=== PATIENT | female | born 1945 | race Caucasian/White ===

== ENCOUNTER 2024-07-18 12:01 | Inpatient (IN) | payer OTHER, SELFPAY ==
[2024-07-18] VITALS (9 sets, daily range): BP systolic 68–144; BP diastolic 27–98; PULSE 69–135; RESP 12–20; TEMP 36.4–36.6; O2SAT 93–98; BMI 32.6
--- NOTE | ~2024-07-18 | XR_ITS ---
EXAMINATION: XR CHEST CLINICAL INFORMATION: Chest pain, chills R/O pneumonia COMPARISON: None available. TECHNIQUE: AP portable view of the chest was obtained. FINDINGS: The cardiac, hilar, and mediastinal contours are normal. The aorta is calcified and mildly tortuous. Lungs demonstrate mild linear atelectasis or scar in the left base. Possible patchy opacity retrocardiac region. Lungs otherwise clear. No effusion or pneumothorax. There are degenerative changes in the spine, and left greater than right shoulder joints. XR/XR chest 1V IMPRESSION: 1. Subtle opacity retrocardiac region, for which subtle pneumonia cannot be excluded. A lateral view may be of benefit. 2. Otherwise, the lungs appear clear. Electronically signed by: Jose Roberto Henry MD 07/18/2024 01:26 PM [facility]
--- NOTE | 2024-07-18 12:40 | ED.DIZZY ---
HPI - Dizziness General Chief Complaint: Dizziness Stated Complaint: (NO AGE GIVEN) DIZZY FROM SNF PER EMS Time Seen by Provider: 07/18/24 12:35 History of Present Illness ED Provider: Dr. John Bustillos HPI Narrative: 79-year-old female with a history of depression, GERD, hypothyroidism, muscle wasting atrophy, TIA, hyperlipidemia, mild cognitive impairment, vertigo, atrial fibrillation who was sent to the emergency department for evaluation of near-syncope/syncope/dizziness over the past several weeks with atrial fibrillation noted on EKG done 07/17/2024. EKG interpretation was sent with the patient's paperwork with the following interpretation: ?In comparison to previous EKG, atrial fibrillation now replace normal sinus rhythm. Atrial fibrillation at 144 beats per minute, nonspecific ST and T-wave abnormalities ?. The patient does have a history of atrial fibrillation and this reading most likely reflects paroxysmal atrial fibrillation and not new onset atrial fibrillation. The patient told me that she has been feeling dizzy for weeks. She states that whenever she stands up she feels like she was going to faint. She states that her vision will get blurred or then turned to black and occasionally she does faint. She states she was faint to the few times over the last several weeks with her last fainting episode being yesterday. She states that they did check her blood pressure lying down and standing in her blood pressure went down and that is why they sent her to the emergency department today. She states that over the last 2 days she has had chills with a nonproductive cough. She states she occasionally has chest tightness but this has been going on for months. She denies shortness of breath at rest but states she does feel short of breath when she ambulates. She denied nausea, vomiting, diarrhea, frequency, dysuria, bloody stools or black stools. She states that she has been drinking fluid but it was refused to eat over the last 2-3 days since they are assuming food on plastic due to a broken barrel washer and she refuses to eat food served on plastic. Related Data Allergies Allergy/AdvReac Type Severity Reaction Status Date / Time lactose AdvReac Gastrointestinal Verified 07/18/24 13:08 Upset Review of Systems Review of Systems: Yes all other systems are reviewed and are negative [facility] Past Medical History [facility] Narrative: Social history: Patient states [facility]2 [facility]. She denies tobacco, alcohol and drug use Social History Social History Advance Directives: No Physical Exam Vital Signs: Vital Signs: Last Vital Signs Temp 97.5 F 07/18/24 13:07 Pulse 135 H 07/18/24 13:42 Resp 20 07/18/24 13:07 BP 68/50 L 07/18/24 13:42 Pulse Ox 97 07/18/24 13:07 O2 Del Method Room Air 07/18/24 13:07 BMI result Body Mass Index 32.6 Vital signs were normal Exam: General: Awake, alert in no distress Head: Normocephalic, atraumatic EENT: PERRL, Lids normal, sclera normal, conjunctiva normal, nose normal , ears normal, throat without erythema or exudates Neck: Supple, no adenopathy Lung: breath sounds symmetric, no wheezing, rales or rhonchi Chest: symmetric movement, nontender Heart: regular rate and rhythm, normal S1, S2 no murmurs or rubs Abdomen: soft, mild epigastric tenderness nondistended, normal bowel sounds Back: no vertebral tenderness, no CVAT Extremities: no deformities, moves all extremities symmetrically Neuro: Awake, alert, oriented, normal speech, cranial nerves intact, moves all extremities symmetrically Psych: Pleasant, cooperative Medications Administered Discontinued Medications Generic Name Dose Route Start Last Admin Trade Name Freq PRN Reason Stop Dose Admin Sodium Chloride 1,000 mls @ 999 mls/hr 07/18/24 14:13 07/18/24 14:54 Ns IV 07/18/24 15:13 999 mls/hr .Q1H1M STA Administration Medical Decision Making Medical Decision Making MDM Narrative: 79-year-old female with a history of depression, GERD, hypothyroidism, muscle wasting atrophy, TIA, hyperlipidemia, mild cognitive impairment, vertigo, atrial fibrillation who was sent to the emergency department for evaluation of near-syncope/syncope/dizziness over the past several weeks with atrial fibrillation noted on EKG done 07/17/2024. Nursing notes states that the patient was sent in for new onset atrial fibrillation with a patient was atrial fibrillation listed has a diagnosis and I suspect that she was paroxysmal atrial fibrillation based on yesterday's EKG reading from the retirement. Patient states that she had orthostatic vital signs that were abnormal. Patient has been drinking fluid but she told me she has been refusing to eat for 2-3 days since food has been served on plastic. Vital signs were normal. Physical examination was unremarkable. Differential diagnosis: ?Includes but is not limited to syncope, near-syncope, vasovagal syncope, arrhythmias, volume depletion, dehydration, orthostatic hypotension, anemia, electrolyte abnormalities Following evaluation was ordered: Orthostatic vital signs, EKG, chest x-ray, laboratory evaluation Course: 14:13 Orthostatic vital signs are as follows: Lying: BP 115/77,Heart rate: 102 Sitting: BP 124/83, heart rate 119 Standing: BP 68/50, heart rate 135-160 range Patient was also symptomatic and felt lightheaded. Patient does have orthostatic hypotension. 15:51 hours My interpretation patient's laboratory evaluation as follows: Normocytic anemia with an H&H of 12 and 34.7. Bilirubin elevated 1.1. Troponin detectable but not elevated at 5.1. BNP elevated 351. COVID-19, RSV and influenza were negative. TSH was normal 2.6. Given the patient's with static hypotension and multiple syncopal episodes, I believe the patient should be admitted for cardiac monitoring and further workup. I did discuss patient's presentation over tiger text with the covering hospitalist, Dr. Villalta and the patient will be admitted for further evaluation. Admission/Observation Consideration of admission/observation: Escalation of care including admission/observation considered (Yes) Lab Data MDM Lab Attestation statement: I reviewed the patient's lab results. 07/18/24 14:43 07/18/24 14:43 Labs: Lab Results 07/18/24 Range/Units 14:43 WBC 7.1 (4.8-10.8) X10*3/uL RBC 3.70 L (4.20-5.50) X10*6/uL Hgb 12.2 (12.0-16.0) g/dl Hct 34.7 L (37.0-47.0) % MCV 93.8 (80.0-98.0) fL MCH 33.0 (27.0-33.0) pg MCHC 35.2 H (31.0-35.0) g/dl RDW 11.9 (11.0-16.0) % Plt Count 197 (160-400) X10*3/uL MPV 9.8 (9.4-12.3) fL Immature Gran % (Auto) 0.4 (0.0-0.4) % Neut % (Auto) 60.6 (45-73) % Lymph % (Auto) 32.1 (20-40) % [place] % (Auto) 5.2 (2-11) % Eos % (Auto) 1.0 (0-4) % Baso % (Auto) 0.7 (0-2) % Lymph # (Auto) 2.3 (1.2-4.9) X10*3/uL [place] # (Auto) 0.4 (0.1-1.2) X10*3/uL Eos # (Auto) 0.1 (0.0-0.4) X10*3/uL Baso # (Auto) 0.1 (0.0-0.2) X10*3/uL Abs Immat Gran (auto) 0.03 (0.00-0.03) X10*3/uL Absolute Neuts (auto) 4.3 (2.0-8.3) x10*3/uL Absolute Nucleated RBC 0.000 (0.0-0.012) X10*3/uL Nucleated RBC % (auto) 0.0 (0.0-0.2) /100WBC APTT 26.8 (26.0-36.8) SEC Sodium 137 (135-145) mmol/L Potassium 3.8 (3.3-5.1) mmol/L Chloride 104 (96-108) mmol/L Carbon Dioxide 27 (22-29) mmol/L Anion Gap 10 L (12-20) BUN 11 (9-16) mg/dL Creatinine 0.75 (0.5-1.4) mg/dL Estim Creat Clear Calc 53.5 Estimated GFR > 60 Random Glucose 99 (60-115) mg/dL Calcium 9.5 (8.4-10.2) mg/dL Magnesium 1.7 (1.6-2.6) mg/dL Total Bilirubin 1.1 H (0.0-1.0) mg/dL AST 23 (5-31) U/L ALT 15 (0-31) U/L Alkaline Phosphatase 66 (39-117) U/L Troponin I High Sens 5.1 (<3.5-17.0) ng/L B-Natriuretic Peptide 351 H (<100) pg/mL Total Protein 6.8 (6.5-8.0) g/dL Albumin 4.1 (3.5-5.0) g/dL Lipase 21 (8-78) U/L TSH 2.60 (0.32-4.0) uIU/mL Influenza Type A (PCR) NEGATIVE (Negative) Influenza Type B (PCR) NEGATIVE (Negative) RSV RNA Qual (PCR) NEGATIVE (Negative) SARS-CoV-2 RNA (RT-PCR) NEGATIVE (Negative) Independent Interpretation I performed an independent interpretation of an: EKG and Plain X-Ray Interpretation: My interpretation patient's 12 EKG done at 14:13 hours is as follows: Atrial fibrillation with a rate of 94, normal QRS duration and QTC interval, no ST segment elevation, no ST segment depression, no significant T-wave abnormalities, incomplete right bundle-branch block, no PACs, no PVCs XR chest 1V IMPRESSION: 1. Subtle opacity retrocardiac region, for which subtle pneumonia cannot be excluded. A lateral view may be of benefit. 2. Otherwise, the lungs appear clear. Electronically signed by: Jose Roberto Henry MD 07/18/2024 01:26 PM EST Discharge Plan Discharge Patient Disposition: Admitted As Inpatient Print Language: Luxembourgish
--- NOTE | 2024-07-18 13:06 | ECG_ITS ---
Test Reason : SYNCOPE Blood Pressure : */* mmHG Vent. Rate : 94 BPM Atrial Rate : * BPM P-R Int : * ms QRS Dur : 94 ms QT Int : 374 ms P-R-T Axes : * -57 65 degrees QTcB Int : 467 ms Atrial fibrillation Left axis deviation Incomplete right bundle branch block Abnormal ECG No previous ECGs available Referred By: John Bustillos Electronically Signed By: JEANIE COHEN MD
[2024-07-18 14:50] LABS: MANUAL DIFF FLAG NO
[2024-07-18 14:54] LABS: Basophils Absolute Auto 0.1 X10*3/uL (0.0-0.2); Basophils Percent Auto 0.7 % (0-2); Eosinophils Absolute Auto 0.1 X10*3/uL (0.0-0.4); Hematocrit 34.7 % (37.0-47.0); Hemoglobin 12.2 g/dl (12.0-16.0); Imm Gran Abs Auto 0.03 X10*3/uL (0.00-0.03); Imm Gran Pct Auto 0.4 % (0.0-0.4); Lymphocytes Absolute Auto 2.3 X10*3/uL (1.2-4.9); Lymphocytes Percent Auto 32.1 % (20-40); Mean Corpuscular HGB Conc 35.2 g/dl (31.0-35.0); Mean Corpuscular Volume 93.8 fL (80.0-98.0); Mean Platelet Volume 9.8 fL (9.4-12.3); Monocytes Absolute Auto 0.4 X10*3/uL (0.1-1.2); Monocytes Percent Auto 5.2 % (2-11); Neutrophils Absolute Auto 4.3 x10*3/uL (2.0-8.3); Neutrophils Percent Auto 60.6 % (45-73); Platelet Count 197 X10*3/uL (160-400); Red Cell Distribution Width 11.9 % (11.0-16.0); White Blood Count 7.1 X10*3/uL (4.8-10.8)
[2024-07-18] MEDS: 0.9 % Sodium Chloride 1,000 ML 999 ML IV (14:54)
[2024-07-18 15:05] LABS: Partial Thromboplastin Time 26.8 SEC (26.0-36.8)
[2024-07-18 15:11] LABS: B Type Natriuretic Peptide 351 pg/mL (<100)
[2024-07-18 15:12] LABS: Alanine Aminotransferase 15 U/L (0-31); Albumin Level 4.1 g/dL (3.5-5.0); Alkaline Phosphatase 66 U/L (39-117); Anion Gap 10 (12-20); Aspartate Amino Transferase 23 U/L (5-31); Bilirubin Total 1.1 mg/dL (0.0-1.0); Blood Urea Nitrogen 11 mg/dL (9-16); Calcium 9.5 mg/dL (8.4-10.2); Carbon Dioxide 27 mmol/L (22-29); Chloride 104 mmol/L (96-108); Creatinine Clr Calc Pharmacy 53.5; Estimated Glomerular Filt Rate > 60; Glucose Random 99 mg/dL (60-115); Lipase 21 U/L (8-78); Magnesium 1.7 mg/dL (1.6-2.6); Potassium 3.8 mmol/L (3.3-5.1); Sodium 137 mmol/L (135-145); Total Protein 6.8 g/dL (6.5-8.0)
[2024-07-18 15:13] LABS: Troponin-I High Sensitivity 5.1 ng/L (<3.5-17.0)
[2024-07-18 15:31] LABS: Influenza A PCR NEGATIVE (Negative); Influenza B PCR NEGATIVE (Negative); Resp Syncy Virus RNA Qual PCR NEGATIVE (Negative); SARS COV2 PCR INHOUSE NEGATIVE (Negative)
[2024-07-18 16:15] LABS: Appearance Urine Cloudy; Color Urine Yellow; Glucose Urine UA Negative (Negative); Leukocyte Esterase Urine Moderate (2+) (Negative); Nitrite Urine Negative (Negative); PH 5.5 (5.0-9.0); Specific Gravity - Urine 1.015 (1.005-1.025); UMIC TRIGGER UACC YES; Urine Blood Trace (Negative); Urine Ketones Negative (Negative); Urine Protein Negative (Neg-Trace)
--- NOTE | 2024-07-18 16:15 | MHC.EDTECH ---
this tech and DEQUAN avitia assisted pt to bedpan and pt was able to void and urine sample has been sent to lab
[2024-07-18 16:22] LABS: Bacteria Urine 4+ (None Seen); Hyaline Casts Urine 0-2 /LPF (0-2); RBC Urine 0-2 /HPF (0-2); UACC Culture Trigger YES; WBC Urine 21-50 /HPF (0-5)
--- NOTE | 2024-07-18 16:42 | P.HPHOSP_ITS ---
History of Present Illness Date of Service: 07/18/24 Chief Complaint: orthostatic hypotension An 79 years old lady with PMH of GERD, hypothyroidism, HLD among others who was sent to ED for evaluation of near syncope and feeling dizzy upon standing. The patient reports that she has been having recurrent episodes of dizziness and lightheadedness upon standing up for the last few weeks. reporting decrease physical activity and being unable to stand up as she feels dizzy. No chest pain, palpitations, SOB, nausea, vomiting, diarrhea or urinary symptoms. She is not the best historian so the nursing from facility reported new onset Afib. in ED orthostatic pressure dropped by more than 20 points with associated lightheadedness. will be admitted for evaluation and monitoring. Review of Systems 2 Review of Systems: No fever, chills but feels weakness No chest pain, palpitation No shortness of breath or coughing No abdominal pain, nausea or vomiting No urinary symptoms No any rash or wounds PMFSH Medical History Hypothyroidism COPD (chronic obstructive pulmonary disease) GERD (gastroesophageal reflux disease) Social History Patient Tobacco Use Status: Never used Tobacco Smoked in Last 30 Days: No Use of substances other than those prescribed or required for medical reasons: No Advance Directives: No Nutrition Risks: No Nutritional Risk Meds Allergies Allergy/AdvReac Type Severity Reaction Status Date / Time lactose AdvReac Gastrointestinal Verified 07/18/24 13:08 Upset Active Medications: Current Medications Acetaminophen (Acetaminophen 325 Mg Tablet) 650 mg PO Q6H PRN PRN Reason: Pain, Mild 1-3,fever,headache Calcium Carbonate (Calcium Carbonate 750 Mg Tab.Chew) 750 mg PO Q4H PRN PRN Reason: Heartburn Enoxaparin Sodium (Enoxaparin Sodium 40 Mg/0.4 Ml Syringe) 40 mg SUBCUT Q24H RAINE Lactated Ringer's (Lr) 1,000 mls @ 100 mls/hr IVCONT .Q10H RAINE Magnesium Hydroxide (Milk Of Magnesia 30 Ml Oral.Susp) 30 ml PO DAILY PRN PRN Reason: Constipation Melatonin (Melatonin 3 Mg Tablet) 6 mg PO BEDTIME PRN PRN Reason: Insomnia Midodrine (Midodrine Hcl 5 Mg Tablet) 5 mg PO TID [facility] Ondansetron HCl (Ondansetron Hcl 4 Mg/2 Ml Vial) 4 mg IVPUSH Q8H PRN PRN Reason: Nausea and Vomiting Sodium Chloride (0.9 % Sodium Chloride Flush 3 Ml Syringe) 3 ml IVFLUSH QSHIFT [facility] Home Medications ?Medication ?Instructions ?Recorded ?Confirmed ?Last Taken ?Type acetaminophen 325 mg tablet 650 mg PO Q4H PRN Fever Or Pain 07/18/24 07/18/24 Unknown History acetaminophen 500 mg tablet 1,000 mg PO BID 07/18/24 07/18/24 Unknown History acetaminophen 650 mg rectal 650 mg MO Q4H PRN Fever Or Pain 07/18/24 07/18/24 Unknown History suppository albuterol sulfate 90 mcg/actuation 1 inh inhalation Q4H PRN Shortness 07/18/24 07/18/24 Unknown History aerosol inhaler (Ventolin HFA) Of Breath Or Wheezing aspirin 81 mg chewable tablet 81 mg PO DAILY 07/18/24 07/18/24 Unknown History atorvastatin 20 mg tablet 20 mg PO DAILY 07/18/24 07/18/24 Unknown History bisacodyl 10 mg rectal suppository 10 mg MO DAILY PRN Constipation 07/18/24 07/18/24 Unknown History buspirone 10 mg tablet 10 mg PO Q8H 07/18/24 07/18/24 Unknown History cetirizine 10 mg tablet 10 mg PO DAILY 07/18/24 07/18/24 Unknown History cyanocobalamin (vitamin B-12) 1,000 mcg PO DAILY 07/18/24 07/18/24 Unknown History 1,000 mcg tablet,extended release (Vitamin B-12 ER) diclofenac sodium 1 % topical gel 4 g topical BID 07/18/24 07/18/24 Unknown History esomeprazole magnesium 20 mg 20 mg PO DAILY 07/18/24 07/18/24 Unknown History granules delayed release for susp fluticasone propionate 50 1 spray intranasal BID 07/18/24 07/18/24 Unknown History mcg/actuation nasal spray,suspension guaifenesin 100 mg/5 mL oral liquid 200 mg PO Q4H PRN Cough 07/18/24 07/18/24 Unknown History hydrocortisone 1 % topical cream 1 appl topical Q8H PRN Rash 07/18/24 07/18/24 Unknown History ipratropium 20 mcg-albuterol 100 2 puff inhalation Q4H PRN 07/18/24 07/18/24 Unknown History mcg/actuation mist for inhalation Shortness Of Breath Or Wheezing (Combivent Respimat) levothyroxine 75 mcg tablet 75 mcg PO DAILY@0600 07/18/24 07/18/24 Unknown History loteprednol etabonate 0.5 % eye 1 drp ophthalmic (eye) BID 07/18/24 07/18/24 Unknown History gel drops magnesium hydroxide 400 mg/5 mL 30 ml PO DAILY PRN Constipation 07/18/24 07/18/24 Unknown History oral suspension (Milk of Magnesia) meclizine 12.5 mg tablet 12.5 mg PO Q8H PRN Dizziness 07/18/24 07/18/24 Unknown History melatonin 5 mg tablet 10 mg PO BEDTIME 07/18/24 07/18/24 Unknown History ondansetron HCl 8 mg tablet 8 mg PO Q8H PRN Nausea And Vomiting 07/18/24 07/18/24 Unknown History polyvinyl alcohol 1.4 % eye drops 1 drp ophthalmic (eye) TID PRN Dry 07/18/24 07/18/24 Unknown History (Artificial Tears (polyvinyl Eyes alcohol)) prazosin 2 mg capsule 2 mg PO BEDTIME 07/18/24 07/18/24 Unknown History sertraline 25 mg tablet 50 mg PO DAILY 07/18/24 07/18/24 Unknown History sodium phosphates 19 gram-7 118 ml MO DAILY PRN Constipation 07/18/24 07/18/24 Unknown History gram/118 mL enema (Fleet Enema) tramadol 50 mg tablet 50 mg PO BID 07/18/24 07/18/24 Unknown History trazodone 50 mg tablet 25 mg PO BID 07/18/24 07/18/24 Unknown History verapamil 80 mg tablet 80 mg PO BID 07/18/24 07/18/24 Unknown History Physical Exam 2 Vital Signs and Narrative: Vital Signs: Last Vital Signs Temp 97.5 F 07/18/24 13:07 Pulse 117 H 07/18/24 16:05 Resp 18 07/18/24 16:05 BP 104/27 L 07/18/24 16:05 Pulse Ox 98 07/18/24 16:05 O2 Del Method Room Air 07/18/24 16:05 BMI result Body Mass Index 32.6 Const: Other: Constitutional : Awake, interactive, not in distress Neck : Normal inspection, Supple Cardiovascular : irregular irregular, no JVP, no lower extremity edema Respiratory : good bilateral air entry, fine crackles, wheezes or rhonchi Gastrointestinal: soft, lax, Normal bowel sounds, Non tender Skin : Warm, Dry Neurological : Alert & oriented x3, No focal deficit Results Labs 07/19/24 05:15 07/19/24 05:15 Labs: Laboratory Results - last 24 hr 07/18/24 07/18/24 14:43 16:07 MCV 93.8 MCH 33.0 MCHC 35.2 H RDW 11.9 Plt Count 197 MPV 9.8 Immature Gran % (Auto) 0.4 Neut % (Auto) 60.6 Lymph % (Auto) 32.1 [place] % (Auto) 5.2 Eos % (Auto) 1.0 Baso % (Auto) 0.7 Lymph # (Auto) 2.3 [place] # (Auto) 0.4 Eos # (Auto) 0.1 Baso # (Auto) 0.1 Abs Immat Gran (auto) 0.03 Absolute Neuts (auto) 4.3 Absolute Nucleated RBC 0.000 Nucleated RBC % (auto) 0.0 APTT 26.8 Anion Gap 10 L Estim Creat Clear Calc 53.5 Estimated GFR > 60 Random Glucose 99 Calcium 9.5 Magnesium 1.7 Total Bilirubin 1.1 H AST 23 ALT 15 Alkaline Phosphatase 66 Troponin I High Sens 5.1 B-Natriuretic Peptide 351 H Total Protein 6.8 Albumin 4.1 Lipase 21 TSH 2.60 Urine Color Yellow Urine Appearance Cloudy Urine pH 5.5 Ur Specific [place] 1.015 Urine Protein Negative Urine Glucose (UA) Negative Urine Ketones Negative Urine Blood Trace H Urine Nitrite Negative Ur Leukocyte Esterase Moderate (2+) H Urine RBC 0-2 Urine WBC 21-50 H Ur Squamous Epith Cells 3-5 Urine Bacteria 4+ Hyaline Casts 0-2 Influenza Type A (PCR) NEGATIVE Influenza Type B (PCR) NEGATIVE RSV RNA Qual (PCR) NEGATIVE SARS-CoV-2 RNA (RT-PCR) NEGATIVE Imaging Radiologist's Impressions: Impressions Chest X-Ray 07/18/24 13:06 IMPRESSION: 1. Subtle opacity retrocardiac region, for which subtle pneumonia cannot be excluded. A lateral view may be of benefit. 2. Otherwise, the lungs appear clear. Electronically signed by: Jose Roberto Henry MD 07/18/2024 01:26 PM EST Assessment and Plan (1) Atrial fibrillation: Status: Acute (2) Syncope: Status: Acute (3) Orthostatic hypotension: Status: Acute Plan An 81 years old lady with PMH of dementia, GERD, anxiety, scoliosis, COPD, HLD, HTN among others who presented to ED with difficulties swallowing and left sided weakness. Postural hypotension could be related to physical decoditioning, HTN medications and new Afib give fluids Midodrine for low BP compression stocking physical therapy High protein diet Hx of paroxysmal Atrial fibrillation rate around 100-110 on Baby Aspirin only from SNF report, discussed Eliquis and started get Echo Telemetry for now GERD, PPI Hx COPD, not in exacerbation, PRN nebs Hx TIA, ASA and Statin Depression, Sertrakube HTN, Verapamil on hold DVT PPx Eliquis The patient will be monited for the listed abnormalitis. Quality Stroke Does the patient have a stroke diagnosis?: No VTE Prior VTE?: No VTE Risk Level:: Medical - moderate - high VTE Device Contraindication: Treatment Not Indicated VTE Drug Contraindication: N/A - Med Ordered
--- OUTSIDE RECORDS SUMMARY | 2024-07-18 16:47 | XMS_ITS | Clinical Summary ---
Author Organization [facility] Address [address] [place] [address] Phone Care Team Providers Care Flight Director Name Role Phone Joshua White MD Primary Care Provider [phone] Encounters Date Type Department Care Team Description 07/17/2024 Lab Requisition [facility] Lab [address] [place] [address] Joshua White MD Unspecified atrial fibrillation (CMS/HCC) 07/17/2024 Lab Requisition [facility] Lab [address] [place] [address] Joshua White MD Dizziness and giddiness; Benign paroxysmal vertigo, unspecified ear from Last 3 Months Social History Tobacco Use Types Packs/Day Years Used Date Smoking Tobacco: Never Assessed Sex and Gender Information Value Date Recorded Sex Assigned at Not on file Gender Identity Not on file Sexual Orientation Not on file Plan of Treatment Health Maintenance Due Date Last Done Comments DTaP,Tdap,and Td Vaccines (1 - Tdap) 1962 Zoster Vaccines (1 of 2) 1993 Pneumococcal Vaccine: 65+ Ye ars (1 of 1 - PCV) 2008 RSV Immunization Patients 60 + Years Old (1 - 1-dose 75+ series) 2018 COVID-19 Vaccine ( - 2023-2 5 season) 2024 Influenza Vaccine (#1) 2024 Depression Screening 07/17/2024 Falls Risk Assessment 07/17/2024 Osteoporosis Screening (Bone Density Screening) 07/17/2024 Social Influencers of Health Screening 07/17/2024 HIB Vaccines Aged Out No longer eligi ble based on patient's age to complete this topic HPV Vaccines Aged Out No longer eligi ble based on patient's age to complete this topic Hepatitis A Vaccines Aged Out No long er eligible based on patient's age to complete this topic Hepatitis B Vaccines Aged Out No long er eligible based on patient's age to complete this topic IPV Vaccines Aged Out No longer eligi ble based on patient's age to complete this topic MMR Vaccines Aged Out No longer eligi ble based on patient's age to complete this topic Meningococcal ACWY Vaccine Aged Out N o longer eligible based on patient's age to complete this topic RSV Immunization Patients Un baljit 20 months Aged Out No longer eligible b ased on patient's age to complete this topic Varicella Vaccines Aged Out No longer eligible based on patient's age to complete this topic Procedures Procedure Name Priority Date/Time Associated Diagnosis Comments BASIC METABOLIC PANEL Routine 07/18/2024 7:48 AM EST Unspecified atrial fibrillation (CMS/HCC) COMPLETE BLOOD COUNT Routine 07/18/2024 7:48 AM EST Unspecified atrial fibrillation (CMS/HCC) URINALYSIS WITH REFLEX MICROSCOPIC AND CULTURE Routine 07/16/2024 4:23 PM EST Dizziness and giddiness Benign paroxysmal vertigo, unspecified ear URINALYSIS WITH REFLEX MICROSCOPIC AND CULTURE Routine 07/16/2024 4:23 PM EST Dizziness and giddiness Benign paroxysmal vertigo, unspecified ear CULTURE URINE Routine 07/16/2024 4:23 PM EST Dizziness and giddiness Benign paroxysmal vertigo, unspecified ear from Last 3 Months Results * (ABNORMAL) Complete blood count (07/18/2024 7:48 AM EST) WBC 6.4 4.8 - 10.8 K/mcL LAB HEMETOLOGY METHOD 07/18/2024 11:39 AM EST [facility] RBC 3.70(L) 3.80 - 4.80 M/mcL LAB HEMETOLOGY METHOD 07/18/2024 11:39 AM EST [facility] Hemoglobin 12.2 11.5 - 16.0 g/dL LAB HEMETOLOGY METHOD 07/18/2024 11:39 AM EST [facility] Hematocrit 35.9 35.0 - 47.0 % LAB HEMETOLOGY METHOD 07/18/2024 11:39 AM [facility] MCV 96.2 79.0 - 98.0 FL LAB HEMETOLOGY METHOD 07/18/2024 11:39 AM [facility] MCH 32.7(H) 27.0 - 32.0 pcg LAB HEMETOLOGY METHOD 07/18/2024 11:39 AM EST [facility] MCHC 34.0 32.0 - 37.0 g/dL LAB HEMETOLOGY METHOD 07/18/2024 11:39 AM [facility] RDW 11.9 11.0 - 15.0 % LAB HEMETOLOGY METHOD 07/18/2024 11:39 AM [facility] Platelets 198 130 - 400 K/mcL LAB HEMETOLOGY METHOD 07/18/2024 11:39 AM EST [facility] MPV 10.7 7.0 - 11.0 FL LAB HEMETOLOGY METHOD 07/18/2024 11:39 AM [facility] NRBC 0.0 <1.0 % LAB HEMETOLOGY METHOD 07/18/2024 11:39 AM [facility] NRBC Absolute 0.00 <0.10 K/mcL LAB HEMETOLOGY METHOD 07/18/2024 11:39 AM [facility] Blood Venous blood specimen / Unknown Venipuncture / Unknown 07/18/2024 7:48 AM EST 07/18/2024 11:13 AM EST Joshua White MD LAB BLOOD ORDERABLES [facility] LAB [address] [place] [address], * Basic metabolic panel (07/18/2024 7:48 AM EST) Sodium 138 133 - 145 mmol/L LAB CHEMISTRY METHOD 07/18/2024 2:24 PM [facility] Potassium 3.8 3.5 - 5.5 mmol/L LAB CHEMISTRY METHOD 07/18/2024 2:24 PM [facility] Chloride 106 96 - 110 mmol/L LAB CHEMISTRY METHOD 07/18/2024 2:24 PM [facility] CO2 24 21 - 32 mmol/L LAB CHEMISTRY METHOD 07/18/2024 2:24 PM [facility] Anion Gap 8 3 - 11 LAB CHEMISTRY METHOD 07/18/2024 2:24 PM [facility] Glucose 98 70 - 100 mg/dL LAB CHEMISTRY METHOD 07/18/2024 2:24 PM [facility] BUN 11 5 - 25 mg/dL LAB CHEMISTRY METHOD 07/18/2024 2:24 PM [facility] Creatinine 0.61 0.50 - 1.10 mg/dL LAB CHEMISTRY METHOD 07/18/2024 2:24 PM [facility] eGFR 90 >=60 mL/min/1. 73m2 LAB CHEMISTRY METHOD 07/18/2024 2:24 PM [facility] Comment:Calculation based on the??Chronic Kidney Disease Epidemiology Collaboration (CKD-EPI) equation refit??without adjustment for race. BUN/Creatinine Ratio 18.0 LAB CHEMISTRY METHOD 07/18/2024 2:24 PM [facility] Calcium 8.5 8.5 - 10.5 mg/dL LAB CHEMISTRY METHOD 07/18/2024 2:24 PM [facility] Blood Venous blood specimen / Unknown Venipuncture / Unknown 07/18/2024 7:48 AM EST 07/18/2024 11:13 AM EST Joshua White MD LAB BLOOD ORDERABLES [facility] [address] [place] [address], [place] [phone] * (ABNORMAL) Urinalysis with reflex microscopic and culture (07/16/2024 4:23 PM EST) Specific [place] Urine 1.019 1.003 - 1.030 LAB URINALYSIS - AUTOMATED METHOD 07/17/2024 8:43 AM [facility] pH, Urine 5.5 5.0 - 8.0 pH LAB URINALYSIS - AUTOMATED METHOD 07/17/2024 8:43 AM [facility] Leukocytes, Urine Moderate(A) Negative LAB URINALYSIS - AUTOMATED METHOD 07/17/2024 8:43 AM [facility] Nitrite, Urine Positive(A) Negative LAB URINALYSIS - AUTOMATED METHOD 07/17/2024 8:43 AM [facility] Protein, Urine Negative <=Trace mg/dL LAB URINALYSIS - AUTOMATED METHOD 07/17/2024 8:43 AM [facility] Glucose, Urine Negative Negative mg/dL LAB URINALYSIS - AUTOMATED METHOD 07/17/2024 8:43 AM [facility] Ketones, Urine Negative Negative mg/dL LAB URINALYSIS - AUTOMATED METHOD 07/17/2024 8:43 AM [facility] Urobilinogen , Urine 0.2 0.2 - 1.0 mg/dL LAB URINALYSIS - AUTOMATED METHOD 07/17/2024 8:43 AM [facility] Bilirubin, Urine Negative Negative LAB URINALYSIS - AUTOMATED METHOD 07/17/2024 8:43 AM [facility] Blood, Urine Trace(A) Negative LAB URINALYSIS - AUTOMATED METHOD 07/17/2024 8:43 AM [facility] RBC, Urine 2.6 0 - 4 /HPF LAB URINALYSIS - AUTOMATED METHOD 07/17/2024 8:43 AM [facility] WBC, Urine 22.6(H) 0 - 4 /HPF LAB URINALYSIS - AUTOMATED METHOD 07/17/2024 8:43 AM [facility] Squamous Epithelial, Urine 28 0 - 60 /LPF LAB URINALYSIS - AUTOMATED METHOD 07/17/2024 8:43 AM [facility] Crystals, Urine LT CALCIUM OXALATE /LPF LAB URINALYSIS - AUTOMATED METHOD 07/17/2024 8:43 AM [facility] Bacteria, Urine Many(A) Negative /HPF LAB URINALYSIS - AUTOMATED METHOD 07/17/2024 8:43 AM [facility] Hyaline Casts, Urine 3.3(H) 0 - 3 /LPF LAB URINALYSIS - AUTOMATED METHOD 07/17/2024 8:43 AM [facility] Urine Urine specimen obtained by clean catch procedure / Unknown Non-blood Collection / Unknown 07/16/2024 4:23 PM EST 07/17/2024 7:50 AM EST Joshua White MD LAB URINE ORDERABLES [facility] LAB [address] [place] [address], from Last 3 Months Care Teams Flight Director Relationship Specialty Start Date End Date Joshua Whiet MD [address] [facility] [address] [place] [id number] PCP - General Family Medicine 07/17/24
--- OUTSIDE RECORDS SUMMARY | 2024-07-18 16:47 | XMS_ITS | Encounter Summary ---
Author Organization [facility] Address [address] [place] [address] Care Team Providers Care Emergency Room Clerk Name Role Phone Joshua White MD Primary Care Provider [phone] Encounter Details Date Type Department Care Team (Late st Contact Info) Description 07/17/2024 Lab Requisition [facility] Lab [address] [place] [address] Joshua White MD [address] [place] [address] [address] [place], [address] Unspecified atrial fibrillation (CMS/HCC) Social History Tobacco Use Types Packs/Day Years Used Date Smoking Tobacco: Never Assessed Sex and Gender Information Value Date Recorded Sex Assigned at Not on file Gender Identity Not on file Sexual Orientation Not on file documented as of this encounter Plan of Treatment Not on file documented as of this encounter Procedures Procedure Name Priority Date/Time Associated Diagnosis Comments COMPLETE BLOOD COUNT Routine 07/18/2024 7:48 AM EST Unspecified atrial fibrillation (CMS/HCC) BASIC METABOLIC PANEL Routine 07/18/2024 7:48 AM EST Unspecified atrial fibrillation (CMS/HCC) documented in this encounter Results * Basic metabolic panel (07/18/2024 7:48 AM EST) Sodium 138 133 - 145 mmol/L LAB CHEMISTRY METHOD 07/18/2024 2:24 PM EST [facility] Potassium 3.8 3.5 - 5.5 mmol/L LAB CHEMISTRY METHOD 07/18/2024 2:24 PM EST [facility] Chloride 106 96 - 110 mmol/L LAB CHEMISTRY METHOD 07/18/2024 2:24 PM EST [facility] CO2 24 21 - 32 mmol/L LAB CHEMISTRY METHOD 07/18/2024 2:24 PM [facility] Anion Gap 8 3 - 11 LAB CHEMISTRY METHOD 07/18/2024 2:24 PM [facility] Glucose 98 70 - 100 mg/dL LAB CHEMISTRY METHOD 07/18/2024 2:24 PM [facility] BUN 11 5 - 25 mg/dL LAB CHEMISTRY METHOD 07/18/2024 2:24 PM [facility] Creatinine 0.61 0.50 - 1.10 mg/dL LAB CHEMISTRY METHOD 07/18/2024 2:24 PM [facility] eGFR 90 >=60 mL/min/1. 73m2 LAB CHEMISTRY METHOD 07/18/2024 2:24 PM [facility] Comment:Calculation based on the??Chronic Kidney Disease Epidemiology Collaboration (CKD-EPI) equation refit??without adjustment for race. BUN/Creatinine Ratio 18.0 LAB CHEMISTRY METHOD 07/18/2024 2:24 PM [facility] Calcium 8.5 8.5 - 10.5 mg/dL LAB CHEMISTRY METHOD 07/18/2024 2:24 PM [facility] Blood Venous blood specimen / Unknown Venipuncture / Unknown 07/18/2024 7:48 AM EST 07/18/2024 11:13 AM EST Joshua White MD LAB BLOOD ORDERABLES [facility] LAB [address] [place] [address], * (ABNORMAL) Complete blood count (07/18/2024 7:48 AM EST) WBC 6.4 4.8 - 10.8 K/mcL LAB HEMETOLOGY METHOD 07/18/2024 11:39 AM EST [facility] RBC 3.70(L) 3.80 - 4.80 M/mcL LAB HEMETOLOGY METHOD 07/18/2024 11:39 AM [facility] Hemoglobin 12.2 11.5 - 16.0 g/dL LAB HEMETOLOGY METHOD 07/18/2024 11:39 AM [facility] Hematocrit 35.9 35.0 - 47.0 % LAB HEMETOLOGY METHOD 07/18/2024 11:39 AM [facility] MCV 96.2 79.0 - 98.0 FL LAB HEMETOLOGY METHOD 07/18/2024 11:39 AM [facility] MCH 32.7(H) 27.0 - 32.0 pcg LAB HEMETOLOGY METHOD 07/18/2024 11:39 AM [facility] MCHC 34.0 32.0 - 37.0 g/dL LAB HEMETOLOGY METHOD 07/18/2024 11:39 AM [facility] RDW 11.9 11.0 - 15.0 % LAB HEMETOLOGY METHOD 07/18/2024 11:39 AM [facility] Platelets 198 130 - 400 K/mcL LAB HEMETOLOGY METHOD 07/18/2024 11:39 AM [facility] MPV 10.7 7.0 - 11.0 FL LAB HEMETOLOGY METHOD 07/18/2024 11:39 AM [facility] NRBC 0.0 <1.0 % LAB HEMETOLOGY METHOD 07/18/2024 11:39 AM [facility] NRBC Absolute 0.00 <0.10 K/mcL LAB HEMETOLOGY METHOD 07/18/2024 11:39 AM [facility] Blood Venous blood specimen / Unknown Venipuncture / Unknown 07/18/2024 7:48 AM EST 07/18/2024 11:13 AM EST Joshua White MD LAB BLOOD ORDERABLES [facility] LAB [address] [place] [address], documented in this encounter Visit Diagnoses Diagnosis Unspecified atrial fibrillation (CMS/HCC) documented in this encounter Care Teams Emergency Room Clerk Relationship Specialty Start Date End Date Joshua White MD [address] [place] [phone] PCP - General Family Medicine 07/17/24 documented as of this encounter
--- OUTSIDE RECORDS SUMMARY | 2024-07-18 16:47 | XMS_ITS | Encounter Summary ---
Author Organization [facility] Address [address] [place] [address] Care Team Providers Care Recycle Driver Name Role Phone Joshua White MD Primary Care Provider [phone] Encounter Details Date Type Department Care Team (Late st Contact Info) Description 07/17/2024 Lab Requisition [facility] Lab [address] [facility] [place] [address] Joshua White MD [address] [facility] [address] [place], [address] Dizziness and giddiness; Benign paroxysmal vertigo, unspecified ear Social History Tobacco Use Types Packs/Day Years Used Date Smoking Tobacco: Never Assessed Sex and Gender Information Value Date Recorded Sex Assigned at Not on file Gender Identity Not on file Sexual Orientation Not on file documented as of this encounter Plan of Treatment Pending Results Name Type Priority Associated Diagnoses Date /Time Culture urine Microbiology Routine Dizziness and giddiness Benign paroxysmal vertigo, unspecified ear 07/16/2024 4:23 PM EST documented as of this encounter Procedures Procedure Name Priority Date/Time Associated Diagnosis Comments URINALYSIS WITH REFLEX MICROSCOPIC AND CULTURE Routine 07/16/2024 4:23 PM EST Dizziness and giddiness Benign paroxysmal vertigo, unspecified ear URINALYSIS WITH REFLEX MICROSCOPIC AND CULTURE Routine 07/16/2024 4:23 PM EST Dizziness and giddiness Benign paroxysmal vertigo, unspecified ear CULTURE URINE Routine 07/16/2024 4:23 PM EST Dizziness and giddiness Benign paroxysmal vertigo, unspecified ear documented in this encounter Results * (ABNORMAL) Urinalysis with reflex microscopic and culture (07/16/2024 4:23 PM EST) Specific [place] Urine 1.019 1.003 - 1.030 LAB URINALYSIS - AUTOMATED METHOD 07/17/2024 8:43 AM [facility] pH, Urine 5.5 5.0 - 8.0 pH LAB URINALYSIS - AUTOMATED METHOD 07/17/2024 8:43 AM [facility] Leukocytes, Urine Moderate(A) Negative LAB URINALYSIS - AUTOMATED METHOD 07/17/2024 8:43 AM [facility] Nitrite, Urine Positive(A) Negative LAB URINALYSIS - AUTOMATED METHOD 07/17/2024 8:43 AM [facility] Protein, Urine Negative <=Trace mg/dL LAB URINALYSIS - AUTOMATED METHOD 07/17/2024 8:43 AM [facility] Glucose, Urine Negative Negative mg/dL LAB URINALYSIS - AUTOMATED METHOD 07/17/2024 8:43 AM [facility] Ketones, Urine Negative Negative mg/dL LAB URINALYSIS - AUTOMATED METHOD 07/17/2024 8:43 AM [facility] Urobilinogen , Urine 0.2 0.2 - 1.0 mg/dL LAB URINALYSIS - AUTOMATED METHOD 07/17/2024 8:43 AM [facility] Bilirubin, Urine Negative Negative LAB URINALYSIS - AUTOMATED METHOD 07/17/2024 8:43 AM [facility] Blood, Urine Trace(A) Negative LAB URINALYSIS - AUTOMATED METHOD 07/17/2024 8:43 AM [facility] RBC, Urine 2.6 0 - 4 /HPF LAB URINALYSIS - AUTOMATED METHOD 07/17/2024 8:43 AM [facility] WBC, Urine 22.6(H) 0 - 4 /HPF LAB URINALYSIS - AUTOMATED METHOD 07/17/2024 8:43 AM [facility] Squamous Epithelial, Urine 28 0 - 60 /LPF LAB URINALYSIS - AUTOMATED METHOD 07/17/2024 8:43 AM [facility] Crystals, Urine LT CALCIUM OXALATE /LPF LAB URINALYSIS - AUTOMATED METHOD 07/17/2024 8:43 AM [facility] Bacteria, Urine Many(A) Negative /HPF LAB URINALYSIS - AUTOMATED METHOD 07/17/2024 8:43 AM [facility] Hyaline Casts, Urine 3.3(H) 0 - 3 /LPF LAB URINALYSIS - AUTOMATED METHOD 07/17/2024 8:43 AM [facility] Urine Urine specimen obtained by clean catch procedure / Unknown Non-blood Collection / Unknown 07/16/2024 4:23 PM EST 07/17/2024 7:50 AM EST Joshua White MD LAB URINE ORDERABLES [facility] [address] [place] [address], documented in this encounter Visit Diagnoses Diagnosis Dizziness and giddiness Benign paroxysmal vertigo, unspecified ear documented in this encounter Care Teams Recycle Driver Relationship Specialty Start Date End Date Joshua White MD [address] [place] [phone] PCP - General Family Medicine 07/17/24 documented as of this encounter
[2024-07-18] MEDS: Lactated Ringers 1,000 ML 100 ML IVCONT (17:16)
[2024-07-18] MEDS: Midodrine HCl 5 MG TABLET PO ×2 (17:31→22:33)
--- NOTE | 2024-07-18 18:54 | PHA.MEDREC ---
Pharmacy Consult ? Medication Reconciliation Pharmacy has completed the medication reconciliation, using med list from [facility].
[2024-07-18] MEDS: Acetaminophen 325 MG TABLET 650 MG PO (22:32)
[2024-07-18] MEDS: Melatonin 3 MG TABLET 9 MG PO (22:32)
[2024-07-18] MEDS: busPIRone HCl 10 MG TABLET PO (22:33)
[2024-07-18] MEDS: Apixaban 5 MG TABLET PO (22:33)
[2024-07-18] MEDS: traMADoL HCL 50 MG TABLET PO (22:33)
--- NOTE | 2024-07-18 23:37 | PC.NURSE ---
assist pt to bedside commode, HR up to 145 at that time. pt now back in bed resting comfortably, call herve w/in reach, no apparent distress noted at this time
[2024-07-19] VITALS (9 sets, daily range): BP systolic 99–147; BP diastolic 68–100; PULSE 72–160; RESP 16–20; TEMP 36.3–37; O2SAT 93–96; BMI 21.1
[2024-07-19] MEDS: Lactated Ringers 1,000 ML 100 ML IVCONT (03:56)
[2024-07-19 05:40] LABS: Hemoglobin 11.4 g/dl (12.0-16.0); Mean Corpuscular HGB Conc 33.5 g/dl (31.0-35.0); Mean Corpuscular Hemoglobin 32.3 pg (27.0-33.0); Mean Corpuscular Volume 96.3 fL (80.0-98.0); Mean Platelet Volume 9.6 fL (9.4-12.3); Platelet Count 182 X10*3/uL (160-400); Red Blood Count 3.53 X10*6/uL (4.20-5.50); Red Cell Distribution Width 11.9 % (11.0-16.0); White Blood Count 5.8 X10*3/uL (4.8-10.8)
[2024-07-19 05:52] LABS: Anion Gap 12 (12-20); Blood Urea Nitrogen 9 mg/dL (9-16); Calcium 8.6 mg/dL (8.4-10.2); Carbon Dioxide 25 mmol/L (22-29); Chloride 109 mmol/L (96-108); Creatinine Clr Calc Pharmacy 56.4; Estimated Glomerular Filt Rate > 60; Glucose Random 91 mg/dL (60-115); Potassium 3.7 mmol/L (3.3-5.1); Sodium 142 mmol/L (135-145)
[2024-07-19] MEDS: Omeprazole 20 MG CAPSULE.DR PO (06:48)
[2024-07-19] MEDS: Levothyroxine Sodium 75 MCG TABLET PO (06:48)
--- NOTE | 2024-07-19 07:00 | CA_ITS ---
Transthoracic Echocardiogram Patient (Last, First, Middle): Tracy Hanna, Gender: Female Date of : 1945 Age: 79 Procedure Date: 07/19/2024 Procedure Type: Transthoracic Echocardiogram Location: ER Height: 152.4 cm Weight: 75.3 kg BSA: 1.72 m2 Heart Rate: 125 bpm BP: 138 / 95 mmHg Volcanology Teacher: JUAN Schwartz MD: Sander Villalta MD Medical Social Worker: Bob Root MD Symptoms: Atrial fibrillation Study Quality: Technically Difficult ECG Rhythm: Atrial Fibrillation w RVR Conclusions: - 1. Technically difficult study to interpret due to rapid atrial fibrillation as well as off axis views 2. LV ejection fraction is probably mildly reduced at LVEF of 45 50% 3. Cardiac valvular Dopplers within normal limits 4. Normal measured RV systolic pressure Findings Left Ventricle Normal left ventricular cavity size. The left ventricular systolic function is mildly decreased. The visually estimated ejection fraction is between 45 50%. Regional wall motion abnormalities can not be excluded due to suboptimal endocardial definition. Diastolic function is indeterminate on the basis of available data. Right Ventricle The right ventricle was not well visualized. Atria The left atrium is likely dilated. Interatrial shunt cannot be excluded. The right atrium was not well visualized. Aortic Valve The aortic valve was not well visualized. There is no aortic valve stenosis. There is no aortic valve regurgitation. Mitral Valve The mitral valve was not well visualized. There is no mitral valve stenosis. Pulmonic Valve The pulmonic valve was not well visualized. Tricuspid Valve The tricuspid valve was not well visualized. The right ventricular systolic pressure is 24 mmHg. Normal right atrial pressure. There is no evidence of pulmonary hypertension. Great Vessels The aorta was not well visualized. The pulmonary artery was not well visualized. There is no dilatation of the ascending aorta measuring 3.10 cm. Venous The inferior vena cava is normal in size and collapses greater than 50% with inspiration. Pericardium/Pleural The pericardium was not well visualized. Prior Study Comparison No prior study available for comparison. Measurements 2D Linear Measurements IVSd: 1.13 0.6-0.9/0.6-1.0 cm LVIDd: 4.38 3.9-5.3/4.2-5.9 cm LVIDd Index: 2.55 2.4-3.2/2.2-3.1 cm/m2 LVIDs: 3.07 2.0-3.6 cm LA Diam: 3.50 2.7-3.8/3.0-4.0 cm LAIDs Index: 2.03 1.5-2.3 cm/m2 LVOT Diam: 1.90 3.0+(-)1.3 cm 2D Systolic Function EF 4C: 47.80 >55% EF 2C: 50.40 >55% EF BiP: 47.60 >55% Mitral Valve MV Pk E: 1.06 Aortic Valve AoV Pk Tim: 0.92 AoV Pk Grad: 3.00 NIKOLAI: 2.48 LVOT LVOT Pk Tim: 0.80 LVOT Mn Tim: 0.66 LVOT VTI: 0.13 LVOT Pk Grad: 3.00 LVOT Mn Grad: 2.00 LVOT Diam: 1.90 LVOT Area: 2.84 Diastolic Function MV Pk E: 1.06 Right Ventricle TAPSE (mm): 16.90 Tricuspid Valve TR Pk Tim: 2.28 TR Pk Grad: 21.00 RA Press: 3.00 RVSP: 24.00 Great Vessels Aorta Sinus of Valsalva: 3.30 2.0-3.5 cm Ao Asc: 3.10 2.1-3.4 cm Pulmonary Valve PV Pk Tim: 0.91 Peak PV Grad: 3.00 Updated in Other Vendor System with Status of Final Bob Root MD electronically signed on 07/19/2024 12:23:45 PM with status of Final
--- NOTE | 2024-07-19 09:07 | PC.NURSE ---
assumed care of patient at 0700, patient awakens to verbal stimuli, alert and oriented x4. patient VSS, resp even and unlabored, skin dry and intact. patient has LR running 100ml/hr. patient sat up for breakfast, ambulated to bathroom with minimal assistance, gait steady. patient getting bedside echo at this time
[2024-07-19] MEDS: Metoprolol Tartrate 5 MG/5 ML VIAL IVPUSH (09:52)
[2024-07-19] MEDS: Atorvastatin Calcium 20 MG TABLET PO (09:53)
[2024-07-19] MEDS: Sertraline HCL 50 MG TABLET PO (09:53)
[2024-07-19] MEDS: Cyanocobalamin (Vitamin B-12) 1,000 MCG TABLET 1000 MCG PO (09:53)
[2024-07-19] MEDS: Midodrine HCl 5 MG TABLET PO ×3 (09:53→20:53)
[2024-07-19] MEDS: Metoprolol Tartrate 25 MG TABLET PO ×3 (09:53→20:52)
[2024-07-19] MEDS: Acetaminophen 325 MG TABLET 650 MG PO ×2 (09:53→20:52)
[2024-07-19] MEDS: traMADoL HCL 50 MG TABLET PO ×2 (09:53→20:51)
[2024-07-19] MEDS: busPIRone HCl 10 MG TABLET PO ×3 (09:53→20:52)
[2024-07-19] MEDS: Apixaban 5 MG TABLET PO ×2 (09:53→20:52)
--- NOTE | 2024-07-19 10:00 | PC.NURSE ---
patient noted to go into afib with RVR, patient was working with PT. inpatient attending made aware, ordered 5mg IV metoprolol, patient medicated per AUG. patient remained alert and oriented, she states that she no longer feels dizzy and she feels stronger today than yesterday.
[2024-07-19] MEDS: Loratadine 10 MG TABLET PO (10:09)
--- NOTE | 2024-07-19 10:18 | MHC.EDTECH ---
pt moved over into hospital bed as well as assisted to commode. pt able to have bm, back in bed and comfortable at this time
--- NOTE | 2024-07-19 10:57 | P.PNIM_ITS ---
Subjective Subjective Date of Service: 07/19/24 Interval History: feels much better no more lightheadedness HR running in 120s-160s with exertion, back to 100s at rest Review of Systems Review of Systems: Yes all other systems are reviewed and are negative Physical Exam 2 Vital Signs: Vital Signs: Last Vital Signs Temp 98 F 07/19/24 07:14 Pulse 160 H 07/19/24 09:43 Resp 16 07/19/24 07:14 BP 99/72 07/19/24 09:43 Pulse Ox 95 07/19/24 07:14 O2 Del Method Room Air 07/19/24 07:14 BMI result Body Mass Index 32.6 Const: Other: Constitutional : Awake, interactive, not in distress Neck : Normal inspection, Supple Cardiovascular : irregular irregular, no JVP, no lower extremity edema, tachycardia Respiratory : good bilateral air entry, fine crackles, wheezes or rhonchi Gastrointestinal: soft, lax, Normal bowel sounds, Non tender Skin : Warm, Dry Neurological : Alert & oriented x3, No focal deficit Objective Data Active Medications Acetaminophen (Acetaminophen 325 Mg Tablet) 650 mg PO Q6H PRN PRN Reason: Pain, Mild 1-3,fever,headache Acetaminophen (Acetaminophen 325 Mg Tablet) 650 mg PO BID [facility] Last Admin: 07/19/24 09:53 Dose: 650 mg Documented By: KEVIN Albuterol Sulfate (Albuterol Sulfate 90 Mcg 8 Gm Inhaler) 1 puff INHALE Q4H PRN PRN Reason: Shortness Of Breath Or Wheezing Albuterol/Ipratropium (Albuterol/Iprat 2.5/0.5mg 3 Ml Ampul.Neb) 3 ml INHALE Q4H PRN PRN Reason: Shortness Of Breath Or Wheezing Apixaban (Apixaban 5 Mg Tablet) 5 mg PO BID [facility] Last Admin: 07/19/24 09:53 Dose: 5 mg Documented By: KEVIN Artificial Tears (Artificial Tears 15 Ml Drops) 1 drop EYE-BOTH TID PRN PRN Reason: Dry Eyes Atorvastatin Calcium (Atorvastatin Calcium 20 Mg Tablet) 20 mg PO DAILY [facility] Last Admin: 07/19/24 09:53 Dose: 20 mg Documented By: KEVIN Bisacodyl (Bisacodyl 10 Mg Supp.Rect) 10 mg AR DAILY PRN PRN Reason: Constipation Buspirone HCl (Buspirone Hcl 10 Mg Tablet) 10 mg PO TID [facility] Last Admin: 07/19/24 09:53 Dose: 10 mg Documented By: KEVIN Calcium Carbonate (Calcium Carbonate 750 Mg Tab.Chew) 750 mg PO Q4H PRN PRN Reason: Heartburn Cyanocobalamin (Cyanocobalamin (Vitamin B-12) 1,000 Mcg Tablet) 1,000 mcg PO DAILY [facility] Last Admin: 07/19/24 09:53 Dose: 1,000 mcg Documented By: KEVIN Fluticasone Propionate (Fluticasone Propionate Nasal 16 G[address] [place]) 1 spray NOSTRIL-B BID [facility] Last Admin: 07/19/24 09:57 Dose: Not Given Documented By: KEVIN Non-Admin Reason: Med Not Available Guaifenesin (Guaifenesin 200 Mg/10 Ml 10 Ml Liquid) 10 ml PO Q4H PRN PRN Reason: Cough Levothyroxine Sodium (Levothyroxine Sodium 75 Mcg Tablet) 75 mcg PO DAILY@0600 [facility] Last Admin: 07/19/24 06:48 Dose: 75 mcg Documented By: COREEN Loratadine (Loratadine 10 Mg Tablet) 10 mg PO DAILY [facility] Last Admin: 07/19/24 10:09 Dose: 10 mg Documented By: KEVIN Magnesium Hydroxide (Milk Of Magnesia 30 Ml Oral.Susp) 30 ml PO DAILY PRN PRN Reason: Constipation Magnesium Hydroxide (Milk Of Magnesia 30 Ml Oral.Susp) 30 ml PO DAILY PRN PRN Reason: Constipation Meclizine HCl (Meclizine Hcl 12.5 Mg Tablet) 12.5 mg PO Q8H PRN PRN Reason: Dizziness Melatonin (Melatonin 3 Mg Tablet) 6 mg PO BEDTIME PRN PRN Reason: Insomnia Melatonin (Melatonin 3 Mg Tablet) 9 mg PO BEDTIME [facility] Last Admin: 07/18/24 22:32 Dose: 9 mg Documented By: COREEN Metoprolol Tartrate (Metoprolol Tartrate 12.5 Mg Halftab) 12.5 mg PO TID [facility]; Protocol Midodrine (Midodrine Hcl 5 Mg Tablet) 5 mg PO TID [facility] Last Admin: 07/19/24 09:53 Dose: 5 mg Documented By: KEVIN Non-Formulary Medication (Loteprednol Etabonate) 1 drop EYE-BOTH BID [facility] Omeprazole (Omeprazole 20 Mg Capsule.Dr) 20 mg PO DAILY@0630 [facility] Last Admin: 07/19/24 06:48 Dose: 20 mg Documented By: COREEN Ondansetron HCl (Ondansetron Hcl 4 Mg/2 Ml Vial) 4 mg IVPUSH Q8H PRN PRN Reason: Nausea and Vomiting Sertraline HCl (Sertraline Hcl 50 Mg Tablet) 50 mg PO DAILY [facility] Last Admin: 07/19/24 09:53 Dose: 50 mg Documented By: KEVIN Sodium Biphosphate/Sodium Phosphate (Sodium Phosphate,[place]-Dibasic 133 Ml Enema) 118 ml AR DAILY PRN PRN Reason: Constipation Sodium Chloride (0.9 % Sodium Chloride Flush 3 Ml Syringe) 3 ml IVFLUSH QSHIFT [facility] Last Admin: 07/19/24 08:51 Dose: Not Given Documented By: KEVIN Non-Admin Reason: See Note Tramadol HCl (Tramadol Hcl 50 Mg Tablet) 50 mg PO BID [facility] Last Admin: 07/19/24 09:53 Dose: 50 mg Documented By: KEVIN Labs 07/19/24 05:15 07/19/24 05:15 Labs: Laboratory Results - last 24 hr 07/18/24 07/18/24 07/19/24 14:43 16:07 05:15 MCV 93.8 96.3 MCH 33.0 32.3 MCHC 35.2 H 33.5 RDW 11.9 11.9 Plt Count 197 182 MPV 9.8 9.6 Immature Gran % (Auto) 0.4 Neut % (Auto) 60.6 Lymph % (Auto) 32.1 [place] % (Auto) 5.2 Eos % (Auto) 1.0 Baso % (Auto) 0.7 Lymph # (Auto) 2.3 [place] # (Auto) 0.4 Eos # (Auto) 0.1 Baso # (Auto) 0.1 Abs Immat Gran (auto) 0.03 Absolute Neuts (auto) 4.3 Absolute Nucleated RBC 0.000 0.000 Nucleated RBC % (auto) 0.0 0.0 APTT 26.8 Anion Gap 10 L 12 Estim Creat Clear Calc 53.5 56.4 Estimated GFR > 60 > 60 Random Glucose 99 91 Calcium 9.5 8.6 D Magnesium 1.7 Total Bilirubin 1.1 H AST 23 ALT 15 Alkaline Phosphatase 66 Troponin I High Sens 5.1 B-Natriuretic Peptide 351 H Total Protein 6.8 Albumin 4.1 Lipase 21 TSH 2.60 Urine Color Yellow Urine Appearance Cloudy Urine pH 5.5 Ur Specific [place] 1.015 Urine Protein Negative Urine Glucose (UA) Negative Urine Ketones Negative Urine Blood Trace H Urine Nitrite Negative Ur Leukocyte Esterase Moderate (2+) H Urine RBC 0-2 Urine WBC 21-50 H Ur Squamous Epith Cells 3-5 Urine Bacteria 4+ Hyaline Casts 0-2 Influenza Type A (PCR) NEGATIVE Influenza Type B (PCR) NEGATIVE RSV RNA Qual (PCR) NEGATIVE SARS-CoV-2 RNA (RT-PCR) NEGATIVE Microbiology Microbiology Results: Microbiology 07/18/24 16:07 Urine Culture - Preliminary Urine clean catch - Clean Catch Midstream Gram negative gena Assessment and Plan (1) Atrial fibrillation: Status: Acute (2) Syncope: Status: Acute (3) Orthostatic hypotension: Status: Acute (4) Atrial fibrillation with rapid ventricular response: Status: Acute Plan An 81 years old lady with PMH of dementia, GERD, anxiety, scoliosis, COPD, HLD, HTN among others who presented to ED with difficulties swallowing and left sided weakness. Postural hypotension related to physical deconditioning, HTN medications improving DC IVF Midodrine for low BP compression stocking Hold BP meds physical therapy High protein diet paroxysmal Atrial fibrillation w RvR rate higher at 160s on occasions Start Metoprolol IV and PO on Baby Aspirin only from SNF report, discussed Eliquis and started pending Echo Telemetry GERD, PPI Hx COPD, not in exacerbation, PRN nebs Hx TIA, ASA and Statin Depression, Sertrakube HTN, Verapamil on hold DVT PPx Eliquis The patient will be monitored for Afib rvr, starting new medicaitons and evaluation for recurrence of postural hypotension Quality Stroke Does the patient have a stroke diagnosis?: No VTE Prior VTE?: No VTE Risk Level:: Medical - moderate - high VTE Device Contraindication: Treatment Not Indicated VTE Drug Contraindication: N/A - Med Ordered
--- NOTE | 2024-07-19 15:28 | PC.NURSE ---
patient IV in the right AC appeared infiltrated, patient states it was painful. new IV placed in the right wrist #22
--- NOTE | 2024-07-19 15:35 | MHC.CM.PN ---
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 PT STATES HER INSURANCE IS [employer] PT'S CONTACT IS YANDEL QUIGLEY,
[2024-07-19] MEDS: Magnesium Sulfate/H2O 2 GM/50 ML PIGGYBACK IV (16:11)
[2024-07-19] MEDS: 0.9 % Sodium Chloride Flush 3 ML SYRINGE IVFLUSH ×2 (16:22→20:54)
[2024-07-19] MEDS: Melatonin 3 MG TABLET 9 MG PO (20:51)
[2024-07-20 03:13] VITALS: BP 138/91; PULSE 80; RESP 2; TEMP 36.4; O2SAT 97
[2024-07-20] MEDS: Levothyroxine Sodium 75 MCG TABLET PO (06:04)
[2024-07-20] MEDS: Omeprazole 20 MG CAPSULE.DR PO (06:04)
[2024-07-20 07:19] VITALS: BP 118/75; PULSE 85; RESP 18; TEMP 36.3; O2SAT 95
[2024-07-20] MEDS: Metoprolol Tartrate 25 MG TABLET PO (09:29)
[2024-07-20] MEDS: Acetaminophen 325 MG TABLET 650 MG PO (09:29)
[2024-07-20] MEDS: traMADoL HCL 50 MG TABLET PO (09:29)
[2024-07-20] MEDS: Atorvastatin Calcium 20 MG TABLET PO (09:29)
[2024-07-20] MEDS: Midodrine HCl 5 MG TABLET PO (09:29)
[2024-07-20] MEDS: Sertraline HCL 50 MG TABLET PO (09:30)
[2024-07-20] MEDS: Loratadine 10 MG TABLET PO (09:30)
[2024-07-20] MEDS: Cyanocobalamin (Vitamin B-12) 1,000 MCG TABLET 1000 MCG PO (09:30)
[2024-07-20] MEDS: busPIRone HCl 10 MG TABLET PO (09:30)
[2024-07-20] MEDS: Apixaban 5 MG TABLET PO (09:30)
[2024-07-20] MEDS: 0.9 % Sodium Chloride Flush 3 ML SYRINGE IVFLUSH (09:30)
[2024-07-20 11:01] VITALS: BP 140/87; PULSE 58; RESP 17; TEMP 36.2; O2SAT 93
--- NOTE | 2024-07-20 12:48 | P.DS_ITS ---
DS: Providers Provider Date of Service: 07/20/24 Date of admission: 07/19/24 12:54 Date of discharge: 07/20/24 Primary care physician: Joshua White MD DS: Diagnosis Discharge Diagnosis (1) Atrial fibrillation: Status: Acute (2) Syncope: Status: Acute (3) Orthostatic hypotension: Status: Acute (4) Atrial fibrillation with rapid ventricular response: Status: Acute DS: Summary Hospital Course Hospital Course: Admission note HPI An 79 years old lady with PMH of GERD, hypothyroidism, HLD among others who was sent to ED for evaluation of near syncope and feeling dizzy upon standing. The patient reports that she has been having recurrent episodes of dizziness and lightheadedness upon standing up for the last few weeks. reporting decrease physical activity and being unable to stand up as she feels dizzy. No chest pain, palpitations, SOB, nausea, vomiting, diarrhea or urinary symptoms. She is not the best historian so the nursing from facility reported new onset Afib. in ED orthostatic pressure dropped by more than 20 points with associated lightheadedness. will be admitted for evaluation and monitoring. Hospital course The patient was admitted for evaluation of Postural hypotension related to physical deconditioning, HTN medications. The Verapamil was discontinued and she was started on Midodrine and IV fluids with good response as all her symptoms resolved and she was able to get up and walk around with no reported lightheadedness or dizziness. will continue with Midodrine and compression stoc misael at time of discharge. Midodrine can be weaned down and stopped eventually as tolerated. To follow with PCP\facility MD for Midodrine weaning. We advise her for more physical therapy and High protein diet. She was also noted to be in paroxysmal Atrial fibrillation w RvR with rate higher at 160s on occasions. Controlled with Start Metoprolol IV and PO. Will be discharged on Metoprolol 25 mg bid. She was on on Baby Aspirin only from SNF report, discussed Eliquis benifit and risks and started with adjusted dose of 2.5mg bid given her age and weight. Echo was done showing EF of 45-50%. Discharge plan Stop Aspirin and Verapamil Start Eliquis 2.5 mg two times a day Start Metoprolol 25 mg two times a day Start Midodrine three times a day. to wean it down as blood pressure tolerate over the next few weeks Time Attestation Discharge Coordination Time (in mins): 38 Quality: Safe Use of Opioids Does Pt have an Active Cancer Diagnosis on the Problem List?: No Quality: Stroke Does the patient have a stroke diagnosis?: No Physical Exam Vital Signs: Vital Signs: Last Vital Signs Temp 97.1 F 07/20/24 11:01 Pulse 58 07/20/24 11:01 Resp 17 07/20/24 11:01 BP 140/87 H 07/20/24 11:01 Pulse Ox 93 07/20/24 11:01 O2 Del Method Room Air 07/20/24 11:01 BMI result Body Mass Index 21.1 Const: Other: Constitutional : Awake, interactive, not in distress Neck : Normal inspection, Supple Cardiovascular : irregular irregular, no JVP, no lower extremity edema Respiratory : good bilateral air entry, fine crackles, wheezes or rhonchi Gastrointestinal: soft, lax, Normal bowel sounds, Non tender Skin : Warm, Dry Neurological : Alert & oriented x3, No focal deficit DS: Data Imaging Chest x-ray: Radiologist's impression: ITS Impressions Chest X-Ray 07/18/24 13:06 IMPRESSION: 1. Subtle opacity retrocardiac region, for which subtle pneumonia cannot be excluded. A lateral view may be of benefit. 2. Otherwise, the lungs appear clear. Electronically signed by: Jose Roberto Henry MD 07/18/2024 01:[address] [facility] Discharge Plan Discharge Anticipated Discharge Date/Time: 07/20/24 12:29 Patient Disposition: Xfer LTC Discharge Diagnosis: Postural hypotension Afib w RvR [facility] [place] [facility] Joshua White MD [Primary Care Provider] - 1 Week Discharge Medications: New midodrine 5 mg Tablet 5 mg PO TID Qty: 240 0RF metoprolol tartrate 25 mg Tablet 25 mg PO BID Qty: 180 0RF Protocol: Hold for SBP/HR < HOLD for SBP < : 90 HOLD for HR < : 60 Eliquis 2.5 mg tablet 2.5 mg PO BID Qty: 180 0RF Continued atorvastatin 20 mg tablet 20 mg PO DAILY trazodone 50 mg tablet 25 mg PO BID ondansetron HCl 8 mg tablet 8 mg PO Q8H PRN (Reason: Nausea And Vomiting) polyvinyl alcohol [Artificial Tears (polyvin alc)] 1.4 % Drops 1 drp OPHTHALMIC (EYE) TID PRN (Reason: Dry Eyes) meclizine 12.5 mg tablet 12.5 mg PO Q8H PRN (Reason: Dizziness) tramadol 50 mg tablet 50 mg PO BID levothyroxine 75 mcg tablet 75 mcg PO DAILY@0600 hydrocortisone 1 % cream 1 appl topical Q8H PRN (Reason: Rash) Rx Instructions: LEFT UPPER ARM buspirone 10 mg tablet 10 mg PO Q8H sertraline 25 mg tablet 50 mg PO DAILY fluticasone propionate 50 mcg/actuation spray,suspension 1 spray INTRANASAL BID prazosin 2 mg capsule 2 mg PO BEDTIME esomeprazole magnesium [address] for susp in packet 20 mg PO DAILY diclofenac sodium 1 % gel 4 g topical BID Rx Instructions: APPLY TO LEFT WRIST, KNEES AND NECK loteprednol etabonate 0.5 % drops,gel 1 drp ophthalmic (eye) BID Combivent Respimat 20-100 mcg/actuation mist 2 puff INHALATION Q4H PRN (Reason: Shortness Of Breath Or Wheezing) cetirizine 10 mg Tablet 10 mg PO DAILY guaifenesin 100 mg/5 mL Liquid 200 mg PO Q4H PRN (Reason: Cough) magnesium hydroxide [Milk of Magnesia] 400 mg/5 mL Suspension 30 ml PO DAILY PRN (Reason: Constipation) bisacodyl 10 mg Suppository 10 mg DE DAILY PRN (Reason: Constipation) Rx Instructions: USE IF MILK OF MAGNESIA IS INEFFECTIVE Fleet Enema 19-7 gram/118 mL Enema 118 ml DE DAILY PRN (Reason: Constipation) Rx Instructions: USE IF BISACODYL SUPP IS INEFFECTIVE melatonin 5 mg Tablet 10 mg PO BEDTIME cyanocobalamin (vitamin B-12) [Vitamin B-12] 1,000 mcg Tablet Extended Release 1,000 mcg PO DAILY acetaminophen 325 mg Tablet 650 mg PO Q4H PRN (Reason: Fever Or Pain) acetaminophen 650 mg Suppository 650 mg DE Q4H PRN (Reason: Fever Or Pain) acetaminophen 500 mg Tablet 1,000 mg PO BID albuterol sulfate [Ventolin HFA] 90 mcg/actuation Hfa Aerosol Inhaler 1 inh INHALATION Q4H PRN (Reason: Shortness Of Breath Or Wheezing) Discontinued verapamil 80 mg tablet 80 mg PO BID Rx Instructions: HOLD FOR HR < 60 AND/OR SBP < 100 aspirin 81 mg Tablet,Chewable 81 mg PO DAILY Discharge Orders: Discharge Order (Routine); Ordered 07/20/24 Ordered By: Sander Villalta Diet: Advance to usual diet Activity on Discharge: As tolerated Stand Alone Forms: Patient Portal Discharge page Print Language: Azeri Care Plan Goals: Stop Aspirin and Verapamil Start Eliquis 2.5 mg two times a day Start Metoprolol 25 mg two times a day Start Midodrine three times a day. to wean it down as blood pressure tolerate over the next few weeks Health Concerns: Postural hypotension Atrial fibrillation w RvR Plan of Treatment: Metoprolol Eliquis Midodrine Assessment: as above Discharge Date/Time: 07/20/24 14:05
--- NOTE | 2024-07-20 13:14 | MHC.CM.PN ---
Pt has been medically cleared for DC, she will return to [facility] this afternoon via BLS.
== END 2024-07-20 14:05 | DRG 312 ==
LOC: HO.ED 15:59 → HO.EDOVER 16:38 → HO.IMC 07-19 13:44
PROVIDERS: Admitting Provider Student in an Organized Health Care Education/Training Program; Emergency Provider Emergency Medicine Emergency Medical Services; PCP Family Medicine; Visit Provider Student in an Organized Health Care Education/Training Program
DX: I95.1 Orthostatic hypotension (principal); I48.0 Paroxysmal atrial fibrillation; K21.9 Gastro-esophageal reflux disease without esophagitis; E03.9 Hypothyroidism, unspecified; G31.84 Mild cognitive impairment of uncertain or unknown etiology; F03.90 Unspecified dementia, unspecified severity, without behavioral disturbance, psychotic disturbance, mood disturbance, and anxiety; R53.81 Other malaise; Z20.822 Contact with and (suspected) exposure to COVID-19; Z79.51 Long term (current) use of inhaled steroids; Z79.890 Hormone replacement therapy; Z79.899 Other long term (current) drug therapy
CPT/HCPCS: 0241U; 36415; 71045; 80048; 80053; 81001; 83690; 83735; 83880; 84443; 84484; 85025; 85027; 85730; 87086; 87088; 87186; 93005; 93306; 97162; 99285; J3475; J7120; Q9957

== ENCOUNTER → 2024-07-18 13:06 | Outpatient (BNV) | payer MEDICARE, MEDICAID, SELFPAY | PROVIDERS: Emergency Provider Emergency Medicine Emergency Medical Services; Visit Provider Radiology Diagnostic Radiology | DX: J98.11 Atelectasis (principal) | CPT/HCPCS: 71045 ==

== ENCOUNTER → 2024-07-18 13:06 | Outpatient (BNV) | payer OTHER, SELFPAY | PROVIDERS: Emergency Provider Emergency Medicine Emergency Medical Services; PCP Family Medicine; Visit Provider Internal Medicine Cardiovascular Disease | DX: R94.31 Abnormal electrocardiogram [ECG] [EKG] (principal) | CPT/HCPCS: 93010 ==

== ENCOUNTER 2024-07-18 16:30 | Outpatient (BNV) | payer OTHER, SELFPAY | END 2024-07-19 07:00 | PROVIDERS: Admitting Provider Student in an Organized Health Care Education/Training Program; Emergency Provider Emergency Medicine Emergency Medical Services; PCP Family Medicine; Visit Provider Internal Medicine Cardiovascular Disease | DX: I48.91 Unspecified atrial fibrillation (principal); I51.89 Other ill-defined heart diseases | CPT/HCPCS: 93306 ==

== ENCOUNTER → 2024-07-18 16:30 | Outpatient (BNV) | payer OTHER, SELFPAY | PROVIDERS: Admitting Provider Student in an Organized Health Care Education/Training Program; Emergency Provider Emergency Medicine Emergency Medical Services; PCP Family Medicine; Visit Provider Student in an Organized Health Care Education/Training Program | DX: I48.91 Unspecified atrial fibrillation (principal); R55 Syncope and collapse; I95.1 Orthostatic hypotension | CPT/HCPCS: 99239 ==

== ENCOUNTER 2024-08-29 12:27 | Inpatient (IN) | payer MEDICARE, MEDICAID, SELFPAY ==
[2024-08-29] VITALS (9 sets, daily range): BP systolic 86–112; BP diastolic 46–83; PULSE 97–142; RESP 16–22; TEMP 36.5–36.6; O2SAT 93–98; BMI 35.7
--- NOTE | ~2024-08-29 | US_ITS ---
CLINICAL HISTORY: Abnormal GB on CT, with elevated LFTs Limited abdomen ultrasound. Comparison CT 08/29/2024. Findings: No definite gallstones are seen. There is no significant gallbladder wall thickening. Common bile duct 5 mm. There is a small amount of ascites. Impression: Small amount of ascites. No definite gallstones are seen. This document has been electronically signed by: Philippe Samayoa MD on 08/29/2024 17:42:37
--- NOTE | ~2024-08-29 | XR_ITS ---
EXAMINATION: XR CHEST CLINICAL INFORMATION: Abdominal pain and rectal bleed COMPARISON: None available. TECHNIQUE: Frontal view of the chest was obtained. FINDINGS: The lungs are hypoexpanded but clear of acute process. The heart size and pulmonary vascularity is normal. No gross bony abnormality seen. XR/XR chest 1V IMPRESSION: Cardiomegaly without acute process. Electronically signed by: Kvng Stevenson MD 08/29/2024 01:58 PM EST
--- NOTE | ~2024-08-29 | XR_ITS ---
EXAMINATION: XR CHEST CLINICAL INFORMATION: Hypoxia COMPARISON: Chest 10/29/2024 TECHNIQUE: Frontal view of the chest was obtained. FINDINGS: There is mild elevation of right hemidiaphragm. The lungs are well-expanded and clear acute pneumonic process. There is right basilar patchy opacities suggestive of atelectasis and/or effusion. Infiltrate is not excluded. Heart size is enlarged. Pulmonary vascularity is normal. No gross bony abnormality seen. XR/XR chest 1V IMPRESSION: Elevated right hemidiaphragm. Suspect right basilar infiltrate/atelectasis. There is mild cardiomegaly. Electronically signed by: Kvng Stevenson MD 08/30/2024 09:22 AM [facility] [place]
--- NOTE | ~2024-08-29 | CT_ITS ---
EXAMINATION: CT ABDOMEN AND PELVIS WITHOUT CONTRAST CLINICAL INFORMATION: Diffuse abdominal pain. Black diarrhea. COMPARISON: None available. TECHNIQUE: Multidetector volumetric imaging was performed from the superior aspect of the liver through the pubic symphysis. Sagittal and coronal reformatted images were obtained on the technologist's workstation. This CT examination was performed using dose optimization techniques as appropriate, variously including the following: *Automated exposure control *Adjustment of mA and/or kV according to patient size (this includes techniques or standardized protocols for targeted exams where dose is matched to indication/reason for exam; i.e. extremities or head) *Use of iterative reconstruction technique. DLP: 629 mGy centimeter. FINDINGS: Limited examination of the intra-abdominal organs and vascular structures due to lack of IV contrast. LUNG BASES: Right-sided pleural effusion, moderate to large volume. Patchy pulmonary groundglass, right lower lung lobe. LIVER, GALLBLADDER, AND BILIARY TREE: Liver measures 16 cm perihepatic fluid, moderate volume. . Gallbladder is fluid-filled no gallbladder wall thickening. No intrahepatic or extrahepatic biliary ductal dilatation.. PANCREAS: No peripancreatic fluid collections. No main pancreatic ductal dilatation. Reduced volume of the parenchyma. SPLEEN: 8 cm. Accessory spleen in the splenic hilum. ADRENAL GLANDS: No nodular lesions. Soft tissue fullness. KIDNEYS AND URETERS: No hydronephrosis or nephrolithiasis. BLADDER: Fluid-filled. GASTROINTESTINAL TRACT: Ascites, moderate volume. Apparent wall thickening in the rectum. No intestinal obstruction pattern. No pneumoperitoneum. No pneumatosis intestinalis. Dystrophic calcification in the cecum. Appendix is normal. ABDOMINAL WALL: Small fat-containing umbilical hernia. LYMPH NODES: No specific prominent lymph nodes, mesenteric and retroperitoneal. VASCULAR: Mixed plaques throughout the abdominal aorta wall and iliac arteries mesenteric arteries and splenic artery as well as the origin of the main renal arteries. No aneurysm in the abdominal aorta. Calcified plaques in the coronary arteries and descending thoracic aorta. Small pericardial effusion. Heart is enlarged.. PELVIC VISCERA: Inadequate evaluation. OSSEOUS STRUCTURES: Multilevel thoracolumbar spondylosis. Superior endplate compression deformity likely old representing 40% volume loss at L3. Large Schmorl node superior endplate of T12. Levoconvex rotoscoliosis lumbar spine apex at L2. CT/CT abdomen pelvis wo IV con IMPRESSION: Moderate amount of ascites. Acute acalculous cholecystitis cannot be excluded. Focal concentric wall thickening in the rectum. Intrinsic lesion cannot be excluded. Right-sided pleural effusion, moderate to large volume and small pericardial effusion with cardiomegaly. Congestive heart failure cannot be excluded. Atherosclerosis disease . Fleischner guidelines were followed. Electronically signed by: Alber Del Real MD 08/29/2024 02:28 PM [facility]
--- NOTE | ~2024-08-29 | US_ITS ---
CLINICAL HISTORY: Abd pain, Duplex to r o mesentric ischemia, Hepatic port vein thrombosis Duplex Arterial and venous ultrasound abdomen Comparison: US/CO - US ABDOMEN LIMITED - 08/29/24 17:[address]/CO/SR - CT ABDOMEN PELVIS WO IV CON - 08/29/24 13:32 EST Findings: Examination is limited by bowel gas. Extrahepatic portal vein is not seen. Hepatopedal flow is seen in the main, right and left portal vein. The main hepatic artery, left and right hepatic artery are not seen. The main hepatic vein, left hepatic vein and right hepatic vein are within normal limits. Spleen is normal in size. Splenic vein is patent. Small ascites. IMPRESSION: Limited examination. The visualized vascular structures are unremarkable as described above. Small ascites. This document has been electronically signed by: Marcus Marroquin MD on 08/31/2024 18:48:52
--- NOTE | ~2024-08-29 | NM_ITS ---
CLINICAL HISTORY: Abd pain, concern of Acalculas cholecystitis NM HIDA Scan Comparison: US/NH - US ABDOMEN LIMITED - 08/29/24 17:[address]/NH/SR - CT ABDOMEN PELVIS WO IV CON - 08/29/24 13:32 EST Technique: Abd pain, concern of Acalculas cholecystitis (Hx) / CCK Results (DICOM Hx) (DICOM Hx) Findings: Normal liver uptake, distribution, and excretion. Gallbladder appears at 60 minutes. Central bile ducts appear at 27 minutes. Duodenum visualized at 74 minutes. There is enterogastric reflux of radiotracer. Gallbladder ejection fraction 75%. IMPRESSION: No evidence of acute cholecystitis. Normal ejection fraction of the gallbladder. Evidence of gastric reflux of the bile. This document has been electronically signed by: Marcus Marroquin MD on 08/30/2024 19:58:15
--- NOTE | ~2024-08-29 | XR_ITS ---
CLINICAL HISTORY: pleural effusion 2 view chest x-ray Comparison: CR/SR - XR CHEST 1V - 08/30/24 09:00 EST Findings: Moderate right and mild left patchy bibasilar airspace opacity. Small bilateral pleural effusions. Heart size is normal. No acute fracture. IMPRESSION: Bibasilar pneumonia. Continued plain film follow-up is recommended to ensure resolution, and to exclude underlying neoplasm. This document has been electronically signed by: Allyssa Rivera MD on 09/03/2024 18:03:25
--- NOTE | 2024-08-29 12:59 | ECG_ITS ---
Test Reason : tachycardia Blood Pressure : */* mmHG Vent. Rate : 126 BPM Atrial Rate : * BPM P-R Int : * ms QRS Dur : 96 ms QT Int : 264 ms P-R-T Axes : * -46 144 degrees QTcB Int : 382 ms Atrial fibrillation with rapid ventricular response Left axis deviation Low voltage QRS Incomplete right bundle branch block Cannot rule out Anteroseptal infarct , age undetermined Abnormal ECG When compared with ECG of 18-Jul-2024 14:13, Minimal criteria for Anteroseptal infarct are now Present Nonspecific T wave abnormality, worse in Inferior leads T wave inversion now evident in Lateral leads Referred By: Rafa Beavers Electronically Signed By: JEANIE COHEN MD
--- NOTE | 2024-08-29 13:03 | ED.ABDPAIN ---
HPI - Abdominal Pain General Chief Complaint: Nausea/Vomiting/Diarrhea Stated Complaint: N/V/D X2W FROM SNF PER EMS Time Seen by Provider: 08/29/24 12:53 Source: patient, EMS and old records reviewed Mode of arrival: EMS Limitations: no limitations History of Present Illness ED Provider: DR. Beavers HPI narrative: 79-year-old female with PMH of GERD, hypothyroidism, HLD, AFib on Eliquis, patient is a poor historian brought in by ambulance for 2 weeks of nausea, vomiting, diarrhea patient stated that stool is black diarrhea. Patient normally is bed bound can transfer herself from bed to the wheelchair as per patient needs assistance in most of her daily activity. Patient is hypotensive and tachycardic. Reviewing patient history patient is taking midodrine for hypotension No fever, no chills. Related Data Home Medications ?Medication ?Instructions ?Recorded ?Confirmed acetaminophen 500 mg tablet 1,000 mg PO TID 07/18/24 08/29/24 albuterol sulfate 90 mcg/actuation 1 inh inhalation Q4H PRN Shortness 07/18/24 08/29/24 aerosol inhaler (Ventolin HFA) Of Breath Or Wheezing atorvastatin 20 mg tablet 20 mg PO DAILY 07/18/24 08/29/24 bisacodyl 10 mg rectal suppository 10 mg [place] DAILY PRN Constipation 07/18/24 08/29/24 buspirone 10 mg tablet 10 mg PO Q8H 07/18/24 08/29/24 cetirizine 10 mg tablet 10 mg PO DAILY 07/18/24 08/29/24 cyanocobalamin (vitamin B-12) 1,000 mcg PO DAILY 07/18/24 08/29/24 1,000 mcg tablet,extended release (Vitamin B-12 ER) diclofenac sodium 1 % topical gel 4 g topical BID 07/18/24 08/29/24 esomeprazole magnesium 20 mg 20 mg PO DAILY 07/18/24 08/29/24 granules delayed release for susp fluticasone propionate 50 1 spray intranasal BID 07/18/24 08/29/24 mcg/actuation nasal spray,suspension guaifenesin 100 mg/5 mL oral liquid 200 mg PO Q4H PRN Cough 07/18/24 08/29/24 hydrocortisone 1 % topical cream 1 appl topical Q8H PRN Rash 07/18/24 08/29/24 ipratropium 20 mcg-albuterol 100 2 puff inhalation Q4H PRN 07/18/24 08/29/24 mcg/actuation mist for inhalation Shortness Of Breath Or Wheezing (Combivent Respimat) levothyroxine 75 mcg tablet 75 mcg PO DAILY@0600 07/18/24 08/29/24 loteprednol etabonate 0.5 % eye 1 drp ophthalmic (eye) BID PRN Dry 07/18/24 08/29/24 gel drops Eyes magnesium hydroxide 400 mg/5 mL 30 ml PO DAILY PRN Constipation 07/18/24 08/29/24 oral suspension (Milk of Magnesia) meclizine 12.5 mg tablet 12.5 mg PO Q8H PRN Dizziness 07/18/24 08/29/24 melatonin 5 mg tablet 10 mg PO BEDTIME 07/18/24 08/29/24 ondansetron HCl 8 mg tablet 8 mg PO Q8H PRN Nausea And Vomiting 07/18/24 08/29/24 polyvinyl alcohol 1.4 % eye drops 1 drp ophthalmic (eye) TID PRN Dry 07/18/24 08/29/24 (Artificial Tears (polyvinyl Eyes alcohol)) prazosin 2 mg capsule 2 mg PO BEDTIME 07/18/24 08/29/24 sertraline 25 mg tablet 50 mg PO DAILY 07/18/24 08/29/24 sodium phosphates 19 gram-7 118 ml [place] DAILY PRN Constipation 07/18/24 08/29/24 gram/118 mL enema (Fleet Enema) tramadol 50 mg tablet 50 mg PO BID 07/18/24 08/29/24 trazodone 50 mg tablet 25 mg PO TID PRN Agitation 07/18/24 08/29/24 acetaminophen 650 mg rectal 650 mg [place] Q4H PRN Pain or Fever 08/29/24 08/29/24 suppository amoxicillin 875 mg-potassium 1 tab PO BID 08/29/24 08/29/24 clavulanate 125 mg tablet lactulose 10 gram/15 mL oral 30 ml PO DAILY PRN hyperammonemia 08/29/24 08/29/24 solution (Constulose) metoprolol tartrate 25 mg tablet 12.5 mg PO BID 08/29/24 08/29/24 midodrine 5 mg tablet 10 mg PO TID 08/29/24 08/29/24 Previous Rx's ?Medication ?Instructions ?Recorded apixaban 2.5 mg tablet (Eliquis) 2.5 mg PO BID #180 tabs 07/20/24 Allergies Allergy/AdvReac Type Severity Reaction Status Date / Time lactose AdvReac Gastrointestinal Verified 08/29/24 13:18 Upset Review of Systems Review of Systems Yes Unobtainable due to mental status PMFSH Past Medical History Medical History Atrial fibrillation Hypothyroidism COPD (chronic obstructive pulmonary disease) GERD (gastroesophageal reflux disease) Social History Social History Household Members: Caregiver Housing: Care Home Do you presently have visiting nurse or other home services: No Patient Tobacco Use Status: Never used Tobacco Smoked in Last 30 Days: No e-Cigarette/Vaping Use: Never Used Second Hand Smoke Exposure: No Use of substances other than those prescribed or required for medical reasons: No Advance Directives: Yes Advance Directives on File: Yes Advance Directives Date on File: 07/18/24 Do you have a plan to hurt others: No Plan service: No Physical Exam ED Vital Signs: Vital Signs - 24 hr 08/29/24 13:16 08/29/24 14:08 Temperature 97.9 F 97.7 F Pulse Rate 128 H 142 H Respiratory Rate 19 22 H Blood Pressure 86/57 L 112/72 Pulse Oximetry 93 Oxygen Delivery Method Room Air Room Air Oxygen Flow Rate 95 BMI result Body Mass Index 35.7 Vital signs have been reviewed and appear to be correct. Blood pressure elevated. Heart rate normal. Respiratory rate normal. Temperature normal. Oxygen saturation normal. Appearance: Alert. Oriented X3. No acute distress. Head: Normal external exam. Normocephalic. Atraumatic. No Villanueva signs noted. No raccoon eyes noted Eyes: PERRLA. EOMI. Conjunctiva and sclera normal. Eyelids normal. ENT: TM's Normal. Pharynx normal. Uvula midline. Dry mucous membranes. No trismus noted. No drooling noted. No muffled voice noted. Neck: Normal inspection. Neck supple. FROM. No adenopathy. Thyroid Normal. No meningeal signs. No neck mass noted. CVS: Normal heart rate and rhythm. Heart sound normal. No murmurs noted. Pulses normal throughout. Respiratory: No respiratory distress. Painless inspiration. Breath sounds normal. No wheezes/rales/rhonchi noted. Chest nontender. No accessory muscle usage noted or decreased air movement noted. Abdomen: Soft and nontender. Bowel sounds normal in all 4 quadrants. No distention noted. No organomegaly noted. No visible injury noted. Rectal exam: Brown stool, guaiac negative, no obvious blood in the vault. Back: No CVA tenderness. Full range of motion noted. Skin: Skin warm and dry. Normal skin color. Normal skin turgor. No rashes/lesions/lacerations noted. Extremities: No lower extremity edema. Extremities exhibit normal range of motion. Extremities nontender. Neuro: Oriented X 3. Cranial nerve exam: II-XII are grossly intact No motor deficit. No sensory deficit. Reflexes normal. Course Reevaluation(s) Reevaluation #1: 79-year-old female poor historian stated 2 weeks of N/V/D, initial exam is dehydration and hypotension. Patient improved with IV fluids. 2. Rapid AFib is due to dehydration and hypovolemia after hydration heart rate is 95-120s. 3. Negative CT abdomen and pelvis questioning acalculous acute cholecystitis (unlikely clinically), abdominal ultrasound shows no evidence of acute cholecystitis. 4. Admit to a medical service. Time: 14:51 Medical Decision Making Differential Diagnosis Differential Diagnoses: The differential diagnosis associated with the presentation includes (Gastroenteritis, gastritis, MUNA, dehydration, hypovolemia, hypotension, electrolyte derangement, severe anemia, pneumonia, pneumothorax, pleural effusion.) Admission/Observation Consideration of admission/observation: Escalation of care including admission/observation considered Consult Healthcare Provider Management of the patient was discussed with: Hospitalist (Dr. Espinosa) Lab Data MDM Lab Attestation statement: I reviewed the patient's lab results. 08/29/24 13:32 08/29/24 13:32 Labs: Lab Results 08/29/24 08/29/24 Range/Units 13:32 14:00 WBC 5.7 (4.8-10.8) X10*3/uL RBC 3.98 L (4.20-5.50) X10*6/uL Hgb 13.1 (12.0-16.0) g/dl Hct 39.2 (37.0-47.0) % MCV 98.5 H (80.0-98.0) fL MCH 32.9 (27.0-33.0) pg MCHC 33.4 (31.0-35.0) g/dl RDW 16.6 H (11.0-16.0) % Plt Count 205 (160-400) X10*3/uL MPV 10.3 (9.4-12.3) fL Immature Gran % (Auto) 0.4 (0.0-0.4) % Neut % (Auto) 61.1 (45-73) % Lymph % (Auto) 29.6 (20-40) % [place] % (Auto) 5.5 (2-11) % Eos % (Auto) 2.5 (0-4) % Baso % (Auto) 0.9 (0-2) % Lymph # (Auto) 1.7 (1.2-4.9) X10*3/uL [place] # (Auto) 0.3 (0.1-1.2) X10*3/uL Eos # (Auto) 0.1 (0.0-0.4) X10*3/uL Baso # (Auto) 0.1 (0.0-0.2) X10*3/uL Abs Immat Gran (auto) 0.02 (0.00-0.03) X10*3/uL Absolute Neuts (auto) 3.5 (2.0-8.3) x10*3/uL Absolute Nucleated RBC 0.000 (0.0-0.012) X10*3/uL Nucleated RBC % (auto) 0.0 (0.0-0.2) /100WBC PT 21.4 H (10.9-12.4) SEC INR 1.8 H (0.9-1.1) Sodium 131 L (135-145) mmol/L Potassium 3.4 (3.3-5.1) mmol/L Chloride 100 (96-108) mmol/L Carbon Dioxide 23 (22-29) mmol/L Anion Gap 11 L (12-20) BUN 16 (9-16) mg/dL Creatinine 0.96 (0.5-1.4) mg/dL Estim Creat Clear Calc 43.9 Estimated GFR 56 Random Glucose 112 (60-115) mg/dL Lactic Acid 2.2 H* (0.5-2.0) mmol/L Calcium 8.4 (8.4-10.2) mg/dL Magnesium 1.7 (1.6-2.6) mg/dL Total Bilirubin 1.2 H (0.0-1.0) mg/dL Direct Bilirubin 0.5 (0.0-0.5) mg/dL AST 44 H (5-31) U/L ALT 53 H (0-31) U/L Alkaline Phosphatase 76 (39-117) U/L Troponin I High Sens 13.3 D (<3.5-17.0) ng/L B-Natriuretic Peptide 696 H (<100) pg/mL Total Protein 5.9 L (6.5-8.0) g/dL Albumin 3.6 (3.5-5.0) g/dL Lipase 20 (8-78) U/L Stool Occult Blood NEGATIVE (NEGATIVE) Influenza Type A (PCR) NEGATIVE (Negative) Influenza Type B (PCR) NEGATIVE (Negative) RSV RNA Qual (PCR) NEGATIVE (Negative) SARS-CoV-2 RNA (RT-PCR) NEGATIVE (Negative) Independent Interpretation I performed an independent interpretation of an: Plain X-Ray (Chest:Cardiomegaly without acute process. ) and CT Scan (Abdomen and pelvis:Moderate amount of ascites. Acute acalculous cholecystitis cannot be excluded. Focal concentric wall thickening in the rectum. Intrinsic lesion cannot be excluded. Right-sided pleural effusion, moderate to large volume and small pericardial effusion with cardiomegaly. Congestiv) Radiology Impression Discussion of test interpretation with radiology: I have reviewed the radiologist's reading. Medications Administered Generic Name Dose Route Start Last Admin Trade Name Freq PRN Reason Stop Dose Admin Dextrose/Sodium Chloride 1,000 mls @ 100 mls/hr 08/29/24 15:30 08/29/24 16:22 D5ns IVCONT 100 mls/hr .Q10H RAINE Administration Metoprolol Tartrate 25 mg 08/29/24 15:35 08/29/24 16:07 Metoprolol Tartrate 25 Mg Tablet PO Not Given BID RAINE Protocol Morphine Sulfate 1 mg 08/29/24 17:29 08/29/24 17:58 Morphine Sulfate 2 Mg/Ml Cartridge IVPUSH 1 mg Q4H PRN Administration Pain, Severe (Pain Scale 7-10) Protocol Sodium Chloride 3 ml 08/29/24 16:00 08/29/24 16:08 0.9 % Sodium Chloride Flush 3 Ml Syringe IVFLUSH Not Given QSHIFT RAINE Discontinued Medications Generic Name Dose Route Start Last Admin Trade Name Freq PRN Reason Stop Dose Admin Ceftriaxone Sodium 1 gm 08/29/24 13:06 08/29/24 13:59 Ceftriaxone Sodium 1 Gm Vial IVPUSH 08/29/24 13:07 1 gm ONCE ONE Administration Sodium Chloride 1,000 mls @ 999 mls/hr 08/29/24 12:59 08/29/24 15:09 Ns IV 08/29/24 13:59 Infused .Q1H1M ONE Infusion Acetaminophen 1,000 mg in 100 mls @ 400 mls/hr 08/29/24 14:09 08/29/24 15:03 Ofirmev IV 08/29/24 14:23 Infused ONCE ONE Infusion Sodium Chloride 1,000 mls @ 500 mls/hr 08/29/24 15:24 08/29/24 16:22 Ns IV 08/29/24 17:23 Infused .Q2H ONE Infusion Ketorolac Tromethamine 15 mg 08/29/24 15:24 08/29/24 15:31 Ketorolac Tromethamine 15 Mg/Ml Vial IVPUSH 08/29/24 15:25 15 mg ONCE ONE Administration Loperamide HCl 2 mg 08/29/24 13:02 08/29/24 13:58 Loperamide Hcl 2 Mg Capsule PO 08/29/24 13:03 2 mg ONCE ONE Administration Midodrine 10 mg 08/29/24 15:32 08/29/24 17:10 Midodrine Hcl 10 Mg Tablet PO 08/29/24 15:33 10 mg ONCE ONE Administration Morphine Sulfate 1 mg 08/29/24 15:24 08/29/24 15:31 Morphine Sulfate 2 Mg/Ml Cartridge IVPUSH 08/29/24 15:25 1 mg ONCE ONE Administration Protocol Ondansetron HCl 4 mg 08/29/24 13:02 08/29/24 13:12 Ondansetron Hcl 4 Mg/2 Ml Vial IVPUSH 08/29/24 13:03 4 mg ONCE ONE Administration Pantoprazole Sodium 40 mg 08/29/24 13:01 08/29/24 13:12 Pantoprazole Sodium 40 Mg/10 Ml Vial IVPUSH 08/29/24 13:02 40 mg ONCE ONE Administration Critical Care Time Critical Care Time Critical Care Time: Yes Total Critical Care Time: 60 Attestation: The patient was critically ill with a high probability of imminent or life-threatening deterioration. I spent greater than 30 minutes of discontinuous time evaluating the patient, delivering critical care at the bedside, discussing evaluating data with consultants. Critical care time does not include time spent performing separately billable procedures or teaching. Time spent performing critical care was 60 minutes. Discharge Plan Discharge Clinical Impression: Gastroenteritis, Dehydration, Hypotension, Atrial fibrillation with RVR Patient Disposition: Admitted As Inpatient
[2024-08-29] MEDS: ondansetron HCL 4 MG/2 ML VIAL IVPUSH (13:12)
[2024-08-29] MEDS: 0.9 % Sodium Chloride 1,000 ML 999 ML IV (13:12)
[2024-08-29] MEDS: Pantoprazole Sodium 40 MG/10 ML VIAL IVPUSH (13:12)
[2024-08-29 13:42] LABS: MANUAL DIFF FLAG NO
[2024-08-29 13:43] LABS: Basophils Absolute Auto 0.1 X10*3/uL (0.0-0.2); Basophils Percent Auto 0.9 % (0-2); Eosinophils Absolute Auto 0.1 X10*3/uL (0.0-0.4); Eosinophils Percent Auto 2.5 % (0-4); Hematocrit 39.2 % (37.0-47.0); Hemoglobin 13.1 g/dl (12.0-16.0); Imm Gran Abs Auto 0.02 X10*3/uL (0.00-0.03); Imm Gran Pct Auto 0.4 % (0.0-0.4); Lymphocytes Absolute Auto 1.7 X10*3/uL (1.2-4.9); Lymphocytes Percent Auto 29.6 % (20-40); Mean Corpuscular HGB Conc 33.4 g/dl (31.0-35.0); Mean Corpuscular Hemoglobin 32.9 pg (27.0-33.0); Mean Corpuscular Volume 98.5 fL (80.0-98.0); Mean Platelet Volume 10.3 fL (9.4-12.3); Monocytes Absolute Auto 0.3 X10*3/uL (0.1-1.2); Monocytes Percent Auto 5.5 % (2-11); Neutrophils Absolute Auto 3.5 x10*3/uL (2.0-8.3); Neutrophils Percent Auto 61.1 % (45-73); Platelet Count 205 X10*3/uL (160-400); Red Blood Count 3.98 X10*6/uL (4.20-5.50); Red Cell Distribution Width 16.6 % (11.0-16.0); White Blood Count 5.7 X10*3/uL (4.8-10.8)
[2024-08-29 13:48] LABS: INTERNATIONAL NORM RATIO 1.8 (0.9-1.1); Prothrombin Time 21.4 SEC (10.9-12.4)
[2024-08-29] MEDS: Loperamide HCl 2 MG CAPSULE PO (13:58)
[2024-08-29 13:59] LABS: Alanine Aminotransferase 53 U/L (0-31); Albumin Level 3.6 g/dL (3.5-5.0); Alkaline Phosphatase 76 U/L (39-117); Anion Gap 11 (12-20); Aspartate Amino Transferase 44 U/L (5-31); Bilirubin Direct 0.5 mg/dL (0.0-0.5); Bilirubin Total 1.2 mg/dL (0.0-1.0); Blood Urea Nitrogen 16 mg/dL (9-16); Calcium 8.4 mg/dL (8.4-10.2); Carbon Dioxide 23 mmol/L (22-29); Chloride 100 mmol/L (96-108); Creatinine Clr Calc Pharmacy 43.9; Estimated Glomerular Filt Rate 56; Glucose Random 112 mg/dL (60-115); Lactic Acid 2.2 mmol/L (0.5-2.0); Lipase 20 U/L (8-78); Potassium 3.4 mmol/L (3.3-5.1); Sodium 131 mmol/L (135-145); Total Protein 5.9 g/dL (6.5-8.0)
[2024-08-29] MEDS: cefTRIAXone sodium 1 GM VIAL IVPUSH (13:59)
[2024-08-29 14:03] LABS: B Type Natriuretic Peptide 696 pg/mL (<100)
[2024-08-29 14:09] LABS: OBS Int Ctl Valid YES; OBS1 NEGATIVE (NEGATIVE)
[2024-08-29 14:10] LABS: Troponin-I High Sensitivity 13.3 ng/L (<3.5-17.0)
[2024-08-29] MEDS: Acetaminophen 1,000 MG/100 ML PIGGYBACK 400 MG IV (14:38)
[2024-08-29 14:41] LABS: Influenza A PCR NEGATIVE (Negative); Influenza B PCR NEGATIVE (Negative); Resp Syncy Virus RNA Qual PCR NEGATIVE (Negative); SARS COV2 PCR INHOUSE NEGATIVE (Negative)
--- NOTE | 2024-08-29 15:10 | PM.IMHP ---
History of Present Illness Date of Service: 08/29/24 Chief Complaint: nausea and vomiting An 79 years old lady with PMH of GERD, hypothyroidism, HLD among others who was sent to ED for evaluation of 2 weeks of nausea, vomiting and diarrhea. The patient is a poor historian who was brought by EMS reporting 2 weeks of nausea, vomiting, diarrhea . reports that stool is black diarrhea. Patient is bed bound and transfer herself from bed to the wheelchair and needs assistance in most of her daily activity. She was in Afib with RvR on presentaiton. improved after IVfluids. she is on Eliquis 2.5 mg bid. negative occult stool in ED. CT scan of abdomen is negative for any acute findings in ED. Hemoglobin level stable. Admitted for further evaluation and management. Review of Systems Review of Systems: No fever, chills and has weakness No chest pain, palpitation No shortness of breath or coughing No abdominal pain, but has nausea or vomiting No urinary symptoms No any rash or wounds PMFSH Medical History Atrial fibrillation Hypothyroidism COPD (chronic obstructive pulmonary disease) GERD (gastroesophageal reflux disease) Social History Household Members: None Housing: Correction Do you presently have visiting nurse or other home services: No Patient Tobacco Use Status: Never used Tobacco Smoked in Last 30 Days: No e-Cigarette/Vaping Use: Never Used Second Hand Smoke Exposure: No Use of substances other than those prescribed or required for medical reasons: No Currently Displaying Signs/Symptoms of Drug Intoxication Withdrawal: No Have you been hit, kicked, punched, or otherwise hurt by someone within the past year? If so, by whom?: No Do you feel safe in your current relationship?: No Current Relationship Is there a partner from a previous relationship who is making you feel unsafe now?: No Are you made to feel afraid or neglected: No Advance Directives: Yes Advance Directives on File: Yes Advance Directives Date on File: 07/18/24 Do you have a plan to hurt others: No Plan Recently lost weight without trying: No Eating poorly because of decreased appetite: No Patient : No : No Poor oral hygiene: Yes service: No Meds Allergies Allergy/AdvReac Type Severity Reaction Status Date / Time lactose AdvReac Gastrointestinal Verified 08/29/24 13:18 Upset Home Medications ?Medication ?Instructions ?Recorded ?Confirmed ?Last Taken ?Type acetaminophen 500 mg tablet 1,000 mg PO TID 07/18/24 08/29/24 Unknown History albuterol sulfate 90 mcg/actuation 1 inh inhalation Q4H PRN Shortness 07/18/24 08/29/24 Unknown History aerosol inhaler (Ventolin HFA) Of Breath Or Wheezing atorvastatin 20 mg tablet 20 mg PO DAILY 07/18/24 08/29/24 Unknown History bisacodyl 10 mg rectal suppository 10 mg [place] DAILY PRN Constipation 07/18/24 08/29/24 Unknown History buspirone 10 mg tablet 10 mg PO Q8H 07/18/24 08/29/24 Unknown History cetirizine 10 mg tablet 10 mg PO DAILY 07/18/24 08/29/24 Unknown History cyanocobalamin (vitamin B-12) 1,000 mcg PO DAILY 07/18/24 08/29/24 Unknown History 1,000 mcg tablet,extended release (Vitamin B-12 ER) diclofenac sodium 1 % topical gel 4 g topical BID 07/18/24 08/29/24 Unknown History esomeprazole magnesium 20 mg 20 mg PO DAILY 07/18/24 08/29/24 Unknown History granules delayed release for susp fluticasone propionate 50 1 spray intranasal BID 07/18/24 08/29/24 Unknown History mcg/actuation nasal spray,suspension guaifenesin 100 mg/5 mL oral liquid 200 mg PO Q4H PRN Cough 07/18/24 08/29/24 Unknown History hydrocortisone 1 % topical cream 1 appl topical Q8H PRN Rash 07/18/24 08/29/24 Unknown History ipratropium 20 mcg-albuterol 100 2 puff inhalation Q4H PRN 07/18/24 08/29/24 Unknown History mcg/actuation mist for inhalation Shortness Of Breath Or Wheezing (Combivent Respimat) levothyroxine 75 mcg tablet 75 mcg PO DAILY@0600 07/18/24 08/29/24 Unknown History loteprednol etabonate 0.5 % eye 1 drp ophthalmic (eye) BID PRN Dry 07/18/24 08/29/24 Unknown History gel drops Eyes magnesium hydroxide 400 mg/5 mL 30 ml PO DAILY PRN Constipation 07/18/24 08/29/24 Unknown History oral suspension (Milk of Magnesia) meclizine 12.5 mg tablet 12.5 mg PO Q8H PRN Dizziness 07/18/24 08/29/24 Unknown History melatonin 5 mg tablet 10 mg PO BEDTIME 07/18/24 08/29/24 Unknown History ondansetron HCl 8 mg tablet 8 mg PO Q8H PRN Nausea And Vomiting 07/18/24 08/29/24 Unknown History polyvinyl alcohol 1.4 % eye drops 1 drp ophthalmic (eye) TID PRN Dry 07/18/24 08/29/24 Unknown History (Artificial Tears (polyvinyl Eyes alcohol)) prazosin 2 mg capsule 2 mg PO BEDTIME 07/18/24 08/29/24 Unknown History sertraline 25 mg tablet 50 mg PO DAILY 07/18/24 08/29/24 Unknown History sodium phosphates 19 gram-7 118 ml [place] DAILY PRN Constipation 07/18/24 08/29/24 Unknown History gram/118 mL enema (Fleet Enema) tramadol 50 mg tablet 50 mg PO BID 07/18/24 08/29/24 Unknown History trazodone 50 mg tablet 25 mg PO TID PRN Agitation 07/18/24 08/29/24 Unknown History acetaminophen 650 mg rectal 650 mg [place] Q4H PRN Pain or Fever 08/29/24 08/29/24 Unknown History suppository amoxicillin 875 mg-potassium 1 tab PO BID 08/29/24 08/29/24 Unknown History clavulanate 125 mg tablet lactulose 10 gram/15 mL oral 30 ml PO DAILY PRN hyperammonemia 08/29/24 08/29/24 Unknown History solution (Constulose) metoprolol tartrate 25 mg tablet 12.5 mg PO BID 08/29/24 08/29/24 Unknown History midodrine 5 mg tablet 10 mg PO TID 08/29/24 08/29/24 Unknown History Physical Exam Vital Signs and Narrative: Vital Signs: Last Vital Signs Temp 97.7 F 08/29/24 14:08 Pulse 142 H 08/29/24 14:08 Resp 22 H 08/29/24 14:08 BP 112/72 08/29/24 14:08 Pulse Ox 93 08/29/24 13:16 O2 Del Method Room Air 08/29/24 14:08 O2 Flow Rate 95 08/29/24 14:08 BMI result Body Mass Index 35.7 Results Labs 08/30/24 09:29 08/30/24 09:29 Labs: Laboratory Results - last 24 hr 08/29/24 08/29/24 13:32 14:00 MCV 98.5 H MCH 32.9 MCHC 33.4 RDW 16.6 H Plt Count 205 MPV 10.3 Immature Gran % (Auto) 0.4 Neut % (Auto) 61.1 Lymph % (Auto) 29.6 [place] % (Auto) 5.5 Eos % (Auto) 2.5 Baso % (Auto) 0.9 Lymph # (Auto) 1.7 [place] # (Auto) 0.3 Eos # (Auto) 0.1 Baso # (Auto) 0.1 Abs Immat Gran (auto) 0.02 Absolute Neuts (auto) 3.5 Absolute Nucleated RBC 0.000 Nucleated RBC % (auto) 0.0 PT 21.4 H INR 1.8 H Anion Gap 11 L Estim Creat Clear Calc 43.9 Estimated GFR 56 Random Glucose 112 Lactic Acid 2.2 H* Calcium 8.4 Total Bilirubin 1.2 H Direct Bilirubin 0.5 AST 44 H ALT 53 H Alkaline Phosphatase 76 B-Natriuretic Peptide 696 H Total Protein 5.9 L Albumin 3.6 Lipase 20 Stool Occult Blood NEGATIVE Influenza Type A (PCR) NEGATIVE Influenza Type B (PCR) NEGATIVE RSV RNA Qual (PCR) NEGATIVE SARS-CoV-2 RNA (RT-PCR) NEGATIVE Imaging Radiologist's Impressions: Impressions Chest X-Ray 08/29/24 13:00 IMPRESSION: Cardiomegaly without acute process. Electronically signed by: Kvng Stevenson MD 08/29/2024 01:58 PM EST RP Abdomen/Pelvis CT 08/29/24 13:32 IMPRESSION: Moderate amount of ascites. Acute acalculous cholecystitis cannot be excluded. Focal concentric wall thickening in the rectum. Intrinsic lesion cannot be excluded. Right-sided pleural effusion, moderate to large volume and small pericardial effusion with cardiomegaly. Congestive heart failure cannot be excluded. Atherosclerosis disease . Fleischner guidelines were followed. Electronically signed by: Alber Del Real MD 08/29/2024 02:28 PM EST RP Assessment and Plan (1) Atrial fibrillation with RVR: Status: Acute (2) Hypotension: Status: Acute (3) Dehydration: Status: Acute (4) Gastroenteritis: Status: Acute Plan An 79 years old lady with PMH of GERD, hypothyroidism, HLD among others who was sent to ED for evaluation of 2 weeks of nausea, vomiting and diarrhea. Nausea, vomiting and bloody stool CT concerning for possible acalculas cholecystitis cover with IV Ceftriaxone and Flagyl IVF for now IV Pantoprazole PRN Morphine surgery consult advance diet as tolerated paroxysmal Atrial fibrillation w RvR rate at 140s Start Metoprolol IV and PO Hold Eliquis for reported bleeding Telemetry GERD, PPI Hx COPD, not in exacerbation, PRN nebs Hx TIA, ASA and Statin Depression, Sertrakube HTN, Verapamil on hold DVT PPx SCDs given reported GI bleeding The patient will need 2 overnight hospital stay for treatment of possilbe intraabdominal infection. Quality Stroke Does the patient have a stroke diagnosis?: No VTE Prior VTE?: No VTE Risk Level:: Medical - moderate - high VTE Device Contraindication: N/A - Device Ordered VTE Drug Contraindication: Treatment Not Indicated
[2024-08-29] MEDS: 0.9 % Sodium Chloride 1,000 ML 500 ML IV (15:31)
[2024-08-29] MEDS: Morphine Sulfate 2 MG/ML CARTRIDGE 1 MG IVPUSH ×2 (15:31→17:58)
[2024-08-29] MEDS: Ketorolac Tromethamine 15 MG/ML VIAL IVPUSH (15:31)
[2024-08-29 15:39] LABS: Reflex Lactate? Lactic Acid Added
[2024-08-29 15:54] LABS: Magnesium 1.7 mg/dL (1.6-2.6)
[2024-08-29] MEDS: Dextrose 5 % and 0.9 % NaCl 1,000 ML 100 ML IVCONT (16:22)
--- NOTE | 2024-08-29 16:27 | PHA.MEDREC ---
Pharmacy Consult ? Medication Reconciliation Pharmacy has completed the medication reconciliation. Utilized med list from [facility] to confirm medications.
[2024-08-29 16:42] LABS: ~Lactic Acid-LAB USE ONLY 2.3 mmol/L (0.5-2.0)
--- OUTSIDE RECORDS SUMMARY | 2024-08-29 17:01 | XMS_ITS | Encounter Summary ---
Author Organization [employer] [facility] Address [address] [place] [address] Care Team Providers Care Vmware Consultant Name Role Phone Joshua White MD Primary Care Provider [phone] Encounter Details Date Type Department Care Team (Late st Contact Info) Description 08/17/[address] [facility] - Main Lab [address] [place] [address] Joshua White MD 38 [facility] [address] [place], [address] Syncope and collapse; Altered mental status, unspecified Social History Tobacco Use Types Packs/Day Years Used Date Smoking Tobacco: Never Assessed Comments Unknown Sex and Gender Information Value Date Recorded Sex Assigned at Not on file Legal Sex Female 10:34 PM EST Gender Identity Not on file Sexual Orientation Not on file documented as of this encounter Plan of Treatment Not on file documented as of this encounter Procedures Procedure Name Priority Date/Time Associated Diagnosis Comments URINALYSIS WITH REFLEX MICROSCOPIC Routine 08/16/2024 8:00 PM EST Syncope and collapse Altered mental status, unspecified URINALYSIS WITH REFLEX MICROSCOPIC Routine 08/16/2024 8:00 PM EST Syncope and collapse Altered mental status, unspecified CULTURE URINE Routine 08/16/2024 8:00 PM EST Syncope and collapse Altered mental status, unspecified documented in this encounter Results * (ABNORMAL) Urinalysis with reflex microscopic (08/16/2024 8:00 PM EST) Specific [place] Urine 1.027 1.003 - 1.030 LAB URINALYSIS - AUTOMATED METHOD 08/17/2024 10:11 AM [facility] pH, Urine 5.5 5.0 - 8.0 pH LAB URINALYSIS - AUTOMATED METHOD 08/17/2024 10:11 AM [facility] Leukocytes, Urine Moderate(A) Negative LAB URINALYSIS - AUTOMATED METHOD 08/17/2024 10:11 AM [facility] Nitrite, Urine Negative Negative LAB URINALYSIS - AUTOMATED METHOD 08/17/2024 10:11 AM [facility] Protein, Urine Trace <=Trace mg/dL LAB URINALYSIS - AUTOMATED METHOD 08/17/2024 10:11 AM [facility] Glucose, Urine Negative Negative mg/dL LAB URINALYSIS - AUTOMATED METHOD 08/17/2024 10:11 AM [facility] Ketones, Urine Negative Negative mg/dL LAB URINALYSIS - AUTOMATED METHOD 08/17/2024 10:11 AM [facility] Urobilinogen , Urine 1.0 0.2 - 1.0 mg/dL LAB URINALYSIS - AUTOMATED METHOD 08/17/2024 10:11 AM [facility] Bilirubin, Urine Negative Negative LAB URINALYSIS - AUTOMATED METHOD 08/17/2024 10:11 AM [facility] Blood, Urine Negative Negative LAB URINALYSIS - AUTOMATED METHOD 08/17/2024 10:11 AM [facility] RBC, Urine 3.3 0 - 4 /HPF LAB URINALYSIS - AUTOMATED METHOD 08/17/2024 10:11 AM [facility] WBC, Urine 41.9(H) 0 - 4 /HPF LAB URINALYSIS - AUTOMATED METHOD 08/17/2024 10:11 AM [facility] Squamous Epithelial, Urine 57 0 - 60 /LPF LAB URINALYSIS - AUTOMATED METHOD 08/17/2024 10:11 AM [facility] Bacteria, Urine Many(A) Negative /HPF LAB URINALYSIS - AUTOMATED METHOD 08/17/2024 10:11 AM EST [facility] Hyaline Casts, Urine 7.6(H) 0 - 3 /LPF LAB URINALYSIS - AUTOMATED METHOD 08/17/2024 10:11 AM EST [facility] Urine Urine specimen obtained by clean catch procedure / Unknown Non-blood Collection / Unknown 08/16/2024 8:00 PM EST 08/17/2024 9:36 AM EST us Joshua White MD LAB URINE ORDERABLES Final Resul t [facility] [address] [place] [address], [place] [phone] * (ABNORMAL) Culture urine (08/16/2024 8:00 PM EST) Culture, Urine >100,000 CFU/mL Klebsiella pneumoniae ssp pneumoniae(A) ALICAI 08/19/2024 12:19 PM EST [facility] Comment: This is an edited result. Previous organism was Gram negative bacilli on 08/18/2024 at 0812 EST. Urine Urine specimen obtained by clean catch procedure / Unknown Non-blood Collection / Unknown 08/16/2024 8:00 PM EST 08/17/2024 9:36 AM EST Narrative [facility] - 08/19/2024 12:19 PM EST Normal skin/urogenital jacquelin noted Organism Antibiotic Method Susceptibility Klebsiella pneumoniae ssp pneumoniae Amoxicillin/Clavulanate ALICIA <=2 ug/ml: Susceptible Klebsiella pneumoniae ssp pneumoniae Ampicillin/Sulbactam ALICIA <=2 ug/ml: Susceptible Klebsiella pneumoniae ssp pneumoniae Piperacillin/Tazobactam ALICIA <=4 ug/ml: Susceptible Klebsiella pneumoniae ssp pneumoniae Cefazolin (Urine) ALICIA <=1 ug/ml: Susceptible Klebsiella pneumoniae ssp pneumoniae Cefoxitin ALICIA <=4 ug/ml: Susceptible Klebsiella pneumoniae ssp pneumoniae Ceftazidime ALICIA <=0.5 ug/ml: Susceptible Klebsiella pneumoniae ssp pneumoniae Ceftriaxone ALICIA <=0.25 ug/ml: Susceptible Klebsiella pneumoniae ssp pneumoniae Cefepime ALICIA <=0.12 ug/ml: Susceptible Klebsiella pneumoniae ssp pneumoniae Meropenem ALICIA <=0.25 ug/ml: Susceptible Klebsiella pneumoniae ssp pneumoniae Amikacin ALICIA <=1 ug/ml: Susceptible Klebsiella pneumoniae ssp pneumoniae Gentamicin ALICIA <=1 ug/ml: Susceptible Klebsiella pneumoniae ssp pneumoniae Ciprofloxacin ALICIA <=0.06 ug/ml: Susceptible Klebsiella pneumoniae ssp pneumoniae Levofloxacin ALICIA <=0.12 ug/ml: Susceptible Klebsiella pneumoniae ssp pneumoniae Nitrofurantoin ALICIA 64 ug/ml: Intermediate Klebsiella pneumoniae ssp pneumoniae Trimethoprim/Sulfamethoxazo le ALICIA <=20 ug/ml: Susceptible us Joshua White MD LAB MICROBIOLOGY - GENERAL ORDER PROMISE Final Result [facility] ([facility]) [facility] [address] [place] [address], documented in this encounter Visit Diagnoses Diagnosis Syncope and collapse Altered mental status, unspecified documented in this encounter Additional Health Concerns Infection Onset Date Last Indicated Resolved Time Respiratory Rule-Out 08/23/2024 08/22/2024 025 1:29 PM EST documented as of this encounter Care Teams Vmware Consultant Relationship Specialty Start Date End Date Joshua White MD [address] [place] [phone] PCP - General Family Medicine 07/17/24 documented as of this encounter
--- OUTSIDE RECORDS SUMMARY | 2024-08-29 17:02 | XMS_ITS | Encounter Summary ---
Author Organization [employer] [facility] Address [address] [place] [address] Care Team Providers Care Simulation Specialist Name Role Phone Joshua White MD Primary Care Provider [phone] Encounter Details Date Type Department Care Team (Late st Contact Info) Description 07/17/2024 Lab Requisition [facility] - Main Lab [address] [place] [address] Joshua White MD 38 [facility] [address] [place], [address] Unspecified atrial fibrillation (CMS/HCC) Social History [...] LAB CHEMISTRY METHOD 07/18/2024 2:24 PM EST [facility] Potassium 3.8 3.5 - 5.5 mmol/L LAB CHEMISTRY METHOD 07/18/2024 2:24 PM EST [facility] Chloride 106 96 - 110 mmol/L LAB CHEMISTRY METHOD 07/18/2024 2:24 PM [facility] CO2 24 21 - 32 mmol/L LAB CHEMISTRY METHOD 07/18/2024 2:24 PM [facility] Anion Gap 8 3 - 11 LAB CHEMISTRY METHOD 07/18/2024 2:24 PM [facility] Glucose 98 70 - 100 mg/dL LAB CHEMISTRY METHOD 07/18/2024 2:24 PM [facility] BUN 11 5 - 25 mg/dL LAB CHEMISTRY METHOD 07/18/2024 2:24 PM [facility] Creatinine 0.61 0.50 - 1.10 mg/dL LAB CHEMISTRY METHOD 07/18/2024 2:24 PM [facility] eGFR 90 >=60 mL/min/1. 73m2 LAB CHEMISTRY METHOD 07/18/2024 2:24 PM [facility] Comment:Calculation based on the??Chronic Kidney Disease Epidemiology Collaboration (CKD-EPI) equation refit??without adjustment for race. BUN/Creatinine Ratio 18.0 LAB CHEMISTRY METHOD 07/18/2024 2:24 PM [facility] Calcium 8.5 8.5 - 10.5 mg/dL LAB CHEMISTRY METHOD 07/18/2024 2:24 PM [facility] Blood Venous blood specimen / Unknown Venipuncture / Unknown 07/18/2024 7:48 AM EST 07/18/2024 11:13 AM EST us Joshua White MD LAB BLOOD ORDERABLES Final Resul t [facility] [address] [place] [address], * (ABNORMAL) Complete blood count (07/18/2024 7:48 AM EST) WBC 6.4 4.8 - 10.8 K/mcL LAB HEMETOLOGY METHOD 07/18/2024 11:39 AM [facility] RBC 3.70(L) 3.80 - 4.80 M/mcL LAB HEMETOLOGY METHOD 07/18/2024 11:39 AM [facility] Hemoglobin 12.2 11.5 - 16.0 g/dL LAB HEMETOLOGY METHOD 07/18/2024 11:39 AM [facility] Hematocrit 35.9 35.0 - 47.0 % LAB HEMETOLOGY METHOD 07/18/2024 11:39 AM [facility] MCV 96.2 79.0 - 98.0 FL LAB HEMETOLOGY METHOD 07/18/2024 11:39 AM [facility] MCH 32.7(H) 27.0 - 32.0 pcg LAB HEMETOLOGY METHOD 07/18/2024 11:39 AM [facility] MCHC 34.0 32.0 - 37.0 g/dL LAB HEMETOLOGY METHOD 07/18/2024 11:39 AM [facility] RDW 11.9 11.0 - 15.0 % LAB HEMETOLOGY METHOD 07/18/2024 11:39 AM [facility] Platelets 198 130 - 400 K/mcL LAB HEMETOLOGY METHOD 07/18/2024 11:39 AM [facility] MPV 10.7 7.0 - 11.0 FL LAB HEMETOLOGY METHOD 07/18/2024 11:39 AM [facility] NRBC 0.0 <1.0 % LAB HEMETOLOGY METHOD 07/18/2024 11:39 AM [facility] NRBC Absolute 0.00 <0.10 K/mcL LAB HEMETOLOGY METHOD 07/18/2024 11:39 AM [facility] Blood Venous blood specimen / Unknown Venipuncture / Unknown 07/18/2024 7:48 AM EST 07/18/2024 11:13 AM EST us Joshua White MD LAB BLOOD ORDERABLES Final Resul t [facility] [address] [place] [address], documented in this encounter Visit Diagnoses Diagnosis Unspecified atrial fibrillation (CMS/HCC) documented in this encounter Additional Health Concerns Infection Onset Date Last Indicated Resolved Time Respiratory Rule-Out 08/23/2024 08/22/2024 025 1:29 PM EST documented as of this encounter Care Teams Simulation Specialist Relationship Specialty Start Date End Date Joshua White MD [address] [place] [phone] PCP - General Family Medicine 07/17/24 documented as of this encounter
--- OUTSIDE RECORDS SUMMARY | 2024-08-29 17:02 | XMS_ITS | Encounter Summary ---
Author Organization [facility] Address [address] [place] [address] Care Team Providers Care Services Tech Name Role Phone Joshua White MD Primary Care Provider [phone] Encounter Details Date Type Department Care Team (Late st Contact Info) Description 08/23/2024 Lab Requisition [facility] - Main Lab [address] [place] [address] Joshua White MD 38 [facility] [address] [place], [address] Acute upper respiratory infection, unspecified Social History Tobacco Use Types Packs/Day [...] Procedure Name Priority Date/Time Associated Diagnosis Comments [id number], RSV, FLU A AND B QUALITATIVE RT-PCR, LOCAL REFERENCE LAB Routine 08/22/2024 7:00 AM EST Acute upper respiratory infection, unspecified documented in this encounter Results * [id number], RSV, Influenza A and B qualitative RT-PCR (08/22/2024 7:00 AM EST) SARS COV-2 Not Detected Not Detected LAB MOLECULAR DIAGNOSTICS METHOD 08/23/2024 1:29 PM EST [facility] ([facility]) [facility] Comment: Disclaimer: The manner in which this information is used to guide patient care is the responsibility of the healthcare provider. Testing was performed using the [employer] SARS-CoV-2 test. This test has been authorized by FDA under an Emergency Use Authorization (EUA). This test is only authorized for the duration of time the declaration that circumstances exist justifying the authorization of the emergency use of in vitro diagnostic tests for detection of SARS-CoV-2 virus and/or diagnosis of COVID-19 infection under section 564(b)(1) of the Act, 21 U.S.C. 360bbb- 3(b)(1), unless the authorization is terminated or revoked sooner. Fact sheet for Healthcare Providers can be found at: https://www.fda.gov/media/727192/download Fact sheet for Patients can be found at: https://www.fda.gov/media/794287/download Influenza A PCR Not Detected Not Detected LAB MOLECULAR DIAGNOSTICS METHOD 08/23/2024 1:29 PM [facility] Influenza B PCR Not Detected Not Detected LAB MOLECULAR DIAGNOSTICS METHOD 08/23/2024 1:29 PM [facility] RSV PCR Not Detected Not Detected LAB MOLECULAR DIAGNOSTICS METHOD 08/23/2024 1:29 PM EST [facility] Swab Nasopharyngeal structure / Unknown Non-blood Collection / Unknown 08/22/2024 7:00 AM EST 08/23/2024 8:59 AM EST us Joshua White MD LAB MICROBIOLOGY - GENERAL ORDER PROMISE Final Result [facility] [address] [place] [address], documented in this encounter Visit Diagnoses Diagnosis Acute upper respiratory infection, unspecified documented in this encounter Additional Health Concerns Infection Onset Date Last Indicated Resolved Time Respiratory Rule-Out 08/23/2024 08/22/2024 025 1:29 PM EST documented as of this encounter Care Teams Services Tech Relationship Specialty Start Date End Date Joshua White MD [address] [phone] PCP - General Family Medicine 07/17/24 documented as of this encounter
--- OUTSIDE RECORDS SUMMARY | 2024-08-29 17:02 | XMS_ITS | Encounter Summary ---
Author Organization [employer] Address [address] [place] [address] Care Team Providers Care Cashier Clerk Name Role Phone Joshua White MD Primary Care Provider [phone] Encounter Details Date Type Department Care Team (Late st Contact Info) Description 07/17/2024 Lab Requisition [facility] - Main Lab [address] [place] [address] Joshua White MD [address] [facility] [address] [place], [address] Dizziness and giddiness; Benign paroxysmal vertigo, [...] and culture (07/16/2024 4:23 PM EST) Specific [place] Urine 1.019 1.003 - 1.030 LAB URINALYSIS - AUTOMATED METHOD 07/17/2024 8:43 AM [facility] pH, Urine 5.5 5.0 - 8.0 pH LAB URINALYSIS - AUTOMATED METHOD 07/17/2024 8:43 AM [facility] Leukocytes, Urine Moderate(A) Negative LAB URINALYSIS - AUTOMATED METHOD 07/17/2024 8:43 AM [facility] Nitrite, Urine Positive(A) Negative LAB URINALYSIS - AUTOMATED METHOD 07/17/2024 8:43 AM [facility] Protein, Urine Negative <=Trace mg/dL LAB URINALYSIS - AUTOMATED METHOD 07/17/2024 8:43 AM [facility] Glucose, Urine Negative Negative mg/dL LAB URINALYSIS - AUTOMATED METHOD 07/17/2024 8:43 AM [facility] Ketones, Urine Negative Negative mg/dL LAB URINALYSIS - AUTOMATED METHOD 07/17/2024 8:43 AM [facility] Urobilinogen , Urine 0.2 0.2 - 1.0 mg/dL LAB URINALYSIS - AUTOMATED METHOD 07/17/2024 8:43 AM [facility] Bilirubin, Urine Negative Negative LAB URINALYSIS - AUTOMATED METHOD 07/17/2024 8:43 AM [facility] Blood, Urine Trace(A) Negative LAB URINALYSIS - AUTOMATED METHOD 07/17/2024 8:43 AM [facility] RBC, Urine 2.6 0 - 4 /HPF LAB URINALYSIS - AUTOMATED METHOD 07/17/2024 8:43 AM [facility] WBC, Urine 22.6(H) 0 - 4 /HPF LAB URINALYSIS - AUTOMATED METHOD 07/17/2024 8:43 AM [facility] Squamous Epithelial, Urine 28 0 - 60 /LPF LAB URINALYSIS - AUTOMATED METHOD 07/17/2024 8:43 AM EST [facility] Crystals, Urine LT CALCIUM OXALATE /LPF LAB URINALYSIS - AUTOMATED METHOD 07/17/2024 8:43 AM [facility] Bacteria, Urine Many(A) Negative /HPF LAB URINALYSIS - AUTOMATED METHOD 07/17/2024 8:43 AM [facility] Hyaline Casts, Urine 3.3(H) 0 - 3 /LPF LAB URINALYSIS - AUTOMATED METHOD 07/17/2024 8:43 AM [facility] Urine Urine specimen obtained by clean catch procedure / Unknown Non-blood Collection / Unknown 07/16/2024 4:23 PM EST 07/17/2024 7:50 AM EST us Joshua White MD LAB URINE ORDERABLES Final Resul t [facility] [address] [place] [address], * (ABNORMAL) Culture urine (07/16/2024 4:23 PM EST) Culture, Urine >100,000 CFU/mL Klebsiella pneumoniae ssp pneumoniae(A) ALICIA 07/19/2024 11:41 AM [facility] Comment: This is an edited result. Previous organism was Gram negative bacilli on 07/18/2024 at 1030 EST. Urine Urine specimen obtained by clean catch procedure / Unknown Non-blood Collection / Unknown 07/16/2024 4:23 PM EST 07/17/2024 7:50 AM EST Narrative Organism Antibiotic Method Susceptibility Klebsiella pneumoniae ssp pneumoniae Amoxicillin/Clavulanate ALICIA <=2 ug/ml: Susceptible Klebsiella pneumoniae ssp pneumoniae Ampicillin/Sulbactam ALICIA <=2 ug/ml: Susceptible Klebsiella pneumoniae ssp pneumoniae Piperacillin/Tazobactam ALICIA <=4 ug/ml: Susceptible Klebsiella pneumoniae ssp pneumoniae Cefazolin (Urine) ALICIA 2 ug/ml: Susceptible Klebsiella pneumoniae ssp pneumoniae Cefoxitin [...] MICROBIOLOGY - GENERAL ORDER PROMISE Final Result [facility] ([email or web address] [address] [place] [address], documented in this encounter Visit Diagnoses Diagnosis Dizziness and giddiness Benign paroxysmal vertigo, unspecified ear documented in this encounter Additional Health Concerns Infection Onset Date Last Indicated Resolved Time Respiratory Rule-Out 08/23/2024 08/22/2024 025 1:29 PM EST documented as of this encounter Care Teams Cashier Clerk Relationship Specialty Start Date End Date Joshua White MD [address] [place] [phone] PCP - General Family Medicine 07/17/24 documented as of this encounter
--- OUTSIDE RECORDS SUMMARY | 2024-08-29 17:02 | XMS_ITS | Encounter Summary ---
Author Organization [facility] Address [address] [place] [address] Care Team Providers Care Datapower Developer Name Role Phone Joshua White MD Primary Care Provider [phone] Encounter Details Date Type Department Care Team (Late st Contact Info) Description 08/21/2024 Lab Requisition [facility] - Main Lab [address] [place] [address] Joshua White MD 38 [facility] [address] [place], [address] Syncope and collapse Social History Tobacco Use Types Packs/Day Years [...] Associated Diagnosis Comments COMPLETE BLOOD COUNT Routine 08/22/2024 8:13 AM EST Syncope and collapse AMMONIA Routine 08/22/2024 8:13 AM EST Syncope and collapse BASIC METABOLIC PANEL Routine 08/22/2024 8:13 AM EST Syncope and collapse documented in this encounter Results * (ABNORMAL) Ammonia (08/22/2024 8:13 AM EST) Ammonia 49(H) 11 - 35 mcmol/L LAB CHEMISTRY METHOD 08/22/2024 9:13 AM EST [facility] Blood Venous blood specimen / Unknown Venipuncture / Unknown 08/22/2024 8:13 AM EST 08/22/2024 8:39 AM EST us Joshua White MD LAB BLOOD ORDERABLES Final Resul t [facility] [address] [place] [address], [place] [phone] * (ABNORMAL) Basic metabolic panel (08/22/2024 8:13 AM EST) Sodium 138 133 - 145 mmol/L LAB CHEMISTRY METHOD 08/22/2024 9:05 AM [facility] Potassium 3.5 3.5 - 5.5 mmol/L LAB CHEMISTRY METHOD 08/22/2024 9:05 AM [facility] Chloride 103 96 - 110 mmol/L LAB CHEMISTRY METHOD 08/22/2024 9:05 AM [facility] CO2 22 21 - 32 mmol/L LAB CHEMISTRY METHOD 08/22/2024 9:05 AM [facility] Anion Gap 13(H) 3 - 11 LAB CHEMISTRY METHOD 08/22/2024 9:05 AM [facility] Glucose 93 70 - 100 mg/dL LAB CHEMISTRY METHOD 08/22/2024 9:05 AM [facility] BUN 25 5 - 25 mg/dL LAB CHEMISTRY METHOD 08/22/2024 9:05 AM [facility] Creatinine 1.15(H) 0.50 - 1.10 mg/dL LAB CHEMISTRY METHOD 08/22/2024 9:05 AM [facility] eGFR 48(L) >=60 mL/min/1. 73m2 LAB CHEMISTRY METHOD 08/22/2024 9:05 AM [facility] Comment:Calculation based on the??Chronic Kidney Disease Epidemiology Collaboration (CKD-EPI) equation refit??without adjustment for race. BUN/Creatinine Ratio 21.7 LAB CHEMISTRY METHOD 08/22/2024 9:05 AM [facility] Calcium 8.8 8.5 - 10.5 mg/dL LAB CHEMISTRY METHOD 08/22/2024 9:05 AM [facility] Blood Venous blood specimen / Unknown Venipuncture / Unknown 08/22/2024 8:13 AM EST 08/22/2024 8:39 AM EST us Joshua White MD LAB BLOOD ORDERABLES Final Resul t [facility] [address] [place] [address], * (ABNORMAL) Complete blood count (08/22/2024 8:13 AM EST) WBC 5.8 4.8 - 10.8 K/mcL LAB HEMETOLOGY METHOD 08/22/2024 8:43 AM [facility] RBC 3.80 3.80 - 4.80 [facility] LAB HEMETOLOGY METHOD 08/22/2024 8:43 AM [facility] Hemoglobin 12.5 11.5 - 16.0 g/dL LAB HEMETOLOGY METHOD 08/22/2024 8:43 AM [facility] Hematocrit 39.3 35.0 - 47.0 % LAB HEMETOLOGY METHOD 08/22/2024 8:43 AM [facility] MCV 104.8(H) 79.0 - 98.0 FL LAB HEMETOLOGY METHOD 08/22/2024 8:43 AM [facility] MCH 33.3(H) 27.0 - 32.0 pcg LAB HEMETOLOGY METHOD 08/22/2024 8:43 AM [facility] MCHC 31.8(L) 32.0 - 37.0 g/dL LAB HEMETOLOGY METHOD 08/22/2024 8:43 AM [facility] RDW 16.5(H) 11.0 - 15.0 % LAB HEMETOLOGY METHOD 08/22/2024 8:43 AM EST [facility] Platelets 186 130 - 400 K/mcL LAB HEMETOLOGY METHOD 08/22/2024 8:43 AM EST [facility] MPV 11.2(H) 7.0 - 11.0 FL LAB HEMETOLOGY METHOD 08/22/2024 8:43 AM EST [facility] NRBC 0.0 <1.0 % LAB HEMETOLOGY METHOD 08/22/2024 8:43 AM EST [facility] NRBC Absolute 0.00 <0.10 K/mcL LAB HEMETOLOGY METHOD 08/22/2024 8:43 AM EST [facility] Blood Venous blood specimen / Unknown Venipuncture / Unknown 08/22/2024 8:13 AM EST 08/22/2024 8:39 AM EST us Josuha White MD LAB BLOOD ORDERABLES Final Resul t [facility] [address] [place] [address], documented in this encounter Visit Diagnoses Diagnosis Syncope and collapse documented in this encounter Additional Health Concerns Infection Onset Date Last Indicated Resolved Time Respiratory Rule-Out 08/23/2024 08/22/2024 025 1:29 PM EST documented as of this encounter Care Teams Datapower Developer Relationship Specialty Start Date End Date Joshua White MD [address] [place] [address] [address] [place] [phone] PCP - General Family Medicine 07/17/24 documented as of this encounter
--- OUTSIDE RECORDS SUMMARY | 2024-08-29 17:02 | XMS_ITS | Encounter Summary ---
Author Organization [facility] Address [address] [place] [address] Care Team Providers Care Transit Authority Police Officer Name Role Phone Joshua White MD Primary Care Provider [phone] Encounter Details Date Type Department Care Team (Late st Contact Info) Description 08/28/2024 Lab Requisition [facility] - Main Lab [address] [facility] [place] [address] Joshua White MD [address] [place] [address] [address] [place], [phone] Type 2 diabetes mellitus without complications (CMS/HCC); Hypothyroidism, unspecified; Unspecified atrial fibrillation (CMS/HCC); Hyperlipidemia, unspecified; Transient cerebral ischemic attack, unspecified; Urinary tract infection, site not specified Social History Tobacco Use Types Packs/Day Years [...] Associated Diagnosis Comments COMPLETE BLOOD COUNT Routine 08/29/2024 7:50 AM EST Type 2 diabetes mellitus without complications (CMS/HCC) Hypothyroidism, unspecified Unspecified atrial fibrillation (CMS/HCC) Hyperlipidemia, unspecified Transient cerebral ischemic attack, unspecified Urinary tract infection, site not specified AMMONIA Routine 08/29/2024 7:50 AM EST Type 2 diabetes mellitus without complications (CMS/HCC) Hypothyroidism, unspecified Unspecified atrial fibrillation (CMS/HCC) Hyperlipidemia, unspecified Transient cerebral ischemic attack, unspecified Urinary tract infection, site not specified BASIC METABOLIC PANEL Routine 08/29/2024 7:50 AM EST Type 2 diabetes mellitus without complications (CMS/HCC) Hypothyroidism, unspecified Unspecified atrial fibrillation (CMS/HCC) Hyperlipidemia, unspecified Transient cerebral ischemic attack, unspecified Urinary tract infection, site not specified documented in this encounter Results * (ABNORMAL) Ammonia (08/29/2024 7:50 AM EST) Ammonia 63(H) 11 - 35 mcmol/L LAB CHEMISTRY METHOD 08/29/2024 10:20 AM EST [facility] Blood Venous blood specimen / Unknown Venipuncture / Unknown 08/29/2024 7:50 AM EST 08/29/2024 9:54 AM EST us Joshua White MD LAB BLOOD ORDERABLES Final Resul t [facility] [address] [place] [address], [place] [phone] * (ABNORMAL) Basic metabolic panel (08/29/2024 7:50 AM EST) Sodium 133 133 - 145 mmol/L LAB CHEMISTRY METHOD 08/29/2024 10:20 AM [facility] Potassium 3.5 3.5 - 5.5 mmol/L LAB CHEMISTRY METHOD 08/29/2024 10:20 AM [facility] Chloride 100 96 - 110 mmol/L LAB CHEMISTRY METHOD 08/29/2024 10:20 AM [facility] CO2 23 21 - 32 mmol/L LAB CHEMISTRY METHOD 08/29/2024 10:20 AM [facility] Anion Gap 10 3 - 11 LAB CHEMISTRY METHOD 08/29/2024 10:20 AM [facility] Glucose 84 70 - 100 mg/dL LAB CHEMISTRY METHOD 08/29/2024 10:20 AM [facility] BUN 18 5 - 25 mg/dL LAB CHEMISTRY METHOD 08/29/2024 10:20 AM [facility] Creatinine 0.95 0.50 - 1.10 mg/dL LAB CHEMISTRY METHOD 08/29/2024 10:20 AM [facility] eGFR 60 >=60 mL/min/1. 73m2 LAB CHEMISTRY METHOD 08/29/2024 10:20 AM [facility] Comment:Calculation based on the??Chronic Kidney Disease Epidemiology Collaboration (CKD-EPI) equation refit??without adjustment for race. BUN/Creatinine Ratio 18.9 LAB CHEMISTRY METHOD 08/29/2024 10:20 AM [facility] Calcium 8.4(L) 8.5 - 10.5 mg/dL LAB CHEMISTRY METHOD 08/29/2024 10:20 AM [facility] Blood Venous blood specimen / Unknown Venipuncture / Unknown 08/29/2024 7:50 AM EST 08/29/2024 9:54 AM EST us Joshua White MD LAB BLOOD ORDERABLES Final Resul t [facility] [address] [place] [address], * (ABNORMAL) Complete blood count (08/29/2024 7:50 AM EST) WBC 5.2 4.8 - 10.8 K/mcL LAB HEMETOLOGY METHOD 08/29/2024 10:04 AM [facility] RBC 4.00 3.80 - 4.80 M/mcL LAB HEMETOLOGY METHOD 08/29/2024 10:04 AM [facility] Hemoglobin 13.3 11.5 - 16.0 g/dL LAB HEMETOLOGY METHOD 08/29/2024 10:04 AM [facility] Hematocrit 41.1 35.0 - 47.0 % LAB HEMETOLOGY METHOD 08/29/2024 10:04 AM [facility] MCV 103.3(H) 79.0 - 98.0 FL LAB HEMETOLOGY METHOD 08/29/2024 10:04 AM [facility] MCH 33.4(H) 27.0 - 32.0 pcg LAB HEMETOLOGY METHOD 08/29/2024 10:04 AM [facility] MCHC 32.4 32.0 - 37.0 g/dL LAB HEMETOLOGY METHOD 08/29/2024 10:04 AM [facility] RDW 16.5(H) 11.0 - 15.0 % LAB HEMETOLOGY METHOD 08/29/2024 10:04 AM [facility] Platelets 186 130 - 400 K/mcL LAB HEMETOLOGY METHOD 08/29/2024 10:04 AM [facility] MPV 10.8 7.0 - 11.0 FL LAB HEMETOLOGY METHOD 08/29/2024 10:04 AM [facility] NRBC 0.0 <1.0 % LAB HEMETOLOGY METHOD 08/29/2024 10:04 AM [facility] NRBC Absolute 0.00 <0.10 K/mcL LAB HEMETOLOGY METHOD 08/29/2024 10:04 AM [facility] Blood Venous blood specimen / Unknown Venipuncture / Unknown 08/29/2024 7:50 AM EST 08/29/2024 9:54 AM EST us Joshua White MD LAB BLOOD ORDERABLES Final Resul t [facility] [address] [place] [address], documented in this encounter Visit Diagnoses Diagnosis Type 2 diabetes mellitus without complications (CMS/HCC) Hypothyroidism, unspecified Unspecified atrial fibrillation (CMS/HCC) Hyperlipidemia, unspecified Transient cerebral ischemic attack, unspecified Urinary tract infection, site not specified documented in this encounter Care Teams Transit [employer] Police Officer Relationship Specialty Start Date End Date Joshua White MD [address] [phone] PCP - General Family Medicine 07/17/24 documented as of this encounter
--- OUTSIDE RECORDS SUMMARY | 2024-08-29 17:02 | XMS_ITS | Encounter Summary ---
Author Organization [facility] Address [address] [place] [address] Care Team Providers Care Museum Director Name Role Phone Joshua White MD Primary Care Provider [phone] Encounter Details Date Type Department Care Team (Late st Contact Info) Description 07/23/2024 Lab Requisition [facility] - Main Lab [address] [place] [address] Joshua White MD 38 [facility] [address] [place], [phone] Unspecified atrial fibrillation (CMS/HCC) Social History [...] Associated Diagnosis Comments COMPLETE BLOOD COUNT Routine 07/23/2024 7:39 AM EST Unspecified atrial fibrillation (CMS/HCC) THYROID STIMULATING HORMONE Routine 07/23/2024 7:39 AM EST Unspecified atrial fibrillation (CMS/HCC) BASIC METABOLIC PANEL Routine 07/23/2024 7:39 AM EST Unspecified atrial fibrillation (CMS/HCC) documented in this encounter Results * (ABNORMAL) Thyroid stimulating hormone (07/23/2024 7:39 AM EST) TSH 4.24(H) 0.40 - 4.00 mcIU/mL LAB CHEMISTRY METHOD 07/23/2024 2:15 PM EST [facility] Blood Venous blood specimen / Unknown Venipuncture / Unknown 07/23/2024 7:39 AM EST 07/23/2024 12:13 PM EST us Joshua White MD LAB BLOOD ORDERABLES Final Resul t [facility] [address] [place] [address], [place] [phone] * Basic metabolic panel (07/23/2024 7:39 AM EST) Sodium 140 133 - 145 mmol/L LAB CHEMISTRY METHOD 07/23/2024 2:16 PM [facility] Potassium 4.0 3.5 - 5.5 mmol/L LAB CHEMISTRY METHOD 07/23/2024 2:16 PM [facility] Chloride 106 96 - 110 mmol/L LAB CHEMISTRY METHOD 07/23/2024 2:16 PM [facility] CO2 26 21 - 32 mmol/L LAB CHEMISTRY METHOD 07/23/2024 2:16 PM [facility] Anion Gap 8 3 - 11 LAB CHEMISTRY METHOD 07/23/2024 2:16 PM [facility] Glucose 97 70 - 100 mg/dL LAB CHEMISTRY METHOD 07/23/2024 2:16 PM [facility] BUN 12 5 - 25 mg/dL LAB CHEMISTRY METHOD 07/23/2024 2:16 PM [facility] Creatinine 0.83 0.50 - 1.10 mg/dL LAB CHEMISTRY METHOD 07/23/2024 2:16 PM [facility] eGFR 71 >=60 mL/min/1. 73m2 LAB CHEMISTRY METHOD 07/23/2024 2:16 PM [facility] Comment:Calculation based on the??Chronic Kidney Disease Epidemiology Collaboration (CKD-EPI) equation refit??without adjustment for race. BUN/Creatinine Ratio 14.5 LAB CHEMISTRY METHOD 07/23/2024 2:16 PM [facility] Calcium 9.3 8.5 - 10.5 mg/dL LAB CHEMISTRY METHOD 07/23/2024 2:16 PM [facility] Blood Venous blood specimen / Unknown Venipuncture / Unknown 07/23/2024 7:39 AM EST 07/23/2024 12:13 PM EST us Joshua White MD LAB BLOOD ORDERABLES Final Resul t [facility] [address] [place] [address], * (ABNORMAL) Complete blood count (07/23/2024 7:39 AM EST) WBC 8.5 4.8 - 10.8 K/mcL LAB HEMETOLOGY METHOD 07/23/2024 2:29 PM [facility] RBC 4.00 3.80 - 4.80 M/mcL LAB HEMETOLOGY METHOD 07/23/2024 2:29 PM [facility] Hemoglobin 13.2 11.5 - 16.0 g/dL LAB HEMETOLOGY METHOD 07/23/2024 2:29 PM [facility] Hematocrit 39.8 35.0 - 47.0 % LAB HEMETOLOGY METHOD 07/23/2024 2:29 PM [facility] MCV 98.5(H) 79.0 - 98.0 FL LAB HEMETOLOGY METHOD 07/23/2024 2:29 PM [facility] MCH 32.7(H) 27.0 - 32.0 pcg LAB HEMETOLOGY METHOD 07/23/2024 2:29 PM [facility] MCHC 33.2 32.0 - 37.0 g/dL LAB HEMETOLOGY METHOD 07/23/2024 2:29 PM [facility] RDW 12.2 11.0 - 15.0 % LAB HEMETOLOGY METHOD 07/23/2024 2:29 PM EST [facility] Platelets 250 130 - 400 K/mcL LAB HEMETOLOGY METHOD 07/23/2024 2:29 PM EST [facility] MPV 11.3(H) 7.0 - 11.0 FL LAB HEMETOLOGY METHOD 07/23/2024 2:29 PM EST [facility] NRBC 0.0 <1.0 % LAB HEMETOLOGY METHOD 07/23/2024 2:29 PM EST [facility] NRBC Absolute 0.00 <0.10 K/mcL LAB HEMETOLOGY METHOD 07/23/2024 2:29 PM EST [facility] Blood Venous blood specimen / Unknown Venipuncture / Unknown 07/23/2024 7:39 AM EST 07/23/2024 12:13 PM EST us Joshua White MD LAB BLOOD ORDERABLES Final Resul t [facility] [address] [place] [address], documented in this encounter Visit Diagnoses Diagnosis Unspecified atrial fibrillation (CMS/HCC) documented in this encounter Additional Health Concerns Infection Onset Date Last Indicated Resolved Time Respiratory Rule-Out 08/23/2024 08/22/2024 025 1:29 PM EST documented as of this encounter Care Teams Museum Director Relationship Specialty Start Date End Date Joshua White MD [address] [place] [phone] PCP - General Family Medicine 07/17/24 documented as of this encounter
--- OUTSIDE RECORDS SUMMARY | 2024-08-29 17:02 | XMS_ITS | Encounter Summary ---
Author Organization [email or web address] Address [address] [place] [address] Care Team Providers Care Senior Sales Operations Manager Name Role Phone Joshua White MD Primary Care Provider [phone] Encounter Details Date Type Department Care Team (Late st Contact Info) Description 08/27/2024 Lab Requisition [facility] - Main Lab [address] [place] [address] Joshua White MD 38 [facility] [address] [place], [phone] Unspecified atrial fibrillation (CMS/HCC); Essential (primary) hypertension Social History Tobacco Use Types Packs/Day Years [...] Procedure Name Priority Date/Time Associated Diagnosis Comments CBC WITH AUTO DIFFERENTIAL Routine 08/27/2024 6:47 AM EST Unspecified atrial fibrillation (CMS/HCC) Essential (primary) hypertension CBC AND DIFFERENTIAL Routine 08/27/2024 6:47 AM EST Unspecified atrial fibrillation (CMS/HCC) Essential (primary) hypertension COMPREHENSIVE METABOLIC PANEL Routine 08/27/2024 6:47 AM EST Unspecified atrial fibrillation (CMS/HCC) Essential (primary) hypertension documented in this encounter Results * (ABNORMAL) CBC auto differential (08/27/2024 6:47 AM EST) WBC 6.3 4.8 - 10.8 K/[facility] LAB HEMETOLOGY METHOD 08/27/2024 1:16 PM [facility] RBC 4.00 3.80 - 4.80 M/mcL LAB HEMETOLOGY METHOD 08/27/2024 1:16 PM [facility] Hemoglobin 13.3 11.5 - 16.0 g/dL LAB HEMETOLOGY METHOD 08/27/2024 1:16 PM [facility] Hematocrit 41.8 35.0 - 47.0 % LAB HEMETOLOGY METHOD 08/27/2024 1:16 PM [facility] MCV 104.5(H) 79.0 - 98.0 FL LAB HEMETOLOGY METHOD 08/27/2024 1:16 PM [facility] MCH 33.3(H) 27.0 - 32.0 pcg LAB HEMETOLOGY METHOD 08/27/2024 1:16 PM [facility] MCHC 31.8(L) 32.0 - 37.0 g/dL LAB HEMETOLOGY METHOD 08/27/2024 1:16 PM [facility] RDW 17.2(H) 11.0 - 15.0 % LAB HEMETOLOGY METHOD 08/27/2024 1:16 PM [facility] Platelets 213 130 - 400 K/mcL LAB HEMETOLOGY METHOD 08/27/2024 1:16 PM [facility] MPV 10.9 7.0 - 11.0 FL LAB HEMETOLOGY METHOD 08/27/2024 1:16 PM [facility] NRBC 0.3 <1.0 % LAB HEMETOLOGY METHOD 08/27/2024 1:16 PM [facility] NRBC Absolute 0.02 <0.10 K/mcL LAB HEMETOLOGY METHOD 08/27/2024 1:16 PM [facility] Neutrophils Relative 52.5 % LAB HEMETOLOGY METHOD 08/27/2024 1:16 PM [facility] Lymphocytes Relative 37.2 % LAB HEMETOLOGY METHOD 08/27/2024 1:16 PM [facility] Monocytes Relative 7.3 % LAB HEMETOLOGY METHOD 08/27/2024 1:16 PM [facility] Eosinophils Relative 1.6 % LAB HEMETOLOGY METHOD 08/27/2024 1:16 PM [facility] Basophils Relative 0.9 % LAB HEMETOLOGY METHOD 08/27/2024 1:16 PM [facility] Immature Granulocytes Relative 0.5 % LAB HEMETOLOGY METHOD 08/27/2024 1:16 PM [facility] Neutrophils Absolute 3.32 1.50 - 7.00 K/mcL LAB HEMETOLOGY METHOD 08/27/2024 1:16 PM [facility] Lymphocytes Absolute 2.35 1.00 - 5.00 K/mcL LAB HEMETOLOGY METHOD 08/27/2024 1:16 PM [facility] Monocytes Absolute 0.46 0.20 - 1.00 K/mcL LAB HEMETOLOGY METHOD 08/27/2024 1:16 PM [facility] Eosinophils Absolute 0.10 0.00 - 0.50 K/mcL LAB HEMETOLOGY METHOD 08/27/2024 1:16 PM [facility] Basophils Absolute 0.06 0.00 - 0.20 K/mcL LAB HEMETOLOGY METHOD 08/27/2024 1:16 PM [facility] Immature Granulocytes Absolute 0.03 0.00 - 0.03 K/mcL LAB HEMETOLOGY METHOD 08/27/2024 1:16 PM [facility] Blood Venous blood specimen / Unknown Venipuncture / Unknown 08/27/2024 6:47 AM EST 08/27/2024 11:39 AM EST us Cindy MD LAB BLOOD ORDERABLES Final Resul t [facility] [address] [place] [address], * (ABNORMAL) Comprehensive metabolic panel (08/27/2024 6:47 AM EST) Sodium 130(L) 133 - 145 mmol/L LAB CHEMISTRY METHOD 08/27/2024 1:39 PM [facility] Potassium 3.7 3.5 - 5.5 mmol/L LAB CHEMISTRY METHOD 08/27/2024 1:39 PM [facility] Chloride 97 96 - 110 mmol/L LAB CHEMISTRY METHOD 08/27/2024 1:39 PM [facility] CO2 21 21 - 32 mmol/L LAB CHEMISTRY METHOD 08/27/2024 1:39 PM [facility] Anion Gap 12(H) 3 - 11 LAB CHEMISTRY METHOD 08/27/2024 1:39 PM [facility] Glucose 85 70 - 100 mg/dL LAB CHEMISTRY METHOD 08/27/2024 1:39 PM [facility] BUN 25 5 - 25 mg/dL LAB CHEMISTRY METHOD 08/27/2024 1:39 PM [facility] Creatinine 1.17(H) 0.50 - 1.10 mg/dL LAB CHEMISTRY METHOD 08/27/2024 1:39 PM [facility] eGFR 47(L) >=60 mL/min/1. 73m2 LAB CHEMISTRY METHOD 08/27/2024 1:39 PM [facility] Comment:Calculation based on the??Chronic Kidney Disease Epidemiology Collaboration (CKD-EPI) equation refit??without adjustment for race. BUN/Creatinine Ratio 21.4 LAB CHEMISTRY METHOD 08/27/2024 1:39 PM [facility] Calcium 8.7 8.5 - 10.5 mg/dL LAB CHEMISTRY METHOD 08/27/2024 1:39 PM [facility] AST (SGOT) 43(H) 10 - 42 unit/L LAB CHEMISTRY METHOD 08/27/2024 1:39 PM [facility] ALT (SGPT) 62(H) 10 - 60 unit/L LAB CHEMISTRY METHOD 08/27/2024 1:39 PM [facility] Alkaline Phosphatase 72 42 - 121 unit/L LAB CHEMISTRY METHOD 08/27/2024 1:39 PM [facility] Total Protein 5.8(L) 6.0 - 8.0 g/dL LAB CHEMISTRY METHOD 08/27/2024 1:39 PM [facility] Albumin 3.3 3.2 - 5.0 g/dL LAB CHEMISTRY METHOD 08/27/2024 1:39 PM [facility] Total Bilirubin 1.4 0.0 - 1.4 mg/dL LAB CHEMISTRY METHOD 08/27/2024 1:39 PM [facility] Blood Venous blood specimen / Unknown Venipuncture / Unknown 08/27/2024 6:47 AM EST 08/27/2024 11:39 AM EST us Joshua White MD LAB BLOOD ORDERABLES Final Resul t [facility] [address] [place] [address], documented in this encounter Visit Diagnoses Diagnosis Unspecified atrial fibrillation (CMS/HCC) Essential (primary) hypertension Unspecified essential hypertension documented in this encounter Care Teams Senior Sales Operations Manager Relationship Specialty Start Date End Date Joshua White MD [address] [place] [phone] PCP - General Family Medicine 07/17/24 documented as of this encounter
--- OUTSIDE RECORDS SUMMARY | 2024-08-29 17:02 | XMS_ITS | Clinical Summary ---
Author Organization [address] Address [address] [place] [address] Phone Care Team Providers Care Coke Inspector Name Role Phone Joshua White MD Primary Care Provider [phone] Encounters Date Type Department Care Team Description 08/28/[address] [facility] [address] [place] [phone] Joshua White MD Type 2 diabetes mellitus without complications (CMS/HCC); Hypothyroidism, unspecified; Unspecified atrial fibrillation (CMS/HCC); Hyperlipidemia, unspecified; Transient cerebral ischemic attack, unspecified; Urinary tract infection, site not specified 08/27/[address] [facility] [address] [place] [phone] Joshua White MD Unspecified atrial fibrillation (CMS/HCC); Essential (primary) hypertension 08/23/[address] [facility] [address] [place] [phone] Joshua White MD Acute upper respiratory infection, unspecified 08/21/[address] [facility] [address] [place] [phone] Joshua White MD Syncope and collapse 08/17/[address] [facility] [address] [place] [phone] Joshua White MD Unspecified atrial fibrillation (CMS/HCC); Hypothyroidism, unspecified; Hyperlipidemia, unspecified; Personal history of transient ischemic attack (TIA), and cerebral infarction without residual deficits 08/17/[address] [facility] [address] [place] [address] Joshua White MD Syncope and collapse; Altered mental status, unspecified 07/23/[address] [facility] [address] [place] [phone] Joshua White MD Unspecified atrial fibrillation (CMS/HCC) 07/17/[address] [facility] [address] [place] [phone] Joshua White MD Unspecified atrial fibrillation (CMS/HCC) 07/17/[address] [facility] [address] [place] [phone] Joshua White MD Dizziness and giddiness; Benign [...] Health Maintenance Due Date Last Done Comments Diabetes: Annual Foot Exam 1953 Diabetes: Annual Retina Eye Exam 1955 DTaP,Tdap,and Td Vaccines (1 - Tdap) 1962 Pneumococcal Vaccine: 50+ Years (1 of 2 - PCV) 1962 Zoster Vaccines (1 of 2) 1993 RSV Immunization Patients 60+ Years Old (1 - 1-dose 75+ series) 2018 COVID-19 Vaccine ( - season) 2024 Influenza Vaccine (#1) 2024 Cholesterol Screening (Lipid Panel) 07/17/2024 Depression Screening 07/17/2024 Falls Risk Assessment 07/17/2024 Medicare Annual Wellness Visit 07/17/2024 Osteoporosis Screening (Bone Density Screening) 07/17/2024 Social Influencers of Health Screening 07/17/2024 Diabetes: Annual Urine Albumin-Creatinine Ratio (uACR) 08/29/2024 Diabetes: Blood Sugar Control Test (HGBA1C) 08/29/2024 Diabetes: Annual GFR (Glomerular Filtration Rate) 08/29/2025 08/29/2024, 08/27/2024, 08/22/2024, Additional history exists Hypertension/CHF/CAD Annual BMP Blood Test 08/29/2025 08/29/2024, 08/27/2024, 08/22/2024, Additional history exists HIB Vaccines Aged Out No longer eligi [...] patient's age to complete this topic Meningococcal B Vacine Aged Out No lo nger eligible based on patient's age to complete this topic RSV Immunization Patients Under 20 months Aged Out No longer eligible based on patient's age to complete this topic Varicella Vaccines Aged Out No longer eligible based on patient's age to complete this topic Procedures Procedure Name Priority Date/Time Associated Diagnosis Comments AMMONIA Routine 08/29/2024 7:50 AM EST Type [...] unspecified Urinary tract infection, site not specified COMPLETE BLOOD COUNT Routine 08/29/2024 7:50 AM EST Type 2 diabetes mellitus without complications (CMS/HCC) Hypothyroidism, unspecified Unspecified atrial fibrillation (CMS/HCC) Hyperlipidemia, unspecified Transient cerebral ischemic attack, unspecified Urinary tract infection, site not specified CBC WITH AUTO DIFFERENTIAL Routine 08/27/2024 6:47 AM EST Unspecified atrial fibrillation (CMS/HCC) Essential (primary) hypertension COMPREHENSIVE METABOLIC PANEL Routine 08/27/2024 6:47 AM EST Unspecified atrial fibrillation (CMS/HCC) Essential (primary) hypertension CBC AND DIFFERENTIAL Routine 08/27/2024 6:47 AM EST Unspecified atrial fibrillation (CMS/HCC) Essential (primary) hypertension AMMONIA Routine 08/22/2024 8:13 AM EST Syncope and collapse BASIC METABOLIC PANEL Routine 08/22/2024 8:13 AM EST Syncope and collapse COMPLETE BLOOD COUNT Routine 08/22/2024 8:13 AM EST Syncope and collapse [id number], RSV, FLU A AND B QUALITATIVE RT-PCR, LOCAL REFERENCE LAB Routine 08/22/2024 7:00 AM EST Acute upper respiratory infection, unspecified CBC WITH AUTO DIFFERENTIAL Routine 08/17/2024 8:04 AM EST Unspecified atrial fibrillation (CMS/HCC) Hypothyroidism, unspecified Hyperlipidemia, unspecified Personal history of transient ischemic attack (TIA), and cerebral infarction without residual deficits THYROID STIMULATING HORMONE Routine 08/17/2024 8:04 AM EST Unspecified atrial fibrillation (CMS/HCC) Hypothyroidism, unspecified Hyperlipidemia, unspecified Personal history of transient ischemic attack (TIA), and cerebral infarction without residual deficits AMMONIA Routine 08/17/2024 8:04 AM EST Unspecified atrial fibrillation (CMS/HCC) Hypothyroidism, unspecified Hyperlipidemia, unspecified Personal history of transient ischemic attack (TIA), and cerebral infarction without residual deficits BASIC METABOLIC PANEL Routine 08/17/2024 8:04 AM EST Unspecified atrial fibrillation (CMS/HCC) Hypothyroidism, unspecified Hyperlipidemia, unspecified Personal history of transient ischemic attack (TIA), and cerebral infarction without residual deficits CBC AND DIFFERENTIAL Routine 08/17/2024 8:04 AM EST Unspecified atrial fibrillation (CMS/HCC) Hypothyroidism, unspecified Hyperlipidemia, unspecified Personal history of transient ischemic attack (TIA), and cerebral infarction without residual deficits URINALYSIS WITH REFLEX MICROSCOPIC Routine 08/16/2024 8:00 PM EST Syncope and collapse Altered mental status, unspecified URINALYSIS WITH REFLEX MICROSCOPIC Routine 08/16/2024 8:00 PM EST Syncope and collapse Altered mental status, unspecified CULTURE URINE Routine 08/16/2024 8:00 PM EST Syncope and collapse Altered mental status, unspecified THYROID STIMULATING HORMONE Routine 07/23/2024 7:39 AM EST Unspecified atrial fibrillation (CMS/HCC) BASIC METABOLIC PANEL Routine 07/23/2024 7:39 AM EST Unspecified atrial fibrillation (CMS/HCC) COMPLETE BLOOD COUNT Routine 07/23/2024 7:39 AM [...] Months Results * (ABNORMAL) Complete blood count (08/29/2024 7:50 AM [facility]) Only the most recent of4 resultswithin the time period is included. [facility] Signature WBC 5.2 4.8 - 10.8 K/mcL LAB HEMETOLOGY METHOD 08/29/2024 10:04 AM [facility] RBC 4.00 3.80 - 4.80 M/mcL LAB HEMETOLOGY METHOD 08/29/2024 10:04 AM [facility] Hemoglobin 13.3 11.5 - 16.0 g/dL LAB HEMETOLOGY METHOD 08/29/2024 10:04 AM [facility] Hematocrit 41.1 35.0 - 47.0 % LAB HEMETOLOGY METHOD 08/29/2024 10:04 AM [facility] MCV 103.3(H) 79.0 - 98.0 FL LAB HEMETOLOGY METHOD 08/29/2024 10:04 AM [facility] MCH 33.4(H) 27.0 - 32.0 pcg LAB HEMETOLOGY METHOD 08/29/2024 10:04 AM [facility] MCHC 32.4 32.0 - 37.0 g/dL LAB HEMETOLOGY METHOD 08/29/2024 10:04 AM [facility] RDW 16.5(H) 11.0 - 15.0 % LAB HEMETOLOGY METHOD 08/29/2024 10:04 AM [facility] Platelets 186 130 - 400 K/mcL LAB HEMETOLOGY METHOD 08/29/2024 10:04 AM [facility] MPV 10.8 7.0 - 11.0 FL LAB HEMETOLOGY METHOD 08/29/2024 10:04 AM [facility] NRBC 0.0 <1.0 % LAB HEMETOLOGY METHOD 08/29/2024 10:04 AM [facility] NRBC Absolute 0.00 <0.10 K/mcL LAB HEMETOLOGY METHOD 08/29/2024 10:04 AM EST [facility] Blood Venous blood specimen / Unknown Venipuncture / Unknown 08/29/2024 7:50 AM EST 08/29/2024 9:54 AM EST Joshua White MD LAB BLOOD ORDERABLES Final Resul t Performing Organization Address [facility] Co de Phone Number [facility] [address] [place] [address], [place] [phone] * (ABNORMAL) Ammonia (08/29/2024 7:50 AM EST) Only the most recent of3 resultswithin the time period is included. Ammonia 63(H) 11 - 35 mcmol/L LAB CHEMISTRY METHOD 08/29/2024 10:20 AM EST [facility] Blood Venous blood specimen / Unknown Venipuncture / Unknown 08/29/2024 7:50 AM EST 08/29/2024 9:54 AM EST us Joshua White MD LAB BLOOD ORDERABLES Final Resul t Performing Organization Address [facility] de Phone Number [facility] [address] [place] [address], [place] [phone] * (ABNORMAL) Basic metabolic panel (08/29/2024 7:50 AM EST) Only the most recent of5 resultswithin the time period is included. Sodium 133 133 - 145 mmol/L LAB CHEMISTRY METHOD 08/29/2024 10:20 AM EST [facility] Potassium 3.5 3.5 - 5.5 mmol/L LAB CHEMISTRY METHOD 08/29/2024 10:20 AM EST [facility] Chloride 100 96 - 110 mmol/L LAB CHEMISTRY METHOD 08/29/2024 10:20 AM EST [facility] CO2 23 21 - 32 mmol/L LAB CHEMISTRY METHOD 08/29/2024 10:20 AM [facility] Anion Gap 10 3 - 11 LAB CHEMISTRY METHOD 08/29/2024 10:20 AM [facility] Glucose 84 70 - 100 mg/dL LAB CHEMISTRY METHOD 08/29/2024 10:20 AM [facility] BUN 18 5 - 25 mg/dL LAB CHEMISTRY METHOD 08/29/2024 10:20 AM [facility] Creatinine 0.95 0.50 - 1.10 mg/dL LAB CHEMISTRY METHOD 08/29/2024 10:20 AM [facility] eGFR 60 >=60 mL/min/1. 73m2 LAB CHEMISTRY METHOD 08/29/2024 10:20 AM [facility] Comment:Calculation based on the??Chronic Kidney Disease Epidemiology Collaboration (CKD-EPI) equation refit??without adjustment for race. BUN/Creatinine Ratio 18.9 LAB CHEMISTRY METHOD 08/29/2024 10:20 AM [facility] Calcium 8.4(L) 8.5 - 10.5 mg/dL LAB CHEMISTRY METHOD 08/29/2024 10:20 AM [facility] Blood Venous blood specimen / Unknown Venipuncture / Unknown 08/29/2024 7:50 AM EST 08/29/2024 9:54 AM EST us Joshua White MD LAB BLOOD ORDERABLES Final Resul t [facility] [address] [place] [address], * (ABNORMAL) CBC auto differential (08/27/2024 6:47 AM EST) Only the most recent of2 resultswithin the time period is included. WBC 6.3 4.8 - 10.8 K/[facility] LAB HEMETOLOGY METHOD 08/27/2024 1:16 PM [facility] [...] MD LAB BLOOD ORDERABLES Final Resul t [facility] [address] [place] [address], [place] [phone] * (ABNORMAL) Comprehensive metabolic panel (08/27/2024 6:47 AM EST) Sodium 130(L) 133 - 145 mmol/L LAB CHEMISTRY METHOD 08/27/2024 1:39 PM EST [facility] Potassium 3.7 3.5 - 5.5 [...] MD LAB BLOOD ORDERABLES Final Resul t [facility] [address] [place] [address], * [id number], RSV, Influenza A and B qualitative RT-PCR (08/22/2024 7:00 AM EST) SARS COV-2 Not Detected Not Detected LAB MOLECULAR DIAGNOSTICS METHOD 08/23/2024 1:29 PM [facility] Comment: Disclaimer: The manner in which this information is used to guide patient care is the responsibility of the healthcare provider. Testing was performed using the [employer] Alinity m SARS-CoV-2 test. This test has been authorized [...] for Healthcare Providers can be found at: https://www.fda.gov/media/342118/download Fact sheet for Patients can be found at: https://www.fda.gov/media/368830/download Influenza A PCR Not Detected Not Detected LAB MOLECULAR DIAGNOSTICS METHOD 08/23/2024 1:29 PM EST [facility] Influenza B PCR Not Detected Not Detected LAB MOLECULAR DIAGNOSTICS METHOD 08/23/2024 1:29 PM EST [facility] RSV PCR Not Detected Not Detected LAB MOLECULAR DIAGNOSTICS METHOD 08/23/2024 1:29 PM EST [facility] Swab Nasopharyngeal structure / Unknown Non-blood Collection / Unknown 08/22/2024 7:00 AM EST 08/23/2024 8:59 AM EST Joshua White MD LAB MICROBIOLOGY - GENERAL ORDER PROMISE Final Result Performing Organization Address City/State/[facility] Co de Phone Number [facility] [address] [place] [address], * Thyroid stimulating hormone (08/17/2024 8:04 AM EST) Only the most recent of2 resultswithin the time period is included. TSH 1.59 0.40 - 4.00 mcIU/mL LAB CHEMISTRY METHOD 08/17/2024 9:36 AM EST [facility] Blood Venous blood specimen / Unknown Venipuncture / Unknown 08/17/2024 8:04 AM EST 08/17/2024 8:35 AM EST Joshua White MD LAB BLOOD ORDERABLES Final Resul t [facility] [address] [place] [address], [place] [phone] * (ABNORMAL) Urinalysis with reflex microscopic (08/16/2024 8:00 PM EST) Specific [place] Urine 1.027 1.003 - 1.030 LAB URINALYSIS [...] - AUTOMATED METHOD 08/17/2024 10:11 AM EST [facility] Squamous Epithelial, Urine 57 0 - 60 /LPF LAB URINALYSIS - AUTOMATED METHOD 08/17/2024 10:11 AM [facility] Bacteria, Urine Many(A) Negative /HPF LAB URINALYSIS - AUTOMATED METHOD 08/17/2024 10:11 AM [facility] Hyaline Casts, Urine 7.6(H) 0 - 3 /LPF LAB URINALYSIS - AUTOMATED METHOD 08/17/2024 10:11 AM [facility] Urine Urine specimen obtained by clean catch procedure / Unknown Non-blood Collection / Unknown 08/16/2024 8:00 PM EST 08/17/2024 9:36 AM EST us Joshua White MD LAB URINE ORDERABLES Final Resul t [facility] [address] [place] [address], [place] [phone] * (ABNORMAL) Culture urine (08/16/2024 8:00 PM EST) Only the most recent of2 resultswithin the time period is included. Culture, Urine >100,000 CFU/mL Klebsiella pneumoniae ssp pneumoniae(A) ALICIA 08/19/2024 12:19 PM EST [facility] Comment: This is an edited result. Previous organism was Gram negative bacilli on 08/18/2024 at 0812 EST. Urine Urine specimen obtained by clean catch procedure / Unknown Non-blood Collection / Unknown 08/16/2024 8:00 PM EST 08/17/2024 9:36 AM EST Narrative [facility] - 08/19/2024 12:19 PM EST Normal [...] MICROBIOLOGY - GENERAL ORDER PROMISE Final Result [facility] [address] [place] [address], * (ABNORMAL) Urinalysis with reflex microscopic and culture (07/16/2024 4:23 PM EST) Specific [place] Urine 1.019 1.003 - 1.030 LAB URINALYSIS - AUTOMATED METHOD 07/17/2024 8:43 AM [facility] pH, Urine 5.5 5.0 - 8.0 pH LAB URINALYSIS - AUTOMATED METHOD 07/17/2024 8:43 AM [facility] Leukocytes, Urine Moderate(A) Negative LAB URINALYSIS - AUTOMATED METHOD 07/17/2024 8:43 AM [facility] Nitrite, Urine Positive(A) Negative LAB URINALYSIS - AUTOMATED METHOD 07/17/2024 8:43 AM [facility] Protein, Urine Negative <=Trace mg/dL LAB URINALYSIS - AUTOMATED METHOD 07/17/2024 8:43 AM [facility] Glucose, Urine Negative Negative mg/dL LAB URINALYSIS - AUTOMATED METHOD 07/17/2024 8:43 AM [facility] Ketones, Urine Negative Negative mg/dL LAB URINALYSIS - AUTOMATED METHOD 07/17/2024 8:43 AM [facility] Urobilinogen , Urine 0.2 0.2 - 1.0 mg/dL LAB URINALYSIS - AUTOMATED METHOD 07/17/2024 8:43 AM [facility] Bilirubin, Urine Negative Negative LAB URINALYSIS - AUTOMATED METHOD 07/17/2024 8:43 AM [facility] Blood, Urine Trace(A) Negative LAB URINALYSIS - AUTOMATED METHOD 07/17/2024 8:43 AM [facility] RBC, Urine 2.6 0 - 4 /HPF LAB URINALYSIS - AUTOMATED METHOD 07/17/2024 8:43 AM [facility] WBC, Urine 22.6(H) 0 - 4 /HPF LAB URINALYSIS - AUTOMATED METHOD 07/17/2024 8:43 AM [facility] Squamous Epithelial, Urine 28 0 - 60 /LPF LAB URINALYSIS - AUTOMATED METHOD 07/17/2024 8:43 AM [facility] Crystals, Urine LT CALCIUM OXALATE /LPF LAB URINALYSIS - AUTOMATED METHOD 07/17/2024 8:43 AM [facility] Bacteria, Urine Many(A) Negative /HPF LAB URINALYSIS - AUTOMATED METHOD 07/17/2024 8:43 AM [facility] Hyaline Casts, Urine 3.3(H) 0 - 3 /LPF LAB URINALYSIS - AUTOMATED METHOD 07/17/2024 8:43 AM [facility] Urine Urine specimen obtained by clean catch procedure / Unknown Non-blood Collection / Unknown 07/16/2024 4:23 PM EST 07/17/2024 7:50 AM EST Joshua White MD LAB URINE ORDERABLES Final Resul t [facility] ([facility]) [facility] [address] [place] [address], from Last 3 Months Insurance MEDICAID - [place] MEDICARE Care Teams Coke Inspector Relationship Specialty Start Date End Date Joshua White MD [address] [facility] [address] [place] [phone] PCP - General Family Medicine 07/17/24
--- OUTSIDE RECORDS SUMMARY | 2024-08-29 17:02 | XMS_ITS | Encounter Summary ---
Author Organization [employer] Address [address] [place] [address] Care Team Providers Care Brine Tank Tender Name Role Phone Joshua White MD Primary Care Provider [phone] Encounter Details Date Type Department Care Team (Late st Contact Info) Description 08/17/2024 Lab Requisition [facility] [address] [facility] [place] [address] Joshua White MD [address] [place] [address] [address] [place], [address] Unspecified atrial fibrillation (CMS/HCC); Hypothyroidism, unspecified; Hyperlipidemia, unspecified; Personal history of transient ischemic attack (TIA), and cerebral infarction without residual deficits Social History Tobacco Use Types Packs/Day Years [...] Diagnosis Comments CBC WITH AUTO DIFFERENTIAL Routine 08/17/2024 8:04 [...] (TIA), and cerebral infarction without residual deficits documented in this encounter Results * (ABNORMAL) CBC auto differential (08/17/2024 8:04 AM EST) [facility] WBC 6.0 4.8 - 10.8 K/mcL LAB HEMETOLOGY METHOD 08/17/2024 9:06 AM [facility] RBC 3.60(L) 3.80 - 4.80 M/mcL LAB HEMETOLOGY METHOD 08/17/2024 9:06 AM [facility] Hemoglobin 11.6 11.5 - 16.0 g/dL LAB HEMETOLOGY METHOD 08/17/2024 9:06 AM [facility] Hematocrit 36.7 35.0 - 47.0 % LAB HEMETOLOGY METHOD 08/17/2024 9:06 AM [facility] MCV 103.4(H) 79.0 - 98.0 FL LAB HEMETOLOGY METHOD 08/17/2024 9:06 AM [facility] MCH 32.7(H) 27.0 - 32.0 pcg LAB HEMETOLOGY METHOD 08/17/2024 9:06 AM [facility] MCHC 31.6(L) 32.0 - 37.0 g/dL LAB HEMETOLOGY METHOD 08/17/2024 9:06 AM [facility] RDW 16.0(H) 11.0 - 15.0 % LAB HEMETOLOGY METHOD 08/17/2024 9:06 AM [facility] Platelets 189 130 - 400 K/mcL LAB HEMETOLOGY METHOD 08/17/2024 9:06 AM [facility] MPV 11.2(H) 7.0 - 11.0 FL LAB HEMETOLOGY METHOD 08/17/2024 9:06 AM [facility] NRBC 0.0 <1.0 % LAB HEMETOLOGY METHOD 08/17/2024 9:06 AM [facility] NRBC Absolute 0.00 <0.10 K/mcL LAB HEMETOLOGY METHOD 08/17/2024 9:06 AM [facility] Neutrophils Relative 59.1 % LAB HEMETOLOGY METHOD 08/17/2024 9:06 AM [facility] Lymphocytes Relative 30.9 % LAB HEMETOLOGY METHOD 08/17/2024 9:06 AM [facility] Monocytes Relative 6.7 % LAB HEMETOLOGY METHOD 08/17/2024 9:06 AM [facility] Eosinophils Relative 1.8 % LAB HEMETOLOGY METHOD 08/17/2024 9:06 AM [facility] Basophils Relative 0.8 % LAB HEMETOLOGY METHOD 08/17/2024 9:06 AM [facility] Immature Granulocytes Relative 0.7 % LAB HEMETOLOGY METHOD 08/17/2024 9:06 AM [facility] Neutrophils Absolute 3.51 1.50 - 7.00 K/mcL LAB HEMETOLOGY METHOD 08/17/2024 9:06 AM [facility] Lymphocytes Absolute 1.84 1.00 - 5.00 K/mcL LAB HEMETOLOGY METHOD 08/17/2024 9:06 AM [facility] Monocytes Absolute 0.40 0.20 - 1.00 K/mcL LAB HEMETOLOGY METHOD 08/17/2024 9:06 AM EST [facility] Eosinophils Absolute 0.11 0.00 - 0.50 K/[facility] LAB HEMETOLOGY METHOD 08/17/2024 9:06 AM EST [facility] Basophils Absolute 0.05 0.00 - 0.20 K/[facility] LAB HEMETOLOGY METHOD 08/17/2024 9:06 AM EST [facility] Immature Granulocytes Absolute 0.04(H) 0.00 - 0.03 K/[facility] LAB HEMETOLOGY METHOD 08/17/2024 9:06 AM EST [facility] Blood Venous blood specimen / Unknown Venipuncture / Unknown 08/17/2024 8:04 AM EST 08/17/2024 8:35 AM EST Joshua White MD LAB BLOOD ORDERABLES Final Resul t Performing Organization Address City/[facility]/ZIP Co de Phone Number [facility] [address] [place] [address], [place] [phone] * Thyroid stimulating hormone (08/17/2024 8:04 AM EST) TSH 1.59 0.40 - 4.00 mcIU/mL LAB CHEMISTRY METHOD 08/17/2024 9:36 AM EST [facility] Blood Venous blood specimen / Unknown Venipuncture / Unknown 08/17/2024 8:04 AM EST 08/17/2024 8:35 AM EST Joshua White MD LAB BLOOD ORDERABLES Final Resul t [facility] [address] [place] [address], [place] [phone] * (ABNORMAL) Ammonia (08/17/2024 8:04 AM EST) Ammonia 46(H) 11 - 35 mcmol/L LAB CHEMISTRY METHOD 08/17/2024 9:04 AM [facility] Blood Venous blood specimen / Unknown Venipuncture / Unknown 08/17/2024 8:04 AM EST 08/17/2024 8:35 AM EST us Joshua White MD LAB BLOOD ORDERABLES Final Resul t [facility] [address] [place] [address], [place] [phone] * (ABNORMAL) Basic metabolic panel (08/17/2024 8:04 AM EST) Sodium 138 133 - 145 mmol/L LAB CHEMISTRY METHOD 08/17/2024 9:47 AM [facility] Potassium 3.6 3.5 - 5.5 mmol/L LAB CHEMISTRY METHOD 08/17/2024 9:47 AM [facility] Chloride 105 96 - 110 mmol/L LAB CHEMISTRY METHOD 08/17/2024 9:47 AM [facility] CO2 25 21 - 32 mmol/L LAB CHEMISTRY METHOD 08/17/2024 9:47 AM [facility] Anion Gap 8 3 - 11 LAB CHEMISTRY METHOD 08/17/2024 9:47 AM [facility] Glucose 88 70 - 100 mg/dL LAB CHEMISTRY METHOD 08/17/2024 9:47 AM [facility] BUN 30(H) 5 - 25 mg/dL LAB CHEMISTRY METHOD 08/17/2024 9:47 AM [facility] Comment:Results verified by repeat testing Creatinine 1.26(H) 0.50 - 1.10 mg/dL LAB CHEMISTRY METHOD 08/17/2024 9:47 AM [facility] eGFR 43(L) >=60 mL/min/1. 73m2 LAB CHEMISTRY METHOD 08/17/2024 9:47 AM [facility] Comment:Calculation based on the??Chronic Kidney Disease Epidemiology Collaboration (CKD-EPI) equation refit??without adjustment for race. BUN/Creatinine Ratio 23.8 LAB CHEMISTRY METHOD 08/17/2024 9:47 AM EST [facility] Calcium 8.5 8.5 - 10.5 mg/dL LAB CHEMISTRY METHOD 08/17/2024 9:47 AM EST [facility] Blood Venous blood specimen / Unknown Venipuncture / Unknown 08/17/2024 8:04 AM EST 08/17/2024 8:35 AM EST us Joshua White MD LAB BLOOD ORDERABLES Final Resul t [facility] ([facility]) [facility] [address] [place] [address], documented in this encounter Visit Diagnoses Diagnosis Unspecified atrial fibrillation (CMS/HCC) Hypothyroidism, unspecified Hyperlipidemia, unspecified Personal history of transient ischemic attack (TIA), and cerebral infarction without residual deficits documented in this encounter Additional Health Concerns Infection Onset Date Last Indicated Resolved Time Respiratory Rule-Out 08/23/2024 08/22/2024 025 1:29 PM EST documented as of this encounter Care Teams Brine Tank Tender Relationship Specialty Start Date End Date Joshua White MD [address] [place] [phone] PCP - General Family Medicine 07/17/24 documented as of this encounter
[2024-08-29] MEDS: Midodrine HCl 10 MG TABLET PO (17:10)
[2024-08-29 17:23] LABS: Appearance Urine Clear; Color Urine Dark Yellow; Glucose Urine UA Negative (Negative); Leukocyte Esterase Urine Negative (Negative); Nitrite Urine Negative (Negative); UMIC TRIGGER UACC YES; Urine Blood Negative (Negative); Urine Ketones Negative (Negative); Urine Protein 100 (2+) mg/dL (Neg-Trace)
[2024-08-29 17:57] LABS: Bacteria Urine None Seen (None Seen); Squamous Epithelial Cell Urine 0-2 /HPF (0-2); WBC Urine 0-5 /HPF (0-5)
[2024-08-29 18:16] LABS: Reflex Lactate? 2 Y
[2024-08-29 19:21] LABS: ~Lactic Acid-LAB USE ONLY 2.2 mmol/L (0.5-2.0)
[2024-08-29] MEDS: Metoprolol Tartrate 25 MG TABLET PO (21:54)
--- NOTE | 2024-08-29 22:03 | PC.NURSE ---
metoprolol PO given. pt had watery/bileous emesis about 1 minute later. pill not visualized in emesis. MD Floyd informed. mentation stable. plan of care ongoing
[2024-08-30] VITALS (9 sets, daily range): BP systolic 90–138; BP diastolic 54–81; PULSE 74–136; RESP 18–20; TEMP 36.2–36.7; O2SAT 91–96
[2024-08-30] MEDS: Dextrose 5 % and 0.9 % NaCl 1,000 ML 100 ML IVCONT (03:34)
[2024-08-30] MEDS: ondansetron HCL 4 MG/2 ML VIAL IVPUSH (06:42)
[2024-08-30 09:35] LABS: MANUAL DIFF FLAG NO
[2024-08-30 09:36] LABS: Basophils Absolute Auto 0.1 X10*3/uL (0.0-0.2); Basophils Percent Auto 1.1 % (0-2); Eosinophils Percent Auto 0.5 % (0-4); Hematocrit 42.8 % (37.0-47.0); Hemoglobin 14.1 g/dl (12.0-16.0); Imm Gran Abs Auto 0.04 X10*3/uL (0.00-0.03); Imm Gran Pct Auto 0.7 % (0.0-0.4); Lymphocytes Absolute Auto 1.5 X10*3/uL (1.2-4.9); Lymphocytes Percent Auto 26.4 % (20-40); Mean Corpuscular HGB Conc 32.9 g/dl (31.0-35.0); Mean Corpuscular Hemoglobin 33.3 pg (27.0-33.0); Mean Corpuscular Volume 100.9 fL (80.0-98.0); Mean Platelet Volume 10.1 fL (9.4-12.3); Monocytes Absolute Auto 0.3 X10*3/uL (0.1-1.2); Monocytes Percent Auto 5.6 % (2-11); Neutrophils Absolute Auto 3.6 x10*3/uL (2.0-8.3); Neutrophils Percent Auto 65.7 % (45-73); Platelet Count 229 X10*3/uL (160-400); Red Blood Count 4.24 X10*6/uL (4.20-5.50); Red Cell Distribution Width 16.9 % (11.0-16.0); White Blood Count 5.5 X10*3/uL (4.8-10.8)
[2024-08-30 09:51] LABS: Alanine Aminotransferase 53 U/L (0-31); Albumin Level 3.6 g/dL (3.5-5.0); Alkaline Phosphatase 61 U/L (39-117); Anion Gap 16 (12-20); Aspartate Amino Transferase 72 U/L (5-31); Bilirubin Total 1.2 mg/dL (0.0-1.0); Blood Urea Nitrogen 14 mg/dL (9-16); Carbon Dioxide 19 mmol/L (22-29); Chloride 103 mmol/L (96-108); Creatinine Clr Calc Pharmacy 34.8; Estimated Glomerular Filt Rate 43; Glucose Random 134 mg/dL (60-115); Potassium 3.8 mmol/L (3.3-5.1); Sodium 134 mmol/L (135-145)
[2024-08-30] MEDS: Midodrine HCl 10 MG TABLET PO (10:02)
[2024-08-30] MEDS: Metoprolol Tartrate 25 MG TABLET PO (10:03)
[2024-08-30] MEDS: Metoprolol Tartrate 12.5 MG HALFTAB PO (10:03)
[2024-08-30] MEDS: hydrOXYzine HCL 50 MG/ML VIAL 25 MG IM (10:04)
[2024-08-30] MEDS: busPIRone HCl 10 MG TABLET PO (10:04)
[2024-08-30] MEDS: Metoprolol Tartrate 5 MG/5 ML VIAL IVPUSH (11:11)
[2024-08-30] MEDS: metroNIDAZOLE/NS 500 MG/100 ML PIGGYBACK 100 MG IV ×2 (11:11→20:16)
[2024-08-30] MEDS: Pantoprazole Sodium 40 MG/10 ML VIAL IVPUSH (11:11)
[2024-08-30] MEDS: 0.9 % Sodium Chloride Flush 3 ML SYRINGE IVFLUSH ×2 (11:11→20:20)
--- NOTE | 2024-08-30 12:25 | PM.CNGS ---
History of Present Illness Consult details Consult date: 08/30/24 Reason for consult: abdominal pain Requesting physician: Sander Villalta Narrative: 79-year-old female patient presenting to the emergency department on 08/29/2024 with 2 weeks' history of nausea, vomiting, and diarrhea. The patient is extremely hard of hearing and a very poor historian so most of her history was obtained through the medical record. Her past history is significant for COPD, atrial fibrillation with rapid ventricular response, GERD, hypothyroidism and hyperlipidemia. Her surgical history is unknown. Patient mainly complains of nausea but denies abdominal pain at this time. Admitting laboratories revealed normal WBC of 5.7, lactate of 2.2, normal direct bilirubin, mildly elevated AST and ALT, and BNP of 696. CT abdomen and pelvis performed on 08/29/2024 revealed right-sided pleural effusions moderate to large volume with a small pericardial effusion with cardiomegaly. CHF could not be excluded. A moderate amount of ascites especially in the right upper quadrant was noted. No radiopaque gallstones were identified. No wall thickening is identified. Subsequent ultrasound of the abdomen also reveals a small amount of ascites with no definite gallstones seen. There was a positive sonographic Newby sign. Review of Systems Review of Systems: Yes Unobtainable due to mental condition PMFSH Past Medical History Medical History Atrial fibrillation Hypothyroidism COPD (chronic obstructive pulmonary disease) GERD (gastroesophageal reflux disease) Social History Social History Household Members: None Housing: Prison Do you presently have visiting nurse or other home services: No Patient Tobacco Use Status: Never used Tobacco Smoked in Last 30 Days: No e-Cigarette/Vaping Use: Never Used Second Hand Smoke Exposure: No Use of substances other than those prescribed or required for medical reasons: No Currently Displaying Signs/Symptoms of Drug Intoxication Withdrawal: No Have you been hit, kicked, punched, or otherwise hurt by someone within the past year? If so, by whom?: No Do you feel safe in your current relationship?: No Current Relationship Is there a partner from a previous relationship who is making you feel unsafe now?: No Are you made to feel afraid or neglected: No Advance Directives: Yes Advance Directives on File: Yes Advance Directives Date on File: 07/18/24 Do you have a plan to hurt others: No Plan Recently lost weight without trying: No Eating poorly because of decreased appetite: No Patient : No : No Poor oral hygiene: Yes service: No Meds Allergies Allergy/AdvReac Type Severity Reaction Status Date / Time lactose AdvReac Gastrointestinal Verified 08/29/24 13:18 Upset Active Medications: Current Medications Acetaminophen (Acetaminophen 325 Mg Tablet) 650 mg PO Q6H PRN PRN Reason: Pain, Mild 1-3,fever,headache Albuterol Sulfate (Albuterol Sulfate 90 Mcg 8 Gm Inhaler) 1 puff INHALE Q4H PRN PRN Reason: Shortness Of Breath Or Wheezing Buspirone HCl (Buspirone Hcl 10 Mg Tablet) 10 mg PO Q8H REPLACED BY [facility] Last Admin: 08/30/24 10:04 Dose: 10 mg Calcium Carbonate (Calcium Carbonate 750 Mg Tab.Chew) 750 mg PO Q4H PRN PRN Reason: Heartburn Ceftriaxone Sodium (Ceftriaxone Sodium 1 Gm Vial) 1 gm IVPUSH Q24H REPLACED BY [facility] Fluticasone Propionate (Fluticasone Propionate Nasal 16 Gm [place]) 1 spray NOSTRIL-B BID REPLACED BY [facility] Dextrose/Sodium Chloride (D5ns) 1,000 mls @ 100 mls/hr IVCONT .Q10H REPLACED BY [facility] Last Admin: 08/30/24 03:34 Dose: 100 mls/hr Metronidazole (Flagyl) 500 mg in 100 mls @ 100 mls/hr IV Q8H REPLACED BY [facility] Last Admin: 08/30/24 11:11 Dose: 100 mls/hr Levothyroxine Sodium (Levothyroxine Sodium 75 Mcg Tablet) 75 mcg PO DAILY@0600 REPLACED BY [facility] Magnesium Hydroxide (Milk Of Magnesia 30 Ml Oral.Susp) 30 ml PO DAILY PRN PRN Reason: Constipation Melatonin (Melatonin 3 Mg Tablet) 6 mg PO BEDTIME PRN PRN Reason: Insomnia Metoprolol Tartrate (Metoprolol Tartrate 25 Mg Tablet) 25 mg PO BID REPLACED BY [facility]; Protocol Last Admin: 08/30/24 10:03 Dose: 25 mg Metoprolol Tartrate (Metoprolol Tartrate 12.5 Mg Halftab) 12.5 mg PO BID REPLACED BY [facility]; Protocol Last Admin: 08/30/24 10:03 Dose: 12.5 mg Midodrine (Midodrine Hcl 10 Mg Tablet) 10 mg PO TID REPLACED BY [facility] Last Admin: 08/30/24 10:02 Dose: 10 mg Morphine Sulfate (Morphine Sulfate 2 Mg/Ml Cartridge) 1 mg IVPUSH Q4H PRN; Protocol PRN Reason: Pain, Severe (Pain Scale 7-10) Last Admin: 08/29/24 17:58 Dose: 1 mg Ondansetron HCl (Ondansetron Hcl 4 Mg/2 Ml Vial) 4 mg IVPUSH Q8H PRN PRN Reason: Nausea and Vomiting Last Admin: 08/30/24 06:42 Dose: 4 mg Pantoprazole Sodium (Pantoprazole Sodium 40 Mg/10 Ml Vial) 40 mg IVPUSH BID@0630,1630 REPLACED BY [facility] Last Admin: 08/30/24 11:11 Dose: 40 mg Prazosin HCl (Prazosin Hcl 1 Mg Capsule) 2 mg PO BEDTIME REPLACED BY [facility]; Protocol Sodium Chloride (0.9 % Sodium Chloride Flush 3 Ml Syringe) [facility] Last Admin: 08/30/24 11:11 Dose: 3 ml Trazodone HCl (Trazodone Hcl 25 Mg Halftab) 25 mg PO TID PRN PRN Reason: Agitation Home Medications ?Medication ?Instructions ?Recorded ?Confirmed ?Last Taken ?Type acetaminophen 500 mg tablet 1,000 mg PO TID 07/18/24 08/29/24 Unknown History albuterol sulfate 90 mcg/actuation 1 inh inhalation Q4H PRN Shortness 07/18/24 08/29/24 Unknown History aerosol inhaler (Ventolin HFA) Of Breath Or Wheezing atorvastatin 20 mg tablet 20 mg PO DAILY 07/18/24 08/29/24 Unknown History bisacodyl 10 mg rectal suppository 10 mg NC DAILY PRN Constipation 07/18/24 08/29/24 Unknown History buspirone 10 mg tablet 10 mg PO Q8H 07/18/24 08/29/24 Unknown History cetirizine 10 mg tablet 10 mg PO DAILY 07/18/24 08/29/24 Unknown History cyanocobalamin (vitamin B-12) 1,000 mcg PO DAILY 07/18/24 08/29/24 Unknown History 1,000 mcg tablet,extended release (Vitamin B-12 ER) diclofenac sodium 1 % topical gel 4 g topical BID 07/18/24 08/29/24 Unknown History esomeprazole magnesium 20 mg 20 mg PO DAILY 07/18/24 08/29/24 Unknown History granules delayed release for susp fluticasone propionate 50 1 spray intranasal BID 07/18/24 08/29/24 Unknown History mcg/actuation nasal spray,suspension guaifenesin 100 mg/5 mL oral liquid 200 mg PO Q4H PRN Cough 07/18/24 08/29/24 Unknown History hydrocortisone 1 % topical cream 1 appl topical Q8H PRN Rash 07/18/24 08/29/24 Unknown History ipratropium 20 mcg-albuterol 100 2 puff inhalation Q4H PRN 07/18/24 08/29/24 Unknown History mcg/actuation mist for inhalation Shortness Of Breath Or Wheezing (Combivent Respimat) levothyroxine 75 mcg tablet 75 mcg PO DAILY@0600 07/18/24 08/29/24 Unknown History loteprednol etabonate 0.5 % eye 1 drp ophthalmic (eye) BID PRN Dry 07/18/24 08/29/24 Unknown History gel drops Eyes magnesium hydroxide 400 mg/5 mL 30 ml PO DAILY PRN Constipation 07/18/24 08/29/24 Unknown History oral suspension (Milk of Magnesia) meclizine 12.5 mg tablet 12.5 mg PO Q8H PRN Dizziness 07/18/24 08/29/24 Unknown History melatonin 5 mg tablet 10 mg PO BEDTIME 07/18/24 08/29/24 Unknown History ondansetron HCl 8 mg tablet 8 mg PO Q8H PRN Nausea And Vomiting 07/18/24 08/29/24 Unknown History polyvinyl alcohol 1.4 % eye drops 1 drp ophthalmic (eye) TID PRN Dry 07/18/24 08/29/24 Unknown History (Artificial Tears (polyvinyl Eyes alcohol)) prazosin 2 mg capsule 2 mg PO BEDTIME 07/18/24 08/29/24 Unknown History sertraline 25 mg tablet 50 mg PO DAILY 07/18/24 08/29/24 Unknown History sodium phosphates 19 gram-7 118 ml NC DAILY PRN Constipation 07/18/24 08/29/24 Unknown History gram/118 mL enema (Fleet Enema) tramadol 50 mg tablet 50 mg PO BID 07/18/24 08/29/24 Unknown History trazodone 50 mg tablet 25 mg PO TID PRN Agitation 07/18/24 08/29/24 Unknown History acetaminophen 650 mg rectal 650 mg NC Q4H PRN Pain or Fever 08/29/24 08/29/24 Unknown History suppository amoxicillin 875 mg-potassium 1 tab PO BID 08/29/24 08/29/24 Unknown History clavulanate 125 mg tablet lactulose 10 gram/15 mL oral 30 ml PO DAILY PRN hyperammonemia 08/29/24 08/29/24 Unknown History solution (Constulose) metoprolol tartrate 25 mg tablet 12.5 mg PO BID 08/29/24 08/29/24 Unknown History midodrine 5 mg tablet 10 mg PO TID 08/29/24 08/29/24 Unknown History Physical Exam Vital Signs: Vital Signs: Last Vital Signs Temp 97.4 F 08/30/24 11:10 Pulse 136 H 08/30/24 11:10 Resp 20 08/30/24 11:10 BP 100/68 08/30/24 11:10 Pulse Ox 96 08/30/24 11:10 O2 Del Method Room Air 08/30/24 11:10 O2 Flow Rate 95 08/29/24 14:08 BMI result Body Mass Index 35.7 Const: General: cooperative and no acute distress Nutritional Appearance: well nourished Orientation/consciousness: patient oriented x3 Limitations: no limitations HEENT: Head: Yes normocephalic and Yes atraumatic Ears: hearing grossly normal bilaterally Resp: Effort & Inspection: no audible wheezes, no cough, no respiratory distress and tachypneic Cardio: Rate: tachycardic Rhythm: abnormal rhythm GI: Inspection: Yes normal to inspection and Yes distended Palpation (GI): Soft to palpation and Tenderness to palpation present (GI) in the RUQ and Newby's sign positive Percussion: Yes normal to percussion Rectal Exam - Female: deferred Skin: Other: Warm, dry, no rash Neuro: General: patient oriented x3 Extrem: General: Yes no clubbing, cyanosis or edema Results Labs 08/30/24 09:29 08/30/24 09:29 Labs: Abnormal lab results 08/29/24 08/29/24 08/29/24 Range/Units 13:32 16:01 16:30 RBC 3.98 L (4.20-5.50) X10*6/uL MCV 98.5 H (80.0-98.0) fL MCH (27.0-33.0) pg RDW 16.6 H (11.0-16.0) % Immature Gran % (Auto) (0.0-0.4) % Abs Immat Gran (auto) (0.00-0.03) X10*3/uL PT 21.4 H (10.9-12.4) SEC INR 1.8 H (0.9-1.1) Sodium 131 L (135-145) mmol/L Carbon Dioxide (22-29) mmol/L Anion Gap 11 L (12-20) Random Glucose (60-115) mg/dL Lactic Acid 2.2 H* (0.5-2.0) mmol/L Lactic Acid F/U @ 2Hr 2.3 H* (0.5-2.0) mmol/L Lactic Acid F/U @ 4Hr (0.5-2.0) mmol/L Calcium (8.4-10.2) mg/dL Total Bilirubin 1.2 H (0.0-1.0) mg/dL AST 44 H (5-31) U/L ALT 53 H (0-31) U/L B-Natriuretic Peptide 696 H (<100) pg/mL Total Protein 5.9 L (6.5-8.0) g/dL Urine Protein 100 (2+) H (Neg-Trace) mg/dL Urine RBC 3-5 H (0-2) /HPF 08/29/24 08/30/24 Range/Units 18:58 09:29 RBC (4.20-5.50) X10*6/uL MCV 100.9 H (80.0-98.0) fL MCH 33.3 H (27.0-33.0) pg RDW 16.9 H (11.0-16.0) % Immature Gran % (Auto) 0.7 H (0.0-0.4) % Abs Immat Gran (auto) 0.04 H (0.00-0.03) X10*3/uL PT (10.9-12.4) SEC INR (0.9-1.1) Sodium 134 L (135-145) mmol/L Carbon Dioxide 19 L (22-29) mmol/L Anion Gap (12-20) Random Glucose 134 H (60-115) mg/dL Lactic Acid (0.5-2.0) mmol/L Lactic Acid F/U @ 2Hr (0.5-2.0) mmol/L Lactic Acid F/U @ 4Hr 2.2 H* (0.5-2.0) mmol/L Calcium 8.0 L (8.4-10.2) mg/dL Total Bilirubin 1.2 H (0.0-1.0) mg/dL AST 72 H (5-31) U/L ALT 53 H (0-31) U/L B-Natriuretic Peptide (<100) pg/mL Total Protein 6.0 L (6.5-8.0) g/dL Urine Protein (Neg-Trace) mg/dL Urine RBC (0-2) /HPF Short CBC 08/29/24 08/30/24 Range/Units 13:32 09:29 WBC 5.7 5.5 (4.8-10.8) X10*3/uL Hgb 13.1 14.1 (12.0-16.0) g/dl Hct 39.2 42.8 (37.0-47.0) % Plt Count 205 229 (160-400) X10*3/uL BMP 08/29/24 08/30/24 13:32 09:29 Sodium 131 L 134 L Potassium 3.4 3.8 Chloride 100 103 Carbon Dioxide 23 19 L BUN 16 14 Creatinine 0.96 1.21 Calcium 8.4 8.0 L Liver Function 08/29/24 08/30/24 Range/Units 13:32 09:29 Total Bilirubin 1.2 H 1.2 H (0.0-1.0) mg/dL Direct Bilirubin 0.5 (0.0-0.5) mg/dL AST 44 H 72 H (5-31) U/L ALT 53 H 53 H (0-31) U/L Alkaline Phosphatase 76 61 (39-117) U/L Albumin 3.6 3.6 (3.5-5.0) g/dL Urine 08/29/24 Range/Units 16:30 Urine Color Dark Yellow Urine Appearance Clear Urine pH 6.0 (5.0-9.0) Ur Specific [place] 1.020 (1.005-1.025) Urine Protein 100 (2+) H (Neg-Trace) mg/dL Urine Glucose (UA) Negative (Negative) mg/dL All other labs normal. Assessment and Plan (1) Right upper quadrant abdominal tenderness: Qualifiers: Presence of rebound: absent Qualified Code(s): R10.811 - Right upper quadrant abdominal tenderness Status: Acute Plan 79-year-old female patient with history of atrial fibrillation with RVR, probable congestive heart failure, COPD found to have right-sided pleural effusion, pericardial effusion, ascites and tenderness in the right upper quadrant. No gallstones were appreciated by ultrasound or CT. Patient may indeed have acalculous cholecystitis although the symptoms may also be related to CHF and ascites. She has a very poor surgical candidate with her multiple medical comorbidities. A HIDA scan may help clarify the diagnosis of acalculous cholecystitis although I am uncertain if she will be able to tolerate this study. If she does indeed have acalculous cholecystitis, safer approach may be cholecystostomy tube. Procedures Date of Service Date of Service: 08/30/24
[2024-08-30] MEDS: cefTRIAXone sodium 1 GM VIAL IVPUSH (12:31)
--- NOTE | 2024-08-30 13:54 | HO.PM.IMPN ---
Subjective Subjective Date of Service: 08/30/24 Interval History: seen and evaluated this morning became anxious removing her IV still reporting pain In rapid Afib no other events Review of Systems Review of Systems: Yes all other systems are reviewed and are negative Physical Exam Vital Signs: Vital Signs: Last Vital Signs Temp 97.4 F 08/30/24 11:10 Pulse 136 H 08/30/24 11:10 Resp 20 08/30/24 11:10 BP 100/68 08/30/24 11:10 Pulse Ox 96 08/30/24 11:10 O2 Del Method Room Air 08/30/24 11:10 O2 Flow Rate 95 08/29/24 14:08 BMI result Body Mass Index 35.7 Const: Other: Constitutional : Awake, interactive, not in distress Neck : Normal inspection, Supple Cardiovascular : irregular irregular, no JVP, trace lower extremity edema Respiratory : good bilateral air entry, no crackles, wheezes or rhonchi Gastrointestinal: soft, lax, Normal bowel sounds, generalized abdominal tenderness, no surgical signs Skin : Warm, Dry Neurological : Alert & oriented x3, No focal deficit Objective Data Active Medications Acetaminophen (Acetaminophen 325 Mg Tablet) 650 mg PO Q6H PRN PRN Reason: Pain, Mild 1-3,fever,headache Albuterol Sulfate (Albuterol Sulfate 90 Mcg 8 Gm Inhaler) 1 puff INHALE Q4H PRN PRN Reason: Shortness Of Breath Or Wheezing Buspirone HCl (Buspirone Hcl 10 Mg Tablet) 10 mg PO Q8H [facility] Last Admin: 08/30/24 10:04 Dose: 10 mg Documented By: JOSÉ LUIS Calcium Carbonate (Calcium Carbonate 750 Mg Tab.Chew) 750 mg PO Q4H PRN PRN Reason: Heartburn Ceftriaxone Sodium (Ceftriaxone Sodium 1 Gm Vial) 1 gm IVPUSH Q24H [facility] Last Admin: 08/30/24 12:31 Dose: 1 gm Documented By: JOSÉ LUIS Fluticasone Propionate (Fluticasone Propionate Nasal 16 Gm [place]) 1 spray NOSTRIL-B BID [facility] Last Admin: 08/30/24 12:32 Dose: Not Given Documented By: JOSÉ LUIS Non-Admin Reason: Patient Refused Dextrose/Sodium Chloride (D5ns) 1,000 mls @ 100 mls/hr IVCONT .Q10H [facility] Last Admin: 08/30/24 12:32 Dose: Not Given Documented By: JOSÉ LUIS Non-Admin Reason: IV Running Metronidazole (Flagyl) 500 mg in 100 mls @ 100 mls/hr IV Q8H [facility] Last Admin: 08/30/24 11:11 Dose: 100 mls/hr Documented By: JOSÉ LUIS Levothyroxine Sodium (Levothyroxine Sodium 75 Mcg Tablet) 75 mcg PO DAILY@0600 [facility] Magnesium Hydroxide (Milk Of Magnesia 30 Ml Oral.Susp) 30 ml PO DAILY PRN PRN Reason: Constipation Melatonin (Melatonin 3 Mg Tablet) 6 mg PO BEDTIME PRN PRN Reason: Insomnia Metoprolol Tartrate (Metoprolol Tartrate 25 Mg Tablet) 25 mg PO BID [facility]; Protocol Last Admin: 08/30/24 10:03 Dose: 25 mg Documented By: JOSÉ LUIS Metoprolol Tartrate (Metoprolol Tartrate 12.5 Mg Halftab) 12.5 mg PO BID [facility]; Protocol Last Admin: 08/30/24 10:03 Dose: 12.5 mg Documented By: JOSÉ LUIS Midodrine (Midodrine Hcl 10 Mg Tablet) 10 mg PO TID [facility] Last Admin: 08/30/24 10:02 Dose: 10 mg Documented By: JOSÉ LUIS Morphine Sulfate (Morphine Sulfate 2 Mg/Ml Cartridge) 1 mg IVPUSH Q4H PRN; Protocol PRN Reason: Pain, Severe (Pain Scale 7-10) Last Admin: 08/29/24 17:58 Dose: 1 mg Documented By: HUNTER Ondansetron HCl (Ondansetron Hcl 4 Mg/2 Ml Vial) 4 mg IVPUSH Q8H PRN PRN Reason: Nausea and Vomiting Last Admin: 08/30/24 06:42 Dose: 4 mg Documented By: VESNA Pantoprazole Sodium (Pantoprazole Sodium 40 Mg/10 Ml Vial) 40 mg IVPUSH BID@0630,1630 [facility] Last Admin: 08/30/24 11:11 Dose: 40 mg Documented By: JOSÉ LUIS Prazosin HCl (Prazosin Hcl 1 Mg Capsule) 2 mg PO BEDTIME [facility]; Protocol Sodium Chloride (0.9 % Sodium Chloride Flush 3 Ml Syringe) 3 ml IVFLUSH QSHIFT [facility] Last Admin: 08/30/24 11:11 Dose: 3 ml Documented By: JOSÉ LUIS Trazodone HCl (Trazodone Hcl 25 Mg Halftab) 25 mg PO TID PRN PRN Reason: Agitation Labs 08/30/24 09:29 08/30/24 09:29 Labs: Laboratory Results - last 24 hr 08/29/24 08/29/24 08/29/24 13:32 14:00 16:01 MCV MCH MCHC RDW Plt Count MPV Immature Gran % (Auto) Neut % (Auto) Lymph % (Auto) [place] % (Auto) Eos % (Auto) Baso % (Auto) Lymph # (Auto) [place] # (Auto) Eos # (Auto) Baso # (Auto) Abs Immat Gran (auto) Absolute Neuts (auto) Absolute Nucleated RBC Nucleated RBC % (auto) Hold Purple Top SEE NOTE Anion Gap 11 L Estim Creat Clear Calc 43.9 Estimated GFR 56 Random Glucose 112 Lactic Acid 2.2 H* Lactic Acid F/U @ 2Hr 2.3 H* Lactic Acid F/U @ 4Hr Calcium 8.4 Magnesium 1.7 Total Bilirubin 1.2 H Direct Bilirubin 0.5 AST 44 H ALT 53 H Alkaline Phosphatase 76 B-Natriuretic Peptide 696 H Total Protein 5.9 L Albumin 3.6 Lipase 20 Hold Yellow Top See Note Urine Color Urine Appearance Urine pH Ur Specific [place] Urine Protein Urine Glucose (UA) Urine Ketones Urine Blood Urine Nitrite Ur Leukocyte Esterase Urine RBC Urine WBC Ur Squamous Epith Cells Urine Bacteria Hyaline Casts Stool Occult Blood NEGATIVE Influenza Type A (PCR) NEGATIVE Influenza Type B (PCR) NEGATIVE RSV RNA Qual (PCR) NEGATIVE SARS-CoV-2 RNA (RT-PCR) NEGATIVE 08/29/24 08/29/24 08/30/24 16:30 18:58 09:29 MCV 100.9 H MCH 33.3 H MCHC 32.9 RDW 16.9 H Plt Count 229 MPV 10.1 Immature Gran % (Auto) 0.7 H Neut % (Auto) 65.7 Lymph % (Auto) 26.4 [place] % (Auto) 5.6 Eos % (Auto) 0.5 Baso % (Auto) 1.1 Lymph # (Auto) 1.5 [place] # (Auto) 0.3 Eos # (Auto) 0.0 Baso # (Auto) 0.1 Abs Immat Gran (auto) 0.04 H Absolute Neuts (auto) 3.6 Absolute Nucleated RBC 0.000 Nucleated RBC % (auto) 0.0 Hold Purple Top Anion Gap 16 Estim Creat Clear Calc 34.8 Estimated GFR 43 Random Glucose 134 H Lactic Acid Lactic Acid F/U @ 2Hr Lactic Acid F/U @ 4Hr 2.2 H* Calcium 8.0 L Magnesium Total Bilirubin 1.2 H Direct Bilirubin AST 72 H ALT 53 H Alkaline Phosphatase 61 B-Natriuretic Peptide Total Protein 6.0 L Albumin 3.6 Lipase Hold Yellow Top Urine Color Dark Yellow Urine Appearance Clear Urine pH 6.0 Ur Specific [place] 1.020 Urine Protein 100 (2+) H Urine Glucose (UA) Negative Urine Ketones Negative Urine Blood Negative Urine Nitrite Negative Ur Leukocyte Esterase Negative Urine RBC 3-5 H Urine WBC 0-5 Ur Squamous Epith Cells 0-2 Urine Bacteria None Seen Hyaline Casts 3-5 Stool Occult Blood Influenza Type A (PCR) Influenza Type B (PCR) RSV RNA Qual (PCR) SARS-CoV-2 RNA (RT-PCR) Assessment and Plan (1) Right upper quadrant abdominal tenderness: Status: Acute (2) Atrial fibrillation with RVR: Status: Acute (3) Transaminitis: Status: Acute Plan An 79 years old lady with PMH of GERD, hypothyroidism, HLD among others who was sent to ED for evaluation of 2 weeks of nausea, vomiting and diarrhea. Nausea, vomiting and bloody stool CT concerning for possible acalculas cholecystitis Continue IV Ceftriaxone and Flagyl IVF maintenance IV Pantoprazole PRN Morphine surgery consult , do HIDA scan advance diet as tolerated paroxysmal Atrial fibrillation w RvR rate at 140s Metoprolol PO start IV Cardizem for better control Hold Eliquis for reported bleeding Telemetry Hypotension Continue Midodrine home dose 10 tid GERD, PPI Hx COPD, not in exacerbation, PRN nebs Hx TIA, ASA and Statin Depression, Sertrakube HTN, Verapamil on hold DVT PPx SCDs given reported GI bleeding The patient will need overnight hospital stay for treatment of possilbe intraabdominal infection. Quality Stroke Does the patient have a stroke diagnosis?: No VTE Prior VTE?: No VTE Risk Level:: Medical - moderate - high VTE Device Contraindication: N/A - Device Ordered VTE Drug Contraindication: Treatment Not Indicated
[2024-08-30] MEDS: dilTIAZem HCL 125 MG in 0.9 % Sodium Chloride 100 ML 10 MG IVCONT (14:31)
[2024-08-30] MEDS: Prazosin HCL 1 MG CAPSULE 2 MG PO (20:15)
[2024-08-30] MEDS: Ketorolac Tromethamine 15 MG/ML VIAL IVPUSH (20:21)
[2024-08-31 03:20] VITALS: PULSE 77; RESP 20; TEMP 36.3; O2SAT 91
[2024-08-31] MEDS: metroNIDAZOLE/NS 500 MG/100 ML PIGGYBACK 100 MG IV ×3 (03:50→20:25)
[2024-08-31] MEDS: Pantoprazole Sodium 40 MG/10 ML VIAL IVPUSH ×2 (03:54→18:19)
[2024-08-31] MEDS: Dextrose 5 % and 0.9 % NaCl 1,000 ML 100 ML IVCONT (04:02)
[2024-08-31 07:11] VITALS: BP 107/74; PULSE 113; RESP 19; TEMP 36.6; O2SAT 95
[2024-08-31 08:23] LABS: MANUAL DIFF FLAG NO
--- NOTE | 2024-08-31 08:31 | MHC.CM.PN ---
IMM 08/30/24 DX N/V/D BIBA from [facility]. A copy of her HCP has been requested. A Molst is on file. She is Bed bound. DP return to [facility] via BLS. Spoke with emergency contact Kaylie Wiggins. DP return to [facility] via BLS
[2024-08-31 08:34] LABS: Basophils Absolute Auto 0.1 X10*3/uL (0.0-0.2); Eosinophils Absolute Auto 0.1 X10*3/uL (0.0-0.4); Eosinophils Percent Auto 1.5 % (0-4); Hematocrit 40.1 % (37.0-47.0); Hemoglobin 13.4 g/dl (12.0-16.0); Imm Gran Abs Auto 0.03 X10*3/uL (0.00-0.03); Imm Gran Pct Auto 0.4 % (0.0-0.4); Lymphocytes Absolute Auto 2.2 X10*3/uL (1.2-4.9); Lymphocytes Percent Auto 30.8 % (20-40); Mean Corpuscular HGB Conc 33.4 g/dl (31.0-35.0); Mean Corpuscular Hemoglobin 32.8 pg (27.0-33.0); Mean Platelet Volume 10.2 fL (9.4-12.3); Monocytes Absolute Auto 0.5 X10*3/uL (0.1-1.2); Monocytes Percent Auto 7.4 % (2-11); Neutrophils Absolute Auto 4.3 x10*3/uL (2.0-8.3); Neutrophils Percent Auto 58.9 % (45-73); Platelet Count 191 X10*3/uL (160-400); Red Blood Count 4.09 X10*6/uL (4.20-5.50); Red Cell Distribution Width 16.6 % (11.0-16.0); White Blood Count 7.2 X10*3/uL (4.8-10.8)
[2024-08-31] MEDS: Fluticasone Propionate Nasal 16 GM SPRAY 1 SPRAY NOSTRIL-B ×2 (08:40→20:25)
[2024-08-31] MEDS: busPIRone HCl 10 MG TABLET PO ×2 (08:40→15:08)
[2024-08-31] MEDS: Midodrine HCl 10 MG TABLET PO ×2 (08:40→15:04)
--- NOTE | 2024-08-31 08:56 | PM.PNGS ---
Subjective Subjective Date of Service: 08/31/24 Interval history: Yelling in room that she wants to go home. Reports a little abdominal pain. Points to left upper abdomen when asked where it is. Physical Exam Vital Signs: Vital Signs: Last Vital Signs Temp 97.9 F 08/31/24 07:11 Pulse 113 H 08/31/24 07:11 Resp 19 08/31/24 07:11 BP 107/74 08/31/24 07:11 Pulse Ox 95 08/31/24 07:11 O2 Del Method Room Air 08/31/24 07:11 O2 Flow Rate 95 08/29/24 14:08 BMI result Body Mass Index 35.7 Const: General: comfortable, alert and anxious Resp: Effort & Inspection: normal respiratory effort GI: Inspection: No distended Palpation (GI): Soft to palpation, Tenderness to palpation present (GI) (screams with very light palpation of LUQ/epigastric) and no guarding Skin: General skin exam: no rashes or lesions noted and no jaundice Objective Data Active Medications Acetaminophen (Acetaminophen 325 Mg Tablet) 650 mg PO Q6H PRN PRN Reason: Pain, Mild 1-3,fever,headache Albuterol Sulfate (Albuterol Sulfate 90 Mcg 8 Gm Inhaler) 1 puff INHALE Q4H PRN PRN Reason: Shortness Of Breath Or Wheezing Belladonna Alkaloids/Phenobarbital (Phenobarb/Hyoscy/Atropine/Scop 10 Ml [place]) 5 ml PO QID ON LICENSE OF [facility] Buspirone HCl (Buspirone Hcl 10 Mg Tablet) 10 mg PO Q8H ON LICENSE OF [facility] Last Admin: 08/31/24 08:40 Dose: 10 mg Documented By: JOSÉ LUIS Calcium Carbonate (Calcium Carbonate 750 Mg Tab.Chew) 750 mg PO Q4H PRN PRN Reason: Heartburn Ceftriaxone Sodium (Ceftriaxone Sodium 1 Gm Vial) 1 gm IVPUSH Q24H ON LICENSE OF [facility] Last Admin: 08/30/24 12:31 Dose: 1 gm Documented By: JOSÉ LUIS Fluticasone Propionate (Fluticasone Propionate Nasal 16 Gm [place]) 1 spray NOSTRIL-B BID ON [facility] OF [facility] Last Admin: 08/31/24 08:40 Dose: 1 spray Documented By: JOSÉ LUIS Dextrose/Sodium Chloride (D5ns) 1,000 mls @ 100 mls/hr IVCONT .Q10H ON [facility] OF [facility] Last Admin: 08/31/24 04:02 Dose: 100 mls/hr Documented By: JOHN Diltiazem HCl 125 mg/ Sodium (Chloride) 125 mls @ 0 mls/hr IVCONT .Q0M ON LICENSE OF [facility]; Protocol Last Titration: 08/31/24 01:25 Dose: 0 mg/hr, 0 mls/hr Documented By: JOHN Metronidazole (Flagyl) 500 mg in 100 mls @ 100 mls/hr IV Q8H ON LICENSE OF [facility] Last Infusion: 08/31/24 05:06 Dose: Infused Documented By: JOHN Ketorolac Tromethamine (Ketorolac Tromethamine 15 Mg/Ml Vial) 15 mg IVPUSH Q6H PRN PRN Reason: Pain, Moderate(Pain Scale 4-6) Last Admin: 08/30/24 20:21 Dose: 15 mg Documented By: JOHN Levothyroxine Sodium (Levothyroxine Sodium 75 Mcg Tablet) 75 mcg PO DAILY@0600 ON LICENSE OF [facility] Last Admin: 08/31/24 03:56 Dose: Not Given Documented By: JOHN Non-Admin Reason: Patient Refused Comments: MD sommer Magnesium Hydroxide (Milk Of Magnesia 30 Ml Oral.Susp) 30 ml PO DAILY PRN PRN Reason: Constipation Melatonin (Melatonin 3 Mg Tablet) 6 mg PO BEDTIME PRN PRN Reason: Insomnia Metoprolol Tartrate (Metoprolol Tartrate 25 Mg Tablet) 25 mg PO Q6H ON [facility] OF [facility]; Protocol Last Admin: 08/31/24 03:55 Dose: Not Given Documented By: JOHN Non-Admin Reason: Patient Refused Comments: MD sommer Midodrine (Midodrine Hcl 10 Mg Tablet) 10 mg PO TID ON LICENSE OF [facility] Last Admin: 08/31/24 08:40 Dose: 10 mg Documented By: FOSTEKMylene Morphine Sulfate (Morphine Sulfate 2 Mg/Ml Cartridge) 1 mg IVPUSH Q4H PRN; Protocol PRN Reason: Pain, Severe (Pain Scale 7-10) Last Admin: 08/29/24 17:58 Dose: 1 mg Documented By: HUNTER Ondansetron HCl (Ondansetron Hcl 4 Mg/2 Ml Vial) 4 mg IVPUSH Q8H PRN PRN Reason: Nausea and Vomiting Last Admin: 08/30/24 06:42 Dose: 4 mg Documented By: VESNA Pantoprazole Sodium (Pantoprazole Sodium 40 Mg/10 Ml Vial) 40 mg IVPUSH BID@0630,7170 ON LICENSE OF [facility] Last Admin: 08/31/24 03:54 Dose: 40 mg Documented By: JOSEPHZEMelo Prazosin HCl (Prazosin Hcl 1 Mg Capsule) 2 mg PO BEDTIME ON LICENSE OF [facility]; Protocol Last Admin: 08/30/24 20:15 Dose: 2 mg Documented By: JOSEPHZEMelo Sodium Chloride (0.9 % Sodium Chloride Flush 3 Ml Syringe) 3 ml IVFLUSH QSHIFT ON LICENSE OF [facility] Last Admin: 08/30/24 20:20 Dose: 3 ml Documented By: JOHN Trazodone HCl (Trazodone Hcl 25 Mg Halftab) 25 mg PO TID PRN PRN Reason: Agitation Labs 08/31/24 08:20 08/30/24 09:29 Labs: Laboratory Results - last 24 hr 08/30/24 08/31/24 09:29 08:20 MCV 100.9 H 98.0 MCH 33.3 H 32.8 MCHC 32.9 33.4 RDW 16.9 H 16.6 H Plt Count 229 191 MPV 10.1 10.2 Immature Gran % (Auto) 0.7 H 0.4 Neut % (Auto) 65.7 58.9 Lymph % (Auto) 26.4 30.8 [place] % (Auto) 5.6 7.4 Eos % (Auto) 0.5 1.5 Baso % (Auto) 1.1 1.0 Lymph # (Auto) 1.5 2.2 [place] # (Auto) 0.3 0.5 Eos # (Auto) 0.0 0.1 Baso # (Auto) 0.1 0.1 Abs Immat Gran (auto) 0.04 H 0.03 Absolute Neuts (auto) 3.6 4.3 Absolute Nucleated RBC 0.000 0.000 Nucleated RBC % (auto) 0.0 0.0 Anion Gap 16 Estim Creat Clear Calc 34.8 Estimated GFR 43 Random Glucose 134 H Calcium 8.0 L Total Bilirubin 1.2 H AST 72 H ALT 53 H Alkaline Phosphatase 61 Total Protein 6.0 L Albumin 3.6 Microbiology Microbiology Results: Microbiology 08/29/24 13:32 Blood Culture - Preliminary Blood - Venous No growth after 24 hours. 08/29/24 13:32 Blood Culture - Preliminary Blood - Venous No growth after 24 hours. Procedures Date of Service Date of Service: 08/31/24 Progress Note: A&P Assessment and plan (1) Transaminitis: Status: Acute (2) Abdominal pain: Status: Acute Plan HIDA shows patent cystic duct, normal gallbladder EF going against acute cholecystitis, biliary dyskinesia. LFTs slightly increased this morning. Unclear source of abd pain. C diff, stool studies pending. Can advance diet as tolerated. Consider GI consult. Time Spent With Patient Time: Total time managing care of this patient today ____ minutes. Quality Stroke Does the patient have a stroke diagnosis?: No VTE Prior VTE?: No VTE Risk Level:: Medical - moderate - high VTE Device Contraindication: N/A - Device Ordered VTE Drug Contraindication: Treatment Not Indicated
[2024-08-31 08:57] LABS: Anion Gap 12 (12-20); Blood Urea Nitrogen 20 mg/dL (9-16); Calcium 7.8 mg/dL (8.4-10.2); Carbon Dioxide 19 mmol/L (22-29); Chloride 105 mmol/L (96-108); Creatinine Clr Calc Pharmacy 32.6; Estimated Glomerular Filt Rate 40; Glucose Random 106 mg/dL (60-115); Potassium 3.4 mmol/L (3.3-5.1); Sodium 133 mmol/L (135-145)
[2024-08-31 09:00] LABS: Alanine Aminotransferase 85 U/L (0-31); Albumin Level 3.3 g/dL (3.5-5.0); Alkaline Phosphatase 57 U/L (39-117); Aspartate Amino Transferase 112 U/L (5-31); Bilirubin Direct 0.6 mg/dL (0.0-0.5); Bilirubin Total 1.3 mg/dL (0.0-1.0); Total Protein 5.3 g/dL (6.5-8.0)
[2024-08-31 10:01] LABS: Magnesium 1.6 mg/dL (1.6-2.6)
[2024-08-31] MEDS: PHENobarb/Hyoscy/Atropine/Scop 10 ML ELIXIR 5 ML PO ×3 (11:06→18:23)
[2024-08-31 11:08] VITALS: BP 120/86; PULSE 80; RESP 17; TEMP 36.6; O2SAT 94
[2024-08-31] MEDS: Metoprolol Tartrate 25 MG TABLET PO (11:08)
[2024-08-31] MEDS: 0.9 % Sodium Chloride Flush 3 ML SYRINGE IVFLUSH ×2 (11:09→18:24)
[2024-08-31] MEDS: Furosemide 20 MG/2 ML VIAL IVPUSH (11:09)
[2024-08-31] MEDS: Magnesium Sulfate/H2O 2 GM/50 ML PIGGYBACK IV (11:09)
--- NOTE | 2024-08-31 12:50 | P.CONCA_ITS ---
History of Present Illness History of Present Illness Date of Service: 08/31/24 Requesting physician: Sander Villalta Consult reason: atrial fibrillation Chief complaint: N/V/D, afib with RVR Narrative: I was consulted to see Tracy in cardiology consultation today for management of atrial fibrillation rapid ventricular response. Patient is not a very good historian, lives at a retirement facility. Patient was prior history of atrial fibrillation unclear whether this is paroxysmal although appears last admission she was in atrial fibrillation as well so appears to be probably persistent atrial fibrillation. Patient not able to further clarify this. Patient also has history of hypothyroidism, COPD, acid reflux disease. Patient was sent to the emergency room with 2 2 weeks' history of nausea vomiting diarrhea and poor oral intake. Patient was noted to have black diarrhea. She was sent here and noted to be in rapid atrial fibrillation. She also was noted to be dehydrated. Stool occult was negative for bleeding. Patient was on Eliquis at home for anticoagulation at 2.5 mg b.i.d. as well as on metoprolol for rate control. Rate was difficult control and patient was started on IV Cardizem drip. Currently rate is adequately controlled. She complains of abdominal discomfort currently but denies any palpitations. However she says when heart rate was fast she was having palpitation. She is hard of hearing and very difficult to obtain history from her. She denies any chest pain or shortness of breath. Denies any orthopnea, PND. Review of Systems 2 Constitutional: Constitutional: Reports poor appetite and Reports weakness Eyes: Eyes: Reports no additional eye complaints Cardiovascular: Cardiovascular: Denies chest pain, Denies lightheadedness, Denies Loss of Consciousness, Reports palpitations, Denies dyspnea and Denies orthopnea Respiratory: Respiratory: Denies dyspnea Gastrointestinal: Gastrointestinal: Reports abdominal pain, Reports diarrhea, Reports nausea and Reports vomiting Musculoskeletal: Musculoskeletal: Reports no additional musculoskeletal complaints Neurologic: Reports weakness Endocrine: Endocrine: Reports palpitations PMFSH Past Medical History Medical History Atrial fibrillation Hypothyroidism COPD (chronic obstructive pulmonary disease) GERD (gastroesophageal reflux disease) Social History Social History Household Members: None Housing: Half-Way Do you presently have visiting nurse or other home services: No Patient Tobacco Use Status: Never used Tobacco Smoked in Last 30 Days: No e-Cigarette/Vaping Use: Never Used Second Hand Smoke Exposure: No Use of substances other than those prescribed or required for medical reasons: No Currently Displaying Signs/Symptoms of Drug Intoxication Withdrawal: No Have you been hit, kicked, punched, or otherwise hurt by someone within the past year? If so, by whom?: No Do you feel safe in your current relationship?: No Current Relationship Is there a partner from a previous relationship who is making you feel unsafe now?: No Are you made to feel afraid or neglected: No Advance Directives: Yes Advance Directives on File: Yes Advance Directives Date on File: 07/18/24 Do you have a plan to hurt others: No Plan Recently lost weight without trying: No Eating poorly because of decreased appetite: No Patient : No : No Poor oral hygiene: Yes service: No Meds Allergies Allergy/AdvReac Type Severity Reaction Status Date / Time lactose AdvReac Gastrointestinal Verified 08/29/24 13:18 Upset Active Medications: Current Medications Acetaminophen (Acetaminophen 325 Mg Tablet) 650 mg PO Q6H PRN PRN Reason: Pain, Mild 1-3,fever,headache Albuterol Sulfate (Albuterol Sulfate 90 Mcg 8 Gm Inhaler) 1 puff INHALE Q4H PRN PRN Reason: Shortness Of Breath Or Wheezing Belladonna Alkaloids/Phenobarbital (Phenobarb/Hyoscy/Atropine/Scop 10 Ml Elixir) 5 ml PO QID [facility] Last Admin: 08/31/24 11:06 Dose: 5 ml Buspirone HCl (Buspirone Hcl 10 Mg Tablet) 10 mg PO Q8H [facility] Last Admin: 08/31/24 08:40 Dose: 10 mg Calcium Carbonate (Calcium Carbonate 750 Mg Tab.Chew) 750 mg PO Q4H PRN PRN Reason: Heartburn Ceftriaxone Sodium (Ceftriaxone Sodium 1 Gm Vial) 1 gm IVPUSH Q24H [facility] Last Admin: 08/30/24 12:31 Dose: 1 gm Fluticasone Propionate (Fluticasone Propionate Nasal 16 Gm [place]) 1 spray NOSTRIL-B BID [facility] Last Admin: 08/31/24 08:40 Dose: 1 spray Furosemide (Furosemide 20 Mg/2 Ml Vial) 20 mg IVPUSH DAILY [facility]; Protocol Last Admin: 08/31/24 11:09 Dose: 20 mg Diltiazem HCl 125 mg/ Sodium (Chloride) 125 mls @ 0 mls/hr IVCONT .Q0M [facility]; Protocol Last Titration: 08/31/24 08:09 Dose: 5 mg/hr, 5 mls/hr Metronidazole (Flagyl) 500 mg in 100 mls @ 100 mls/hr IV Q8H [facility] Last Infusion: 08/31/24 05:06 Dose: Infused Ketorolac Tromethamine (Ketorolac Tromethamine 15 Mg/Ml Vial) 15 mg IVPUSH Q6H PRN PRN Reason: Pain, Moderate(Pain Scale 4-6) Last Admin: 08/30/24 20:21 Dose: 15 mg Levothyroxine Sodium (Levothyroxine Sodium 75 Mcg Tablet) 75 mcg PO DAILY@0600 [facility] Last Admin: 08/31/24 03:56 Dose: Not Given Magnesium Hydroxide (Milk Of Magnesia 30 Ml Oral.Susp) 30 ml PO DAILY PRN PRN Reason: Constipation Melatonin (Melatonin 3 Mg Tablet) 6 mg PO BEDTIME PRN PRN Reason: Insomnia Metoprolol Tartrate (Metoprolol Tartrate 25 Mg Tablet) 25 mg PO Q6H [facility]; Protocol Last Admin: 08/31/24 11:08 Dose: 25 mg Midodrine (Midodrine Hcl 10 Mg Tablet) 10 mg PO TID [facility] Last Admin: 08/31/24 08:40 Dose: 10 mg Morphine Sulfate (Morphine Sulfate 2 Mg/Ml Cartridge) 1 mg IVPUSH Q4H PRN; Protocol PRN Reason: Pain, Severe (Pain Scale 7-10) Last Admin: 08/29/24 17:58 Dose: 1 mg Ondansetron HCl (Ondansetron Hcl 4 Mg/2 Ml Vial) 4 mg IVPUSH Q8H PRN PRN Reason: Nausea and Vomiting Last Admin: 08/30/24 06:42 Dose: 4 mg Pantoprazole Sodium (Pantoprazole Sodium 40 Mg/10 Ml Vial) 40 mg IVPUSH BID@0630,1630 [facility] Last Admin: 08/31/24 03:54 Dose: 40 mg Prazosin HCl (Prazosin Hcl 1 Mg Capsule) 2 mg PO BEDTIME [facility]; Protocol Last Admin: 08/30/24 20:15 Dose: 2 mg Simethicone (Simethicone 80 Mg Tab.Chew) 80 mg PO QIDWMHS PRN PRN Reason: bloating\gas Sodium Chloride (0.9 % Sodium Chloride Flush 3 Ml Syringe) 3 ml IVFLUSH QSHIFT [facility] Last Admin: 08/31/24 11:09 Dose: 3 ml Trazodone HCl (Trazodone Hcl 25 Mg Halftab) 25 mg PO TID PRN PRN Reason: Agitation Home Medications ?Medication ?Instructions ?Recorded ?Confirmed ?Last Taken ?Type acetaminophen 500 mg tablet 1,000 mg PO TID 07/18/24 08/29/24 Unknown History albuterol sulfate 90 mcg/actuation 1 inh inhalation Q4H PRN Shortness 07/18/24 08/29/24 Unknown History aerosol inhaler (Ventolin HFA) Of Breath Or Wheezing atorvastatin 20 mg tablet 20 mg PO DAILY 07/18/24 08/29/24 Unknown History bisacodyl 10 mg rectal suppository 10 mg UT DAILY PRN Constipation 07/18/24 08/29/24 Unknown History buspirone 10 mg tablet 10 mg PO Q8H 07/18/24 08/29/24 Unknown History cetirizine 10 mg tablet 10 mg PO DAILY 07/18/24 08/29/24 Unknown History cyanocobalamin (vitamin B-12) 1,000 mcg PO DAILY 07/18/24 08/29/24 Unknown History 1,000 mcg tablet,extended release (Vitamin B-12 ER) diclofenac sodium 1 % topical gel 4 g topical BID 07/18/24 08/29/24 Unknown History esomeprazole magnesium 20 mg 20 mg PO DAILY 07/18/24 08/29/24 Unknown History granules delayed release for susp fluticasone propionate 50 1 spray intranasal BID 07/18/24 08/29/24 Unknown History mcg/actuation nasal spray,suspension guaifenesin 100 mg/5 mL oral liquid 200 mg PO Q4H PRN Cough 07/18/24 08/29/24 Unknown History hydrocortisone 1 % topical cream 1 appl topical Q8H PRN Rash 07/18/24 08/29/24 Unknown History ipratropium 20 mcg-albuterol 100 2 puff inhalation Q4H PRN 07/18/24 08/29/24 Unknown History mcg/actuation mist for inhalation Shortness Of Breath Or Wheezing (Combivent Respimat) levothyroxine 75 mcg tablet 75 mcg PO DAILY@0600 07/18/24 08/29/24 Unknown History loteprednol etabonate 0.5 % eye 1 drp ophthalmic (eye) BID PRN Dry 07/18/24 08/29/24 Unknown History gel drops Eyes magnesium hydroxide 400 mg/5 mL 30 ml PO DAILY PRN Constipation 07/18/24 08/29/24 Unknown History oral suspension (Milk of Magnesia) meclizine 12.5 mg tablet 12.5 mg PO Q8H PRN Dizziness 07/18/24 08/29/24 Unknown History melatonin 5 mg tablet 10 mg PO BEDTIME 07/18/24 08/29/24 Unknown History ondansetron HCl 8 mg tablet 8 mg PO Q8H PRN Nausea And Vomiting 07/18/24 08/29/24 Unknown History polyvinyl alcohol 1.4 % eye drops 1 drp ophthalmic (eye) TID PRN Dry 07/18/24 08/29/24 Unknown History (Artificial Tears (polyvinyl Eyes alcohol)) prazosin 2 mg capsule 2 mg PO BEDTIME 07/18/24 08/29/24 Unknown History sertraline 25 mg tablet 50 mg PO DAILY 07/18/24 08/29/24 Unknown History sodium phosphates 19 gram-7 118 ml UT DAILY PRN Constipation 07/18/24 08/29/24 Unknown History gram/118 mL enema (Fleet Enema) tramadol 50 mg tablet 50 mg PO BID 07/18/24 08/29/24 Unknown History trazodone 50 mg tablet 25 mg PO TID PRN Agitation 07/18/24 08/29/24 Unknown History acetaminophen 650 mg rectal 650 mg UT Q4H PRN Pain or Fever 08/29/24 08/29/24 Unknown History suppository amoxicillin 875 mg-potassium 1 tab PO BID 08/29/24 08/29/24 Unknown History clavulanate 125 mg tablet lactulose 10 gram/15 mL oral 30 ml PO DAILY PRN hyperammonemia 08/29/24 08/29/24 Unknown History solution (Constulose) metoprolol tartrate 25 mg tablet 12.5 mg PO BID 08/29/24 08/29/24 Unknown History midodrine 5 mg tablet 10 mg PO TID 08/29/24 08/29/24 Unknown History Physical Exam 2 Vital Signs: Vital Signs: Last Vital Signs Temp 97.8 F 08/31/24 11:08 Pulse 80 08/31/24 11:08 Resp 17 08/31/24 11:08 BP 120/86 08/31/24 11:08 Pulse Ox 94 08/31/24 11:08 O2 Del Method Room Air 08/31/24 11:08 O2 Flow Rate 95 08/29/24 14:08 BMI result Body Mass Index 35.7 Const: General: cooperative, comfortable, no acute distress, alert and awake Nutritional Appearance: average body habitus HEENT: Head: Yes normocephalic and Yes atraumatic Neck: Neck: Yes trachea midline, Yes supple and Yes no JVD Resp: Effort & Inspection: decreased respiratory effort Auscultation: clear to auscultation bilaterally and diminished lung sounds Cardio: Jugular venous distension: no JVD Rhythm: abnormal rhythm irregularly irregular Heart sounds: S1 normal heart sound present, S2 normal heart sound present, no click, no gallops and no murmurs GI: Palpation (GI): Soft to palpation and Tenderness to palpation present (GI) Auscultation: normal bowel sounds Skin: General skin exam: no rashes or lesions noted Neuro: General: moves all extremities Extrem: General: Yes no clubbing, cyanosis or edema Objective Labs and Meds 08/31/24 08:20 08/31/24 08:20 Lab results: Laboratory Results - last 24 hr 08/31/24 08:20 WBC 7.2 RBC 4.09 L Hgb 13.4 Hct 40.1 MCV 98.0 MCH 32.8 MCHC 33.4 RDW 16.6 H Plt Count 191 MPV 10.2 Immature Gran % (Auto) 0.4 Neut % (Auto) 58.9 Lymph % (Auto) 30.8 [place] % (Auto) 7.4 Eos % (Auto) 1.5 Baso % (Auto) 1.0 Lymph # (Auto) 2.2 [place] # (Auto) 0.5 Eos # (Auto) 0.1 Baso # (Auto) 0.1 Abs Immat Gran (auto) 0.03 Absolute Neuts (auto) 4.3 Absolute Nucleated RBC 0.000 Nucleated RBC % (auto) 0.0 Sodium 133 L Potassium 3.4 Chloride 105 Carbon Dioxide 19 L Anion Gap 12 BUN 20 H Creatinine 1.29 Estim Creat Clear Calc 32.6 Estimated GFR 40 Random Glucose 106 Calcium 7.8 L Magnesium 1.6 Total Bilirubin 1.3 H Direct Bilirubin 0.6 H AST 112 H ALT 85 H Alkaline Phosphatase 57 Total Protein 5.3 L Albumin 3.3 L Assessment and Plan (1) Atrial fibrillation with RVR: Status: Acute Atrial fibrillation with rapid ventricular response in this elderly woman with known possibly persistent atrial fibrillation, rapid heart rate due to acute medical illness with gastroenteritis/acute abdominal issue along with dehydration. Agree with IV Cardizem drip and supportive care. Continue treatment for her acute abdominal issue as needed. Continue pain control approach. Atrial fibrillation is secondary to her underlying acute medical/surgical issue. Once p.o. route his establish can start on metoprolol and can uptitrate. Continue Eliquis if no surgery is planned for now. Will sign of the case. Thank you for allowing me to partake in her care Procedures Date of Service Date of Service: 08/31/24
--- NOTE | 2024-08-31 13:43 | P.CDIM_ITS ---
PROVIDER RESPONSE TEXT: To clarify, the appropriate diagnosis supported by the clinical indicators: Systolic: chronic QUERY TEXT: PHYSICIAN'S DOCUMENTATION REQUEST Date of Query: 08/31/2024 11:46 AM EST Patient Name: Tracy Hanna Admit Date: 08/29/2024 Dear Sander Villalta MD, A review of the medical record indicates additional documentation may be needed. Please review below and update the documentation accordingly. Clinical Indicators: General surgery consultation note 08/30 - CT 08/29 - revealed right-sided pleural effusions moderate to l arge volume with a small pericardial effusion with cardiomegaly. CHF could not be excluded. BNP [address] Patient with a history of atrial fibrillation with RVR, probable Congestive heart failure. Patient may indeed have acalculous cholecystitis although the symptoms may also be related to CHF and ascites. Please provide further specificity regarding the most likely type and acuity of CHF you are evaluatin g, treating, or monitoring. Systolic Please specify if Acute, Chronic, or Acute on chronic, or Unable to determine Diastolic Please specify if Acute, Chronic, or Acute on chronic, or Unable to determine Combined Systolic/Diastolic Please specify if Acute, Chronic, or Acute on chronic, or Unable to determine Other (explain) Clinically unable to determine (explain) Thank you, Heather Atwood, CCS, CDIS Use of terms such as suspected, likely, concern for, or probable (associated with a specific diagnosi s that is being evaluated, monitored, or treated as if it exists) are acceptable and can be coded in the inpatient se tting, when documented at the time of discharge. Please use your independent medical judgment in providing your response. THIS QUERY IS PART OF THE PERMANENT MEDICAL RECORD
--- NOTE | 2024-08-31 14:19 | P.PNIM_ITS ---
Subjective Subjective Date of Service: 08/31/24 Interval History: seen and evaluated this morning complaining of pain no reported diarrhea anymore no nausea, tolerating PO no other overnight events Review of Systems Review of Systems: Yes all other systems are reviewed and are negative Physical Exam 2 Vital Signs: Vital Signs: Last Vital Signs Temp 97.8 F 08/31/24 11:08 Pulse 80 08/31/24 11:08 Resp 17 08/31/24 11:08 BP 120/86 08/31/24 11:08 Pulse Ox 94 08/31/24 11:08 O2 Del Method Room Air 08/31/24 11:08 O2 Flow Rate 95 08/29/24 14:08 BMI result Body Mass Index 35.7 Const: Other: Constitutional : Awake, interactive, not in distress Neck : Normal inspection, Supple Cardiovascular : RRR, no JVP, no lower extremity edema Respiratory : good bilateral air entry, no crackles, wheezes or rhonchi Gastrointestinal: soft, lax, Normal bowel sounds, mild generalized tenderness Skin : Warm, Dry Neurological : Alert & oriented x3, No focal deficit Objective Data Active Medications Acetaminophen (Acetaminophen 325 Mg Tablet) 650 mg PO Q6H PRN PRN Reason: Pain, Mild 1-3,fever,headache Albuterol Sulfate (Albuterol Sulfate 90 Mcg 8 Gm Inhaler) 1 puff INHALE Q4H PRN PRN Reason: Shortness Of Breath Or Wheezing Belladonna Alkaloids/Phenobarbital (Phenobarb/Hyoscy/Atropine/Scop 10 Ml Elixir) 5 ml PO QID [facility] Last Admin: 08/31/24 11:06 Dose: 5 ml Documented By: JOSÉ LUIS Buspirone HCl (Buspirone Hcl 10 Mg Tablet) 10 mg PO Q8H [facility] Last Admin: 08/31/24 08:40 Dose: 10 mg Documented By: JOSÉ LUIS Calcium Carbonate (Calcium Carbonate 750 Mg Tab.Chew) 750 mg PO Q4H PRN PRN Reason: Heartburn Ceftriaxone Sodium (Ceftriaxone Sodium 1 Gm Vial) 1 gm IVPUSH Q24H [facility] Last Admin: 08/30/24 12:31 Dose: 1 gm Documented By: JOSÉ LUIS Fluticasone Propionate (Fluticasone Propionate Nasal 16 Gm [place]) 1 spray NOSTRIL-B BID [facility] Last Admin: 08/31/24 08:40 Dose: 1 spray Documented By: JOSÉ LUIS Furosemide (Furosemide 20 Mg/2 Ml Vial) 20 mg IVPUSH DAILY [facility]; Protocol Last Admin: 08/31/24 11:09 Dose: 20 mg Documented By: JOSÉ LUIS Diltiazem HCl 125 mg/ Sodium (Chloride) 125 mls @ 0 mls/hr IVCONT .Q0M [facility]; Protocol Last Titration: 08/31/24 08:09 Dose: 5 mg/hr, 5 mls/hr Documented By: JOSÉ LUIS Metronidazole (Flagyl) 500 mg in 100 mls @ 100 mls/hr IV Q8H [facility] Last Infusion: 08/31/24 05:06 Dose: Infused Documented By: JOHN Ketorolac Tromethamine (Ketorolac Tromethamine 15 Mg/Ml Vial) 15 mg IVPUSH Q6H PRN PRN Reason: Pain, Moderate(Pain Scale 4-6) Last Admin: 08/30/24 20:21 Dose: 15 mg Documented By: JOHN Levothyroxine Sodium (Levothyroxine Sodium 75 Mcg Tablet) 75 mcg PO DAILY@0600 [facility] Last Admin: 08/31/24 03:56 Dose: Not Given Documented By: JOHN Non-Admin Reason: Patient Refused Comments: MD sommer Magnesium Hydroxide (Milk Of Magnesia 30 Ml Oral.Susp) 30 ml PO DAILY PRN PRN Reason: Constipation Melatonin (Melatonin 3 Mg Tablet) 6 mg PO BEDTIME PRN PRN Reason: Insomnia Metoprolol Tartrate (Metoprolol Tartrate 25 Mg Tablet) 25 mg PO Q6H [facility]; Protocol Last Admin: 08/31/24 11:08 Dose: 25 mg Documented By: JOSÉ LUIS Midodrine (Midodrine Hcl 10 Mg Tablet) 10 mg PO TID [facility] Last Admin: 08/31/24 08:40 Dose: 10 mg Documented By: JOSÉ LUIS Morphine Sulfate (Morphine Sulfate 2 Mg/Ml Cartridge) 1 mg IVPUSH Q4H PRN; Protocol PRN Reason: Pain, Severe (Pain Scale 7-10) Last Admin: 08/29/24 17:58 Dose: 1 mg Documented By: HUNTER Ondansetron HCl (Ondansetron Hcl 4 Mg/2 Ml Vial) 4 mg IVPUSH Q8H PRN PRN Reason: Nausea and Vomiting Last Admin: 08/30/24 06:42 Dose: 4 mg Documented By: VESNA Pantoprazole Sodium (Pantoprazole Sodium 40 Mg/10 Ml Vial) 40 mg IVPUSH BID@0630,1630 [facility] Last Admin: 08/31/24 03:54 Dose: 40 mg Documented By: JOHN Prazosin HCl (Prazosin Hcl 1 Mg Capsule) 2 mg PO BEDTIME [facility]; Protocol Last Admin: 08/30/24 20:15 Dose: 2 mg Documented By: JOHN Simethicone (Simethicone 80 Mg Tab.Chew) 80 mg PO QIDWMHS PRN PRN Reason: bloating\gas Sodium Chloride (0.9 % Sodium Chloride Flush 3 Ml Syringe) 3 ml IVFLUSH QSHIFT [facility] Last Admin: 08/31/24 11:09 Dose: 3 ml Documented By: JOSÉ LUIS Trazodone HCl (Trazodone Hcl 25 Mg Halftab) 25 mg PO TID PRN PRN Reason: Agitation Labs 08/31/24 08:20 08/31/24 08:20 Labs: Laboratory Results - last 24 hr 08/31/24 08:20 MCV 98.0 MCH 32.8 MCHC 33.4 RDW 16.6 H Plt Count 191 MPV 10.2 Immature Gran % (Auto) 0.4 Neut % (Auto) 58.9 Lymph % (Auto) 30.8 [place] % (Auto) 7.4 Eos % (Auto) 1.5 Baso % (Auto) 1.0 Lymph # (Auto) 2.2 [place] # (Auto) 0.5 Eos # (Auto) 0.1 Baso # (Auto) 0.1 Abs Immat Gran (auto) 0.03 Absolute Neuts (auto) 4.3 Absolute Nucleated RBC 0.000 Nucleated RBC % (auto) 0.0 Anion Gap 12 Estim Creat Clear Calc 32.6 Estimated GFR 40 Random Glucose 106 Calcium 7.8 L Magnesium 1.6 Total Bilirubin 1.3 H Direct Bilirubin 0.6 H AST 112 H ALT 85 H Alkaline Phosphatase 57 Total Protein 5.3 L Albumin 3.3 L Microbiology Microbiology Results: Microbiology 08/29/24 13:32 Blood Culture - Preliminary Blood - Venous No growth after 24 hours. 03/05/25 13:32 Blood Culture - Preliminary Blood - Venous No growth after 24 hours. Assessment and Plan (1) Abdominal pain: Status: Acute (2) Transaminitis: Status: Acute (3) Atrial fibrillation with RVR: Status: Acute (4) Ascites: Status: Acute Plan An 79 years old lady with PMH of GERD, hypothyroidism, HLD among others who was sent to ED for evaluation of 2 weeks of nausea, vomiting and diarrhea. Nausea, vomiting and bloody stool with ascites DDx: G\E, colitis, ischemia, SBP ? CT concerning for possible acalculas cholecystitis , moderate ascites, Focal concentric wall thickening in the rectum. Intrinsic lesion cannot be excluded. HIDA scan negative. Continue IV 2 gm Ceftriaxone and Flagyl Q8 IV Pantoprazole PRN Morphine surgery consult , HIDA scan negative, no acute surgical concern GI evaluation check US Duplex for mesentric ischemia To do PAracentesis advance diet as tolerated paroxysmal Atrial fibrillation w RvR rate at 140s Metoprolol PO continue IV Cardizem for better control restart Eliquis Cardiology consult, continue Cardizem drip and PO Metoprolol Telemetry Hypotension Continue Midodrine home dose 10 tid GERD, PPI Hx COPD, not in exacerbation, PRN nebs Hx TIA, ASA and Statin Depression, Sertrakube HTN, Verapamil on hold DVT PPx SCDs given reported GI bleeding The patient will need overnight hospital stay for treatment of possible intraabdominal infection. Quality Stroke Does the patient have a stroke diagnosis?: No VTE Prior VTE?: No VTE Risk Level:: Medical - moderate - high VTE Device Contraindication: N/A - Device Ordered VTE Drug Contraindication: Treatment Not Indicated
[2024-08-31 14:58] VITALS: BP 129/89; PULSE 71; RESP 17; TEMP 36.3; O2SAT 93
[2024-08-31] MEDS: dilTIAZem HCL 125 MG in 0.9 % Sodium Chloride 100 ML IVCONT (15:00)
[2024-08-31] MEDS: bisacodyL 10 MG SUPP.RECT PR (15:01)
[2024-08-31] MEDS: cefTRIAXone sodium 2 GM VIAL IVPUSH (15:04)
--- NOTE | 2024-08-31 17:27 | PM.GICN ---
History of Present Illness Data of Consult Service Date: 08/31/24 Requesting physician: Sander Villalta Primary Care Provider: Joshua White MD HPI This is an 79-year-old female past medical history hypothyroidism, hyperlipidemia, GERD, suspected cognitive impairment, who was sent to the hospital for abdominal pain, nausea, vomiting. Patient reports 2-1/2 weeks of upper abdominal pain with nausea, vomiting inability to tolerate p.o.. She initially reported black stools, but his not had any witnessed melena or hematochezia in the hospital. H&H stable. CT abdomen pelvis without IV contrast with fluid overload including ascites, pleural effusion, and small pericardial effusion. She was also noted to have focal wall thickening in the rectum. Also noted was atherosclerosis of mesenteric vasculature on the noncontrast CT scan. Initially abnormal LFTs were noted with concern for acalculous cholecystitis, however patient on exam does not have any abdominal tenderness. HIDA scan normal. Review of Systems Review of Systems: Yes all other systems are reviewed and are negative PMFSH Past Medical History Medical History Atrial fibrillation Hypothyroidism COPD (chronic obstructive pulmonary disease) GERD (gastroesophageal reflux disease) Social History Social History Household Members: None Housing: [place] Do you presently have visiting nurse or other home services: No Patient Tobacco Use Status: Never used Tobacco Smoked in Last 30 Days: No e-Cigarette/Vaping Use: Never Used Second Hand Smoke Exposure: No Use of substances other than those prescribed or required for medical reasons: No Currently Displaying Signs/Symptoms of Drug Intoxication Withdrawal: No Have you been hit, kicked, punched, or otherwise hurt by someone within the past year? If so, by whom?: No Do you feel safe in your current relationship?: No Current Relationship Is there a partner from a previous relationship who is making you feel unsafe now?: No Are you made to feel afraid or neglected: No Advance Directives: Yes Advance Directives on File: Yes Advance Directives Date on File: 07/18/24 Do you have a plan to hurt others: No Plan Recently lost weight without trying: No Eating poorly because of decreased appetite: No Patient : No : No Poor oral hygiene: Yes service: No Meds Allergies Allergy/AdvReac Type Severity Reaction Status Date / Time lactose AdvReac Gastrointestinal Verified 08/29/24 13:18 Upset Active Medications: Current Medications Acetaminophen (Acetaminophen 325 Mg Tablet) 650 mg PO Q6H PRN PRN Reason: Pain, Mild 1-3,fever,headache Albuterol Sulfate (Albuterol Sulfate 90 Mcg 8 Gm Inhaler) 1 puff INHALE Q4H PRN PRN Reason: Shortness Of Breath Or Wheezing Apixaban (Apixaban 2.5 Mg Tablet) 2.5 mg PO BID [facility] Belladonna Alkaloids/Phenobarbital (Phenobarb/Hyoscy/Atropine/Scop 10 Ml Elixir) 5 ml PO QID [facility] Last Admin: 08/31/24 15:11 Dose: 5 ml Buspirone HCl (Buspirone Hcl 10 Mg Tablet) 10 mg PO Q8H [facility] Last Admin: 08/31/24 15:08 Dose: 10 mg Calcium Carbonate (Calcium Carbonate 750 Mg Tab.Chew) 750 mg PO Q4H PRN PRN Reason: Heartburn Ceftriaxone Sodium (Ceftriaxone Sodium 2 Gm Vial) 2 gm IVPUSH Q24H [facility] Last Admin: 08/31/24 15:04 Dose: 2 gm Fluticasone Propionate (Fluticasone Propionate Nasal 16 Gm [place]) 1 spray NOSTRIL-B BID [facility] Last Admin: 08/31/24 08:40 Dose: 1 spray Furosemide (Furosemide 20 Mg/2 Ml Vial) 20 mg IVPUSH DAILY [facility]; Protocol Last Admin: 08/31/24 11:09 Dose: 20 mg Diltiazem HCl 125 mg/ Sodium (Chloride) 125 mls @ 0 mls/hr IVCONT .Q0M [facility]; Protocol Last Admin: 08/31/24 15:00 Dose: 5 mg/hr, 5 mls/hr Metronidazole (Flagyl) 500 mg in 100 mls @ 100 mls/hr IV Q8H [facility] Last Admin: 08/31/24 15:08 Dose: 100 mls/hr Ketorolac Tromethamine (Ketorolac Tromethamine 15 Mg/Ml Vial) 15 mg IVPUSH Q6H PRN PRN Reason: Pain, Moderate(Pain Scale 4-6) Last Admin: 08/30/24 20:21 Dose: 15 mg Lactulose (Lactulose 20 Gm/30 Ml Solution) 30 gm PO DAILY PRN PRN Reason: Constipation Levothyroxine Sodium (Levothyroxine Sodium 75 Mcg Tablet) 75 mcg PO DAILY@0600 [facility] Last Admin: 08/31/24 03:56 Dose: Not Given Magnesium Hydroxide (Milk Of Magnesia 30 Ml Oral.Susp) 30 ml PO DAILY PRN PRN Reason: Constipation Melatonin (Melatonin 3 Mg Tablet) 6 mg PO BEDTIME PRN PRN Reason: Insomnia Metoprolol Tartrate (Metoprolol Tartrate 25 Mg Tablet) 25 mg PO Q6H [facility]; Protocol Last Admin: 08/31/24 11:08 Dose: 25 mg Midodrine (Midodrine Hcl 10 Mg Tablet) 10 mg PO TID [facility] Last Admin: 08/31/24 15:04 Dose: 10 mg Morphine Sulfate (Morphine Sulfate 2 Mg/Ml Cartridge) 1 mg IVPUSH Q4H PRN; Protocol PRN Reason: Pain, Severe (Pain Scale 7-10) Last Admin: 08/29/24 17:58 Dose: 1 mg Ondansetron HCl (Ondansetron Hcl 4 Mg/2 Ml Vial) 4 mg IVPUSH Q8H PRN PRN Reason: Nausea and Vomiting Last Admin: 08/30/24 06:42 Dose: 4 mg Pantoprazole Sodium (Pantoprazole Sodium 40 Mg/10 Ml Vial) 40 mg IVPUSH BID@0630,1630 [facility] Last Admin: 08/31/24 03:54 Dose: 40 mg Prazosin HCl (Prazosin Hcl 1 Mg Capsule) 2 mg PO BEDTIME [facility]; Protocol Last Admin: 08/30/24 20:15 Dose: 2 mg Simethicone (Simethicone 80 Mg Tab.Chew) 80 mg PO QIDWMHS PRN PRN Reason: bloating\gas Sodium Biphosphate/Sodium Phosphate (Sodium Phosphate,[place]mit-Dibasic 133 Ml Enema) 133 ml [place] ONCE PRN PRN Reason: Constipation Sodium Chloride (0.9 % Sodium Chloride Flush 3 Ml Syringe) 3 ml IVFLUSH QSHIFT [facility] Last Admin: 08/31/24 11:09 Dose: 3 ml Trazodone HCl (Trazodone Hcl 25 Mg Halftab) 25 mg PO TID PRN PRN Reason: Agitation Home Medications ?Medication ?Instructions ?Recorded ?Confirmed ?Last Taken ?Type acetaminophen 500 mg tablet 1,000 mg PO TID 07/18/24 08/29/24 Unknown History albuterol sulfate 90 mcg/actuation 1 inh inhalation Q4H PRN Shortness 07/18/24 08/29/24 Unknown History aerosol inhaler (Ventolin HFA) Of Breath Or Wheezing atorvastatin 20 mg tablet 20 mg PO DAILY 07/18/24 08/29/24 Unknown History bisacodyl 10 mg rectal suppository 10 mg [place] DAILY PRN Constipation 07/18/24 08/29/24 Unknown History buspirone 10 mg tablet 10 mg PO Q8H 07/18/24 08/29/24 Unknown History cetirizine 10 mg tablet 10 mg PO DAILY 07/18/24 08/29/24 Unknown History cyanocobalamin (vitamin B-12) 1,000 mcg PO DAILY 07/18/24 08/29/24 Unknown History 1,000 mcg tablet,extended release (Vitamin B-12 ER) diclofenac sodium 1 % topical gel 4 g topical BID 07/18/24 08/29/24 Unknown History esomeprazole magnesium 20 mg 20 mg PO DAILY 07/18/24 08/29/24 Unknown History granules delayed release for susp fluticasone propionate 50 1 spray intranasal BID 07/18/24 08/29/24 Unknown History mcg/actuation nasal spray,suspension guaifenesin 100 mg/5 mL oral liquid 200 mg PO Q4H PRN Cough 07/18/24 08/29/24 Unknown History hydrocortisone 1 % topical cream 1 appl topical Q8H PRN Rash 07/18/24 08/29/24 Unknown History ipratropium 20 mcg-albuterol 100 2 puff inhalation Q4H PRN 07/18/24 08/29/24 Unknown History mcg/actuation mist for inhalation Shortness Of Breath Or Wheezing (Combivent Respimat) levothyroxine 75 mcg tablet 75 mcg PO DAILY@0600 07/18/24 08/29/24 Unknown History loteprednol etabonate 0.5 % eye 1 drp ophthalmic (eye) BID PRN Dry 07/18/24 08/29/24 Unknown History gel drops Eyes magnesium hydroxide 400 mg/5 mL 30 ml PO DAILY PRN Constipation 07/18/24 08/29/24 Unknown History oral suspension (Milk of Magnesia) meclizine 12.5 mg tablet 12.5 mg PO Q8H PRN Dizziness 07/18/24 08/29/24 Unknown History melatonin 5 mg tablet 10 mg PO BEDTIME 07/18/24 08/29/24 Unknown History ondansetron HCl 8 mg tablet 8 mg PO Q8H PRN Nausea And Vomiting 07/18/24 08/29/24 Unknown History polyvinyl alcohol 1.4 % eye drops 1 drp ophthalmic (eye) TID PRN Dry 07/18/24 08/29/24 Unknown History (Artificial Tears (polyvinyl Eyes alcohol)) prazosin 2 mg capsule 2 mg PO BEDTIME 07/18/24 08/29/24 Unknown History sertraline 25 mg tablet 50 mg PO DAILY 07/18/24 08/29/24 Unknown History sodium phosphates 19 gram-7 118 ml [place] DAILY PRN Constipation 07/18/24 08/29/24 Unknown History gram/118 mL enema (Fleet Enema) tramadol 50 mg tablet 50 mg PO BID 07/18/24 08/29/24 Unknown History trazodone 50 mg tablet 25 mg PO TID PRN Agitation 07/18/24 08/29/24 Unknown History acetaminophen 650 mg rectal 650 mg [place] Q4H PRN Pain or Fever 08/29/24 08/29/24 Unknown History suppository amoxicillin 875 mg-potassium 1 tab PO BID 08/29/24 08/29/24 Unknown History clavulanate 125 mg tablet lactulose 10 gram/15 mL oral 30 ml PO DAILY PRN hyperammonemia 08/29/24 08/29/24 Unknown History solution (Constulose) metoprolol tartrate 25 mg tablet 12.5 mg PO BID 08/29/24 08/29/24 Unknown History midodrine 5 mg tablet 10 mg PO TID 08/29/24 08/29/24 Unknown History Physical Exam Vital Signs: Vital Signs: Last Vital Signs Temp 97.3 F 08/31/24 14:58 Pulse 71 08/31/24 14:58 Resp 17 08/31/24 14:58 BP 129/89 08/31/24 14:58 Pulse Ox 93 08/31/24 14:58 O2 Del Method Room Air 08/31/24 14:58 O2 Flow Rate 95 08/29/24 14:08 BMI result Body Mass Index 35.7 Elderly female, nonicteric Abdomen soft, nontender, nondistended No overt respiratory distress Mild lower extremity edema Alert oriented x2 Results Labs 08/31/24 08:20 08/31/24 08:20 Labs: Short CBC 08/31/24 Range/Units 08:20 WBC 7.2 (4.8-10.8) X10*3/uL Hgb 13.4 (12.0-16.0) g/dl Hct 40.1 (37.0-47.0) % Plt Count 191 (160-400) X10*3/uL BMP 08/31/24 08:20 Sodium 133 L Potassium 3.4 Chloride 105 Carbon Dioxide 19 L BUN 20 H Creatinine 1.29 Calcium 7.8 L Liver Function 08/31/24 Range/Units 08:20 Total Bilirubin 1.3 H (0.0-1.0) mg/dL Direct Bilirubin 0.6 H (0.0-0.5) mg/dL AST 112 H (5-31) U/L ALT 85 H (0-31) U/L Alkaline Phosphatase 57 (39-117) U/L Albumin 3.3 L (3.5-5.0) g/dL Microbiology Microbiology Results: Microbiology 08/29/24 13:32 Blood - Venous Blood Culture - Preliminary No growth after 48 hours. 08/29/24 13:32 Blood - Venous Blood Culture - Preliminary No growth after 48 hours. Assessment and Plan (1) Abdominal pain: Status: Acute (2) Ascites: Status: Acute (3) Transaminitis: Status: Acute (4) Gastroenteritis: Status: Acute (5) Pleural effusion: Status: Acute (6) Rectal abnormality: Status: Acute Plan Differentials for abdominal pain include generalized fluid overload and got edema, acute infectious illness, chronic mesenteric ischemia stefanie as pain out of proportion to exam, PUD. Also with incidental finding of focal wall thickening in the rectum. Plan: -diagnostic paracentesis or thoracentesis. If ascitic tap done, please send for cell count, culture, cytology, albumin and total protein -mesenteric duplex ultrasound -check GI panel to r.o infectious illness such as norovirus -agree with empiric PPI. Add sucralfate, specially if bile reflux suspected -timing of EGD and flexible sigmoidoscopy contingent on above results. Pls hold eliquis in anticipation.(will need eliquis held x3 days based on creatinine clearance). Thank you for allowing me to participate in her care. Please do not hesitate to reach out for any questions or concerns. Procedures Date of Service Date of Service: 08/31/24
[2024-08-31 19:16] VITALS: BP 118/88; PULSE 77; RESP 18; TEMP 36.1; O2SAT 96
[2024-08-31 23:02] VITALS: BP 111/65; PULSE 65; RESP 16; TEMP 36.3; O2SAT 96
[2024-09-01 03:14] VITALS: BP 120/66; PULSE 82; RESP 20; TEMP 36; O2SAT 94
[2024-09-01] MEDS: metroNIDAZOLE/NS 500 MG/100 ML PIGGYBACK 100 MG IV ×3 (04:31→19:31)
[2024-09-01] MEDS: Acetaminophen 325 MG TABLET 650 MG PO (04:31)
[2024-09-01] MEDS: Metoprolol Tartrate 25 MG TABLET PO ×3 (04:32→17:24)
[2024-09-01] MEDS: Pantoprazole Sodium 40 MG/10 ML VIAL IVPUSH ×2 (04:32→17:25)
[2024-09-01] MEDS: Levothyroxine Sodium 75 MCG TABLET PO (04:32)
[2024-09-01 07:02] LABS: MANUAL DIFF FLAG NO
[2024-09-01 07:06] LABS: Basophils Absolute Auto 0.1 X10*3/uL (0.0-0.2); Eosinophils Absolute Auto 0.1 X10*3/uL (0.0-0.4); Eosinophils Percent Auto 1.9 % (0-4); Hematocrit 38.4 % (37.0-47.0); Hemoglobin 12.9 g/dl (12.0-16.0); Imm Gran Abs Auto 0.02 X10*3/uL (0.00-0.03); Imm Gran Pct Auto 0.3 % (0.0-0.4); Lymphocytes Absolute Auto 2.2 X10*3/uL (1.2-4.9); Lymphocytes Percent Auto 33.3 % (20-40); Mean Corpuscular HGB Conc 33.6 g/dl (31.0-35.0); Mean Corpuscular Hemoglobin 32.9 pg (27.0-33.0); Mean Platelet Volume 10.4 fL (9.4-12.3); Monocytes Absolute Auto 0.5 X10*3/uL (0.1-1.2); Monocytes Percent Auto 6.8 % (2-11); Neutrophils Absolute Auto 3.8 x10*3/uL (2.0-8.3); Neutrophils Percent Auto 56.7 % (45-73); Platelet Count 179 X10*3/uL (160-400); Red Blood Count 3.92 X10*6/uL (4.20-5.50); Red Cell Distribution Width 16.8 % (11.0-16.0); White Blood Count 6.7 X10*3/uL (4.8-10.8)
[2024-09-01 07:07] VITALS: BP 129/89; PULSE 94; RESP 18; TEMP 36.8; O2SAT 94
[2024-09-01 07:18] LABS: Anion Gap 12 (12-20); Blood Urea Nitrogen 18 mg/dL (9-16); Carbon Dioxide 19 mmol/L (22-29); Chloride 105 mmol/L (96-108); Creatinine Clr Calc Pharmacy 38.9; Estimated Glomerular Filt Rate 49; Glucose Random 90 mg/dL (60-115); Potassium 3.1 mmol/L (3.3-5.1); Sodium 133 mmol/L (135-145)
[2024-09-01 08:00] LABS: Alanine Aminotransferase 77 U/L (0-31); Albumin Level 3.2 g/dL (3.5-5.0); Alkaline Phosphatase 58 U/L (39-117); Aspartate Amino Transferase 87 U/L (5-31); Bilirubin Direct 0.5 mg/dL (0.0-0.5); Bilirubin Total 1.1 mg/dL (0.0-1.0); Total Protein 5.2 g/dL (6.5-8.0)
[2024-09-01] MEDS: Sucralfate Oral Suspension 1 GM/10 ML ORAL.SUSP PO ×4 (08:06→20:03)
[2024-09-01] MEDS: PHENobarb/Hyoscy/Atropine/Scop 10 ML ELIXIR 5 ML PO ×3 (08:06→20:08)
[2024-09-01] MEDS: Potassium Chloride ER 20 MEQ TAB.ER.PRT 40 MEQ PO (08:07)
[2024-09-01] MEDS: Midodrine HCl 10 MG TABLET PO ×3 (08:07→20:03)
[2024-09-01] MEDS: busPIRone HCl 10 MG TABLET PO ×2 (08:07→17:24)
[2024-09-01] MEDS: 0.9 % Sodium Chloride Flush 3 ML SYRINGE IVFLUSH ×3 (08:08→20:10)
[2024-09-01] MEDS: Furosemide 20 MG/2 ML VIAL IVPUSH (08:09)
--- NOTE | 2024-09-01 09:02 | PC.NURSE ---
metoprolol 25 mg po , (11 :15 dose ) administered now per DR Villalta order during AM rounds
[2024-09-01] MEDS: Fluticasone Propionate Nasal 16 GM SPRAY 1 SPRAY NOSTRIL-B (10:02)
[2024-09-01 11:31] VITALS: BP 139/85; PULSE 106; RESP 18; TEMP 36.6; O2SAT 95
--- NOTE | 2024-09-01 11:45 | P.PNIM_ITS ---
Subjective Subjective Date of Service: 09/01/24 Interval History: seen and evaluated this morning abdominal pain improving Still in Afib w RvR no nausea, tolerating PO no other overnight events Review of Systems Review of Systems: Yes all other systems are reviewed and are negative Physical Exam 2 Vital Signs: Vital Signs: Last Vital Signs Temp 97.9 F 09/01/24 11:31 Pulse 106 H 09/01/24 11:31 Resp 18 09/01/24 11:31 BP 139/85 09/01/24 11:31 Pulse Ox 95 09/01/24 11:31 O2 Del Method Room Air 09/01/24 11:31 O2 Flow Rate 95 08/29/24 14:08 BMI result Body Mass Index 35.7 Const: Other: Constitutional : Awake, interactive, not in distress Neck : Normal inspection, Supple Cardiovascular : RRR, no JVP, no lower extremity edema Respiratory : good bilateral air entry, no crackles, wheezes or rhonchi Gastrointestinal: soft, lax, Normal bowel sounds, mild generalized tenderness Skin : Warm, Dry Neurological : Alert & oriented x3, No focal deficit Objective Data Active Medications Acetaminophen (Acetaminophen 325 Mg Tablet) 650 mg PO Q6H PRN PRN Reason: Pain, Mild 1-3,fever,headache Last Admin: 09/01/24 04:31 Dose: 650 mg Documented By: JOHN Albuterol Sulfate (Albuterol Sulfate 90 Mcg 8 Gm Inhaler) 1 puff INHALE Q4H PRN PRN Reason: Shortness Of Breath Or Wheezing Belladonna Alkaloids/Phenobarbital (Phenobarb/Hyoscy/Atropine/Scop 10 Ml Elixir) 5 ml PO QID [facility] Last Admin: 09/01/24 08:06 Dose: 5 ml Documented By: FRANCISCO Buspirone HCl (Buspirone Hcl 10 Mg Tablet) 10 mg PO Q8H [facility] Last Admin: 09/01/24 08:07 Dose: 10 mg Documented By: FRANCISCO Calcium Carbonate (Calcium Carbonate 750 Mg Tab.Chew) 750 mg PO Q4H PRN PRN Reason: Heartburn Ceftriaxone Sodium (Ceftriaxone Sodium 2 Gm Vial) 2 gm IVPUSH Q24H [facility] Last Admin: 08/31/24 15:04 Dose: 2 gm Documented By: JOSÉ LUIS Fluticasone Propionate (Fluticasone Propionate Nasal 16 Gm [place]) 1 spray NOSTRIL-B BID [facility] Last Admin: 09/01/24 10:02 Dose: 1 spray Documented By: FRANCISCO Furosemide (Furosemide 20 Mg/2 Ml Vial) 20 mg IVPUSH DAILY [facility]; Protocol Last Admin: 09/01/24 08:09 Dose: 20 mg Documented By: FRANCISCO Diltiazem HCl 125 mg/ Sodium (Chloride) 125 mls @ 0 mls/hr IVCONT .Q0M [facility]; Protocol Last Admin: 08/31/24 15:00 Dose: 5 mg/hr, 5 mls/hr Documented By: JOSÉ LUIS Metronidazole (Flagyl) 500 mg in 100 mls @ 100 mls/hr IV Q8H [facility] Last Infusion: 09/01/24 06:11 Dose: Infused Documented By: JOHN Ketorolac Tromethamine (Ketorolac Tromethamine 15 Mg/Ml Vial) 15 mg IVPUSH Q6H PRN PRN Reason: Pain, Moderate(Pain Scale 4-6) Last Admin: 08/30/24 20:21 Dose: 15 mg Documented By: JOHN Lactulose (Lactulose 20 Gm/30 Ml Solution) 30 gm PO DAILY PRN PRN Reason: Constipation Levothyroxine Sodium (Levothyroxine Sodium 75 Mcg Tablet) 75 mcg PO DAILY@0600 [facility] Last Admin: 09/01/24 04:32 Dose: 75 mcg Documented By: JOHN Magnesium Hydroxide (Milk Of Magnesia 30 Ml Oral.Susp) 30 ml PO DAILY PRN PRN Reason: Constipation Melatonin (Melatonin 3 Mg Tablet) 6 mg PO BEDTIME PRN PRN Reason: Insomnia Metoprolol Tartrate (Metoprolol Tartrate 25 Mg Tablet) 25 mg PO Q6H [facility]; Protocol Last Admin: 09/01/24 09:01 Dose: 25 mg Documented By: FRANCISCO Midodrine (Midodrine Hcl 10 Mg Tablet) 10 mg PO TID [facility] Last Admin: 09/01/24 08:07 Dose: 10 mg Documented By: FRANCISCO Morphine Sulfate (Morphine Sulfate 2 Mg/Ml Cartridge) 1 mg IVPUSH Q4H PRN; Protocol PRN Reason: Pain, Severe (Pain Scale 7-10) Last Admin: 08/29/24 17:58 Dose: 1 mg Documented By: HUNTER Ondansetron HCl (Ondansetron Hcl 4 Mg/2 Ml Vial) 4 mg IVPUSH Q8H PRN PRN Reason: Nausea and Vomiting Last Admin: 08/30/24 06:42 Dose: 4 mg Documented By: VESNA Pantoprazole Sodium (Pantoprazole Sodium 40 Mg/10 Ml Vial) 40 mg IVPUSH BID@0630,1630 [facility] Last Admin: 09/01/24 04:32 Dose: 40 mg Documented By: JOHN Prazosin HCl (Prazosin Hcl 1 Mg Capsule) 2 mg PO BEDTIME [facility]; Protocol Last Admin: 08/31/24 20:07 Dose: Not Given Documented By: JOHN Non-Admin Reason: fasting for US per Simethicone (Simethicone 80 Mg Tab.Chew) 80 mg PO QIDWMHS PRN PRN Reason: bloating\gas Sodium Biphosphate/Sodium Phosphate (Sodium Phosphate,Power-Dibasic 133 Ml Enema) 133 ml [place] ONCE PRN PRN Reason: Constipation Sodium Chloride (0.9 % Sodium Chloride Flush 3 Ml Syringe) 3 ml IVFLUSH QSHIFT [facility] Last Admin: 09/01/24 08:08 Dose: 3 ml Documented By: FRANCISCO Sucralfate (Sucralfate Oral Suspension 1 Gm/10 Ml Oral.Susp) 1 gm PO QIDACHS [facility] Stop: 09/03/24 20:59 Last Admin: 09/01/24 08:06 Dose: 1 gm Documented By: FRANCISCO Sucralfate (Sucralfate 1 Gm Tablet) 1 gm PO QIDAS [facility] Trazodone HCl (Trazodone Hcl 25 Mg Halftab) 25 mg PO TID PRN PRN Reason: Agitation Labs 09/01/24 06:17 09/01/24 06:17 Labs: Laboratory Results - last 24 hr 09/01/24 06:17 MCV 98.0 MCH 32.9 MCHC 33.6 RDW 16.8 H Plt Count 179 MPV 10.4 Immature Gran % (Auto) 0.3 Neut % (Auto) 56.7 Lymph % (Auto) 33.3 Power % (Auto) 6.8 Eos % (Auto) 1.9 Baso % (Auto) 1.0 Lymph # (Auto) 2.2 Power # (Auto) 0.5 Eos # (Auto) 0.1 Baso # (Auto) 0.1 Abs Immat Gran (auto) 0.02 Absolute Neuts (auto) 3.8 Absolute Nucleated RBC 0.000 Nucleated RBC % (auto) 0.0 Anion Gap 12 Estim Creat Clear Calc 38.9 Estimated GFR 49 Random Glucose 90 Calcium 8.0 L Total Bilirubin 1.1 H Direct Bilirubin 0.5 AST 87 H ALT 77 H Alkaline Phosphatase 58 Total Protein 5.2 L Albumin 3.2 L Microbiology Microbiology Results: Microbiology 08/29/24 13:32 Blood Culture - Preliminary Blood - Venous No growth after 48 hours. 08/29/24 13:32 Blood Culture - Preliminary Blood - Venous No growth after 48 hours. Assessment and Plan (1) Rectal abnormality: Status: Acute (2) Pleural effusion: Status: Acute (3) Atrial fibrillation with RVR: Status: Acute (4) Ascites: Status: Acute (5) Abdominal pain: Status: Acute Plan An 79 years old lady with PMH of GERD, hypothyroidism, HLD among others who was sent to ED for evaluation of 2 weeks of nausea, vomiting and diarrhea. Nausea, vomiting and bloody stool with ascites DDx: G\E, colitis, ischemia, SBP ? CT concerning for possible acalculas cholecystitis , moderate ascites, Focal concentric wall thickening in the rectum. Intrinsic lesion cannot be excluded. HIDA scan negative. Continue IV 2 gm Ceftriaxone and Flagyl Q8 IV Pantoprazole PRN Morphine surgery consult , HIDA scan negative, no acute surgical concern GI evaluation, might need EGD US Duplex negative for mesentric ischemia IR reports she did not have enough ascites for PAracentesis advance diet as tolerated paroxysmal Atrial fibrillation w RvR rate at 130s-140s Metoprolol PO Q6 continue IV Cardizem for better control restart Eliquis Cardiology consult, continue Cardizem drip and PO Metoprolol Telemetry Hypotension Continue Midodrine home dose 10 tid GERD, PPI Hx COPD, not in exacerbation, PRN nebs Hx TIA, ASA and Statin Depression, Sertrakube HTN, Verapamil on hold DVT PPx SCDs given reported GI bleeding The patient will need overnight hospital stay for treatment of possible intraabdominal infection. Quality Stroke Does the patient have a stroke diagnosis?: No VTE Prior VTE?: No VTE Risk Level:: Medical - moderate - high VTE Device Contraindication: N/A - Device Ordered VTE Drug Contraindication: Treatment Not Indicated
[2024-09-01] MEDS: Throat Lozenge, Medicated LOZENGE 1 LOZENGE MUCOUS MEM (12:18)
[2024-09-01] MEDS: ondansetron HCL 4 MG/2 ML VIAL IVPUSH (13:26)
[2024-09-01] MEDS: dilTIAZem HCL 125 MG in 0.9 % Sodium Chloride 100 ML 10 MG IVCONT (13:36)
[2024-09-01] MEDS: Milk of Magnesia 30 ML ORAL.SUSP PO (14:17)
[2024-09-01] MEDS: cefTRIAXone sodium 2 GM VIAL IVPUSH (14:17)
--- NOTE | 2024-09-01 14:42 | PC.NURSE ---
HR up to 140's , Cardizem drip restarted as per DR. Pawan davis
--- NOTE | 2024-09-01 15:09 | PC.NURSE ---
HR 80' and 90's afib cardizem drip decreased from 10 mg to 5 mg
[2024-09-01 15:55] VITALS: BP 116/74; PULSE 83; RESP 18; TEMP 36.7; O2SAT 96
--- NOTE | 2024-09-01 16:46 | PC.NURSE ---
HR 70-80 cardizem titrated off at this time , MD Villalta notified
[2024-09-01 19:25] VITALS: BP 114/81; PULSE 37; RESP 17; TEMP 36.7; O2SAT 95
[2024-09-01 19:26] VITALS: PULSE 111
[2024-09-01] MEDS: Prazosin HCL 1 MG CAPSULE 2 MG PO (20:03)
[2024-09-01] MEDS: Melatonin 3 MG TABLET 6 MG PO (20:03)
[2024-09-02] VITALS (7 sets, daily range): BP systolic 102–126; BP diastolic 63–79; PULSE 72–111; RESP 16–18; TEMP 35.8–37.2; O2SAT 93–98
[2024-09-02] MEDS: busPIRone HCl 10 MG TABLET PO ×3 (00:08→16:31)
[2024-09-02] MEDS: Metoprolol Tartrate 25 MG TABLET PO ×2 (00:08→05:59)
[2024-09-02] MEDS: traZODone HCL 25 MG HALFTAB PO (00:08)
[2024-09-02] MEDS: dilTIAZem HCL 125 MG in 0.9 % Sodium Chloride 100 ML 10 MG IVCONT (00:47)
[2024-09-02] MEDS: Acetaminophen 325 MG TABLET 650 MG PO (01:53)
[2024-09-02] MEDS: metroNIDAZOLE/NS 500 MG/100 ML PIGGYBACK 100 MG IV (04:52)
--- NOTE | 2024-09-02 05:26 | PC.NURSE ---
Cardizem gtt titrated on patient by charge nurse from approx [phone]. Heart rate currently sustaining around 100. Patient is alert and forgetful. She has had two bouts of diarrhea overnight. Pt is able to transfer to commode with assistance. Reports felling lousy this morning.
[2024-09-02] MEDS: Pantoprazole Sodium 40 MG/10 ML VIAL IVPUSH (05:59)
[2024-09-02] MEDS: Levothyroxine Sodium 75 MCG TABLET PO (05:59)
[2024-09-02 07:09] LABS: MANUAL DIFF FLAG NO
[2024-09-02 07:20] LABS: Basophils Absolute Auto 0.1 X10*3/uL (0.0-0.2); Basophils Percent Auto 1.2 % (0-2); Eosinophils Absolute Auto 0.1 X10*3/uL (0.0-0.4); Eosinophils Percent Auto 1.4 % (0-4); Hematocrit 36.6 % (37.0-47.0); Hemoglobin 12.2 g/dl (12.0-16.0); Imm Gran Abs Auto 0.02 X10*3/uL (0.00-0.03); Imm Gran Pct Auto 0.3 % (0.0-0.4); Lymphocytes Absolute Auto 2.2 X10*3/uL (1.2-4.9); Lymphocytes Percent Auto 36.4 % (20-40); Mean Corpuscular HGB Conc 33.3 g/dl (31.0-35.0); Mean Corpuscular Hemoglobin 32.9 pg (27.0-33.0); Mean Corpuscular Volume 98.7 fL (80.0-98.0); Mean Platelet Volume 10.8 fL (9.4-12.3); Monocytes Absolute Auto 0.5 X10*3/uL (0.1-1.2); Monocytes Percent Auto 7.8 % (2-11); Neutrophils Absolute Auto 3.1 x10*3/uL (2.0-8.3); Neutrophils Percent Auto 52.9 % (45-73); Platelet Count 177 X10*3/uL (160-400); Red Blood Count 3.71 X10*6/uL (4.20-5.50); Red Cell Distribution Width 16.7 % (11.0-16.0); White Blood Count 5.9 X10*3/uL (4.8-10.8)
[2024-09-02 07:38] LABS: Alanine Aminotransferase 70 U/L (0-31); Albumin Level 3.2 g/dL (3.5-5.0); Alkaline Phosphatase 58 U/L (39-117); Anion Gap 12 (12-20); Aspartate Amino Transferase 79 U/L (5-31); Bilirubin Direct 0.6 mg/dL (0.0-0.5); Blood Urea Nitrogen 19 mg/dL (9-16); Calcium 7.8 mg/dL (8.4-10.2); Carbon Dioxide 20 mmol/L (22-29); Chloride 105 mmol/L (96-108); Creatinine Clr Calc Pharmacy 37.9; Estimated Glomerular Filt Rate 47; Glucose Random 88 mg/dL (60-115); Potassium 3.4 mmol/L (3.3-5.1); Sodium 134 mmol/L (135-145)
[2024-09-02 07:43] LABS: B Type Natriuretic Peptide 716 pg/mL (<100)
[2024-09-02] MEDS: dilTIAZem HCL 30 MG TABLET PO ×4 (08:59→20:00)
[2024-09-02] MEDS: Midodrine HCl 10 MG TABLET PO ×3 (09:00→20:01)
[2024-09-02] MEDS: Sucralfate Oral Suspension 1 GM/10 ML ORAL.SUSP PO ×3 (09:00→20:00)
[2024-09-02] MEDS: Furosemide 20 MG/2 ML VIAL IVPUSH (09:00)
[2024-09-02] MEDS: Apixaban 2.5 MG TABLET PO (09:00)
[2024-09-02] MEDS: 0.9 % Sodium Chloride Flush 3 ML SYRINGE IVFLUSH ×3 (09:05→20:07)
[2024-09-02 10:50] LABS: Adenovirus F 40/41 Not Detected (Not Detect.); Astrovirus Not Detected (Not Detect.); Campylobacter Not Detected (Not Detect.); Cryptosporidium Not Detected (Not Detect.); Cyclospora cayetanensis Not Detected (Not Detect.); E. coli EAEC Not Detected (Not Detect.); E. coli EPEC Not Detected (Not Detect.); E. coli ETEC Not Detected (Not Detect.); E. coli STEC Not Detected (Not Detect.); Entamoeba histolytica Not Detected (Not Detect.); Giardia lamblia Not Detected (Not Detect.); Norovirus GI/GII Not Detected (Not Detect.); Plesiomonas shigelloides Not Detected (Not Detect.); Rotavirus A Not Detected (Not Detect.); Salmonella Not Detected (Not Detect.); Sapovirus Not Detected (Not Detect.); Shigella sp./EIEC Not Detected (Not Detect.); Vibrio Not Detected (Not Detect.); Vibrio Cholerae Not Detected (Not Detect.); Yersinia enterocolitica Not Detected (Not Detect.)
--- NOTE | 2024-09-02 12:46 | P.PNIM_ITS ---
Subjective Subjective Date of Service: 09/02/24 Interval History: seen and evaluated this morning abdominal pain improving, having diarrhea goes in and out of Afib w RvR no nausea, tolerating PO no other overnight events Review of Systems Review of Systems: Yes all other systems are reviewed and are negative Physical Exam 2 Vital Signs: Vital Signs: Last Vital Signs Temp 99.0 F 09/02/24 10:59 Pulse 92 09/02/24 10:59 Resp 16 09/02/24 10:59 BP 102/63 09/02/24 07:43 Pulse Ox 93 09/02/24 10:59 O2 Del Method Room Air 09/02/24 10:59 O2 Flow Rate 95 08/29/24 14:08 BMI result Body Mass Index 35.7 Const: Other: Constitutional : Awake, interactive, not in distress Neck : Normal inspection, Supple Cardiovascular : irregular irregular , no JVP, no lower extremity edema Respiratory : good bilateral air entry, no crackles, wheezes or rhonchi Gastrointestinal: soft, lax, Normal bowel sounds, mild generalized tenderness Skin : Warm, Dry Neurological : Alert & oriented x3, No focal deficit Objective Data Active Medications Acetaminophen (Acetaminophen 325 Mg Tablet) 650 mg PO Q6H PRN PRN Reason: Pain, Mild 1-3,fever,headache Last Admin: 09/02/24 01:53 Dose: 650 mg Documented By: TIMOTHY Albuterol Sulfate (Albuterol Sulfate 90 Mcg 8 Gm Inhaler) 1 puff INHALE Q4H PRN PRN Reason: Shortness Of Breath Or Wheezing Apixaban (Apixaban 2.5 Mg Tablet) 2.5 mg PO BID [facility] Last Admin: 09/02/24 09:00 Dose: 2.5 mg Documented By: FRANCISCO Belladonnnataly Alkaloids/Phenobarbital (Phenobarb/Hyoscy/Atropine/Scop 10 Ml Elixir) 5 ml PO QID [facility] Last Admin: 09/02/24 10:08 Dose: Not Given Documented By: FRANCISCO Non-Admin Reason: Patient Refused Benzocaine (Throat Lozenge, Medicated Lozenge) 1 lozenge MUCOUS MEM Q2H PRN PRN Reason: Sore Throat Last Admin: 09/01/24 12:18 Dose: 1 lozenge Documented By: FRANCISCO Buspirone HCl (Buspirone Hcl 10 Mg Tablet) 10 mg PO Q8H [facility] Last Admin: 09/02/24 09:03 Dose: 10 mg Documented By: FRANCISCO Calcium Carbonate (Calcium Carbonate 750 Mg Tab.Chew) 750 mg PO Q4H PRN PRN Reason: Heartburn Ceftriaxone Sodium (Ceftriaxone Sodium 2 Gm Vial) 2 gm IVPUSH Q24H [facility] Last Admin: 09/01/24 14:17 Dose: 2 gm Documented By: FRANCISCO Diltiazem HCl (Diltiazem Hcl 30 Mg Tablet) 30 mg PO QID [facility]; Protocol Last Admin: 09/02/24 08:59 Dose: 30 mg Documented By: FRANCISCO Diltiazem HCl (Diltiazem Hcl 50 Mg/10 Ml Vial) 10 mg IVPUSH ONCE PRN PRN Reason: HEart rate >130 Fluticasone Propionate (Fluticasone Propionate Nasal 16 Gm [place]) 1 spray NOSTRIL-B BID [facility] Last Admin: 09/02/24 10:07 Dose: Not Given Documented By: FRANCISCO Non-Admin Reason: Patient Refused Furosemide (Furosemide 20 Mg/2 Ml Vial) 20 mg IVPUSH DAILY [facility]; Protocol Last Admin: 09/02/24 09:00 Dose: 20 mg Documented By: FRANCISCO Diltiazem HCl 125 mg/ Sodium (Chloride) 125 mls @ 0 mls/hr IVCONT .Q0M [facility]; Protocol Last Titration: 09/02/24 01:57 Dose: 0 mg/hr, 0 mls/hr Documented By: ZACH Ketorolac Tromethamine (Ketorolac Tromethamine 15 Mg/Ml Vial) 15 mg IVPUSH Q6H PRN PRN Reason: Pain, Moderate(Pain Scale 4-6) Last Admin: 08/30/24 20:21 Dose: 15 mg Documented By: JOHN Lactulose (Lactulose 20 Gm/30 Ml Solution) 30 gm PO DAILY PRN PRN Reason: Constipation Levothyroxine Sodium (Levothyroxine Sodium 75 Mcg Tablet) 75 mcg PO DAILY@0600 [facility] Last Admin: 09/02/24 05:59 Dose: 75 mcg Documented By: TIMOTHY Magnesium Hydroxide (Milk Of Magnesia 30 Ml Oral.Susp) 30 ml PO DAILY PRN PRN Reason: Constipation Last Admin: 09/01/24 14:17 Dose: 30 ml Documented By: FRANCISCO Melatonin (Melatonin 3 Mg Tablet) 6 mg PO BEDTIME PRN PRN Reason: Insomnia Last Admin: 09/01/24 20:03 Dose: 6 mg Documented By: FADUMO Metoprolol Tartrate (Metoprolol Tartrate 25 Mg Tablet) 25 mg PO Q6H [facility]; Protocol Last Admin: 09/02/24 05:59 Dose: 25 mg Documented By: TIMOTHY Metronidazole (Metronidazole 500 Mg Tablet) 500 mg PO Q8H RAINE Midodrine (Midodrine Hcl 10 Mg Tablet) 10 mg PO TID [facility] Last Admin: 09/02/24 09:00 Dose: 10 mg Documented By: FRANCISCO Morphine Sulfate (Morphine Sulfate 2 Mg/Ml Cartridge) 1 mg IVPUSH Q4H PRN; Protocol PRN Reason: Pain, Severe (Pain Scale 7-10) Last Admin: 08/29/24 17:58 Dose: 1 mg Documented By: HUNTER Ondansetron HCl (Ondansetron Hcl 4 Mg/2 Ml Vial) 4 mg IVPUSH Q8H PRN PRN Reason: Nausea and Vomiting Last Admin: 09/01/24 13:26 Dose: 4 mg Documented By: FLORENCIA Prazosin HCl (Prazosin Hcl 1 Mg Capsule) 2 mg PO BEDTIME [facility]; Protocol Last Admin: 09/01/24 20:03 Dose: 2 mg Documented By: FADUMO Simethicone (Simethicone 80 Mg Tab.Chew) 80 mg PO QIDWMHS PRN PRN Reason: bloating\gas Sodium Biphosphate/Sodium Phosphate (Sodium Phosphate,[place]-Dibasic 133 Ml Enema) 133 ml GA ONCE PRN PRN Reason: Constipation Sodium Chloride (0.9 % Sodium Chloride Flush 3 Ml Syringe) [facility] Last Admin: 09/02/24 09:05 Dose: 3 ml Documented By: FRANCISCO Sucralfate (Sucralfate Oral Suspension 1 Gm/10 Ml Oral.Susp) 1 gm PO QIDACHS [facility] Stop: 09/03/24 20:59 Last Admin: 09/02/24 09:00 Dose: 1 gm Documented By: FRANCISCO Sucralfate (Sucralfate 1 Gm Tablet) 1 gm PO QIDACHS RAINE Last Admin: 09/02/24 09:05 Dose: Not Given Documented By: FRANCISCO Non-Admin Reason: Previously Administered Trazodone HCl (Trazodone Hcl 25 Mg Halftab) 25 mg PO TID PRN PRN Reason: Agitation Last Admin: 09/02/24 00:08 Dose: 25 mg Documented By: TIMOTHY Labs 09/02/24 05:51 09/02/24 05:51 Labs: Laboratory Results - last 24 hr 09/02/24 09/02/24 05:51 08:53 MCV 98.7 H MCH 32.9 MCHC 33.3 RDW 16.7 H Plt Count 177 MPV 10.8 Immature Gran % (Auto) 0.3 Neut % (Auto) 52.9 Lymph % (Auto) 36.4 [place] % (Auto) 7.8 Eos % (Auto) 1.4 Baso % (Auto) 1.2 Lymph # (Auto) 2.2 [place] # (Auto) 0.5 Eos # (Auto) 0.1 Baso # (Auto) 0.1 Abs Immat Gran (auto) 0.02 Absolute Neuts (auto) 3.1 Absolute Nucleated RBC 0.000 Nucleated RBC % (auto) 0.0 Anion Gap 12 Estim Creat Clear Calc 37.9 Estimated GFR 47 Random Glucose 88 Calcium 7.8 L Total Bilirubin 1.0 Direct Bilirubin 0.6 H AST 79 H ALT 70 H Alkaline Phosphatase 58 B-Natriuretic Peptide 716 H Total Protein 5.0 L Albumin 3.2 L Stl C. cayetanensis PCR Not Detected Stool Rotavirus A PCR Not Detected Stl Adenov F 40/41 PCR Not Detected Stool Astrovirus (PCR) Not Detected Stool Campylobacter PCR Not Detected Stool Cryptosporidium PCR Not Detected Stl Sh Tox Pr E STEC PCR Not Detected Stool E coli O157 PCR Not applicable Stl Enterotoxigenic E PCR Not Detected Stool EPEC (PCR) Not Detected Stool EAEC (PCR) Not Detected Stl E. histolytica PCR Not Detected Stool Giardia Lamblia PCR Not Detected Stl P. shigelloides PCR Not Detected Stool Salmonella PCR Not Detected Stool Sapovirus (PCR) Not Detected Stl Shigella/EIEC PCR Not Detected St Y.enterocolitica PCR Not Detected Stool Vibrio (PCR) Not Detected Stl Vibrio cholerae PCR Not Detected Stl Norovirus GI/GII PCR Not Detected Assessment and Plan (1) Rectal abnormality: Status: Acute (2) Pleural effusion: Status: Acute (3) Ascites: Status: Acute (4) Abdominal pain: Status: Acute (5) Transaminitis: Status: Acute Plan An 79 years old lady with PMH of GERD, hypothyroidism, HLD among others who was sent to ED for evaluation of 2 weeks of nausea, vomiting and diarrhea. Nausea, vomiting and bloody stool with ascites DDx: G\E, colitis, ischemia, SBP ? CT concerning for possible acalculas cholecystitis , moderate ascites, Focal concentric wall thickening in the rectum. Intrinsic lesion cannot be excluded. HIDA scan negative. Continue IV 2 gm Ceftriaxone and Flagyl Q8 IV Pantoprazole PRN Morphine surgery consult , HIDA scan negative, no acute surgical concern GI evaluation, might need EGD and sigmoidoscopy US Duplex negative for mesentric ischemia IR reports she did not have enough ascites for PAracentesis advance diet as tolerated paroxysmal Atrial fibrillation w RvR rate at 130s after holding cardizem drip Metoprolol PO Q6 on hold start Cardizem PO and PRN IV doses DC IV Cardizem drip if possible hold on Eliquis Cardiology consult, continue Cardizem drip and PO Metoprolol Telemetry Hypotension Continue Midodrine home dose 10 tid GERD, PPI Hx COPD, not in exacerbation, PRN nebs Hx TIA, ASA and Statin Depression, Sertrakube HTN, Verapamil on hold DVT PPx SCDs given reported GI bleeding The patient will need overnight hospital stay for treatment of possible intraabdominal infection pending EGD Tuesday\Tuesday Quality Stroke Does the patient have a stroke diagnosis?: No VTE Prior VTE?: No VTE Risk Level:: Medical - moderate - high VTE Device Contraindication: N/A - Device Ordered VTE Drug Contraindication: Treatment Not Indicated
[2024-09-02] MEDS: metroNIDAZOLE 500 MG TABLET PO ×2 (12:51→20:00)
[2024-09-02] MEDS: PHENobarb/Hyoscy/Atropine/Scop 10 ML ELIXIR 5 ML PO (12:51)
[2024-09-02] MEDS: cefTRIAXone sodium 2 GM VIAL IVPUSH (14:55)
[2024-09-02] MEDS: ondansetron HCL 4 MG/2 ML VIAL IVPUSH (19:38)
[2024-09-02] MEDS: Simethicone 80 MG TAB.CHEW PO (19:38)
[2024-09-02] MEDS: Prazosin HCL 1 MG CAPSULE 2 MG PO (20:00)
[2024-09-02] MEDS: Melatonin 3 MG TABLET 6 MG PO (20:01)
[2024-09-03] VITALS (7 sets, daily range): BP systolic 105–134; BP diastolic 64–80; PULSE 62–89; RESP 17–18; TEMP 36.1–36.8; O2SAT 92–95
[2024-09-03] MEDS: busPIRone HCl 10 MG TABLET PO ×2 (00:17→09:12)
[2024-09-03] MEDS: metroNIDAZOLE 500 MG TABLET PO ×3 (05:46→20:39)
[2024-09-03] MEDS: Levothyroxine Sodium 75 MCG TABLET PO (05:46)
[2024-09-03 06:44] LABS: MANUAL DIFF FLAG NO
[2024-09-03 07:09] LABS: Basophils Percent Auto 0.7 % (0-2); Eosinophils Absolute Auto 0.1 X10*3/uL (0.0-0.4); Eosinophils Percent Auto 1.4 % (0-4); Hematocrit 36.9 % (37.0-47.0); Hemoglobin 12.5 g/dl (12.0-16.0); Imm Gran Abs Auto 0.02 X10*3/uL (0.00-0.03); Imm Gran Pct Auto 0.4 % (0.0-0.4); Lymphocytes Absolute Auto 2.1 X10*3/uL (1.2-4.9); Lymphocytes Percent Auto 37.6 % (20-40); Mean Corpuscular HGB Conc 33.9 g/dl (31.0-35.0); Mean Corpuscular Hemoglobin 33.1 pg (27.0-33.0); Mean Corpuscular Volume 97.6 fL (80.0-98.0); Mean Platelet Volume 10.6 fL (9.4-12.3); Monocytes Absolute Auto 0.4 X10*3/uL (0.1-1.2); Monocytes Percent Auto 7.1 % (2-11); Neutrophils Absolute Auto 2.9 x10*3/uL (2.0-8.3); Neutrophils Percent Auto 52.8 % (45-73); Platelet Count 143 X10*3/uL (160-400); Red Blood Count 3.78 X10*6/uL (4.20-5.50); Red Cell Distribution Width 16.4 % (11.0-16.0); White Blood Count 5.5 X10*3/uL (4.8-10.8)
[2024-09-03 07:27] LABS: Anion Gap 12 (12-20); Blood Urea Nitrogen 17 mg/dL (9-16); Calcium 8.2 mg/dL (8.4-10.2); Carbon Dioxide 21 mmol/L (22-29); Chloride 104 mmol/L (96-108); Creatinine Clr Calc Pharmacy 50.1; Estimated Glomerular Filt Rate > 60; Glucose Random 96 mg/dL (60-115); Potassium 3.4 mmol/L (3.3-5.1); Sodium 134 mmol/L (135-145)
[2024-09-03] MEDS: Sucralfate Oral Suspension 1 GM/10 ML ORAL.SUSP PO ×2 (09:12→10:56)
[2024-09-03] MEDS: Midodrine HCl 10 MG TABLET PO ×3 (09:12→20:39)
[2024-09-03] MEDS: dilTIAZem HCL 30 MG TABLET PO ×3 (09:12→20:49)
[2024-09-03] MEDS: 0.9 % Sodium Chloride Flush 3 ML SYRINGE IVFLUSH ×2 (09:12→17:03)
[2024-09-03] MEDS: Furosemide 20 MG/2 ML VIAL IVPUSH (09:12)
--- NOTE | 2024-09-03 10:32 | P.PNIM_ITS ---
Subjective Subjective Date of Service: 09/03/24 Interval History: seen and evaluated this morning abdominal pain improving but still reported better controlled Afib w RvR no nausea, tolerating PO no other overnight events Review of Systems Review of Systems: Yes all other systems are reviewed and are negative Physical Exam 2 Vital Signs: Vital Signs: Last Vital Signs Temp 97.3 F 09/03/24 07:10 Pulse 82 09/03/24 07:10 Resp 18 09/03/24 07:10 BP 111/64 09/03/24 07:10 Pulse Ox 93 09/03/24 07:10 O2 Del Method Room Air 09/03/24 07:10 O2 Flow Rate 95 08/29/24 14:08 BMI result Body Mass Index 35.7 Const: Other: Constitutional : Awake, interactive, not in distress Neck : Normal inspection, Supple Cardiovascular : irregular irregular , no JVP, no lower extremity edema Respiratory : good bilateral air entry, no crackles, wheezes or rhonchi Gastrointestinal: soft, lax, Normal bowel sounds, mild generalized tenderness Skin : Warm, Dry Neurological : Alert & oriented to self and place, No focal deficit Objective Data Active Medications Acetaminophen (Acetaminophen 325 Mg Tablet) 650 mg PO Q6H PRN PRN Reason: Pain, Mild 1-3,fever,headache Last Admin: 09/02/24 01:53 Dose: 650 mg Documented By: TIMOTHY Albuterol Sulfate (Albuterol Sulfate 90 Mcg 8 Gm Inhaler) 1 puff INHALE Q4H PRN PRN Reason: Shortness Of Breath Or Wheezing Belladonna Alkaloids/Phenobarbital (Phenobarb/Hyoscy/Atropine/Scop 10 Ml Elixir) 5 ml PO QID PRN PRN Reason: abdominal pain Last Admin: 09/02/24 12:51 Dose: 5 ml Documented By: FRANCISCO Benzocaine (Throat Lozenge, Medicated Lozenge) 1 lozenge MUCOUS MEM Q2H PRN PRN Reason: Sore Throat Last Admin: 09/01/24 12:18 Dose: 1 lozenge Documented By: FRANCISCO Buspirone HCl (Buspirone Hcl 10 Mg Tablet) 10 mg PO Q8H RAINE Last Admin: 09/03/24 09:12 Dose: 10 mg Documented By: WAYNE Calcium Carbonate (Calcium Carbonate 750 Mg Tab.Chew) 750 mg PO Q4H PRN PRN Reason: Heartburn Ceftriaxone Sodium (Ceftriaxone Sodium 2 Gm Vial) 2 gm IVPUSH Q24H [facility] Last Admin: 09/02/24 14:55 Dose: 2 gm Documented By: FRANCISCO Diltiazem HCl (Diltiazem Hcl 30 Mg Tablet) 30 mg PO QID [facility]; Protocol Last Admin: 09/03/24 09:12 Dose: 30 mg Documented By: WAYNE Diltiazem HCl (Diltiazem Hcl 50 Mg/10 Ml Vial) 10 mg IVPUSH ONCE PRN PRN Reason: HEart rate >130 Fluticasone Propionate (Fluticasone Propionate Nasal 16 Gm [place]) 1 spray NOSTRIL-B BID [facility] Last Admin: 09/03/24 10:18 Dose: Not Given Documented By: WAYNE Non-Admin Reason: Patient Refused Furosemide (Furosemide 20 Mg/2 Ml Vial) 20 mg IVPUSH DAILY [facility]; Protocol Last Admin: 09/03/24 09:12 Dose: 20 mg Documented By: WAYNE Diltiazem HCl 125 mg/ Sodium (Chloride) 125 mls @ 0 mls/hr IVCONT .Q0M [facility]; Protocol Last Titration: 09/02/24 01:57 Dose: 0 mg/hr, 0 mls/hr Documented By: ZACH Ketorolac Tromethamine (Ketorolac Tromethamine 15 Mg/Ml Vial) 15 mg IVPUSH Q6H PRN PRN Reason: Pain, Moderate(Pain Scale 4-6) Last Admin: 08/30/24 20:21 Dose: 15 mg Documented By: JOHN Lactulose (Lactulose 20 Gm/30 Ml Solution) 30 gm PO DAILY PRN PRN Reason: Constipation Levothyroxine Sodium (Levothyroxine Sodium 75 Mcg Tablet) 75 mcg PO DAILY@0600 [facility] Last Admin: 09/03/24 05:46 Dose: 75 mcg Documented By: FADUMO Magnesium Hydroxide (Milk Of Magnesia 30 Ml Oral.Susp) 30 ml PO DAILY PRN PRN Reason: Constipation Last Admin: 09/01/24 14:17 Dose: 30 ml Documented By: FRANCISCO Melatonin (Melatonin 3 Mg Tablet) 6 mg PO BEDTIME PRN PRN Reason: Insomnia Last Admin: 09/02/24 20:01 Dose: 6 mg Documented By: FADUMO Metoprolol Tartrate (Metoprolol Tartrate 25 Mg Tablet) 25 mg PO Q6H [facility]; Protocol Last Admin: 09/02/24 05:59 Dose: 25 mg Documented By: TIMOTHY Metronidazole (Metronidazole 500 Mg Tablet) 500 mg PO Q8H [facility] Last Admin: 09/03/24 05:46 Dose: 500 mg Documented By: FADUMO Midodrine (Midodrine Hcl 10 Mg Tablet) 10 mg PO TID [facility] Last Admin: 09/03/24 09:12 Dose: 10 mg Documented By: WAYNE Morphine Sulfate (Morphine Sulfate 2 Mg/Ml Cartridge) 1 mg IVPUSH Q4H PRN; Protocol PRN Reason: Pain, Severe (Pain Scale 7-10) Last Admin: 08/29/24 17:58 Dose: 1 mg Documented By: HUNTER Ondansetron HCl (Ondansetron Hcl 4 Mg/2 Ml Vial) 4 mg IVPUSH Q8H PRN PRN Reason: Nausea and Vomiting Last Admin: 09/02/24 19:38 Dose: 4 mg Documented By: FADUMO Prazosin HCl (Prazosin Hcl 1 Mg Capsule) 2 mg PO BEDTIME [facility]; Protocol Last Admin: 09/02/24 20:00 Dose: 2 mg Documented By: FADUMO Simethicone (Simethicone 80 Mg Tab.Chew) 80 mg PO QIDWMHS PRN PRN Reason: bloating\gas Last Admin: 09/02/24 19:38 Dose: 80 mg Documented By: FADUMO Sodium Biphosphate/Sodium Phosphate (Sodium Phosphate,[place]-Dibasic 133 Ml Enema) 133 ml CO ONCE PRN PRN Reason: Constipation Sodium Chloride (0.9 % Sodium Chloride Flush 3 Ml Syringe) 3 ml IVFLUSH [facility] Last Admin: 09/03/24 09:12 Dose: 3 ml Documented By: WAYNE Sucralfate (Sucralfate Oral Suspension 1 Gm/10 Ml Oral.Susp) 1 gm PO QIDACHS [facility] Stop: 09/03/24 20:59 Last Admin: 09/03/24 09:12 Dose: 1 gm Documented By: HO.WILLIAC Sucralfate (Sucralfate 1 Gm Tablet) 1 gm PO QIDACHS [facility]INE Last Admin: 09/03/24 07:47 Dose: Not Given Documented By: WAYNE Non-Admin Reason: Previously Administered Trazodone HCl (Trazodone Hcl 25 Mg Halftab) 25 mg PO TID PRN PRN Reason: Agitation Last Admin: 09/02/24 00:08 Dose: 25 mg Documented By: TIMOTHY Labs 09/03/24 06:37 09/03/24 06:37 Labs: Laboratory Results - last 24 hr 09/02/24 09/03/24 08:53 06:37 MCV 97.6 MCH 33.1 H MCHC 33.9 RDW 16.4 H Plt Count 143 L MPV 10.6 Immature Gran % (Auto) 0.4 Neut % (Auto) 52.8 Lymph % (Auto) 37.6 [place] % (Auto) 7.1 Eos % (Auto) 1.4 Baso % (Auto) 0.7 Lymph # (Auto) 2.1 [place] # (Auto) 0.4 Eos # (Auto) 0.1 Baso # (Auto) 0.0 Abs Immat Gran (auto) 0.02 Absolute Neuts (auto) 2.9 Absolute Nucleated RBC 0.000 Nucleated RBC % (auto) 0.0 Anion Gap 12 Estim Creat Clear Calc 50.1 Estimated GFR > 60 Random Glucose 96 Calcium 8.2 L Stl C. cayetanensis PCR Not Detected Stool Rotavirus A PCR Not Detected Stl Adenov F 40/41 PCR Not Detected Stool Astrovirus (PCR) Not Detected Stool Campylobacter PCR Not Detected Stool Cryptosporidium PCR Not Detected Stl Sh Tox Pr E STEC PCR Not Detected Stool E coli O157 PCR Not applicable Stl Enterotoxigenic E PCR Not Detected Stool EPEC (PCR) Not Detected Stool EAEC (PCR) Not Detected Stl E. histolytica PCR Not Detected Stool Giardia Lamblia PCR Not Detected Stl P. shigelloides PCR Not Detected Stool Salmonella PCR Not Detected Stool Sapovirus (PCR) Not Detected Stl Shigella/EIEC PCR Not Detected St Y.enterocolitica PCR Not Detected Stool Vibrio (PCR) Not Detected Stl Vibrio cholerae PCR Not Detected Stl Norovirus GI/GII PCR Not Detected Assessment and Plan (1) Rectal abnormality: Status: Acute (2) Pleural effusion: Status: Acute (3) Transaminitis: Status: Acute (4) Abdominal pain: Status: Acute (5) Atrial fibrillation with RVR: Status: Acute Plan An 79 years old lady with PMH of GERD, hypothyroidism, HLD among others who was sent to ED for evaluation of 2 weeks of nausea, vomiting and diarrhea. Nausea, vomiting and bloody stool with ascites DDx: G\E, colitis, ischemia, SBP ? CT concerning for possible acalculas cholecystitis , moderate ascites, Focal concentric wall thickening in the rectum. Intrinsic lesion cannot be excluded. IR reports she did not have enough ascites for PAracentesis surgery consult , HIDA scan negative, no acute surgical concern US Duplex negative for mesentric ischemia Continue IV 2 gm Ceftriaxone and Flagyl Q8 on IV Pantoprazole PRN Morphine GI evaluation, might need EGD and sigmoidoscopy advance diet as tolerated paroxysmal Atrial fibrillation w RvR better controlled DC cardizem drip Metoprolol PO Q6 on hold start Cardizem PO and PRN IV doses hold on Eliquis Cardiology consult, continue Cardizem drip and PO Metoprolol Telemetry Hypotension Continue Midodrine home dose 10 tid GERD, PPI Hx COPD, not in exacerbation, PRN nebs Hx TIA, ASA and Statin Depression, Sertrakube HTN, Verapamil on hold DVT PPx SCDs given reported GI bleeding The patient will need overnight hospital stay for treatment of possible intraabdominal infection pending EGD Tuesday\Tuesday Quality Stroke Does the patient have a stroke diagnosis?: No VTE Prior VTE?: No VTE Risk Level:: Medical - moderate - high VTE Device Contraindication: N/A - Device Ordered VTE Drug Contraindication: Treatment Not Indicated
[2024-09-03] MEDS: PHENobarb/Hyoscy/Atropine/Scop 10 ML ELIXIR 5 ML PO (10:52)
[2024-09-03] MEDS: ondansetron HCL 4 MG/2 ML VIAL IVPUSH ×2 (10:55→17:03)
[2024-09-03] MEDS: Omeprazole 20 MG CAPSULE.DR PO (10:56)
[2024-09-03] MEDS: Metoprolol Tartrate 12.5 MG HALFTAB PO ×2 (10:56→20:39)
--- NOTE | 2024-09-03 13:25 | MHC.CM.PN ---
Per MD rounds, Patient may have an EGD today. DP return to [facility] once medically cleared.Patient will transport via BLS.
[2024-09-03] MEDS: cefTRIAXone sodium 2 GM VIAL IVPUSH (14:27)
--- NOTE | 2024-09-03 15:48 | PM.GIPN ---
Subjective Subjective Date of Service: 09/03/24 Interval History: Seen at bedside. A bit agitated but easily directable. Continues to report nausea and central abd pain with food. Critical Care Time (minutes): 0 Physical Exam Vital Signs: Vital Signs: Last Vital Signs Temp 97.1 F 09/03/24 15:27 Pulse 89 09/03/24 15:27 Resp 18 09/03/24 15:27 BP 134/68 09/03/24 15:27 Pulse Ox 95 09/03/24 15:27 O2 Del Method Room Air 09/03/24 15:27 O2 Flow Rate 95 08/29/24 14:08 BMI result Body Mass Index 35.7 Elderly female NAD Nonicteric No overt resp distress abd soft, nontender, nondistended Objective Data Labs 09/03/24 06:37 09/03/24 06:37 Labs: Laboratory Results - last 24 hr 09/03/24 06:37 WBC 5.5 RBC 3.78 L Hgb 12.5 Hct 36.9 L MCV 97.6 MCH 33.1 H MCHC 33.9 RDW 16.4 H Plt Count 143 L MPV 10.6 Immature Gran % (Auto) 0.4 Neut % (Auto) 52.8 Lymph % (Auto) 37.6 [place] % (Auto) 7.1 Eos % (Auto) 1.4 Baso % (Auto) 0.7 Lymph # (Auto) 2.1 [place] # (Auto) 0.4 Eos # (Auto) 0.1 Baso # (Auto) 0.0 Abs Immat Gran (auto) 0.02 Absolute Neuts (auto) 2.9 Absolute Nucleated RBC 0.000 Nucleated RBC % (auto) 0.0 Sodium 134 L Potassium 3.4 Chloride 104 Carbon Dioxide 21 L Anion Gap 12 BUN 17 H Creatinine 0.84 Estim Creat Clear Calc 50.1 Estimated GFR > 60 Random Glucose 96 Calcium 8.2 L Microbiology Microbiology Results: Microbiology 08/29/24 13:32 Blood - Venous Blood Culture - Preliminary No growth after 48 hours. 08/29/24 13:32 Blood - Venous Blood Culture - Preliminary No growth after 48 hours. Procedures Date of Service Date of Service: 09/03/24 Progress Note: A&P Assessment and plan (1) Abdominal pain: Status: Acute (2) Nausea & vomiting: Status: Acute (3) Rectal abnormality: Status: Acute (4) Pleural effusion: Status: Acute Plan Has persistent abd pain, N/V x 5 days. Unable to progress diet per her report. Agrees to EGD. Ddx include PUD, GOO, gastritis, mass. Also has rectal wall thickening on CT, a flex sig will be done at the same time to r/o malignancy, proctitis. Last eliquis dose > 3 days ago. This was reviewed with HCP Kaylie who is in agreement to proceed. She was made aware to expect a phone call tmrw afternoon for consent. She is also aware that anesthesia provider may also discuss DNR reversal. Plan: - Clears today - NPO after MN for EGD/flex sig tmrw. - Fleet enema today. Repeat tmrw at noon. - Repeat CXR ordered to follow up on pleural effusion - although pt without any work of breathing or hypoxia. Time Spent With Patient Time: Total time managing care of this patient today ____ minutes. Quality Stroke Does the patient have a stroke diagnosis?: No VTE Prior VTE?: No VTE Risk Level:: Medical - moderate - high VTE Device Contraindication: N/A - Device Ordered VTE Drug Contraindication: Treatment Not Indicated
--- NOTE | 2024-09-03 17:04 | PC.NURSE ---
Provider OK'd early admin of zofran
[2024-09-03] MEDS: Sucralfate 1 GM TABLET PO (20:39)
[2024-09-03] MEDS: Prazosin HCL 1 MG CAPSULE 2 MG PO (20:39)
[2024-09-03] MEDS: Melatonin 3 MG TABLET 6 MG PO (20:44)
[2024-09-03] MEDS: Sodium Phosphate,Mono-Dibasic 133 ML ENEMA PR (22:06)
[2024-09-04] VITALS (11 sets, daily range): BP systolic 92–126; BP diastolic 55–90; PULSE 71–114; RESP 14–20; TEMP 36.6–37.3; O2SAT 93–98
[2024-09-04] MEDS: metroNIDAZOLE 500 MG TABLET PO ×3 (05:29→22:24)
[2024-09-04] MEDS: Omeprazole 20 MG CAPSULE.DR PO ×2 (05:29→16:50)
[2024-09-04] MEDS: Levothyroxine Sodium 75 MCG TABLET PO (05:29)
[2024-09-04 06:47] LABS: Basophils Absolute Auto 0.1 X10*3/uL (0.0-0.2); Basophils Percent Auto 1.2 % (0-2); Eosinophils Absolute Auto 0.1 X10*3/uL (0.0-0.4); Eosinophils Percent Auto 1.5 % (0-4); Hematocrit 33.2 % (37.0-47.0); Hemoglobin 11.2 g/dl (12.0-16.0); Imm Gran Abs Auto 0.02 X10*3/uL (0.00-0.03); Imm Gran Pct Auto 0.4 % (0.0-0.4); Lymphocytes Absolute Auto 1.8 X10*3/uL (1.2-4.9); Mean Corpuscular HGB Conc 33.7 g/dl (31.0-35.0); Mean Corpuscular Hemoglobin 34.3 pg (27.0-33.0); Mean Corpuscular Volume 101.5 fL (80.0-98.0); Monocytes Absolute Auto 0.4 X10*3/uL (0.1-1.2); Monocytes Percent Auto 7.9 % (2-11); Neutrophils Absolute Auto 2.9 x10*3/uL (2.0-8.3); Red Blood Count 3.27 X10*6/uL (4.20-5.50); Red Cell Distribution Width 16.9 % (11.0-16.0); White Blood Count 5.2 X10*3/uL (4.8-10.8)
[2024-09-04 07:55] LABS: MANUAL DIFF FLAG SCAN
[2024-09-04 07:56] LABS: SLIDE REVIEW VERIFIED
[2024-09-04 08:03] LABS: Anion Gap 17 (12-20); Blood Urea Nitrogen 12 mg/dL (9-16); Calcium 8.2 mg/dL (8.4-10.2); Carbon Dioxide 15 mmol/L (22-29); Chloride 107 mmol/L (96-108); Creatinine Clr Calc Pharmacy 51.3; Estimated Glomerular Filt Rate > 60; Glucose Random 91 mg/dL (60-115); Magnesium 1.6 mg/dL (1.6-2.6); Potassium 3.5 mmol/L (3.3-5.1); Sodium 135 mmol/L (135-145)
[2024-09-04] MEDS: Furosemide 20 MG/2 ML VIAL IVPUSH (08:53)
[2024-09-04] MEDS: 0.9 % Sodium Chloride Flush 3 ML SYRINGE IVFLUSH (08:55)
[2024-09-04] MEDS: Metoprolol Tartrate 12.5 MG HALFTAB PO ×2 (09:05→22:23)
[2024-09-04] MEDS: dilTIAZem HCL 30 MG TABLET PO (09:05)
[2024-09-04] MEDS: busPIRone HCl 10 MG TABLET PO ×2 (09:05→16:50)
[2024-09-04] MEDS: Midodrine HCl 10 MG TABLET PO ×3 (09:05→22:24)
[2024-09-04] MEDS: Sodium Phosphate,Mono-Dibasic 133 ML ENEMA PR (12:00)
--- NOTE | 2024-09-04 12:15 | MHC.CM.PN ---
Per rounds, pt. is not ready to DC today, she is having a EGD today. DCP is to return to [facility] where she lives LTC.
--- NOTE | 2024-09-04 13:01 | P.PNIM_ITS ---
Subjective Subjective Date of Service: 09/04/24 Interval History: seen and evaluated this morning abdominal pain improved better controlled Afib w RvR in 90s no nausea, tolerating PO no other overnight events Review of Systems Review of Systems: Yes all other systems are reviewed and are negative Physical Exam 2 Vital Signs: Vital Signs: Last Vital Signs Temp 99.1 F 09/04/24 12:00 Pulse 93 09/04/24 12:00 Resp 14 09/04/24 12:00 BP 124/83 09/04/24 12:00 Pulse Ox 94 09/04/24 12:00 O2 Del Method Room Air 09/04/24 12:00 O2 Flow Rate 95 08/29/24 14:08 BMI result Body Mass Index 35.7 Const: Other: Constitutional : Awake, interactive, not in distress Neck : Normal inspection, Supple Cardiovascular : irregular irregular , no JVP, no lower extremity edema Respiratory : good bilateral air entry, no crackles, wheezes or rhonchi Gastrointestinal: soft, lax, Normal bowel sounds, mild generalized tenderness Skin : Warm, Dry Neurological : Alert & oriented to self and place, No focal deficit Objective Data Active Medications Acetaminophen (Acetaminophen 325 Mg Tablet) 650 mg PO Q6H PRN PRN Reason: Pain, Mild 1-3,fever,headache Last Admin: 09/02/24 01:53 Dose: 650 mg Documented By: TIMOTHY Albuterol Sulfate (Albuterol Sulfate 90 Mcg 8 Gm Inhaler) 1 puff INHALE Q4H PRN PRN Reason: Shortness Of Breath Or Wheezing Belladonna Alkaloids/Phenobarbital (Phenobarb/Hyoscy/Atropine/Scop 10 Ml Elixir) 5 ml PO QID PRN PRN Reason: abdominal pain Last Admin: 09/03/24 10:52 Dose: 5 ml Documented By: WAYNE Benzocaine (Throat Lozenge, Medicated Lozenge) 1 lozenge MUCOUS MEM Q2H PRN PRN Reason: Sore Throat Last Admin: 09/01/24 12:18 Dose: 1 lozenge Documented By: FRANCISCO Buspirone HCl (Buspirone Hcl 10 Mg Tablet) 10 mg PO Q8H RAINE Last Admin: 09/04/24 09:05 Dose: 10 mg Documented By: RAMILA Calcium Carbonate (Calcium Carbonate 750 Mg Tab.Chew) 750 mg PO Q4H PRN PRN Reason: Heartburn Ceftriaxone Sodium (Ceftriaxone Sodium 2 Gm Vial) 2 gm IVPUSH Q24H [facility] Last Admin: 09/03/24 14:27 Dose: 2 gm Documented By: WAYNE Diltiazem HCl (Diltiazem Hcl 30 Mg Tablet) 30 mg PO QID [facility]; Protocol Last Admin: 09/04/24 09:05 Dose: 30 mg Documented By: RAMILA Diltiazem HCl (Diltiazem Hcl 50 Mg/10 Ml Vial) 10 mg IVPUSH ONCE PRN PRN Reason: HEart rate >130 Fluticasone Propionate (Fluticasone Propionate Nasal 16 Gm [place]) 1 spray NOSTRIL-B BID [facility] Last Admin: 09/04/24 11:06 Dose: Not Given Documented By: RAMILA Non-Admin Reason: Patient Refused Furosemide (Furosemide 20 Mg/2 Ml Vial) 20 mg IVPUSH DAILY [facility]; Protocol Last Admin: 09/04/24 08:53 Dose: 20 mg Documented By: RAMILA Ketorolac Tromethamine (Ketorolac Tromethamine 15 Mg/Ml Vial) 15 mg IVPUSH Q6H PRN PRN Reason: Pain, Moderate(Pain Scale 4-6) Last Admin: 08/30/24 20:21 Dose: 15 mg Documented By: JOHN Lactulose (Lactulose 20 Gm/30 Ml Solution) 30 gm PO DAILY PRN PRN Reason: Constipation Levothyroxine Sodium (Levothyroxine Sodium 75 Mcg Tablet) 75 mcg PO DAILY@0600 [facility] Last Admin: 09/04/24 05:29 Dose: 75 mcg Documented By: FADUMO Magnesium Hydroxide (Milk Of Magnesia 30 Ml Oral.Susp) 30 ml PO DAILY PRN PRN Reason: Constipation Last Admin: 09/01/24 14:17 Dose: 30 ml Documented By: FRANCISCO Melatonin (Melatonin 3 Mg Tablet) 6 mg PO BEDTIME PRN PRN Reason: Insomnia Last Admin: 09/03/24 20:44 Dose: 6 mg Documented By: FADUMO Metoprolol Tartrate (Metoprolol Tartrate 12.5 Mg Halftab) 12.5 mg PO BID [facility]; Protocol Last Admin: 09/04/24 09:05 Dose: 12.5 mg Documented By: RAMILA Metronidazole (Metronidazole 500 Mg Tablet) 500 mg PO Q8H [facility] Last Admin: 09/04/24 05:29 Dose: 500 mg Documented By: FADUMO Midodrine (Midodrine Hcl 10 Mg Tablet) 10 mg PO TID [facility] Last Admin: 09/04/24 09:05 Dose: 10 mg Documented By: RAMILA Omeprazole (Omeprazole 20 Mg Capsule.Dr) 20 mg PO BID@0630,1630 [facility] Last Admin: 09/04/24 05:29 Dose: 20 mg Documented By: FADUMO Ondansetron HCl (Ondansetron Hcl 4 Mg/2 Ml Vial) 4 mg IVPUSH Q8H PRN PRN Reason: Nausea and Vomiting Last Admin: 09/03/24 17:03 Dose: 4 mg Documented By: FLO Prazosin HCl (Prazosin Hcl 1 Mg Capsule) 2 mg PO BEDTIME [facility]; Protocol Last Admin: 09/03/24 20:39 Dose: 2 mg Documented By: FADUMO Simethicone (Simethicone 80 Mg Tab.Chew) 80 mg PO QIDWMHS PRN PRN Reason: bloating\gas Last Admin: 09/02/24 19:38 Dose: 80 mg Documented By: FADUMO Sodium Biphosphate/Sodium Phosphate (Sodium Phosphate,[place]-Dibasic 133 Ml Enema) 133 ml [place] ONCE PRN PRN Reason: Constipation Last Admin: 09/04/24 12:00 Dose: 133 ml Documented By: RAMILA Sodium Biphosphate/Sodium Phosphate (Sodium Phosphate,[place]-Dibasic 133 Ml Enema) 133 ml [place] ONCE [facility] Sodium Chloride (0.9 % Sodium Chloride Flush 3 Ml Syringe) 3 ml IVFLUSH QSHIFT [facility] Last Admin: 09/04/24 08:55 Dose: 3 ml Documented By: RAMILA Sucralfate (Sucralfate 1 Gm Tablet) 1 gm PO QIDACHS [facility] Last Admin: 09/04/24 12:56 Dose: Not Given Documented By: RAMILA Non-Admin Reason: NPO Trazodone HCl (Trazodone Hcl 25 Mg Halftab) 25 mg PO TID PRN PRN Reason: Agitation Last Admin: 09/02/24 00:08 Dose: 25 mg Documented By: TIMOTHY Labs 09/04/24 06:29 09/04/24 06:29 Labs: Laboratory Results - last 24 hr 09/04/24 09/04/24 06:29 06:29 MCV 101.5 H MCH 34.3 H MCHC 33.7 RDW 16.9 H Plt Count TNP MPV TNP Immature Gran % (Auto) 0.4 Neut % (Auto) 55.0 Lymph % (Auto) 34.0 [place] % (Auto) 7.9 Eos % (Auto) 1.5 Baso % (Auto) 1.2 Lymph # (Auto) 1.8 [place] # (Auto) 0.4 Eos # (Auto) 0.1 Baso # (Auto) 0.1 Abs Immat Gran (auto) 0.02 Absolute Neuts (auto) 2.9 Absolute Nucleated RBC 0.000 Nucleated RBC % (auto) 0.0 Smear Tech's Comments VERIFIED Anion Gap 17 Estim Creat Clear Calc 51.3 Estimated GFR > 60 Random Glucose 91 Calcium 8.2 L Magnesium 1.6 Cancelled Microbiology Microbiology Results: Microbiology 08/29/24 13:32 Blood Culture - Final Blood - Venous No growth after 5 days. 08/29/24 13:32 Blood Culture - Final Blood - Venous No growth after 5 days. Assessment and Plan (1) Nausea & vomiting: Status: Acute (2) Rectal abnormality: Status: Acute (3) Abdominal pain: Status: Acute Plan An 79 years old lady with PMH of GERD, hypothyroidism, HLD among others who was sent to ED for evaluation of 2 weeks of nausea, vomiting and diarrhea. Nausea, vomiting and bloody stool with ascites CT concerning for possible acalculas cholecystitis , moderate ascites, Focal concentric wall thickening in the rectum. Intrinsic lesion cannot be excluded. IR reports she did not have enough ascites for PAracentesis surgery consult , HIDA scan negative, no acute surgical concern US Duplex negative for mesentric ischemia Treated with IV 2 gm Ceftriaxone and Flagyl Q8 with improvement on IV Pantoprazole PRN Morphine GI to do EGD and sigmoidoscopy today advance diet as tolerated paroxysmal Atrial fibrillation w RvR better controlled DC cardizem drip Metoprolol home dose restarted start Cardizem PO and PRN IV doses hold on Eliquis Cardiology signed off Telemetry Hypotension Continue Midodrine home dose 10 tid GERD, PPI Hx COPD, not in exacerbation, PRN nebs Hx TIA, ASA and Statin Depression, Sertrakube HTN, Verapamil on hold DVT PPx SCDs given reported GI bleeding The patient will need overnight hospital stay for treatment of intraabdominal infection pending EGD and Sigmoidoscopy Quality Stroke Does the patient have a stroke diagnosis?: No VTE Prior VTE?: No VTE Risk Level:: Medical - moderate - high VTE Device Contraindication: N/A - Device Ordered VTE Drug Contraindication: Treatment Not Indicated
--- NOTE | 2024-09-04 14:03 | PC.NURSE ---
patient in preop with HR 130's-140's AFIB on monitor. Dr. Britt and Dr. Ospina at bedside. procedure to be cancelled today. update report given to Torrie James RN.
[2024-09-04] MEDS: cefTRIAXone sodium 2 GM VIAL IVPUSH (14:37)
--- NOTE | 2024-09-04 14:51 | PM.EVENT ---
Event Note Date of Service: 09/04/24 Event Note: Pt seen and evaluated in pre-op. Unchanged abd complaints. Reverted to fib on floor. HR went up to 120-140s in pre-op - stable BP. Reviewed use of IV lopressor push with anesthesia but recommendation was to defer procedure until HR stabilized on cardizem drip EGD/flex sig canceled for today. Rescheduled tentatively for tomorrow pending AFib rate control Time Spent With Patient Time: Total time managing care of this patient today ____ minutes.
[2024-09-04] MEDS: dilTIAZem HCL 125 MG in 0.9 % Sodium Chloride 100 ML IVCONT (15:22)
[2024-09-04] MEDS: 0.9 % Sodium Chloride 1,000 ML 999 ML IV (16:30)
[2024-09-04] MEDS: Sucralfate 1 GM TABLET PO ×2 (16:50→22:24)
--- NOTE | 2024-09-04 18:07 | PC.NURSE ---
Was told by provider to hold or stop the Cardizem drip as BP and HR are now stable and plan for tomorrow is for the upper sigmoid to be done.
[2024-09-04] MEDS: Prazosin HCL 1 MG CAPSULE 2 MG PO (22:24)
[2024-09-04] MEDS: Melatonin 3 MG TABLET 6 MG PO (22:31)
[2024-09-04] MEDS: Fluticasone Propionate Nasal 16 GM SPRAY 1 SPRAY NOSTRIL-B (22:31)
[2024-09-05] VITALS (14 sets, daily range): BP systolic 101–152; BP diastolic 64–97; PULSE 69–112; RESP 14–20; TEMP 36.1–37.4; O2SAT 90–96
--- NOTE | 2024-09-05 | ECG_ITS ---
Test Reason : chest pressure Blood Pressure : */* mmHG Vent. Rate : 113 BPM Atrial Rate : * BPM P-R Int : * ms QRS Dur : 82 ms QT Int : 270 ms P-R-T Axes : * -48 205 degrees QTcB Int : 370 ms Atrial fibrillation with rapid ventricular response Left axis deviation Low voltage QRS Septal infarct (cited on or before 29-Aug-2024) Abnormal ECG When compared with ECG of 29-Aug-2024 14:10, Incomplete right bundle branch block is no longer Present Questionable change in initial forces of Anterior leads Referred By: Niranjan Velarde Electronically Signed By: JAMES CARRANZA
[2024-09-05] MEDS: 0.9 % Sodium Chloride Flush 3 ML SYRINGE IVFLUSH ×3 (00:36→23:47)
[2024-09-05] MEDS: busPIRone HCl 10 MG TABLET PO ×2 (00:36→23:46)
[2024-09-05] MEDS: Famotidine/PF 20 MG/2 ML VIAL IVPUSH (02:04)
[2024-09-05] MEDS: Albuterol/Iprat 2.5/0.5MG 3 ML AMPUL.NEB INHALE (02:15)
[2024-09-05 02:36] LABS: Troponin-I High Sensitivity 19.2 ng/L (<3.5-17.0)
[2024-09-05] MEDS: Levothyroxine Sodium 75 MCG TABLET PO (06:13)
[2024-09-05] MEDS: metroNIDAZOLE 500 MG TABLET PO ×2 (06:13→20:43)
[2024-09-05 06:22] LABS: MANUAL DIFF FLAG NO
[2024-09-05 06:43] LABS: Anion Gap 13 (12-20); Blood Urea Nitrogen 10 mg/dL (9-16); Carbon Dioxide 21 mmol/L (22-29); Chloride 107 mmol/L (96-108); Creatinine Clr Calc Pharmacy 54.7; Estimated Glomerular Filt Rate > 60; Glucose Random 97 mg/dL (60-115); Potassium 2.9 mmol/L (3.3-5.1); Sodium 138 mmol/L (135-145)
[2024-09-05 06:48] LABS: Basophils Absolute Auto 0.1 X10*3/uL (0.0-0.2); Eosinophils Absolute Auto 0.1 X10*3/uL (0.0-0.4); Eosinophils Percent Auto 1.9 % (0-4); Hemoglobin 12.5 g/dl (12.0-16.0); Imm Gran Abs Auto 0.01 X10*3/uL (0.00-0.03); Imm Gran Pct Auto 0.2 % (0.0-0.4); Lymphocytes Absolute Auto 1.9 X10*3/uL (1.2-4.9); Lymphocytes Percent Auto 36.5 % (20-40); Mean Corpuscular HGB Conc 33.8 g/dl (31.0-35.0); Mean Corpuscular Hemoglobin 32.9 pg (27.0-33.0); Mean Corpuscular Volume 97.4 fL (80.0-98.0); Mean Platelet Volume 10.5 fL (9.4-12.3); Monocytes Absolute Auto 0.5 X10*3/uL (0.1-1.2); Monocytes Percent Auto 9.1 % (2-11); Neutrophils Absolute Auto 2.7 x10*3/uL (2.0-8.3); Neutrophils Percent Auto 51.3 % (45-73); Platelet Count 139 X10*3/uL (160-400); Red Cell Distribution Width 16.9 % (11.0-16.0); White Blood Count 5.2 X10*3/uL (4.8-10.8)
[2024-09-05 07:20] LABS: Magnesium 1.3 mg/dL (1.6-2.6)
--- NOTE | 2024-09-05 07:37 | PC.NURSE ---
around 0140 Patient began complaining of SOB and chest pressure with a RR of 18, remains in Afib 1teens on monitor, overnight provider made aware. Ekg taken, troponin drawn, 1xNeb treatment administered along with 1x dose IV pepcid. shortly after patient states she feels improved, now resting comfortably and denying chest pain. around 0250 pt had a burst into 160s afib non-sustaining at rest- provider made aware, ordered this RN to restart cardizem gtt @ 2.5mls per hour. Patients HR in 1teens Afib, cardizem gtt restarted
--- NOTE | 2024-09-05 08:56 | P.PNCA_ITS ---
Subjective Subjective Date of Service: 09/05/24 Interval history: Requested a follow-up regarding atrial fibrillation. It seems that she was put on a Cardizem drip and there was concern for atrial fibrillation with rapid rate and hence we are asked to see here. Per records, it seems that she has had atrial fibrillation in the past and has received verapamil but not in her med list anymore. Currently only on a small dose of beta-blockers. Review of Systems Review of Systems Yes all other systems are reviewed and are negative Constitutional: Reports as per HPI and Reports no additional constitutional complaints Eyes: Reports as per HPI and Denies no additional eye complaints Denies system reviewed and no additional complaints, except as documented and Reports as per HPI Cardiovascular: Reports as per HPI, Reports no additional cardiovascular complaints, Denies acrocyanosis, Denies cool extremities, Denies chest pain, Denies leg edema, Denies lightheadedness, Denies palpitations and Denies dyspnea Respiratory: Reports as per HPI, Denies no additional respiratory complaints and Denies dyspnea Gastrointestinal: Reports as per HPI and Denies no additional gastrointestinal complaints Genitourinary: Reports as per HPI Musculoskeletal: Reports no additional musculoskeletal complaints and Reports as per HPI Skin/Breast: Reports system reviewed and no additional complaints, except as docu Reports system reviewed and no additional complaints, except as documented and Reports as per HPI Psychiatric: Reports no additional psychiatric complaints and Reports as per HPI Endocrine: Reports no additional endocrine complaints, Reports as per HPI and Denies palpitations Hematologic/Lymphatic: Reports no additional hematologic/lymphatic complaints and Reports as per HPI Allergic/Immunologic: Reports no additional allergic/immunologic complaints and Reports as per HPI Physical Exam Vital Signs: Last Vital Signs Temp 97.4 F 09/05/24 08:00 Pulse 92 09/05/24 08:00 Resp 18 09/05/24 08:00 BP 119/73 09/05/24 08:00 Pulse Ox 96 09/05/24 08:00 O2 Del Method Room Air 09/05/24 08:00 O2 Flow Rate 95 08/29/24 14:08 BMI result Body Mass Index 35.7 Const General: comfortable and no acute distress Orientation/consciousness: patient oriented x3 HEENT Other: Unremarkable Head: Yes normal to inspection Neck Neck: Yes normal visual inspection Chest Chest palpation & inspection: normal inspection of the chest Resp Auscultation: clear to auscultation bilaterally Cardio Palpation: normal PMI Heart sounds: S1 normal heart sound present, S2 normal heart sound present, no gallops, no murmurs and no rubs GI Palpation (GI): Soft to palpation Back/Spine/Pelvis Other: unremarkable Skin General skin exam: no rashes or lesions noted Neuro General: patient oriented x3 Extrem General: Yes normal to inspection Psych Mental Status: mental status grossly normal Objective Labs and Meds 09/05/24 06:02 09/05/24 06:02 Lab results: Laboratory Results - last 24 hr 09/05/24 09/05/24 02:04 06:02 WBC 5.2 RBC 3.80 L Hgb 12.5 Hct 37.0 MCV 97.4 MCH 32.9 MCHC 33.8 RDW 16.9 H Plt Count 139 L MPV 10.5 Immature Gran % (Auto) 0.2 Neut % (Auto) 51.3 Lymph % (Auto) 36.5 [place] % (Auto) 9.1 Eos % (Auto) 1.9 Baso % (Auto) 1.0 Lymph # (Auto) 1.9 [place] # (Auto) 0.5 Eos # (Auto) 0.1 Baso # (Auto) 0.1 Abs Immat Gran (auto) 0.01 Absolute Neuts (auto) 2.7 Absolute Nucleated RBC 0.000 Nucleated RBC % (auto) 0.0 Sodium 138 Potassium 2.9 L* Chloride 107 Carbon Dioxide 21 L Anion Gap 13 BUN 10 Creatinine 0.77 Estim Creat Clear Calc 54.7 Estimated GFR > 60 Random Glucose 97 Calcium 8.0 L Magnesium 1.3 L* Troponin I High Sens 19.2 H Progress Note: A&P Assessment and plan (1) Atrial fibrillation with RVR: Status: Acute (2) Hypokalemia: Status: Acute (3) Hypomagnesemia: Status: Acute Plan In the echocardiogram, LVEF 45-50%. 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 Currently on low-dose metoprolol/diltiazem but also on midodrine. Add digoxin with load. Stop diltiazem drip. Anticoagulation when otherwise ready. Correct electrolytes. Discussed with Dr. Villalta. Time Spent With Patient Time: Total time managing care of this patient today ____ minutes. Progress Note: Quality Stroke Does the patient have a stroke diagnosis?: No Procedures Date of Service Date of Service: 09/05/24
[2024-09-05] MEDS: Digoxin 0.5 MG/2 ML AMPUL 0.25 MG IVPUSH (10:15)
[2024-09-05] MEDS: Magnesium Sulfate/H2O 2 GM/50 ML PIGGYBACK IV (10:17)
[2024-09-05] MEDS: Potassium Chloride Packet 20 MEQ PACKET 40 MEQ PO (10:18)
[2024-09-05] MEDS: Midodrine HCl 10 MG TABLET PO ×2 (10:18→20:44)
[2024-09-05] MEDS: Metoprolol Tartrate 12.5 MG HALFTAB PO ×2 (10:18→20:44)
[2024-09-05] MEDS: Furosemide 20 MG/2 ML VIAL IVPUSH (10:18)
--- NOTE | 2024-09-05 10:33 | HO.PM.IMPN ---
Subjective Subjective Date of Service: 09/05/24 Interval History: seen and evaluated this morning abdominal pain improved better controlled Afib w RvR in 90s-100s no nausea, tolerating PO she will need 2nd IV no other overnight events Review of Systems Review of Systems: Yes all other systems are reviewed and are negative Physical Exam Vital Signs: Vital Signs: Last Vital Signs Temp 97.4 F 09/05/24 08:00 Pulse 92 09/05/24 08:00 Resp 18 09/05/24 08:00 BP 152/64 H 09/05/24 10:26 Pulse Ox 96 09/05/24 08:00 O2 Del Method Room Air 09/05/24 08:00 O2 Flow Rate 95 08/29/24 14:08 BMI result Body Mass Index 35.7 Const: Other: Constitutional : Awake, interactive, not in distress Neck : Normal inspection, Supple Cardiovascular : irregular irregular , no JVP, no lower extremity edema Respiratory : good bilateral air entry, no crackles, wheezes or rhonchi Gastrointestinal: soft, lax, Normal bowel sounds, mild generalized tenderness Skin : Warm, Dry Neurological : Alert & oriented to self and place, No focal deficit Objective Data Active Medications Acetaminophen (Acetaminophen 325 Mg Tablet) 650 mg PO Q6H PRN PRN Reason: Pain, Mild 1-3,fever,headache Last Admin: 09/02/24 01:53 Dose: 650 mg Documented By: TIMOTHY Albuterol Sulfate (Albuterol Sulfate 90 Mcg 8 Gm Inhaler) 1 puff INHALE Q4H PRN PRN Reason: Shortness Of Breath Or Wheezing Belladonna Alkaloids/Phenobarbital (Phenobarb/Hyoscy/Atropine/Scop 10 Ml Elixir) 5 ml PO QID PRN PRN Reason: abdominal pain Last Admin: 09/03/24 10:52 Dose: 5 ml Documented By: WAYNE Benzocaine (Throat Lozenge, Medicated Lozenge) 1 lozenge MUCOUS MEM Q2H PRN PRN Reason: Sore Throat Last Admin: 09/01/24 12:18 Dose: 1 lozenge Documented By: FRANCISCO Buspirone HCl (Buspirone Hcl 10 Mg Tablet) 10 mg PO Q8H [facility]INE Last Admin: 09/05/24 09:59 Dose: Not Given Documented By: GAURANG Non-Admin Reason: NPO Calcium Carbonate (Calcium Carbonate 750 Mg Tab.Chew) 750 mg PO Q4H PRN PRN Reason: Heartburn Ceftriaxone Sodium (Ceftriaxone Sodium 2 Gm Vial) 2 gm IVPUSH Q24H [facility] Last Admin: 09/04/24 14:37 Dose: 2 gm Documented By: RAMILA Digoxin (Digoxin 0.5 Mg/2 Ml Ampul) 0.25 mg IVPUSH Q6H [facility]; Protocol Stop: 09/05/24 16:01 Digoxin (Digoxin 0.125 Mg Tablet) 0.125 mg PO DAILY [facility]; Protocol Diltiazem HCl (Diltiazem Hcl 30 Mg Tablet) 30 mg PO QID [facility]; Protocol Last Admin: 09/04/24 14:24 Dose: Not Given Documented By: RAMILA Non-Admin Reason: this dose held as starting cardizem drip Diltiazem HCl (Diltiazem Hcl 50 Mg/10 Ml Vial) 10 mg IVPUSH ONCE PRN PRN Reason: HEart rate >130 Fluticasone Propionate (Fluticasone Propionate Nasal 16 Gm [place]) 1 spray NOSTRIL-B BID [facility] Last Admin: 09/05/24 09:59 Dose: Not Given Documented By: GAURANG Non-Admin Reason: Patient Refused Furosemide (Furosemide 20 Mg/2 Ml Vial) 20 mg IVPUSH DAILY [facility]; Protocol Last Admin: 09/05/24 10:18 Dose: 20 mg Documented By: GAURANG Diltiazem HCl 125 mg/ Sodium (Chloride) 125 mls @ 15 mls/hr IVCONT .Q8H20M [facility]; Protocol Last Infusion: 09/05/24 10:11 Dose: 10 mg/hr, 10 mls/hr Documented By: GAURANG Potassium Chloride (Potassium Chloride/H20) 10 meq in 100 mls @ 100 mls/hr IV Q1H [facility] Stop: 09/05/24 11:44 Lactulose (Lactulose 20 Gm/30 Ml Solution) 30 gm PO DAILY PRN PRN Reason: Constipation Levothyroxine Sodium (Levothyroxine Sodium 75 Mcg Tablet) 75 mcg PO DAILY@0600 [facility] Last Admin: 09/05/24 06:13 Dose: 75 mcg Documented By: BECKY Magnesium Hydroxide (Milk Of Magnesia 30 Ml Oral.Susp) 30 ml PO DAILY PRN PRN Reason: Constipation Last Admin: 09/01/24 14:17 Dose: 30 ml Documented By: FRANCISCO Melatonin (Melatonin 3 Mg Tablet) 6 mg PO BEDTIME PRN PRN Reason: Insomnia Last Admin: 09/04/24 22:31 Dose: 6 mg Documented By: BECKY Metoprolol Tartrate (Metoprolol Tartrate 12.5 Mg Halftab) 12.5 mg PO BID [facility]; Protocol Last Admin: 09/05/24 10:18 Dose: 12.5 mg Documented By: GAURANG Metronidazole (Metronidazole 500 Mg Tablet) 500 mg PO Q8H [facility] Last Admin: 09/05/24 06:13 Dose: 500 mg Documented By: BECKY Midodrine (Midodrine Hcl 10 Mg Tablet) 10 mg PO TID [facility] Last Admin: 09/05/24 10:18 Dose: 10 mg Documented By: GAURANG Omeprazole (Omeprazole 20 Mg Capsule.Dr) 20 mg PO BID@0630,1630 [facility] Last Admin: 09/05/24 06:09 Dose: Not Given Documented By: BECKY Non-Admin Reason: NPO Ondansetron HCl (Ondansetron Hcl 4 Mg/2 Ml Vial) 4 mg IVPUSH Q8H PRN PRN Reason: Nausea and Vomiting Last Admin: 09/03/24 17:03 Dose: 4 mg Documented By: FLO Prazosin HCl (Prazosin Hcl 1 Mg Capsule) 2 mg PO BEDTIME [facility]; Protocol Last Admin: 09/04/24 22:24 Dose: 2 mg Documented By: BECKY Simethicone (Simethicone 80 Mg Tab.Chew) 80 mg PO QIDWMHS PRN PRN Reason: bloating\gas Last Admin: 09/02/24 19:38 Dose: 80 mg Documented By: FADUMO Sodium Biphosphate/Sodium Phosphate (Sodium Phosphate,[place]-Dibasic 133 Ml Enema) 133 ml [place] ONCE PRN PRN Reason: Constipation Last Admin: 09/04/24 12:00 Dose: 133 ml Documented By: RAMILA Sodium Biphosphate/Sodium Phosphate (Sodium Phosphate,[place]-Dibasic 133 Ml Enema) 133 ml [place] ONCE RAINE Sodium Chloride (0.9 % Sodium Chloride Flush 3 Ml Syringe) 3 ml IVFLUSH QSHIFT [facility] Last Admin: 09/05/24 09:12 Dose: Not Given Documented By: GAURANG Non-Admin Reason: IV Running Sucralfate (Sucralfate 1 Gm Tablet) 1 gm PO QIDACHS [facility] Last Admin: 09/05/24 06:09 Dose: Not Given Documented By: BECKY Non-Admin Reason: NPO Trazodone HCl (Trazodone Hcl 25 Mg Halftab) 25 mg PO TID PRN PRN Reason: Agitation Last Admin: 09/02/24 00:08 Dose: 25 mg Documented By: TIMOTHY Labs 09/05/24 06:02 09/05/24 06:02 Labs: Laboratory Results - last 24 hr 09/05/24 06:02 MCV 97.4 MCH 32.9 MCHC 33.8 RDW 16.9 H Plt Count 139 L MPV 10.5 Immature Gran % (Auto) 0.2 Neut % (Auto) 51.3 Lymph % (Auto) 36.5 [place] % (Auto) 9.1 Eos % (Auto) 1.9 Baso % (Auto) 1.0 Lymph # (Auto) 1.9 [place] # (Auto) 0.5 Eos # (Auto) 0.1 Baso # (Auto) 0.1 Abs Immat Gran (auto) 0.01 Absolute Neuts (auto) 2.7 Absolute Nucleated RBC 0.000 Nucleated RBC % (auto) 0.0 Anion Gap 13 Estim Creat Clear Calc 54.7 Estimated GFR > 60 Random Glucose 97 Calcium 8.0 L Magnesium 1.3 L* Assessment and Plan (1) Hypomagnesemia: Status: Acute (2) Hypokalemia: Status: Acute (3) Nausea & vomiting: Status: Acute (4) Atrial fibrillation with RVR: Status: Acute (5) Abdominal pain: Status: Acute (6) Gastroenteritis: Status: Acute Plan An 79 years old lady with PMH of GERD, hypothyroidism, HLD among others who was sent to ED for evaluation of 2 weeks of nausea, vomiting and diarrhea. acute Gastroenteritis\colitis presented with Nausea, vomiting and bloody stool with ascites CT concerning for possible acalculas cholecystitis (ruled out), moderate ascites, Focal concentric wall thickening in the rectum. Intrinsic lesion cannot be excluded. IR reports she did not have enough ascites for PAracentesis surgery consult , HIDA scan negative, no acute surgical concern US Duplex negative for mesentric ischemia Treated with IV 2 gm Ceftriaxone and Flagyl Q8 with improvement in pain and tolerating regular diet now on IV Pantoprazole PRN Morphine GI to do EGD and sigmoidoscopy today paroxysmal Atrial fibrillation w RvR restarted on cardizem drip Metoprolol home dose restarted continue Cardizem PO and PRN IV doses hold on Eliquis Cardiology input appreciated, load with digoxin Telemetry Acute hypokalemia replacement and follow BMP Acute hypomagnesemia replacement given Hypotension Continue Midodrine home dose 10 tid GERD, PPI Hx COPD, not in exacerbation, PRN nebs Hx TIA, ASA and Statin Depression, Sertrakube HTN, Verapamil on hold DVT PPx SCDs given reported GI bleeding The patient will need overnight hospital stay for treatment of intraabdominal infection pending EGD and Sigmoidoscopy Quality Stroke Does the patient have a stroke diagnosis?: No VTE Prior VTE?: No VTE Risk Level:: Medical - moderate - high VTE Device Contraindication: N/A - Device Ordered VTE Drug Contraindication: Treatment Not Indicated
[2024-09-05] MEDS: Potassium Chloride/H20 10 MEQ/100 ML PIGGYBACK 100 MEQ IV ×4 (11:57→15:28)
[2024-09-05] MEDS: dilTIAZem HCL 125 MG in 0.9 % Sodium Chloride 100 ML 10 MG IVCONT (14:04)
[2024-09-05] MEDS: cefTRIAXone sodium 2 GM VIAL IVPUSH (14:04)
--- NOTE | 2024-09-05 15:55 | P.CONAN_ITS ---
FORMERLY [facility] Active Problems Active Problems: All Active Problems Hypomagnesemia (Acute) Hypokalemia (Acute) Nausea & vomiting (Acute) Rectal abnormality (Acute) Pleural effusion (Acute) Ascites (Acute) Abdominal pain (Acute) Transaminitis (Acute) Right upper quadrant abdominal tenderness (Acute) Atrial fibrillation with RVR (Acute) Hypotension (Acute) Dehydration (Acute) Gastroenteritis (Acute) Past Medical History Medical History Atrial fibrillation Hypothyroidism COPD (chronic obstructive pulmonary disease) GERD (gastroesophageal reflux disease) Surgical History History of Problems with Anesthesia: No Social History Social History Household Members: None Housing: Senior Care Do you presently have visiting nurse or other home services: No Patient Tobacco Use Status: Never used Tobacco Smoked in Last 30 Days: No e-Cigarette/Vaping Use: Never Used Second Hand Smoke Exposure: No Use of substances other than those prescribed or required for medical reasons: No Currently Displaying Signs/Symptoms of Drug Intoxication Withdrawal: No Have you been hit, kicked, punched, or otherwise hurt by someone within the past year? If so, by whom?: No Do you feel safe in your current relationship?: No Current Relationship Is there a partner from a previous relationship who is making you feel unsafe now?: No Are you made to feel afraid or neglected: No Advance Directives: Yes Advance Directives on File: Yes Advance Directives Date on File: 07/18/24 Do you have a plan to hurt others: No Plan Recently lost weight without trying: No Eating poorly because of decreased appetite: No Patient : No : No Poor oral hygiene: Yes service: No Meds Allergies Allergy/AdvReac Type Severity Reaction Status Date / Time lactose AdvReac Gastrointestinal Verified 08/29/24 13:18 Upset Active Medications: Current Medications Acetaminophen (Acetaminophen 325 Mg Tablet) 650 mg PO Q6H PRN PRN Reason: Pain, Mild 1-3,fever,headache Last Admin: 09/02/24 01:53 Dose: 650 mg Albuterol Sulfate (Albuterol Sulfate 90 Mcg 8 Gm Inhaler) 1 puff INHALE Q4H PRN PRN Reason: Shortness Of Breath Or Wheezing Belladonna Alkaloids/Phenobarbital (Phenobarb/Hyoscy/Atropine/Scop 10 Ml Elixir) 5 ml PO QID PRN PRN Reason: abdominal pain Last Admin: 09/03/24 10:52 Dose: 5 ml Benzocaine (Throat Lozenge, Medicated Lozenge) 1 lozenge MUCOUS MEM Q2H PRN PRN Reason: Sore Throat Last Admin: 09/01/24 12:18 Dose: 1 lozenge Buspirone HCl (Buspirone Hcl 10 Mg Tablet) 10 mg PO Q8H [facility] Last Admin: 09/05/24 09:59 Dose: Not Given Calcium Carbonate (Calcium Carbonate 750 Mg Tab.Chew) 750 mg PO Q4H PRN PRN Reason: Heartburn Ceftriaxone Sodium (Ceftriaxone Sodium 2 Gm Vial) 2 gm IVPUSH Q24H [facility] Last Admin: 09/05/24 14:04 Dose: 2 gm Digoxin (Digoxin 0.5 Mg/2 Ml Ampul) 0.25 mg IVPUSH Q6H [facility]; Protocol Stop: 09/05/24 16:01 Last Admin: 09/05/24 10:15 Dose: 0.25 mg Digoxin (Digoxin 0.125 Mg Tablet) 0.125 mg PO DAILY [facility]; Protocol Diltiazem HCl (Diltiazem Hcl 30 Mg Tablet) 30 mg PO QID [facility]; Protocol Last Admin: 09/04/24 14:24 Dose: Not Given Diltiazem HCl (Diltiazem Hcl 50 Mg/10 Ml Vial) 10 mg IVPUSH ONCE PRN PRN Reason: HEart rate >130 Fluticasone Propionate (Fluticasone Propionate Nasal 16 Gm Foster) 1 spray NOSTRIL-B BID [facility] Last Admin: 09/05/24 09:59 Dose: Not Given Furosemide (Furosemide 20 Mg/2 Ml Vial) 20 mg IVPUSH DAILY [facility]; Protocol Last Admin: 09/05/24 10:18 Dose: 20 mg Diltiazem HCl 125 mg/ Sodium (Chloride) 125 mls @ 15 mls/hr IVCONT .Q8H20M [facility]; Protocol Last Admin: 09/05/24 14:04 Dose: 10 mg/hr, 10 mls/hr Lactulose (Lactulose 20 Gm/30 Ml Solution) 30 gm PO DAILY PRN PRN Reason: Constipation Levothyroxine Sodium (Levothyroxine Sodium 75 Mcg Tablet) 75 mcg PO DAILY@0600 [facility] Last Admin: 09/05/24 06:13 Dose: 75 mcg Magnesium Hydroxide (Milk Of Magnesia 30 Ml Oral.Susp) 30 ml PO DAILY PRN PRN Reason: Constipation Last Admin: 09/01/24 14:17 Dose: 30 ml Melatonin (Melatonin 3 Mg Tablet) 6 mg PO BEDTIME PRN PRN Reason: Insomnia Last Admin: 09/04/24 22:31 Dose: 6 mg Metoprolol Tartrate (Metoprolol Tartrate 12.5 Mg Halftab) 12.5 mg PO BID [facility]; Protocol Last Admin: 09/05/24 10:18 Dose: 12.5 mg Metronidazole (Metronidazole 500 Mg Tablet) 500 mg PO Q8H [facility] Last Admin: 09/05/24 13:44 Dose: Not Given Midodrine (Midodrine Hcl 10 Mg Tablet) 10 mg PO TID [facility] Last Admin: 09/05/24 13:59 Dose: Not Given Omeprazole (Omeprazole 20 Mg Capsule.Dr) 20 mg PO BID@0630,1630 [facility] Last Admin: 09/05/24 06:09 Dose: Not Given Ondansetron HCl (Ondansetron Hcl 4 Mg/2 Ml Vial) 4 mg IVPUSH Q8H PRN PRN Reason: Nausea and Vomiting Last Admin: 09/03/24 17:03 Dose: 4 mg Prazosin HCl (Prazosin Hcl 1 Mg Capsule) 2 mg PO BEDTIME [facility]; Protocol Last Admin: 09/04/24 22:24 Dose: 2 mg Simethicone (Simethicone 80 Mg Tab.Chew) 80 mg PO QIDWMHS PRN PRN Reason: bloating\gas Last Admin: 09/02/24 19:38 Dose: 80 mg Sodium Biphosphate/Sodium Phosphate (Sodium Phosphate,[place]-Dibasic 133 Ml Enema) 133 ml RI ONCE PRN PRN Reason: Constipation Last Admin: 09/04/24 12:00 Dose: 133 ml Sodium Biphosphate/Sodium Phosphate (Sodium Phosphate,[place]-Dibasic 133 Ml Enema) 133 ml RI ONCE [facility] Sodium Chloride (0.9 % Sodium Chloride Flush 3 Ml Syringe) 3 ml IVFLUSH QSHIFT [facility] Last Admin: 09/05/24 15:34 Dose: 3 ml Sucralfate (Sucralfate 1 Gm Tablet) 1 gm PO QIDACHS [facility] Last Admin: 09/05/24 12:06 Dose: Not Given Trazodone HCl (Trazodone Hcl 25 Mg Halftab) 25 mg PO TID PRN PRN Reason: Agitation Last Admin: 09/02/24 00:08 Dose: 25 mg Home Medications ?Medication ?Instructions ?Recorded ?Confirmed ?Last Taken ?Type acetaminophen 500 mg tablet 1,000 mg PO TID 07/18/24 08/29/24 Unknown History albuterol sulfate 90 mcg/actuation 1 inh inhalation Q4H PRN Shortness 07/18/24 08/29/24 Unknown History aerosol inhaler (Ventolin HFA) Of Breath Or Wheezing atorvastatin 20 mg tablet 20 mg PO DAILY 07/18/24 08/29/24 Unknown History bisacodyl 10 mg rectal suppository 10 mg RI DAILY PRN Constipation 07/18/24 08/29/24 Unknown History buspirone 10 mg tablet 10 mg PO Q8H 07/18/24 08/29/24 Unknown History cetirizine 10 mg tablet 10 mg PO DAILY 07/18/24 08/29/24 Unknown History cyanocobalamin (vitamin B-12) 1,000 mcg PO DAILY 07/18/24 08/29/24 Unknown History 1,000 mcg tablet,extended release (Vitamin B-12 ER) diclofenac sodium 1 % topical gel 4 g topical BID 07/18/24 08/29/24 Unknown History esomeprazole magnesium 20 mg 20 mg PO DAILY 07/18/24 08/29/24 Unknown History granules delayed release for susp fluticasone propionate 50 1 spray intranasal BID 07/18/24 08/29/24 Unknown History mcg/actuation nasal spray,suspension guaifenesin 100 mg/5 mL oral liquid 200 mg PO Q4H PRN Cough 07/18/24 08/29/24 Unknown History hydrocortisone 1 % topical cream 1 appl topical Q8H PRN Rash 07/18/24 08/29/24 Unknown History ipratropium 20 mcg-albuterol 100 2 puff inhalation Q4H PRN 07/18/24 08/29/24 Unknown History mcg/actuation mist for inhalation Shortness Of Breath Or Wheezing (Combivent Respimat) levothyroxine 75 mcg tablet 75 mcg PO DAILY@0600 07/18/24 08/29/24 Unknown History loteprednol etabonate 0.5 % eye 1 drp ophthalmic (eye) BID PRN Dry 07/18/24 08/29/24 Unknown History gel drops Eyes magnesium hydroxide 400 mg/5 mL 30 ml PO DAILY PRN Constipation 07/18/24 08/29/24 Unknown History oral suspension (Milk of Magnesia) meclizine 12.5 mg tablet 12.5 mg PO Q8H PRN Dizziness 07/18/24 08/29/24 Unknown History melatonin 5 mg tablet 10 mg PO BEDTIME 07/18/24 08/29/24 Unknown History ondansetron HCl 8 mg tablet 8 mg PO Q8H PRN Nausea And Vomiting 07/18/24 08/29/24 Unknown History polyvinyl alcohol 1.4 % eye drops 1 drp ophthalmic (eye) TID PRN Dry 07/18/24 08/29/24 Unknown History (Artificial Tears (polyvinyl Eyes alcohol)) prazosin 2 mg capsule 2 mg PO BEDTIME 07/18/24 08/29/24 Unknown History sertraline 25 mg tablet 50 mg PO DAILY 07/18/24 08/29/24 Unknown History sodium phosphates 19 gram-7 118 ml RI DAILY PRN Constipation 07/18/24 08/29/24 Unknown History gram/118 mL enema (Fleet Enema) tramadol 50 mg tablet 50 mg PO BID 07/18/24 08/29/24 Unknown History trazodone 50 mg tablet 25 mg PO TID PRN Agitation 07/18/24 08/29/24 Unknown History acetaminophen 650 mg rectal 650 mg RI Q4H PRN Pain or Fever 08/29/24 08/29/24 Unknown History suppository amoxicillin 875 mg-potassium 1 tab PO BID 08/29/24 08/29/24 Unknown History clavulanate 125 mg tablet lactulose 10 gram/15 mL oral 30 ml PO DAILY PRN hyperammonemia 08/29/24 08/29/24 Unknown History solution (Constulose) metoprolol tartrate 25 mg tablet 12.5 mg PO BID 08/29/24 08/29/24 Unknown History midodrine 5 mg tablet 10 mg PO TID 08/29/24 08/29/24 Unknown History Exam Height,Weight and Vital Signs: Height 5 ft Weight 82.9 kg Last Vital Signs Temp 98.0 F 09/05/24 12:30 Pulse 88 09/05/24 12:30 Resp 18 09/05/24 12:30 BP 143/70 H 09/05/24 12:30 Pulse Ox 94 09/05/24 12:30 O2 Del Method Room Air 09/05/24 12:30 O2 Flow Rate 95 08/29/24 14:08 Pertinent Lab Results Pertinent Lab Results: Laboratory Tests 08/29/24 08/29/24 08/29/24 13:32 14:00 16:01 WBC 5.7 RBC 3.98 L Hgb 13.1 Hct 39.2 MCV 98.5 H MCH 32.9 MCHC 33.4 RDW 16.6 H Plt Count 205 MPV 10.3 Immature Gran % (Auto) 0.4 Neut % (Auto) 61.1 Lymph % (Auto) 29.6 [place] % (Auto) 5.5 Eos % (Auto) 2.5 Baso % (Auto) 0.9 Lymph # (Auto) 1.7 [place] # (Auto) 0.3 Eos # (Auto) 0.1 Baso # (Auto) 0.1 Abs Immat Gran (auto) 0.02 Absolute Neuts (auto) 3.5 Absolute Nucleated RBC 0.000 Nucleated RBC % (auto) 0.0 Smear Tech's Comments Hold Purple Top SEE NOTE PT 21.4 H INR 1.8 H Sodium 131 L Potassium 3.4 Chloride 100 Carbon Dioxide 23 Anion Gap 11 L BUN 16 Creatinine 0.96 Estim Creat Clear Calc 43.9 Estimated GFR 56 Random Glucose 112 Lactic Acid 2.2 H* Lactic Acid F/U @ 2Hr 2.3 H* Lactic Acid F/U @ 4Hr Calcium 8.4 Magnesium 1.7 Total Bilirubin 1.2 H Direct Bilirubin 0.5 AST 44 H ALT 53 H Alkaline Phosphatase 76 Troponin I High Sens 13.3 D B-Natriuretic Peptide 696 H Total Protein 5.9 L Albumin 3.6 Lipase 20 Hold Yellow Top See Note Urine Color Urine Appearance Urine pH Ur Specific [place] Urine Protein Urine Glucose (UA) Urine Ketones Urine Blood Urine Nitrite Ur Leukocyte Esterase Urine RBC Urine WBC Ur Squamous Epith Cells Urine Bacteria Hyaline Casts Stool Occult Blood NEGATIVE Stl C. cayetanensis PCR Stool Rotavirus A PCR Stl Adenov F 40/41 PCR Stool Astrovirus (PCR) Stool Campylobacter PCR Stool Cryptosporidium PCR Stl Sh Tox Pr E STEC PCR Stool E coli O157 PCR Stl Enterotoxigenic E PCR Stool EPEC (PCR) Stool EAEC (PCR) Stl E. histolytica PCR Stool Giardia Lamblia PCR Stl P. shigelloides PCR Stool Salmonella PCR Stool Sapovirus (PCR) Stl Shigella/EIEC PCR St Y.enterocolitica PCR Stool Vibrio (PCR) Stl Vibrio cholerae PCR Stl Norovirus GI/GII PCR Influenza Type A (PCR) NEGATIVE Influenza Type B (PCR) NEGATIVE RSV RNA Qual (PCR) NEGATIVE SARS-CoV-2 RNA (RT-PCR) NEGATIVE 08/29/24 08/29/24 08/30/24 16:30 18:58 09:29 WBC 5.5 RBC 4.24 Hgb 14.1 Hct 42.8 MCV 100.9 H MCH 33.3 H MCHC 32.9 RDW 16.9 H Plt Count 229 MPV 10.1 Immature Gran % (Auto) 0.7 H Neut % (Auto) 65.7 Lymph % (Auto) 26.4 [place] % (Auto) 5.6 Eos % (Auto) 0.5 Baso % (Auto) 1.1 Lymph # (Auto) 1.5 [place] # (Auto) 0.3 Eos # (Auto) 0.0 Baso # (Auto) 0.1 Abs Immat Gran (auto) 0.04 H Absolute Neuts (auto) 3.6 Absolute Nucleated RBC 0.000 Nucleated RBC % (auto) 0.0 Smear Tech's Comments Hold Purple Top PT INR Sodium 134 L Potassium 3.8 Chloride 103 Carbon Dioxide 19 L Anion Gap 16 BUN 14 Creatinine 1.21 Estim Creat Clear Calc 34.8 Estimated GFR 43 Random Glucose 134 H Lactic Acid Lactic Acid F/U @ 2Hr Lactic Acid F/U @ 4Hr 2.2 H* Calcium 8.0 L Magnesium Total Bilirubin 1.2 H Direct Bilirubin AST 72 H ALT 53 H Alkaline Phosphatase 61 Troponin I High Sens B-Natriuretic Peptide Total Protein 6.0 L Albumin 3.6 Lipase Hold Yellow Top Urine Color Dark Yellow Urine Appearance Clear Urine pH 6.0 Ur Specific [place] 1.020 Urine Protein 100 (2+) H Urine Glucose (UA) Negative Urine Ketones Negative Urine Blood Negative Urine Nitrite Negative Ur Leukocyte Esterase Negative Urine RBC 3-5 H Urine WBC 0-5 Ur Squamous Epith Cells 0-2 Urine Bacteria None Seen Hyaline Casts 3-5 Stool Occult Blood Stl C. cayetanensis PCR Stool Rotavirus A PCR Stl Adenov F 40/41 PCR Stool Astrovirus (PCR) Stool Campylobacter PCR Stool Cryptosporidium PCR Stl Sh Tox Pr E STEC PCR Stool E coli O157 PCR Stl Enterotoxigenic E PCR Stool EPEC (PCR) Stool EAEC (PCR) Stl E. histolytica PCR Stool Giardia Lamblia PCR Stl P. shigelloides PCR Stool Salmonella PCR Stool Sapovirus (PCR) Stl Shigella/EIEC PCR St Y.enterocolitica PCR Stool Vibrio (PCR) Stl Vibrio cholerae PCR Stl Norovirus GI/GII PCR Influenza Type A (PCR) Influenza Type B (PCR) RSV RNA Qual (PCR) SARS-CoV-2 RNA (RT-PCR) 08/31/24 09/01/24 09/02/24 08:20 06:17 05:51 WBC 7.2 6.7 5.9 RBC 4.09 L 3.92 L 3.71 L Hgb 13.4 12.9 12.2 Hct 40.1 38.4 36.6 L MCV 98.0 98.0 98.7 H MCH 32.8 32.9 32.9 MCHC 33.4 33.6 33.3 RDW 16.6 H 16.8 H 16.7 H Plt Count 191 179 177 MPV 10.2 10.4 10.8 Immature Gran % (Auto) 0.4 0.3 0.3 Neut % (Auto) 58.9 56.7 52.9 Lymph % (Auto) 30.8 33.3 36.4 [place] % (Auto) 7.4 6.8 7.8 Eos % (Auto) 1.5 1.9 1.4 Baso % (Auto) 1.0 1.0 1.2 Lymph # (Auto) 2.2 2.2 2.2 [place] # (Auto) 0.5 0.5 0.5 Eos # (Auto) 0.1 0.1 0.1 Baso # (Auto) 0.1 0.1 0.1 Abs Immat Gran (auto) 0.03 0.02 0.02 Absolute Neuts (auto) 4.3 3.8 3.1 Absolute Nucleated RBC 0.000 0.000 0.000 Nucleated RBC % (auto) 0.0 0.0 0.0 Smear Tech's Comments Hold Purple Top PT INR Sodium 133 L 133 L 134 L Potassium 3.4 3.1 L 3.4 Chloride 105 105 105 Carbon Dioxide 19 L 19 L 20 L Anion Gap 12 12 12 BUN 20 H 18 H 19 H Creatinine 1.29 1.08 1.11 Estim Creat Clear Calc 32.6 38.9 37.9 Estimated GFR 40 49 47 Random Glucose 106 90 88 Lactic Acid Lactic Acid F/U @ 2Hr Lactic Acid F/U @ 4Hr Calcium 7.8 L 8.0 L 7.8 L Magnesium 1.6 Total Bilirubin 1.3 H 1.1 H 1.0 Direct Bilirubin 0.6 H 0.5 0.6 H AST 112 H 87 H 79 H ALT 85 H 77 H 70 H Alkaline Phosphatase 57 58 58 Troponin I High Sens B-Natriuretic Peptide 716 H Total Protein 5.3 L 5.2 L 5.0 L Albumin 3.3 L 3.2 L 3.2 L Lipase Hold Yellow Top Urine Color Urine Appearance Urine pH Ur Specific [place] Urine Protein Urine Glucose (UA) Urine Ketones Urine Blood Urine Nitrite Ur Leukocyte Esterase Urine RBC Urine WBC Ur Squamous Epith Cells Urine Bacteria Hyaline Casts Stool Occult Blood Stl C. cayetanensis PCR Stool Rotavirus A PCR Stl Adenov F 40/41 PCR Stool Astrovirus (PCR) Stool Campylobacter PCR Stool Cryptosporidium PCR Stl Sh Tox Pr E STEC PCR Stool E coli O157 PCR Stl Enterotoxigenic E PCR Stool EPEC (PCR) Stool EAEC (PCR) Stl E. histolytica PCR Stool Giardia Lamblia PCR Stl P. shigelloides PCR Stool Salmonella PCR Stool Sapovirus (PCR) Stl Shigella/EIEC PCR St Y.enterocolitica PCR Stool Vibrio (PCR) Stl Vibrio cholerae PCR Stl Norovirus GI/GII PCR Influenza Type A (PCR) Influenza Type B (PCR) RSV RNA Qual (PCR) SARS-CoV-2 RNA (RT-PCR) 09/02/24 09/03/24 09/04/24 08:53 06:37 06:29 WBC 5.5 5.2 RBC 3.78 L 3.27 L Hgb 12.5 11.2 L Hct 36.9 L 33.2 L MCV 97.6 101.5 H MCH 33.1 H 34.3 H MCHC 33.9 33.7 RDW 16.4 H 16.9 H Plt Count 143 L TNP MPV 10.6 TNP Immature Gran % (Auto) 0.4 0.4 Neut % (Auto) 52.8 55.0 Lymph % (Auto) 37.6 34.0 [place] % (Auto) 7.1 7.9 Eos % (Auto) 1.4 1.5 Baso % (Auto) 0.7 1.2 Lymph # (Auto) 2.1 1.8 [place] # (Auto) 0.4 0.4 Eos # (Auto) 0.1 0.1 Baso # (Auto) 0.0 0.1 Abs Immat Gran (auto) 0.02 0.02 Absolute Neuts (auto) 2.9 2.9 Absolute Nucleated RBC 0.000 0.000 Nucleated RBC % (auto) 0.0 0.0 Smear Tech's Comments VERIFIED Hold Purple Top PT INR Sodium 134 L 135 Potassium 3.4 3.5 Chloride 104 107 Carbon Dioxide 21 L 15 L Anion Gap 12 17 BUN 17 H 12 Creatinine 0.84 0.82 Estim Creat Clear Calc 50.1 51.3 Estimated GFR > 60 > 60 Random Glucose 96 91 Lactic Acid Lactic Acid F/U @ 2Hr Lactic Acid F/U @ 4Hr Calcium 8.2 L 8.2 L Magnesium 1.6 Total Bilirubin Direct Bilirubin AST ALT Alkaline Phosphatase Troponin I High Sens B-Natriuretic Peptide Total Protein Albumin Lipase Hold Yellow Top Urine Color Urine Appearance Urine pH Ur Specific [place] Urine Protein Urine Glucose (UA) Urine Ketones Urine Blood Urine Nitrite Ur Leukocyte Esterase Urine RBC Urine WBC Ur Squamous Epith Cells Urine Bacteria Hyaline Casts Stool Occult Blood Stl C. cayetanensis PCR Not Detected Stool Rotavirus A PCR Not Detected Stl Adenov F 40/41 PCR Not Detected Stool Astrovirus (PCR) Not Detected Stool Campylobacter PCR Not Detected Stool Cryptosporidium PCR Not Detected Stl Sh Tox Pr E STEC PCR Not Detected Stool E coli O157 PCR Not applicable Stl Enterotoxigenic E PCR Not Detected Stool EPEC (PCR) Not Detected Stool EAEC (PCR) Not Detected Stl E. histolytica PCR Not Detected Stool Giardia Lamblia PCR Not Detected Stl P. shigelloides PCR Not Detected Stool Salmonella PCR Not Detected Stool Sapovirus (PCR) Not Detected Stl Shigella/EIEC PCR Not Detected St Y.enterocolitica PCR Not Detected Stool Vibrio (PCR) Not Detected Stl Vibrio cholerae PCR Not Detected Stl Norovirus GI/GII PCR Not Detected Influenza Type A (PCR) Influenza Type B (PCR) RSV RNA Qual (PCR) SARS-CoV-2 RNA (RT-PCR) 09/04/24 09/05/24 09/05/24 06:29 02:04 06:02 WBC 5.2 RBC 3.80 L Hgb 12.5 Hct 37.0 MCV 97.4 MCH 32.9 MCHC 33.8 RDW 16.9 H Plt Count 139 L MPV 10.5 Immature Gran % (Auto) 0.2 Neut % (Auto) 51.3 Lymph % (Auto) 36.5 [place] % (Auto) 9.1 Eos % (Auto) 1.9 Baso % (Auto) 1.0 Lymph # (Auto) 1.9 [place] # (Auto) 0.5 Eos # (Auto) 0.1 Baso # (Auto) 0.1 Abs Immat Gran (auto) 0.01 Absolute Neuts (auto) 2.7 Absolute Nucleated RBC 0.000 Nucleated RBC % (auto) 0.0 Smear Tech's Comments Hold Purple Top PT INR Sodium 138 Potassium 2.9 L* Chloride 107 Carbon Dioxide 21 L Anion Gap 13 BUN 10 Creatinine 0.77 Estim Creat Clear Calc 54.7 Estimated GFR > 60 Random Glucose 97 Lactic Acid Lactic Acid F/U @ 2Hr Lactic Acid F/U @ 4Hr Calcium 8.0 L Magnesium Cancelled 1.3 L* Total Bilirubin Direct Bilirubin AST ALT Alkaline Phosphatase Troponin I High Sens 19.2 H B-Natriuretic Peptide Total Protein Albumin Lipase Hold Yellow Top Urine Color Urine Appearance Urine pH Ur Specific [place] Urine Protein Urine Glucose (UA) Urine Ketones Urine Blood Urine Nitrite Ur Leukocyte Esterase Urine RBC Urine WBC Ur Squamous Epith Cells Urine Bacteria Hyaline Casts Stool Occult Blood Stl C. cayetanensis PCR Stool Rotavirus A PCR Stl Adenov F 40/41 PCR Stool Astrovirus (PCR) Stool Campylobacter PCR Stool Cryptosporidium PCR Stl Sh Tox Pr E STEC PCR Stool E coli O157 PCR Stl Enterotoxigenic E PCR Stool EPEC (PCR) Stool EAEC (PCR) Stl E. histolytica PCR Stool Giardia Lamblia PCR Stl P. shigelloides PCR Stool Salmonella PCR Stool Sapovirus (PCR) Stl Shigella/EIEC PCR St Y.enterocolitica PCR Stool Vibrio (PCR) Stl Vibrio cholerae PCR Stl Norovirus GI/GII PCR Influenza Type A (PCR) Influenza Type B (PCR) RSV RNA Qual (PCR) SARS-CoV-2 RNA (RT-PCR) Airway Mallampati Class: II TM Dist: >3cm Neck ROM: Limited Loose/Missing/Broken Teeth: Yes, Upper and Lower Heart: irregularly irregular rhythm Lungs: CTA Assessment and Plan Assessment Anesthesia Assessment: Anesthesia Plan Discussed and Chart Reviewed Final Anesthetic Review History of Problems with Anesthesia: No NPO: Yes ASA Class: III Final Preanesthetic Review: Meds/Allgs Chart Reviewed, Consent Obtained/Reviewed and Anes Risks/Benef Reviewed Patient Risk: Intermediate Procedure Risk: Intermediate Anesthetic Plan Anesthetic Plan: MAC: Disposition: Standard PACU
[2024-09-05 16:46] LABS: Anion Gap 17 (12-20); Blood Urea Nitrogen 10 mg/dL (9-16); Calcium 8.3 mg/dL (8.4-10.2); Carbon Dioxide 16 mmol/L (22-29); Chloride 109 mmol/L (96-108); Creatinine Clr Calc Pharmacy 48.4; Estimated Glomerular Filt Rate > 60; Glucose Random 118 mg/dL (60-115); Magnesium 1.6 mg/dL (1.6-2.6); Potassium 4.7 mmol/L (3.3-5.1); Sodium 137 mmol/L (135-145)
--- NOTE | 2024-09-05 17:18 | MHC.SHP ---
Pre-Procedural Eval Section A - 24 Hr Update-Section A only Date of Service: 09/05/24 The patient is an INPATIENT: Yes The patient has been examined within 24 hours of the surgical procedure. The History & Physical has been completed within 30 days and I have reviewed it.: Yes Section B - Complete if H&P > 30 days Chief Complaint: N/V, rectal wall thickening Allergies: Allergies Allergy/AdvReac Type Severity Reaction Status Date / Time lactose AdvReac Gastrointestinal Verified 08/29/24 13:18 Upset Plan Diagnosis/Plan: Unchanged I have reviewed the history and physical and performed a pertinent physical examination on my patient. No changes have occurred unless specified. Time Spent With Patient Time: Total time managing care of this patient today ____ minutes.
--- NOTE | 2024-09-05 18:05 | P.OPN-COLO_ITS ---
Colonoscopy Operative Note Operative Note Date of Service: 09/05/24 Narrative: Procedure: Upper endoscopy and flexible sigmoidoscopy Indication: N,V, rectal wall thickening Endoscopist: Hyacinth sOpina MD Anesthesia Provider: Dr Ranjit Bustos Anesthesia type: MAC Instrument: [id number] EGD Procedure:?? The procedure, indications, preparation and potential complications were reviewed with the patient' HCP Kaylie Wiggins, who indicated understanding and gave written informed consent to proceed. The endoscope was introduced through the mouth, and advanced to the 2nd part of the duodenum. The mucosa was carefully examined on slow withdrawal of the endoscope. The patient tolerated the procedure well. There were no immediate complications.? EGD Findings:? * Esophagus:? Normal esophageal mucosa was noted. The Z-line was at 38 cm. * Stomach:? Lumpy bumpy appearance of the stomach body. [Erythema around the pylorus. Retroflexion was performed in the cardia. Random cold forceps biopsies were taken from antrum and body. * Duodenum:? Normal duodenal mucosa. Cold forceps biopsies were taken from the duodenal bulb and 2nd portion of the duodenum. Colonoscopy Procedure:? The patient was then turned for the sigmoidoscopy. A digital rectal exam was performed which was [abnormal for external hemorrhoids, meg-anal skin tags? The scope was then inserted through the anus and advanced through the colon and advanced to splenic flexure.?Mucosa was carefully examined under high definition white light as the instrument was slowly withdrawn in a retrograde panoramic fashion. Retroflexion was performed in rectum. The procedure was not difficult. The quality of the prep was BBPS: excellent Limitations: No limitations Findings: Mucosa: Normal colon mucosa including rectum Protruding lesions: * Large internal hemorrhoids without stigmata of recent bleeding. Excavated lesions: * Mild diverticulosis of left colon. Impression: 1. Normal esophagus 2. Gastropathy and gastritis (biopsy) 3. Normal duodenum (biopsy) 4. Normal colon mucosa 5. Internal and external hemorrhoids 6. Diverticulosis Recommendations:?? * No obvious cause for intolerance to PO on this exam * Consider ST eval * Rectal and colon mucosa normal * Follow path results
[2024-09-05] MEDS: Prazosin HCL 1 MG CAPSULE 2 MG PO (20:42)
[2024-09-05] MEDS: Sucralfate 1 GM TABLET PO (20:43)
[2024-09-05] MEDS: Melatonin 3 MG TABLET 6 MG PO (20:43)
[2024-09-05] MEDS: dilTIAZem HCL 30 MG TABLET PO (20:44)
[2024-09-05] MEDS: Fluticasone Propionate Nasal 16 GM SPRAY 1 SPRAY NOSTRIL-B (21:08)
[2024-09-06] MEDS: OLANZapine 10 MG VIAL 5 MG IM (04:03)
--- NOTE | 2024-09-06 06:17 | PC.NURSE ---
Cole medicated overnight around 4am with IM zyprexa with good effect due to agitation, increased anxiety and becoming combative staff hitting kicking and attempting to spit at staff along with verbal aggression. pt resting quietly 30 minutes after medication. at 0600 pt is refusing PO flagly, Levothyroxine and omeprazole provider made aware
[2024-09-06 06:18] LABS: MANUAL DIFF FLAG NO
[2024-09-06 06:27] LABS: Basophils Absolute Auto 0.1 X10*3/uL (0.0-0.2); Basophils Percent Auto 0.8 % (0-2); Eosinophils Percent Auto 0.4 % (0-4); Hematocrit 38.5 % (37.0-47.0); Imm Gran Abs Auto 0.04 X10*3/uL (0.00-0.03); Imm Gran Pct Auto 0.5 % (0.0-0.4); Lymphocytes Absolute Auto 1.1 X10*3/uL (1.2-4.9); Lymphocytes Percent Auto 15.2 % (20-40); Mean Corpuscular HGB Conc 33.8 g/dl (31.0-35.0); Mean Corpuscular Hemoglobin 33.3 pg (27.0-33.0); Mean Corpuscular Volume 98.7 fL (80.0-98.0); Mean Platelet Volume 10.3 fL (9.4-12.3); Monocytes Absolute Auto 0.7 X10*3/uL (0.1-1.2); Monocytes Percent Auto 9.4 % (2-11); Neutrophils Absolute Auto 5.5 x10*3/uL (2.0-8.3); Neutrophils Percent Auto 73.7 % (45-73); Platelet Count 134 X10*3/uL (160-400); White Blood Count 7.5 X10*3/uL (4.8-10.8)
[2024-09-06 06:38] LABS: Anion Gap 15 (12-20); Blood Urea Nitrogen 11 mg/dL (9-16); Calcium 8.2 mg/dL (8.4-10.2); Carbon Dioxide 19 mmol/L (22-29); Chloride 107 mmol/L (96-108); Creatinine Clr Calc Pharmacy 51.9; Estimated Glomerular Filt Rate > 60; Glucose Random 114 mg/dL (60-115); Magnesium 1.6 mg/dL (1.6-2.6); Potassium 3.6 mmol/L (3.3-5.1); Sodium 137 mmol/L (135-145)
[2024-09-06 07:58] VITALS: BP 114/60; PULSE 82; RESP 18; TEMP 36.9; O2SAT 92
--- NOTE | 2024-09-06 08:14 | HO.POSTANES ---
Post Anesthesia Evaluation Post Anesthesia Evaluation Date of Service: 09/06/24 Vital Signs: Vital Signs Temp Pulse Resp BP Pulse Ox O2 Del Method 09/06/24 07:58 98.5 F 82 18 114/60 92 Room Air 09/05/24 23:32 97.0 F 112 H 18 139/97 H 90 L Room Air 09/05/24 20:44 110 H 101/74 09/05/24 20:44 101/74 09/05/24 20:42 101/74 Anesthesia: Monitored Mental Status: Awake Pain Control: Satisfactory Nausea/Vomiting: None Hydration: Adequate Anesthesia-Related Issues: No Anes. Related Issues
[2024-09-06] MEDS: Furosemide 20 MG/2 ML VIAL IVPUSH (09:04)
[2024-09-06] MEDS: Digoxin 0.125 MG TABLET PO (09:04)
[2024-09-06] MEDS: Metoprolol Tartrate 12.5 MG HALFTAB PO ×2 (09:05→20:39)
[2024-09-06] MEDS: Midodrine HCl 10 MG TABLET PO ×3 (09:05→20:39)
[2024-09-06] MEDS: busPIRone HCl 10 MG TABLET PO ×2 (09:05→15:18)
[2024-09-06] MEDS: 0.9 % Sodium Chloride Flush 3 ML SYRINGE IVFLUSH ×3 (09:05→21:01)
[2024-09-06] MEDS: Sucralfate 1 GM TABLET PO ×3 (09:05→20:39)
--- NOTE | 2024-09-06 09:26 | P.PNCA_ITS ---
Subjective Subjective Date of Service: 09/06/24 Interval history: Patient denies any cardiac complaints at this time. Has been on Cardizem drip but now turned off. Review of Systems Review of Systems Yes all other systems are reviewed and are negative Constitutional: Reports as per HPI and Reports no additional constitutional complaints Eyes: Reports as per HPI and Denies no additional eye complaints Denies system reviewed and no additional complaints, except as documented and Reports as per HPI Cardiovascular: Reports as per HPI, Reports no additional cardiovascular complaints, Denies acrocyanosis, Denies cool extremities, Denies chest pain, Denies leg edema, Denies lightheadedness, Denies palpitations and Denies dyspnea Respiratory: Reports as per HPI, Denies no additional respiratory complaints and Denies dyspnea Gastrointestinal: Reports as per HPI and Denies no additional gastrointestinal complaints Genitourinary: Reports as per HPI Musculoskeletal: Reports no additional musculoskeletal complaints and Reports as per HPI Skin/Breast: Reports system reviewed and no additional complaints, except as docu Reports system reviewed and no additional complaints, except as documented and Reports as per HPI Psychiatric: Reports no additional psychiatric complaints and Reports as per HPI Endocrine: Reports no additional endocrine complaints, Reports as per HPI and Denies palpitations Hematologic/Lymphatic: Reports no additional hematologic/lymphatic complaints and Reports as per HPI Allergic/Immunologic: Reports no additional allergic/immunologic complaints and Reports as per HPI Physical Exam Vital Signs: Last Vital Signs Temp 98.5 F 09/06/24 07:58 Pulse 82 09/06/24 07:58 Resp 18 09/06/24 07:58 BP 114/60 09/06/24 07:58 Pulse Ox 92 09/06/24 07:58 O2 Del Method Room Air 09/06/24 07:58 O2 Flow Rate 95 08/29/24 14:08 BMI result Body Mass Index 35.7 Const General: comfortable and no acute distress Orientation/consciousness: patient oriented x3 HEENT Other: Unremarkable Head: Yes normal to inspection Neck Neck: Yes normal visual inspection Chest Chest palpation & inspection: normal inspection of the chest Resp Auscultation: clear to auscultation bilaterally Cardio Palpation: normal PMI Heart sounds: S1 normal heart sound present, S2 normal heart sound present, no gallops, no murmurs and no rubs GI Palpation (GI): Soft to palpation Back/Spine/Pelvis Other: unremarkable Skin General skin exam: no rashes or lesions noted Neuro General: patient oriented x3 Extrem General: Yes normal to inspection Psych Mental Status: mental status grossly normal Objective Labs and Meds 09/06/24 06:01 09/06/24 06:01 Lab results: Laboratory Results - last 24 hr 09/05/24 09/06/24 16:17 06:01 WBC 7.5 RBC 3.90 L Hgb 13.0 Hct 38.5 MCV 98.7 H MCH 33.3 H MCHC 33.8 RDW 17.0 H Plt Count 134 L MPV 10.3 Immature Gran % (Auto) 0.5 H Neut % (Auto) 73.7 H Lymph % (Auto) 15.2 L [place] % (Auto) 9.4 Eos % (Auto) 0.4 Baso % (Auto) 0.8 Lymph # (Auto) 1.1 L [place] # (Auto) 0.7 Eos # (Auto) 0.0 Baso # (Auto) 0.1 Abs Immat Gran (auto) 0.04 H Absolute Neuts (auto) 5.5 Absolute Nucleated RBC 0.000 Nucleated RBC % (auto) 0.0 Sodium 137 137 Potassium 4.7 D 3.6 D Chloride 109 H 107 Carbon Dioxide 16 L 19 L Anion Gap 17 15 BUN 10 11 Creatinine 0.87 0.81 Estim Creat Clear Calc 48.4 51.9 Estimated GFR > 60 > 60 Random Glucose 118 H 114 Calcium 8.3 L 8.2 L Magnesium 1.6 1.6 Progress Note: A&P Assessment and plan (1) Atrial fibrillation with RVR: Status: Acute Plan In the EKG from yesterday, atrial fibrillation with rapid response; T inversions in the anterior chest leads. In the EKG prior to that from 29 of August, atrial fibrillation at 126/min; T inversions laterally. In the echocardiogram, LVEF 45-50%. In the compliance monitor, atrial fibrillation rate is around 105/Min. For medications, keep on low-dose beta-blockers. May stop the Oral as well as IV Diltiazem as she is also on Midodrine and probable low blood pressure history. Anticoagulation when otherwise ready. Discussed with . Time Spent With Patient Time: Total time managing care of this patient today ____ minutes. Progress Note: Quality Stroke Does the patient have a stroke diagnosis?: No Procedures Date of Service Date of Service: 09/06/24
--- NOTE | 2024-09-06 11:29 | P.PNIM_ITS ---
Subjective Subjective Date of Service: 09/06/24 Interval History: Tolerating clear liquid diet, no further nausea, no vomiting, denies abdominal pain. Tele monitor showed AFib with RVR heart rate up to 120, patient asymptomatic no chest pain, no palpitation. No acute events overnight. Review of Systems All other system reviewed and are negative. Physical Exam 2 Vital Signs: Vital Signs: Last Vital Signs Temp 98.5 F 09/06/24 07:58 Pulse 82 09/06/24 07:58 Resp 18 09/06/24 07:58 BP 114/60 09/06/24 07:58 Pulse Ox 92 09/06/24 07:58 O2 Del Method Room Air 09/06/24 07:58 O2 Flow Rate 95 08/29/24 14:08 BMI result Body Mass Index 35.7 Const: Other: Constitutional : Awake, interactive, not in distress Neck : No JVD Cardiovascular : irregularly irregular Respiratory : Clear to auscultation,, no crackles, wheezes or rhonchi Gastrointestinal: soft, Normal bowel sounds, non tender Skin : Warm, Dry Neurological : Alert & oriented to self and place, No focal deficit Objective Data Active Medications Acetaminophen (Acetaminophen 325 Mg Tablet) 650 mg PO Q6H PRN PRN Reason: Pain, Mild 1-3,fever,headache Last Admin: 09/02/24 01:53 Dose: 650 mg Documented By: TIMOTHY Albuterol Sulfate (Albuterol Sulfate 90 Mcg 8 Gm Inhaler) 1 puff INHALE Q4H PRN PRN Reason: Shortness Of Breath Or Wheezing Belladonna Alkaloids/Phenobarbital (Phenobarb/Hyoscy/Atropine/Scop 10 Ml Elixir) 5 ml PO QID PRN PRN Reason: abdominal pain Last Admin: 09/03/24 10:52 Dose: 5 ml Documented By: WAYNE Benzocaine (Throat Lozenge, Medicated Lozenge) 1 lozenge MUCOUS MEM Q2H PRN PRN Reason: Sore Throat Last Admin: 09/01/24 12:18 Dose: 1 lozenge Documented By: FRANCISCO Buspirone HCl (Buspirone Hcl 10 Mg Tablet) 10 mg PO Q8H [facility] Last Admin: 09/06/24 09:05 Dose: 10 mg Documented By: WAYNE Calcium Carbonate (Calcium Carbonate 750 Mg Tab.Chew) 750 mg PO Q4H PRN PRN Reason: Heartburn Ceftriaxone Sodium (Ceftriaxone Sodium 2 Gm Vial) 2 gm IVPUSH Q24H [facility] Last Admin: 09/05/24 14:04 Dose: 2 gm Documented By: GAURANG Digoxin (Digoxin 0.125 Mg Tablet) 0.125 mg PO DAILY [facility]; Protocol Last Admin: 09/06/24 09:04 Dose: 0.125 mg Documented By: WAYNE Diltiazem HCl (Diltiazem Hcl 50 Mg/10 Ml Vial) 10 mg IVPUSH ONCE PRN PRN Reason: HEart rate >130 Fluticasone Propionate (Fluticasone Propionate Nasal 16 Gm [place]) 1 spray NOSTRIL-B BID [facility] Last Admin: 09/06/24 09:19 Dose: Not Given Documented By: WAYNE Non-Admin Reason: Med Not Available Furosemide (Furosemide 20 Mg/2 Ml Vial) 20 mg IVPUSH DAILY [facility]; Protocol Last Admin: 09/06/24 09:04 Dose: 20 mg Documented By: WAYNE Lactulose (Lactulose 20 Gm/30 Ml Solution) 30 gm PO DAILY PRN PRN Reason: Constipation Levothyroxine Sodium (Levothyroxine Sodium 75 Mcg Tablet) 75 mcg PO DAILY@0600 [facility] Last Admin: 09/06/24 06:09 Dose: Not Given Documented By: BECKY Non-Admin Reason: Patient Refused Magnesium Hydroxide (Milk Of Magnesia 30 Ml Oral.Susp) 30 ml PO DAILY PRN PRN Reason: Constipation Last Admin: 09/01/24 14:17 Dose: 30 ml Documented By: FRANCISCO Melatonin (Melatonin 3 Mg Tablet) 6 mg PO BEDTIME PRN PRN Reason: Insomnia Last Admin: 09/05/24 20:43 Dose: 6 mg Documented By: BECKY Metoprolol Tartrate (Metoprolol Tartrate 12.5 Mg Halftab) 12.5 mg PO BID [facility]; Protocol Last Admin: 09/06/24 09:05 Dose: 12.5 mg Documented By: WAYNE Metronidazole (Metronidazole 500 Mg Tablet) 500 mg PO Q8H [facility] Last Admin: 09/06/24 06:09 Dose: Not Given Documented By: BECKY Non-Admin Reason: Patient Refused Midodrine (Midodrine Hcl 10 Mg Tablet) 10 mg PO TID [facility] Last Admin: 09/06/24 09:05 Dose: 10 mg Documented By: WAYNE Naloxone HCl (Naloxone Hcl 0.4 Mg/Ml Vial) 0.04 mg IVPUSH Q5M PRN PRN Reason: Excessive sedation or RR < 8 Omeprazole (Omeprazole 20 Mg Capsule.) 20 mg PO BID@0630,1630 [facility] Last Admin: 09/06/24 06:09 Dose: Not Given Documented By: BECKY Non-Admin Reason: Patient Refused Ondansetron HCl (Ondansetron Hcl 4 Mg/2 Ml Vial) 4 mg IVPUSH Q8H PRN PRN Reason: Nausea and Vomiting Last Admin: 09/03/24 17:03 Dose: 4 mg Documented By: FLO Prazosin HCl (Prazosin Hcl 1 Mg Capsule) 2 mg PO BEDTIME [facility]; Protocol Last Admin: 09/05/24 20:42 Dose: 2 mg Documented By: BECKY Simethicone (Simethicone 80 Mg Tab.Chew) 80 mg PO QIDWMHS PRN PRN Reason: bloating\gas Last Admin: 09/02/24 19:38 Dose: 80 mg Documented By: FADUMO Sodium Biphosphate/Sodium Phosphate (Sodium Phosphate,[place]-Dibasic 133 Ml Enema) 133 ml ME ONCE PRN PRN Reason: Constipation Last Admin: 09/04/24 12:00 Dose: 133 ml Documented By: RAMILA Sodium Biphosphate/Sodium Phosphate (Sodium Phosphate,[place]-Dibasic 133 Ml Enema) 133 ml ME ONCE [facility] Sodium Chloride (0.9 % Sodium Chloride Flush 3 Ml Syringe) [facility] Last Admin: 09/06/24 09:05 Dose: 3 ml Documented By: WAYNE Sucralfate (Sucralfate 1 Gm Tablet) 1 gm PO QIDACHS [facility] Last Admin: 09/06/24 09:05 Dose: 1 gm Documented By: WAYNE Trazodone HCl (Trazodone Hcl 25 Mg Halftab) 25 mg PO TID PRN PRN Reason: Agitation Last Admin: 09/02/24 00:08 Dose: 25 mg Documented By: TIMOTHY Labs 09/06/24 06:01 03/13/25 06:01 Labs: Laboratory Results - last 24 hr 09/05/24 09/06/24 16:17 06:01 MCV 98.7 H MCH 33.3 H MCHC 33.8 RDW 17.0 H Plt Count 134 L MPV 10.3 Immature Gran % (Auto) 0.5 H Neut % (Auto) 73.7 H Lymph % (Auto) 15.2 L [place] % (Auto) 9.4 Eos % (Auto) 0.4 Baso % (Auto) 0.8 Lymph # (Auto) 1.1 L [place] # (Auto) 0.7 Eos # (Auto) 0.0 Baso # (Auto) 0.1 Abs Immat Gran (auto) 0.04 H Absolute Neuts (auto) 5.5 Absolute Nucleated RBC 0.000 Nucleated RBC % (auto) 0.0 Anion Gap 17 15 Estim Creat Clear Calc 48.4 51.9 Estimated GFR > 60 > 60 Random Glucose 118 H 114 Calcium 8.3 L 8.2 L Magnesium 1.6 1.6 Assessment and Plan (1) Hypomagnesemia: Status: Acute (2) Hypokalemia: Status: Acute (3) Nausea & vomiting: Status: Acute (4) Atrial fibrillation with RVR: Status: Acute Plan 79 years old lady with PMH of GERD, hypothyroidism, HLD among others who was sent to ED for evaluation of 2 weeks of nausea, vomiting and diarrhea. acute Gastroenteritis\colitis presented with Nausea, vomiting and bloody stool with ascites CT concerning for possible acalculas cholecystitis (ruled out), moderate ascites, Focal concentric wall thickening in the rectum. Intrinsic lesion cannot be excluded. IR reports she did not have enough ascites for Paracentesis surgery consult , HIDA scan negative, no acute surgical concern US Duplex negative for mesentric ischemia Treated with IV 2 gm Ceftriaxone and Flagyl Q8 with improvement in pain Underwent upper endoscopy and colonoscopy that showed 1. Normal esophagus 2. Gastropathy and gastritis (biopsy) 3. Normal duodenum (biopsy) 4. Normal colon mucosa 5. Internal and external hemorrhoids, large internal hemorrhoids without stigmata of recent bleeding 6. Diverticulosis Abdominal pain improved, will advance diet to regular, continue Prilosec /DC IV antibiotics. paroxysmal Atrial fibrillation w RvR Heart rate improved but noted to have recurrent episodes of tachycardia heart rate up to 120s, status post IV Cardizem drip Metoprolol home dose Cardiology input appreciated,status post digoxin load, continue by mouth digoxin. Resume Eliquis /Telemetry /check TSH Acute hypokalemia repleted repeat potassium 3.6 Acute hypomagnesemia repleted, follow labs Hypotension Continue Midodrine home dose 10 tid GERD, PPI Hx COPD, not in exacerbation, PRN nebs Hx TIA, ASA and Statin Depression, Sertraline HTN, Verapamil on hold DVT PPx SCDs Eliquis Will require continued inpatient hospital stay for treatment of abdominal symptoms, advance diet and continue telemetry for AFib RVR. Quality Stroke Does the patient have a stroke diagnosis?: No VTE Prior VTE?: No VTE Risk Level:: Medical - moderate - high VTE Device Contraindication: N/A - Device Ordered VTE Drug Contraindication: Treatment Not Indicated
[2024-09-06 11:48] VITALS: BP 125/73; PULSE 76; RESP 18; TEMP 36.5; O2SAT 94
[2024-09-06] MEDS: Amiodarone HCL 200 MG TABLET 400 MG PO ×2 (13:31→20:39)
[2024-09-06] MEDS: Omeprazole 20 MG CAPSULE.DR PO (15:18)
[2024-09-06 15:50] VITALS: BP 126/87; PULSE 95; RESP 18; TEMP 36.7; O2SAT 96
[2024-09-06 16:58] VITALS: PULSE 145
[2024-09-06] MEDS: dilTIAZem HCL 50 MG/10 ML VIAL 10 MG IVPUSH (16:58)
[2024-09-06 18:47] VITALS: BP 106/73; PULSE 71; RESP 23; TEMP 36.8; O2SAT 94
[2024-09-06] MEDS: Apixaban 2.5 MG TABLET PO (20:39)
[2024-09-06] MEDS: Prazosin HCL 1 MG CAPSULE 2 MG PO (20:39)
[2024-09-06 20:40] VITALS: BP 135/85; PULSE 113
[2024-09-06] MEDS: Melatonin 3 MG TABLET 6 MG PO (20:41)
[2024-09-06] MEDS: traZODone HCL 25 MG HALFTAB PO (20:41)
[2024-09-06] MEDS: Fluticasone Propionate Nasal 16 GM SPRAY 1 SPRAY NOSTRIL-B (20:43)
[2024-09-07] VITALS (7 sets, daily range): BP systolic 112–159; BP diastolic 56–81; PULSE 67–98; RESP 15–23; TEMP 36.3–37; O2SAT 93–96
[2024-09-07] MEDS: busPIRone HCl 10 MG TABLET PO ×3 (00:22→15:52)
[2024-09-07] MEDS: Omeprazole 20 MG CAPSULE.DR PO ×2 (06:10→15:51)
[2024-09-07] MEDS: Levothyroxine Sodium 75 MCG TABLET PO (06:10)
[2024-09-07 06:11] LABS: Anion Gap 12 (12-20); Blood Urea Nitrogen 10 mg/dL (9-16); Calcium 8.1 mg/dL (8.4-10.2); Carbon Dioxide 22 mmol/L (22-29); Chloride 106 mmol/L (96-108); Creatinine Clr Calc Pharmacy 61.9; Estimated Glomerular Filt Rate > 60; Glucose Random 92 mg/dL (60-115); Potassium 3.3 mmol/L (3.3-5.1); Sodium 137 mmol/L (135-145)
[2024-09-07 06:27] LABS: Thyroid Stimulating Hormone 7.11 uIU/mL (0.32-4.0)
--- NOTE | 2024-09-07 07:00 | CA_ITS ---
Transthoracic Echocardiogram Patient (Last, First, Middle): Tracy Hanna, Gender: Female Date of : 1945 Age: 79 Procedure Date: 09/07/2024 Procedure Type: Transthoracic Echocardiogram Location: [facility] [place] Height: 152.4 cm Weight: 82.56 kg BSA: 1.79 m2 Heart Rate: 115 bpm BP: 114 / 81 mmHg Background Check Coordinator: Referring MD: Alec English MD Symptoms: Pericardial effusion Study Quality: Fair ECG Rhythm: Atrial Fibrillation w RVR Conclusions: - The left ventricular systolic function is severely decreased. The visually estimated ejection fraction is between 25-30%. Findings Left Ventricle Normal left ventricular cavity size. The left ventricular systolic function is severely decreased. The visually estimated ejection fraction is between 25-30%. Regional wall motion abnormalities can not be excluded due to suboptimal endocardial definition. Diastolic function is indeterminate on the basis of available data. Venous The inferior vena cava is mildly dilated and collapses less than 50% with inspiration. Pericardium/Pleural No significant pericardial effusion. Prior Study Comparison Changes noted compared to prior study dated: 07/19/2024. LVEF lower than prior study. Measurements 2D Linear Measurements IVSd: 1.00 0.6-0.9/0.6-1.0 cm LVIDd: 4.28 3.9-5.3/4.2-5.9 cm LVIDd Index: 2.39 2.4-3.2/2.2-3.1 cm/m2 LVIDs: 3.32 2.0-3.6 cm LVPWd: 0.99 0.7-1.1 cm LV Mass: 174.20 67-162/88-224 g LV Mass Index: 97.32 43-95/49-115 g/m2 2D Systolic Function EF 4C: 29.80 >55% EF 2C: 23.30 >55% EF BiP: 26.80 >55% Tricuspid Valve RA Press: 8.00 Updated in Other Vendor System with Status of Final Alec English MD electronically signed on 09/07/2024 3:49:45 PM with status of Final
[2024-09-07] MEDS: Midodrine HCl 10 MG TABLET PO ×3 (08:32→19:59)
[2024-09-07] MEDS: Metoprolol Tartrate 12.5 MG HALFTAB PO ×2 (08:32→11:13)
[2024-09-07] MEDS: Digoxin 0.125 MG TABLET PO ×2 (08:32→11:13)
[2024-09-07] MEDS: Amiodarone HCL 200 MG TABLET 400 MG PO ×2 (08:33→20:00)
[2024-09-07] MEDS: Apixaban 2.5 MG TABLET PO ×2 (08:33→20:00)
[2024-09-07] MEDS: Sucralfate 1 GM TABLET PO ×4 (08:33→20:00)
[2024-09-07] MEDS: Magnesium Oxide 400 MG TABLET PO (08:40)
[2024-09-07] MEDS: Potassium Chloride Packet 20 MEQ PACKET PO (08:41)
[2024-09-07] MEDS: Fluticasone Propionate Nasal 16 GM SPRAY 1 SPRAY NOSTRIL-B ×2 (08:42→20:01)
[2024-09-07] MEDS: 0.9 % Sodium Chloride Flush 3 ML SYRINGE IVFLUSH ×2 (09:32→15:52)
--- NOTE | 2024-09-07 12:19 | P.PNIM_ITS ---
Subjective Subjective Date of Service: 09/08/24 Interval History: Offers no acute complaints, wishes to be discharged back to group home today, keep repeating she wish to , stating she is too old. Denies chest pain, no abdominal pain, no nausea, no vomiting, no palpitations, no acute events overnight Tele monitor showed atrial fibrillation with fluctuating heart rate 100-150 Review of Systems All other system reviewed and are negative Physical Exam 2 Vital Signs: Vital Signs: Last Vital Signs Temp 98.4 F 09/07/24 11:05 Pulse 98 09/07/24 11:05 Resp 17 09/07/24 11:05 BP 112/80 09/07/24 11:05 Pulse Ox 96 09/07/24 11:05 O2 Del Method Room Air 09/07/24 11:05 O2 Flow Rate 95 08/29/24 14:08 BMI result Body Mass Index 35.7 Const: Other: Constitutional : Awake, alert, not in distress Neck : No JVD Cardiovascular : irregularly irregular Respiratory : Clear to auscultation,, no crackles, wheezes or rhonchi Gastrointestinal: soft, Normal bowel sounds, non tender Skin : Warm, Dry Extremities no edema Neurological : Alert & oriented to self and place, No focal deficit Objective Data Active Medications Acetaminophen (Acetaminophen 325 Mg Tablet) 650 mg PO Q6H PRN PRN Reason: Pain, Mild 1-3,fever,headache Last Admin: 09/02/24 01:53 Dose: 650 mg Documented By: TIMOTHY Albuterol Sulfate (Albuterol Sulfate 90 Mcg 8 Gm Inhaler) 1 puff INHALE Q4H PRN PRN Reason: Shortness Of Breath Or Wheezing Amiodarone HCl (Amiodarone Hcl 200 Mg Tablet) 400 mg PO BID [facility] Last Admin: 09/07/24 08:33 Dose: 400 mg Documented By: KATHIE Apixaban (Apixaban 2.5 Mg Tablet) 2.5 mg PO BID [facility] Last Admin: 09/07/24 08:33 Dose: 2.5 mg Documented By: KATHIE Belladonna Alkaloids/Phenobarbital (Phenobarb/Hyoscy/Atropine/Scop 10 Ml Elixir) 5 ml PO QID PRN PRN Reason: abdominal pain Last Admin: 09/03/24 10:52 Dose: 5 ml Documented By: WAYNE Benzocaine (Throat Lozenge, Medicated Lozenge) 1 lozenge MUCOUS MEM Q2H PRN PRN Reason: Sore Throat Last Admin: 09/01/24 12:18 Dose: 1 lozenge Documented By: FRANCISCO Buspirone HCl (Buspirone Hcl 10 Mg Tablet) 10 mg PO Q8H [facility] Last Admin: 09/07/24 08:33 Dose: 10 mg Documented By: KATHIE Calcium Carbonate (Calcium Carbonate 750 Mg Tab.Chew) 750 mg PO Q4H PRN PRN Reason: Heartburn Digoxin (Digoxin 0.125 Mg Tablet) 0.25 mg PO DAILY [facility]; Protocol Diltiazem HCl (Diltiazem Hcl 50 Mg/10 Ml Vial) 10 mg IVPUSH ONCE PRN PRN Reason: HEart rate >130 Last Admin: 09/06/24 16:58 Dose: 10 mg Documented By: MAIDA Fluticasone Propionate (Fluticasone Propionate Nasal 16 Gm [place]) 1 spray NOSTRIL-B BID [facility] Last Admin: 09/07/24 08:42 Dose: 1 spray Documented By: KATHIE Lactulose (Lactulose 20 Gm/30 Ml Solution) 30 gm PO DAILY PRN PRN Reason: Constipation Levothyroxine Sodium (Levothyroxine Sodium 75 Mcg Tablet) 75 mcg PO DAILY@0600 [facility] Last Admin: 09/07/24 06:10 Dose: 75 mcg Documented By: ANAND Magnesium Hydroxide (Milk Of Magnesia 30 Ml Oral.Susp) 30 ml PO DAILY PRN PRN Reason: Constipation Last Admin: 09/01/24 14:17 Dose: 30 ml Documented By: RFANCISCO Magnesium Oxide (Magnesium Oxide 400 Mg Tablet) 400 mg PO DAILY [facility] Last Admin: 09/07/24 08:40 Dose: 400 mg Documented By: KATHIE Melatonin (Melatonin 3 Mg Tablet) 6 mg PO BEDTIME PRN PRN Reason: Insomnia Last Admin: 09/06/24 20:41 Dose: 6 mg Documented By: CELIO Metoprolol Tartrate (Metoprolol Tartrate 25 Mg Tablet) 25 mg PO BID [facility]; Protocol Midodrine (Midodrine Hcl 10 Mg Tablet) 10 mg PO TID [facility] Last Admin: 09/07/24 08:32 Dose: 10 mg Documented By: KATHIE Naloxone HCl (Naloxone Hcl 0.4 Mg/Ml Vial) 0.04 mg IVPUSH Q5M PRN PRN Reason: Excessive sedation or RR < 8 Omeprazole (Omeprazole 20 Mg Capsule.) 20 mg PO BID@0630,1630 [facility] Last Admin: 09/07/24 06:10 Dose: 20 mg Documented By: ANAND Ondansetron HCl (Ondansetron Hcl 4 Mg/2 Ml Vial) 4 mg IVPUSH Q8H PRN PRN Reason: Nausea and Vomiting Last Admin: 09/03/24 17:03 Dose: 4 mg Documented By: FLO Prazosin HCl (Prazosin Hcl 1 Mg Capsule) 2 mg PO BEDTIME [facility]; Protocol Last Admin: 09/06/24 20:39 Dose: 2 mg Documented By: CELIO Simethicone (Simethicone 80 Mg Tab.Chew) 80 mg PO QIDWMHS PRN PRN Reason: bloating\gas Last Admin: 09/02/24 19:38 Dose: 80 mg Documented By: FADUMO Sodium Biphosphate/Sodium Phosphate (Sodium Phosphate,Carbon-Dibasic 133 Ml Enema) 133 ml IN ONCE PRN PRN Reason: Constipation Last Admin: 09/04/24 12:00 Dose: 133 ml Documented By: RAMILA Sodium Biphosphate/Sodium Phosphate (Sodium Phosphate,Carbon-Dibasic 133 Ml Enema) 133 ml IN ONCE [facility] Sodium Chloride (0.9 % Sodium Chloride Flush 3 Ml Syringe) [facility] Last Admin: 09/07/24 09:32 Dose: 3 ml Documented By: KATHARINE Sucralfate (Sucralfate 1 Gm Tablet) 1 gm PO QIDACHS [facility] Last Admin: 09/07/24 11:13 Dose: 1 gm Documented By: KATHARINE Trazodone HCl (Trazodone Hcl 25 Mg Halftab) 25 mg PO TID PRN PRN Reason: Agitation Last Admin: 09/06/24 20:41 Dose: 25 mg Documented By: CELIO Labs 09/06/24 06:01 09/08/24 06:16 Labs: Laboratory Results - last 24 hr 09/07/24 05:25 Anion Gap 12 Estim Creat Clear Calc 61.9 Estimated GFR > 60 Random Glucose 92 Calcium 8.1 L TSH 7.11 H Assessment and Plan (1) Hypomagnesemia: Status: Acute (2) Hypokalemia: Status: Acute (3) Nausea & vomiting: Status: Acute Plan 79 years old lady with PMH of GERD, hypothyroidism, HLD among others who was sent to ED for evaluation of 2 weeks of nausea, vomiting and diarrhea. acute Gastroenteritis\colitis presented with Nausea, vomiting and bloody stool with ascites CT concerning for possible acalculas cholecystitis (ruled out), moderate ascites, Focal concentric wall thickening in the rectum. Intrinsic lesion cannot be excluded. IR reports she did not have enough ascites for Paracentesis surgery consult , HIDA scan negative, no acute surgical concern US Duplex negative for mesentric ischemia, small ascites. Finished course of IV antibiotics with 2 gm Ceftriaxone and Flagyl Q8 with improvement in pain Underwent upper endoscopy and colonoscopy that showed 1. Normal esophagus 2. Gastropathy and gastritis (biopsy) 3. Normal duodenum (biopsy) 4. Normal colon mucosa 5. Internal and external hemorrhoids, large internal hemorrhoids without stigmata of recent bleeding 6. Diverticulosis Abdominal pain improved, tolerating regular, continue Prilosec paroxysmal Atrial fibrillation w RvR Persistent tachycardia, TSH 7.11, magnesium 1.6, potassium 3.3 started on amiodarone 400 b.i.d. 09/06, replace electrolytes to keep magnesium around 2 and potassium around 4 Will increase dose of metoprolol to 25 t.i.d. status post digoxin load, continue by mouth digoxin, increase dose to 0.25 mg daily. Continue Eliquis /Telemetry Follow BMP and dig. level at a.m. Case discussed with Cardiology they agree with above treatment plan and will order echocardiogram for follow-up on pericardial effusion and to find out cause for persistent tachyarrhythmia Acute hypokalemia repleted Acute hypomagnesemia repleted, follow labs Hypotension, Continue Midodrine home dose 10mg tid, verapamil discontinued GERD, PPI Hx COPD, not in exacerbation, PRN nebs Hx TIA, ASA and Statin Depression, Sertraline DVT PPx SCDs Eliquis Code status changed to DNR DNI Spoke with patient's healthcare proxy Bee Wiggins patient's niece regarding code status as per niece patient is DNR DNI and has a [facility] form at [facility] That was obtained and code status changed to DNR DNI, in regard to expression of i want to ,will obtain psych eval for depression and capacity. Will require continued inpatient hospital stay for treatment of abdominal symptoms, advance diet and continue telemetry for AFib RVR. Quality Stroke Does the patient have a stroke diagnosis?: No VTE Prior VTE?: No VTE Risk Level:: Medical - moderate - high VTE Device Contraindication: N/A - Device Ordered VTE Drug Contraindication: Treatment Not Indicated
--- NOTE | 2024-09-07 12:19 | PM.PNCARD ---
Subjective Subjective Date of Service: 09/07/24 Interval history: Patient does not have any overt cardiac complaints but still in atrial fibrillation with rapid rates. Review of Systems Review of Systems Yes all other systems are reviewed and are negative Constitutional: Reports as per HPI and Reports no additional constitutional complaints Eyes: Reports as per HPI and Denies no additional eye complaints Denies system reviewed and no additional complaints, except as documented and Reports as per HPI Cardiovascular: Reports as per HPI, Reports no additional cardiovascular complaints, Denies acrocyanosis, Denies cool extremities, Denies chest pain, Denies leg edema, Denies lightheadedness, Denies palpitations and Denies dyspnea Respiratory: Reports as per HPI, Denies no additional respiratory complaints and Denies dyspnea Gastrointestinal: Reports as per HPI and Denies no additional gastrointestinal complaints Genitourinary: Reports as per HPI Musculoskeletal: Reports no additional musculoskeletal complaints and Reports as per HPI Skin/Breast: Reports system reviewed and no additional complaints, except as docu Reports system reviewed and no additional complaints, except as documented and Reports as per HPI Psychiatric: Reports no additional psychiatric complaints and Reports as per HPI Endocrine: Reports no additional endocrine complaints, Reports as per HPI and Denies palpitations Hematologic/Lymphatic: Reports no additional hematologic/lymphatic complaints and Reports as per HPI Allergic/Immunologic: Reports no additional allergic/immunologic complaints and Reports as per HPI Physical Exam Vital Signs: Last Vital Signs Temp 98.4 F 09/07/24 11:05 Pulse 98 09/07/24 11:05 Resp 17 09/07/24 11:05 BP 112/80 09/07/24 11:05 Pulse Ox 96 09/07/24 11:05 O2 Del Method Room Air 09/07/24 11:05 O2 Flow Rate 95 08/29/24 14:08 BMI result Body Mass Index 35.7 Const General: comfortable and no acute distress Orientation/consciousness: patient oriented x3 HEENT Other: Unremarkable Head: Yes normal to inspection Neck Neck: Yes normal visual inspection Chest Chest palpation & inspection: normal inspection of the chest Resp Auscultation: clear to auscultation bilaterally Cardio Palpation: normal PMI Heart sounds: S1 normal heart sound present, S2 normal heart sound present, no gallops, no murmurs and no rubs GI Palpation (GI): Soft to palpation Back/Spine/Pelvis Other: unremarkable Skin General skin exam: no rashes or lesions noted Neuro General: patient oriented x3 Extrem General: Yes normal to inspection Psych Mental Status: mental status grossly normal Objective Labs and Meds 09/06/24 06:01 09/07/24 05:25 Lab results: Laboratory Results - last 24 hr 09/07/24 05:25 Sodium 137 Potassium 3.3 Chloride 106 Carbon Dioxide 22 Anion Gap 12 BUN 10 Creatinine 0.68 Estim Creat Clear Calc 61.9 Estimated GFR > 60 Random Glucose 92 Calcium 8.1 L TSH 7.11 H Progress Note: A&P Assessment and plan (1) Atrial fibrillation with RVR: Status: Acute Plan In most recent EKG atrial fibrillation with rapid response; T inversions in the anterior chest leads. In the EKG prior to that from 29 of August, atrial fibrillation at 126/min; T inversions laterally. In the echocardiogram, LVEF 45-50%. In the ekg monitor tech, atrial fibrillation rate is around 110-120/Min. Sometimes higher. Difficulty in managing mainly because of low blood pressure and she is already on midodrine. We can go up on the beta-nevaeh dosing. Already on digoxin. She has also been started on amiodarone for rate control rather than rhythm control. Anticoagulation. Overall, due to competing issues of hypotension requiring midodrine as well as atrial fibrillation rapid rates, difficult situation. Hopefully, with the above regimen we can do a reasonable degree of rate control. Discussed with . Time Spent With Patient Time: Total time managing care of this patient today ____ minutes. Progress Note: Quality Stroke Does the patient have a stroke diagnosis?: No Procedures Date of Service Date of Service: 09/07/24
--- NOTE | 2024-09-07 12:48 | MHC.CM.PN ---
MOLST ON FILE IS NOT VALID. NO PHYSICIAN SIGNATURE. CM REACHED OUT TO [employer] TO INQUIRE IF VALID MOLST IS AVAILABLE. AWARE.
--- NOTE | 2024-09-07 14:09 | MHC.CM.PN ---
VALID MOLST RECEIVED AND UPLOADED INTO [employer], WELL PLACED IN CHART. COPY SENT TO MD [facility]IA [facility].
[2024-09-07 14:57] LABS: Appearance Urine Turbid; Color Urine Dark Yellow; Glucose Urine UA Negative (Negative); Leukocyte Esterase Urine Small (1+) (Negative); Nitrite Urine Negative (Negative); PH 6.5 (5.0-9.0); Specific Gravity - Urine 1.015 (1.005-1.025); UMIC TRIGGER UACC YES; Urine Blood Negative (Negative); Urine Ketones Negative (Negative); Urine Protein 100 (2+) mg/dL (Neg-Trace)
[2024-09-07 15:18] LABS: Bacteria Urine Trace (None Seen); Other Crystals Urine Present; RBC Urine 0-2 /HPF (0-2); UACC Culture Trigger YES; WBC Urine 0-5 /HPF (0-5)
[2024-09-07] MEDS: Metoprolol Tartrate 25 MG TABLET PO ×2 (15:51→19:58)
[2024-09-07] MEDS: Prazosin HCL 1 MG CAPSULE 2 MG PO (20:00)
[2024-09-07] MEDS: Melatonin 3 MG TABLET 6 MG PO (20:02)
[2024-09-07 21:04] LABS: Glucose, Whole Blood 120 mg/dL (60-115)
[2024-09-08] VITALS: BP 112/73; PULSE 66; RESP 18; TEMP 36.3; O2SAT 92
[2024-09-08] MEDS: busPIRone HCl 10 MG TABLET PO ×2 (01:57→08:05)
[2024-09-08 04:00] VITALS: BP 109/62; PULSE 63; RESP 18; TEMP 36.3; O2SAT 92
[2024-09-08] MEDS: Levothyroxine Sodium 75 MCG TABLET PO (04:28)
[2024-09-08] MEDS: Acetaminophen 325 MG TABLET 650 MG PO (04:28)
[2024-09-08] MEDS: Omeprazole 20 MG CAPSULE.DR PO (04:39)
[2024-09-08 07:05] LABS: Anion Gap 12 (12-20); Blood Urea Nitrogen 10 mg/dL (9-16); Calcium 8.1 mg/dL (8.4-10.2); Carbon Dioxide 22 mmol/L (22-29); Chloride 105 mmol/L (96-108); Creatinine Clr Calc Pharmacy 64.8; Estimated Glomerular Filt Rate > 60; Glucose Random 92 mg/dL (60-115); Potassium 3.7 mmol/L (3.3-5.1); Sodium 135 mmol/L (135-145)
[2024-09-08 07:08] LABS: Digoxin 0.8 ng/mL (0.8-2.0)
[2024-09-08 07:11] VITALS: BP 98/58; PULSE 105; RESP 20; TEMP 36.7; O2SAT 95
[2024-09-08] MEDS: Digoxin 0.125 MG TABLET 0.25 MG PO (08:04)
[2024-09-08] MEDS: Midodrine HCl 10 MG TABLET PO (08:05)
[2024-09-08] MEDS: Sucralfate 1 GM TABLET PO ×2 (08:05→12:43)
[2024-09-08] MEDS: Amiodarone HCL 200 MG TABLET 400 MG PO (08:05)
[2024-09-08] MEDS: Magnesium Oxide 400 MG TABLET PO (08:05)
[2024-09-08] MEDS: 0.9 % Sodium Chloride Flush 3 ML SYRINGE IVFLUSH (08:05)
[2024-09-08] MEDS: Apixaban 2.5 MG TABLET PO (08:05)
[2024-09-08] MEDS: Fluticasone Propionate Nasal 16 GM SPRAY 1 SPRAY NOSTRIL-B (08:06)
--- NOTE | 2024-09-08 09:35 | P.PNCA_ITS ---
Subjective Subjective Date of Service: 09/08/24 Interval history: She has no cardiac symptoms but insisting that she wants to go back to the senior living. Review of Systems Review of Systems Yes all other systems are reviewed and are negative Constitutional: Reports as per HPI and Reports no additional constitutional complaints Eyes: Reports as per HPI and Denies no additional eye complaints Denies system reviewed and no additional complaints, except as documented and Reports as per HPI Cardiovascular: Reports as per HPI, Reports no additional cardiovascular complaints, Denies acrocyanosis, Denies cool extremities, Denies chest pain, Denies leg edema, Denies lightheadedness, Denies palpitations and Denies dyspnea Respiratory: Reports as per HPI, Denies no additional respiratory complaints and Denies dyspnea Gastrointestinal: Reports as per HPI and Denies no additional gastrointestinal complaints Musculoskeletal: Reports no additional musculoskeletal complaints and Reports as per HPI Skin/Breast: Reports system reviewed and no additional complaints, except as docu Reports system reviewed and no additional complaints, except as documented and Reports as per HPI Psychiatric: Reports no additional psychiatric complaints and Reports as per HPI Endocrine: Reports no additional endocrine complaints, Reports as per HPI and Denies palpitations Hematologic/Lymphatic: Reports no additional hematologic/lymphatic complaints and Reports as per HPI Allergic/Immunologic: Reports no additional allergic/immunologic complaints and Reports as per HPI Physical Exam Vital Signs: Last Vital Signs Temp 98.0 F 09/08/24 07:11 Pulse 105 H 09/08/24 07:11 Resp 20 09/08/24 07:11 BP 98/58 L 09/08/24 07:11 Pulse Ox 95 09/08/24 07:11 O2 Del Method Room Air 09/08/24 07:11 O2 Flow Rate 95 08/29/24 14:08 BMI result Body Mass Index 35.7 Const General: comfortable and no acute distress Orientation/consciousness: patient oriented x3 HEENT Other: Unremarkable Head: Yes normal to inspection Neck Neck: Yes normal visual inspection Chest Chest palpation & inspection: normal inspection of the chest Resp Auscultation: clear to auscultation bilaterally Cardio Palpation: normal PMI Heart sounds: S1 normal heart sound present, S2 normal heart sound present, no gallops, no murmurs and no rubs GI Palpation (GI): Soft to palpation Back/Spine/Pelvis Other: unremarkable Skin General skin exam: no rashes or lesions noted Neuro General: patient oriented x3 Extrem General: Yes normal to inspection Psych Mental Status: mental status grossly normal Objective Labs and Meds 09/06/24 06:01 09/08/24 06:16 Lab results: Laboratory Results - last 24 hr 09/07/24 09/07/24 09/08/24 14:43 21:00 06:16 Sodium 135 Potassium 3.7 Chloride 105 Carbon Dioxide 22 Anion Gap 12 BUN 10 Creatinine 0.65 Estim Creat Clear Calc 64.8 Estimated GFR > 60 POC Glucose 120 H Random Glucose 92 Calcium 8.1 L Urine Color Dark Yellow Urine Appearance Turbid Urine pH 6.5 Ur Specific [place] 1.015 Urine Protein 100 (2+) H Urine Glucose (UA) Negative Urine Ketones Negative Urine Blood Negative Urine Nitrite Negative Ur Leukocyte Esterase Small (1+) H Urine RBC 0-2 Urine WBC 0-5 Ur Squamous Epith Cells 3-5 Other Crystals Present Urine Bacteria Trace Hyaline Casts 3-5 Digoxin 0.8 Progress Note: A&P Assessment and plan (1) Atrial fibrillation with RVR: Status: Acute (2) Cardiomyopathy: Status: Acute Plan In the repeat echocardiogram from yesterday, LVEF is 25-30%. Prior to that, 45- 50%. In the telemetry, atrial fibrillation rate is around 90-100/Min. Prior to that, much higher. 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 Clinically, she has got no overt symptoms and has been insisting that she wants to go back to the senior living. She refuses to stay here anymore. She also has hypotension and hence on midodrine long-term. Hence overall, difficult situation. Keep on amiodarone for loading dose of 2 weeks and then 200 mg once a day. May keep on digoxin for the at least for the time being till the amiodarone is loaded. Follow up on levels. If rate can be controlled only on amiodarone, that may be acceptable because of hypotension issues. Continue beta-blockers for the foreseeable future. Anticoagulation. Discharge planning. Time Spent With Patient Time: Total time managing care of this patient today ____ minutes. Progress Note: Quality Stroke Does the patient have a stroke diagnosis?: No Procedures Date of Service Date of Service: 09/08/24
[2024-09-08 10:00] VITALS: BP 162/77; PULSE 90
[2024-09-08] MEDS: Metoprolol Tartrate 25 MG TABLET PO (10:00)
--- NOTE | 2024-09-08 10:57 | MHC.CM.PN ---
PT CLEARED TO RETURN TO LTC AT [facility] PRIMARY CONTACT, GABRIELLA [phone], NOTIFIED VIA T/C TRANSPORT BOOKED FOR 1400 VIA YUDITH ZARAGOZA
[2024-09-08 12:00] VITALS: BP 171/86; PULSE 75; RESP 18; TEMP 36.7; O2SAT 97
--- NOTE | 2024-09-08 12:03 | PM.DS ---
DS: Providers Provider Date of Service: 09/08/24 Date of admission: 08/29/24 15:21 Date of discharge: 09/08/24 Primary care physician: Joshua White MD Consults: 08/30/24 07:51 Consult to General Surgery [place]ine [place]ing [place] [facility] [place] [facility] Reason for consultation: Abdominal pain, cholecystitis ? 08/31/24 09:34 Consult to Cardiology Routine Consulting Provider[place] [facility] [place] [facility] Reason for consultation: Afib w RvR 08/31/24 14:24 Consult to Gastroenterology Routine Consulting Provider: Hyacinth Ospina Reason for consultation: abdominal pain, abnormal CT findings DS: Diagnosis Discharge Diagnosis (1) Hypomagnesemia: Status: Acute (2) Hypokalemia: Status: Acute (3) Nausea & vomiting: Status: Acute DS: Summary Hospital Course Hospital Course: History of presenting illness: Date of Service: 08/29/24 Chief Complaint: nausea and vomiting An 79 years old lady with PMH of GERD, hypothyroidism, HLD among others who was sent to ED for evaluation of 2 weeks of nausea, vomiting and diarrhea. The patient is a poor historian who was brought by EMS reporting 2 weeks of nausea, vomiting, diarrhea . reports that stool is black diarrhea. Patient is bed bound and transfer herself from bed to the wheelchair and needs assistance in most of her daily activity. She was in Afib with RvR on presentaiton. improved after IVfluids. she is on Eliquis 2.5 mg bid. negative occult stool in ED. CT scan of abdomen is negative for any acute findings in ED. Hemoglobin level stable. Admitted for further evaluation and management. Hospital course: 79 years old lady with PMH of GERD, hypothyroidism, HLD among others who was sent to ED for evaluation of 2 weeks of nausea, vomiting and diarrhea. acute Gastroenteritis\colitis ,presented with Nausea, vomiting and bloody stool , on admission CT abdomen was concerning for possible acalculas cholecystitis , moderate ascites, Focal concentric wall thickening in the rectum. Intrinsic lesion cannot be excluded, further workup including HIDA scan was negative seen by surgery , no acute surgical intervention required, ultrasound duplex was negative for mesenteric ischemia, patient evaluated by IR for ascites however noted to have small ascites not enough for paracentesis, patient finished course of IV antibiotics for colitis, subsequently she underwent upper endoscopy and colonoscopy that showed 1. Normal esophagus 2. Gastropathy and gastritis (biopsy) 3. Normal duodenum (biopsy) 4. Normal colon mucosa 5. Internal and external hemorrhoids, large internal hemorrhoids without stigmata of recent bleeding 6. Diverticulosis At present abdominal pain improved, tolerating regular, continue ppi twice daily for 1 month followed by 1 tablet daily. Paroxysmal Atrial fibrillation w RvR noted to have tachycardia with heart rates up to 150s,seen by Cardiology initially given digoxin loading dose and Cardizem, however since tachycardia persisted,she was started on amiodarone loading dose 400 mg b.i.d., magnesium and potassium were repleted, subsequently dose of metoprolol increased to 25 mg b.i.d. 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 Acute hypokalemia / Acute hypomagnesemia repleted Hypotension, Continue Midodrine home dose 10mg tid History of TIA ache recommend to continue aspirin and statin, and resume all home medications including Zoloft Time Attestation Discharge Coordination Time (in mins): 40 Quality: Safe Use of Opioids Does Pt have an Active Cancer Diagnosis on the Problem List?: No Quality: Stroke Does the patient have a stroke diagnosis?: No Physical Exam Vital Signs: Vital Signs: Last Vital Signs Temp 98.0 F 09/08/24 07:11 Pulse 90 09/08/24 10:00 Resp 20 09/08/24 07:11 BP 162/77 H 09/08/24 10:00 Pulse Ox 95 09/08/24 07:11 O2 Del Method Room Air 09/08/24 07:11 O2 Flow Rate 95 08/29/24 14:08 BMI result Body Mass Index 35.7 Const: Other: Constitutional : Awake, alert, not in distress Neck : No JVD Cardiovascular : irregularly irregular Respiratory : Clear to auscultation,, no crackles, wheezes or rhonchi Gastrointestinal: soft, Normal bowel sounds, non tender Skin : Warm, Dry Extremities no edema Neurological : Alert & oriented to self and place, No focal deficit DS: Data Data Completed and Pending Pending studies at discharge: Pending at discharge 09/05/24 17:51 Surgical [PTH] Routine Labs on day of discharge: Laboratory Results - last 24 hr 09/07/24 09/07/24 09/08/24 14:43 21:00 06:16 Sodium 135 Potassium 3.7 Chloride 105 Carbon Dioxide 22 Anion Gap 12 BUN 10 Creatinine 0.65 Estim Creat Clear Calc 64.8 Estimated GFR > 60 POC Glucose 120 H Random Glucose 92 Calcium 8.1 L Urine Color Dark Yellow Urine Appearance Turbid Urine pH 6.5 Ur Specific [place] 1.015 Urine Protein 100 (2+) H Urine Glucose (UA) Negative Urine Ketones Negative Urine Blood Negative Urine Nitrite Negative Ur Leukocyte Esterase Small (1+) H Urine RBC 0-2 Urine WBC 0-5 Ur Squamous Epith Cells 3-5 Other Crystals Present Urine Bacteria Trace Hyaline Casts 3-5 Digoxin 0.8 Preliminary micro results at discharge 09/07/24 Unknown Urine Culture - Preliminary Urine clean catch - Clean Catch Midstream Enterococcus/Streptococcus sp Discharge Plan Discharge Anticipated Discharge Date/Time: 09/08/24 10:26 Patient Disposition: Xfer [facility] Discharge Diagnosis: Acute gastroenteritis/colitis resolved Atrial fibrillation with rapid ventricular rate 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 digoxin 125 mcg (0.125 mg) Tablet 0.25 mg PO DAILY Qty: 30 0RF Protocol: Hold for HR <: HOLD for HR < : 60 Continued atorvastatin 20 mg tablet 20 mg PO DAILY trazodone 50 mg tablet 25 mg PO TID PRN (Reason: Agitation) ondansetron HCl 8 mg tablet 8 mg PO Q8H PRN (Reason: Nausea And Vomiting) polyvinyl alcohol [Artificial Tears (polyvin alc)] 1.4 % Drops 1 drp OPHTHALMIC (EYE) TID PRN (Reason: Dry Eyes) meclizine 12.5 mg tablet 12.5 mg PO Q8H PRN (Reason: Dizziness) tramadol 50 mg tablet 50 mg PO BID levothyroxine 75 mcg tablet 75 mcg PO DAILY@0600 hydrocortisone 1 % cream 1 appl topical Q8H PRN (Reason: Rash) Rx Instructions: LEFT UPPER ARM buspirone 10 mg tablet 10 mg PO Q8H sertraline 25 mg tablet 50 mg PO DAILY fluticasone propionate 50 mcg/actuation spray,suspension 1 spray INTRANASAL BID prazosin 2 mg capsule 2 mg PO BEDTIME diclofenac sodium 1 % gel 4 g topical BID Rx Instructions: APPLY TO LEFT WRIST, KNEES AND NECK loteprednol etabonate 0.5 % drops,gel 1 drp ophthalmic (eye) BID PRN (Reason: Dry Eyes) Combivent Respimat 20-100 mcg/actuation mist 2 puff INHALATION Q4H PRN (Reason: Shortness Of Breath Or Wheezing) cetirizine 10 mg Tablet 10 mg PO DAILY guaifenesin 100 mg/5 mL Liquid 200 mg PO Q4H PRN (Reason: Cough) magnesium hydroxide [Milk of Magnesia] 400 mg/5 mL Suspension 30 ml PO DAILY PRN (Reason: Constipation) bisacodyl 10 mg Suppository 10 mg [place] DAILY PRN (Reason: Constipation) Rx Instructions: USE IF MILK OF MAGNESIA IS INEFFECTIVE Fleet Enema 19-7 gram/118 mL Enema 118 ml [place] DAILY PRN (Reason: Constipation) Rx Instructions: USE IF BISACODYL SUPP IS INEFFECTIVE melatonin 5 mg Tablet 10 mg PO BEDTIME cyanocobalamin (vitamin B-12) [Vitamin B-12] 1,000 mcg Tablet Extended Release 1,000 mcg PO DAILY acetaminophen 500 mg Tablet 1,000 mg PO TID albuterol sulfate [Ventolin HFA] 90 mcg/actuation Hfa Aerosol Inhaler 1 inh INHALATION Q4H PRN (Reason: Shortness Of Breath Or Wheezing) Eliquis 2.5 mg tablet 2.5 mg PO BID Qty: 180 0RF lactulose [Constulose] 10 gram/15 mL solution 30 ml PO DAILY PRN (Reason: hyperammonemia) acetaminophen 650 mg Suppository 650 mg [place] Q4H PRN (Reason: Pain or Fever) midodrine 5 mg tablet 10 mg PO TID metoprolol tartrate 25 mg tablet 25 mg PO BID Qty: 30 0RF Protocol: Hold for SBP/HR < HOLD for SBP < : 90 HOLD for HR < : 60 Changed esomeprazole magnesium [address] for susp in packet 20 mg PO BID Qty: 60 0RF Discontinued amoxicillin-pot clavulanate 875-125 mg tablet 1 tab PO BID Discharge Orders: Discharge Order (Routine); Ordered 09/08/24 Ordered By: Tucker Knight Diet: Advance to usual diet Activity on Discharge: As tolerated Stand Alone Forms: Patient Portal Discharge page Print Language: Green[place]ic Care Plan Goals: Acute gastroenteritis/colitis resolved finished course of antibiotic Upper endoscopy showed gastritis take PPI twice daily for 1 month and then 1 tablet daily Paroxysmal atrial fibrillation with RVR started on amiodarone loading dose 400 mg b.i.d. take for 12 days end date 09/19, than take 200 mg 1 tablet daily Take digoxin 0.25 mg 1 tablet daily Take metoprolol 25 mg 1 tablet twice daily Monitor digoxin level in 1 week and then periodically Health Concerns: Hypotension on midodrine Mood disorder continue home medication Plan of Treatment: Follow-up with cardiology in 4-6 weeks Outpatient follow-up with primary care physician. Assessment: As above
--- NOTE | 2024-09-13 15:29 | P.CDIM_ITS ---
PROVIDER RESPONSE TEXT: To clarify, the appropriate diagnosis supported by the clinical indicators: Obesity Due to excess calories QUERY TEXT: PHYSICIAN'S DOCUMENTATION REQUEST Date of Query: 09/05/2024 07:41 AM EDT Patient Name: Tracy Hanna Admit Date: 08/29/2024 Dear Sander Villalta MD, A review of the medical record indicates additional documentation may be needed. Please review below and update the documentation accordingly. Clinical Indicators: Height: 5 ft Weight: 82.9kg BMI: 35.7 If possible, please provide an associated diagnosis related to the abnormal BMI, such as: Overweight Obesity Due to excess calories Obesity Drug induced Obesity Due to other cause Specify the other cause Other (explain) Clinically unable to determine (explain) Thank you, Heather Atwood, CCS, CDIS Use of terms such as suspected, likely, concern for, or probable (associated with a specific diagnosi s that is being evaluated, monitored, or treated as if it exists) are acceptable and can be coded in the inpatient se tting, when documented at the time of discharge. Please use your independent medical judgment in providing your response. THIS QUERY IS PART OF THE PERMANENT MEDICAL RECORD
== END 2024-09-08 14:19 | disposition skilled nursing facility (03) | DRG 392 ==
LOC: HO.ED 14:50 → HO.EDOVER 15:39 → HO.IMC 19:13
PROVIDERS: Hospitalist; Internal Medicine; Physician Assistant; Admitting Provider Student in an Organized Health Care Education/Training Program; Emergency Provider Emergency Medicine; PCP Family Medicine; Visit Provider Hospitalist
PROC: 0DJD8ZZ Inspection of Lower Intestinal Tract, Via Natural or Artificial Opening Endoscopic (ICD-10-PCS; CPT 45330; principal; 2024-09-05 16:00)
PROC: 0DJ08ZZ Inspection of Upper Intestinal Tract, Via Natural or Artificial Opening Endoscopic (ICD-10-PCS; CPT 43235; 2024-09-05 16:00)
DX: K52.9 Noninfective gastroenteritis and colitis, unspecified (principal); I42.8 Other cardiomyopathies; I50.22 Chronic systolic (congestive) heart failure; R18.8 Other ascites; E03.9 Hypothyroidism, unspecified; K21.9 Gastro-esophageal reflux disease without esophagitis; E87.6 Hypokalemia; E83.42 Hypomagnesemia; I48.0 Paroxysmal atrial fibrillation; I95.9 Hypotension, unspecified; E86.0 Dehydration; K64.8 Other hemorrhoids; K57.30 Diverticulosis of large intestine without perforation or abscess without bleeding; K64.4 Residual hemorrhoidal skin tags; K31.9 Disease of stomach and duodenum, unspecified; R00.0 Tachycardia, unspecified; E66.09 Other obesity due to excess calories; Z68.35 Body mass index [BMI] 35.0-35.9, adult; E86.1 Hypovolemia; Z71.3 Dietary counseling and surveillance; J44.9 Chronic obstructive pulmonary disease, unspecified; Z20.822 Contact with and (suspected) exposure to COVID-19; Z79.01 Long term (current) use of anticoagulants; Z79.51 Long term (current) use of inhaled steroids; Z79.890 Hormone replacement therapy; Z79.899 Other long term (current) drug therapy
CPT/HCPCS: 0241U; 36415; 71045; 71046; 74176; 76705; 78227; 80048; 80053; 80076; 80162; 81001; 82272; 82947; 83605; 83690; 83735; 83880; 84443; 84484; 85025; 85610; 87040; 87086; 87088; 87186; 87507; 88305; 88313; 88342; 93005; 93308; 93975; 94640; 99285; A9537; J0131; J0696; J1160; J1836; J1885; J1940; J2003; J2270; J2359; J2405; J2470; J2704; J2805; J3010; J3410; J3475; J3480

== ENCOUNTER → 2024-08-29 12:59 | Outpatient (BNV) | payer OTHER, SELFPAY | PROVIDERS: Emergency Provider Emergency Medicine; PCP Family Medicine; Visit Provider Internal Medicine Cardiovascular Disease | DX: I48.91 Unspecified atrial fibrillation (principal); I45.10 Unspecified right bundle-branch block | CPT/HCPCS: 93010 ==

== ENCOUNTER → 2024-08-29 13:00 | Outpatient (BNV) | payer OTHER, SELFPAY | PROVIDERS: Emergency Provider Emergency Medicine; Visit Provider Radiology Diagnostic Radiology | DX: I51.7 Cardiomegaly (principal); R18.8 Other ascites; J90 Pleural effusion, not elsewhere classified; I31.39 Other pericardial effusion (noninflammatory); I25.10 Atherosclerotic heart disease of native coronary artery without angina pectoris | CPT/HCPCS: 71045; 74176; 76705 ==

== ENCOUNTER 2024-08-29 15:21 | Outpatient (BNV) | payer MEDICARE, MEDICAID, SELFPAY | END 2024-09-05 01:51 | PROVIDERS: Admitting Provider Student in an Organized Health Care Education/Training Program; Emergency Provider Emergency Medicine; PCP Family Medicine; Visit Provider Internal Medicine | DX: I48.91 Unspecified atrial fibrillation (principal); I25.2 Old myocardial infarction | CPT/HCPCS: 93010 ==

== ENCOUNTER 2024-08-29 15:21 | Outpatient (BNV) | payer MEDICARE, MEDICAID, SELFPAY | END 2024-09-07 07:00 | PROVIDERS: Admitting Provider Student in an Organized Health Care Education/Training Program; Emergency Provider Emergency Medicine; PCP Family Medicine; Visit Provider Internal Medicine | DX: I31.39 Other pericardial effusion (noninflammatory) (principal) | CPT/HCPCS: 93308 ==

== ENCOUNTER → 2024-08-29 15:21 | Outpatient (BNV) | payer MEDICARE, MEDICAID, SELFPAY | PROVIDERS: Admitting Provider Student in an Organized Health Care Education/Training Program; Emergency Provider Emergency Medicine; PCP Family Medicine; Visit Provider Surgery | DX: R10.811 Right upper quadrant abdominal tenderness (principal) | CPT/HCPCS: 99222 ==

== ENCOUNTER → 2024-08-29 15:21 | Outpatient (BNV) | payer MEDICARE, MEDICAID, SELFPAY | PROVIDERS: Admitting Provider Student in an Organized Health Care Education/Training Program; Emergency Provider Emergency Medicine; PCP Family Medicine; Visit Provider Internal Medicine Cardiovascular Disease | DX: I48.91 Unspecified atrial fibrillation (principal) | CPT/HCPCS: 99222 ==

== ENCOUNTER → 2024-08-29 15:21 | Outpatient (BNV) | payer MEDICARE, MEDICAID, SELFPAY | PROVIDERS: Admitting Provider Student in an Organized Health Care Education/Training Program; Emergency Provider Emergency Medicine; PCP Family Medicine; Visit Provider Student in an Organized Health Care Education/Training Program | DX: E83.42 Hypomagnesemia (principal); E87.6 Hypokalemia; R11.2 Nausea with vomiting, unspecified | CPT/HCPCS: 99232; 99233; 99239 ==

== ENCOUNTER → 2024-08-29 15:21 | Outpatient (BNV) | payer MEDICARE, MEDICAID, SELFPAY | PROVIDERS: Admitting Provider Student in an Organized Health Care Education/Training Program; Emergency Provider Emergency Medicine; PCP Family Medicine; Visit Provider Internal Medicine | DX: R10.9 Unspecified abdominal pain (principal); R11.2 Nausea with vomiting, unspecified; K62.9 Disease of anus and rectum, unspecified; J90 Pleural effusion, not elsewhere classified | CPT/HCPCS: 99223; 99232 ==